=== PATIENT | female | born 1970 | race Caucasian/White ===

== ENCOUNTER 2023-10-06 11:14 | Outpatient (CLI) | payer OTHER, MEDICAID, SELFPAY ==
--- NOTE | 2023-10-06 11:20 | RAD_ITS ---
STUDY: X-RAY - RIGHT HAND REASON FOR EXAM: Female, 53 years old. Right hand nodule. TECHNIQUE: 3 views of the right hand. COMPARISON: None. FINDINGS: Normal radiocarpal articulation. Normal distal radioulnar joint. Normal visualized carpal bones. Normal carpal articulations Normal carpometacarpal articulation of the thumb. Normal second through fifth carpometacarpal joints. Normal metacarpi. Normal metacarpophalangeal joint of the thumb. Normal interphalangeal joint of the thumb. Normal proximal and distal phalanges of the thumb. Normal metacarpophalangeal joints of the second through fifth fingers. Normal proximal and distal interphalangeal joints of the second through fifth fingers. Normal phalanges of the second through fifth fingers. The soft tissue structures are unremarkable. There is no radiopaque mass or foreign body. RAD/Hand Min 3 Views IMPRESSION: No radiopaque mass or foreign body. MRI with skin marker localization could be performed for further evaluation. Electronically Signed: Zachary Del Rosario MD at 15:51 EDT ,
== END 2023-10-06 23:59 | disposition home or self-care (01) ==
LOC: RAD 11:16
PROVIDERS: PCP Nurse Practitioner Family; Referring Provider Surgery Plastic and Reconstructive Surgery; Visit Provider Surgery Plastic and Reconstructive Surgery
DX: M06.9 Rheumatoid arthritis, unspecified (principal)
CPT/HCPCS: 73130

== ENCOUNTER → 2023-11-08 | Outpatient (CLI) | payer MEDICAID, SELFPAY ==
--- NOTE | 2023-11-08 09:38 | US_ITS ---
INDICATION: rt wrist lump. Painful. EXAMINATION: Left upper extremity soft tissue ultrasound. Right upper extremity soft tissue ultrasound HISTORY: Nodules on the left elbow/forearm. Right wrist lump. COMPARISON: No relevant prior comparison study available TECHNIQUE: Routine and color duplex imaging performed at the left elbow/forearm as well as at the right wrist. FINDINGS: At the left elbow area of palpable abnormality there is a hypoechoic region measuring 1.7 x 0.8 x 0.7 cm. This is wider than tall, though the borders are somewhat ill-defined. No significant Doppler vascularity. This remains contained within the subcutaneous fat and does not extend into the musculature. The second area of palpable abnormality is also seen in the superficial tissues measuring 2.2 x 1.7 x 0.5 cm. This is also hypoechoic with irregular margins, appearing wider than tall. This also does not extend into the musculature and shows no Doppler vascularity. At the right wrist area of palpable abnormality there is a mixed echogenicity complex area measuring 2 cm, with hyperechoic and hypoechoic components, showing increased through transmission. No significant Doppler vascularity. US/Ext Non Vasc Limited/Soft Tiss IMPRESSION: Irregular regions in the areas of concern at the left elbow and right wrist, nonspecific in etiology. These are not fluid collections. These are also not vascular masses. No definite aggressive features, maintaining tissue planes. For definitive diagnosis, tissue sampling could be performed. MRI could also be performed to further evaluate. Electronically Signed: Kasi Arthur MD at 16:54 EDT ,
--- NOTE | 2023-11-08 09:38 | US_ITS ---
INDICATION: nodules on the left elbow/forearm. Right wrist lump. Painful. EXAMINATION: Left upper extremity soft tissue ultrasound. Right upper extremity soft tissue ultrasound HISTORY: Nodules on the left elbow/forearm. Right wrist lump. COMPARISON: No relevant prior comparison study available TECHNIQUE: Routine and color duplex imaging performed at the left elbow/forearm as well as at the right wrist. FINDINGS: At the left elbow area of palpable abnormality there is a hypoechoic region measuring 1.7 x 0.8 x 0.7 cm. This is wider than tall, though the borders are somewhat ill-defined. No significant Doppler vascularity. This remains contained within the subcutaneous fat and does not extend into the musculature. The second area of palpable abnormality is also seen in the superficial tissues measuring 2.2 x 1.7 x 0.5 cm. This is also hypoechoic with irregular margins, appearing wider than tall. This also does not extend into the musculature and shows no Doppler vascularity. At the right wrist area of palpable abnormality there is a mixed echogenicity complex area measuring 2 cm, with hyperechoic and hypoechoic components, showing increased through transmission. No significant Doppler vascularity. US/Ext Non Vasc Limited/Soft Tiss IMPRESSION: Irregular regions in the areas of concern at the left elbow and right wrist, nonspecific in etiology. These are not fluid collections. These are also not vascular masses. No definite aggressive features, maintaining tissue planes. For definitive diagnosis, tissue sampling could be performed. MRI could also be performed to further evaluate. Electronically Signed: Kasi Arthur MD at 16:54 EDT ,
== END | disposition home or self-care (01) ==
LOC: US 09:34
PROVIDERS: PCP Nurse Practitioner Family; Referring Provider Surgery Plastic and Reconstructive Surgery; Visit Provider Surgery Plastic and Reconstructive Surgery
DX: R22.33 Localized swelling, mass and lump, upper limb, bilateral (principal)
CPT/HCPCS: 76882

== ENCOUNTER → 2023-11-17 | Outpatient (CLI) | payer MEDICAID, SELFPAY ==
--- NOTE | 2023-11-17 | LES_PTH ---
PATIENT: TAD CHEW LOC: [facility] U#:[id number] AGE/SX: 53/F ROOM: RE11/17/[address]: JOMAR [place] : 1970 BED: DIS: 11/17/2023 SPEC #: [id number] RECD: 11/18/23 10:58 STATUS: TANIYA REBenja #: [id number] ELISA: 11/17/23 00:[address]: Lyla Kwok NP DEPT: SURGICAL PATHOLOGY RECD BY: Margarito Schumacher ENTERED: 11/18/23 10:59 SP TYPE: Lesion OTHR DR: JOMAR Darling Tissues: A - Skin of forearm, NOS B - Skin of forearm, NOS Procedures: Special Stain Group I Surgery Specimen Level IV AFB Stain (control) GMS Stain (control) HEADER OPERATION: Excision left forearm nodules PRE-OP DIAGNOSIS: Left forearm nodules TISSUE SUBMITTED: A- Posterior nodule- left forearm, B- Distal nodule- left forearm MICROSCOPIC DIAGNOSIS A. Left forearm, posterior nodule, excision: Palisaded necrotizing granulomas, consistent with rheumatoid nodules. See comment. B. Left forearm, distal nodule, excision: Palisaded necrotizing granulomas, consistent with rheumatoid nodules. See comment. 11/21/2023 COMMENT A & B. Special stains for acid fast bacilli and fungi are negative for organisms; matched controls are appropriate. Clinical correlation and appropriate follow up are necessary. Case has been reviewed in consultation with Dr. Mcdowell who concurs with the above diagnosis. IDC:AM MICROSCOPIC DESCRIPTION Slides are reviewed. GROSS DESCRIPTION A. Received in fixative is one container labeled with the patient's name and designated Posterior nodule left forearm. The specimen consists of a piece of estrada indurated tissue measuring 1.5 x 0.5 x 0.5cm. The specimen is bisected and submitted entirely in one cassette. B. Received in fixative is one container labeled with the patient's name and designated Distal nodule left forearm. The specimen consists of two pieces of estrada indurated tissue measuring in aggregate 1.5 x 0.5 x 0.5cm. The larger piece is bisected. The entire specimen is submitted in one cassette. SJAlphonso 11/18/2023 TC:5 CPT:[id number]
== END | disposition home or self-care (01) ==
PROVIDERS: PCP Nurse Practitioner Family; Referring Provider Nurse Practitioner Family; Visit Provider Nurse Practitioner Family
DX: M06.332 Rheumatoid nodule, left wrist (principal); M05.20 Rheumatoid vasculitis with rheumatoid arthritis of unspecified site; M67.40 Ganglion, unspecified site; R76.8 Other specified abnormal immunological findings in serum; F17.200 Nicotine dependence, unspecified, uncomplicated
CPT/HCPCS: 88305; 88312

== ENCOUNTER 2023-11-28 06:17 | Day surgery (SDC) | payer MEDICAID, SELFPAY ==
[2023-11-28] VITALS (7 sets, daily range): BP systolic 86–115; BP diastolic 62–83; PULSE 69–87; RESP 16; TEMP 36.6–36.7; O2SAT 96–100; BMI 29.4
[2023-11-28] MEDS: Lactated Ringers 1,000 ML 15 ML IV (06:34)
--- NOTE | 2023-11-28 06:39 | HP.PCM_ITS ---
History and Physical Date of Admission: 11/28/23 TAD CHEW, is a 53 F who presents to the office today for initial consult. *[facility] established 8.14.24 pt reports long hx of acid reflux and has a previous diagnosis of Mason's esophagus. Pt reports that about a year ago she began having difficulty eating due to recurrent thrush that leaves a bad taste in her mouth and when she does eat it upsets her stomach. Around the same time pt began having up to 6 bm per day; always diarrhea; denies blood in the stool. Pt reports constant lower abdominal pain; states that drinking white milk helps. Pt reports that she does not think pantoprazole has been effective and takes famotidine at night as needed and is unsure if it is helpful. Pt states her last EGD was in April or May of this year in [place]. ROS Const Constitutional: Positive for fatigue, headache(s) and weight change (weight loss and gain); No fever(s) ENT ENT: Positive for headache(s); No difficulty swallowing Gastro GI: Positive for abdominal pain, bloating, diarrhea, heartburn, excessive flatus and nausea/dyspepsia; No belching, change in bowel habits, change in stool character, coffee ground emesis, constipation, cramping, difficulty swallowing, feeling full early, incontinent of stools, Vomiting blood/hematemesis, Blood in stool, loose stools, Black,tarry stools, pain with swallowing, vomiting or other Musc Musculoskeletal: Positive for joint pain, back pain, joint swelling, muscle cramps, numbness, tingling, Arthritis, restless legs and leg pain at night Skin Skin: No yellowing of the eye or itchy eyes Neuro Neurology: Positive for headache(s), numbness, tingling and restless legs Psych Psychiatric: No anxiety and Positive for depression Endo Endocrine: Positive for fatigue and weight change (weight loss and gain) Aller/Imm Allergy/Immunologic: No itchy eyes Raymundo/Lymp Hematologic/Lymphatic: Positive for easy bleeding and easy bruising Exam Const General: cooperative and comfortable Nutritional Appearance: average body habitus and well nourished HENMT Head: normal to inspection Ears: hearing grossly normal bilaterally Nose: external nose normal Face and sinus: normal facial exam Mouth: oral mucosae normal Throat: posterior oropharynx normal Eyes General: appearance normal, both eyes and all related structures Neck Neck: normal visual inspection Chest Chest palpation & inspection: normal inspection of the chest and normal palpation of entire chest wall Resp Effort & Inspection: normal respiratory effort Auscultation: Bilateral: Clear to Auscultation Cardio Palpation: normal PMI Rate: regular rate Rhythm: regular rhythm GI Inspection: normal to inspection Auscultation: normal bowel sounds Percussion: normal to percussion Palpation: no hepatosplenomegaly Skin General: no rashes or lesions noted Neuro General: patient alert Extrem General: normal to inspection Psych Affect: normal affect Assessment and Plan Assessment and Plan (1) GERD (gastroesophageal reflux disease): Status: Acute Plan: Uncontrolled gastroesophageal reflux disease with Mason's esophagus and dysplasia. She says she has had 3 ablations. I need medical records to see if she has long segment or short segment Mason's esophagus. She said on her last upper endoscopy the Mason's esophagus was still there but I did not know if the dysplasia was still there. Continue PPI as previously ordered. (2) IBD (inflammatory bowel disease): Status: Acute Plan: She had a CT scan abdomen pelvis that showed inflammation in her bowels. I do not know if that is the small bowel or large bowel. As per the patient she has never been on any medicines for inflammatory bowel disease except for antibiotics. She does have diarrhea on a daily basis without food and she has nocturnal diarrhea. I am suspecting that is secretory diarrhea but infection needs to be ruled out along with fecal calprotectin, fecal elastase, fecal Stool culture and C. difficile. Once I have this information back then we will be able to give her better advice. She does take celecoxib for her rheumatoid arthritis. If she does have inflammatory bowel disease then she will have to change to a 9 NSAID medicine (3) Positive OBED (antinuclear antibody): Status: Acute Plan: As per the patient she also has positive OBED it is possibly secondary to inflammatory bowel disease versus her other inflammatory arthropathy secondary to rheumatoid arthritis. (4) Rheumatoid arthritis: Status: Acute Orders: Orders ANCA Today K52.9 - Noninfective gastroenteritis and colitis, unspecified, M06.9 - Rheumatoid arthritis, unspecified, R76.8 - Other specified abnormal immunolo gical findings in serum Celiac Disease Profile Today K52.9 - Noninfective gastroenteritis and colitis, unspecified, M06.9 - Rheumatoid arthritis, unspecified, R76.8 - Other specified abnormal immunological findings in serum CBC W/Diff, Automated Today K52.9 - Noninfective gastroenteritis and colitis, unspecified, M06.9 - Rheumatoid arthritis, unspecified, R76.8 - Other specified abnormal immunological findings in serum Comprehensive Metabolic Profil Today K52.9 - Noninfective gastroenteritis and colitis, unspecified, M06.9 - Rheumatoid arthritis, unspecified, R76.8 - Other specified abnormal immunological findings in serum CRP Today K52.9 - Noninfective gastroenteritis and colitis, unspecified, M06.9 - Rheumatoid arthritis, unspecified, R76.8 - Other specified abnormal immunological findings in serum Erythrocyte Sed Rate Today K52.9 - Noninfective gastroenteritis and colitis, unspecified, M06.9 - Rheumatoid arthritis, unspecified, R76.8 - Other specified abnormal immunological findings in serum LDH Today K52.9 - Noninfective gastroenteritis and colitis, unspecified, M06.9 - Rheumatoid arthritis, unspecified, R76.8 - Other specified abnormal immunological findings in serum Ferritin Today K52.9 - Noninfective gastroenteritis and colitis, unspecified, M06.9 - Rheumatoid arthritis, unspecified, R76.8 - Other specified abnormal immunological findings in serum Calprotectin, Stool Today K52.9 - Noninfective gastroenteritis and colitis, unspecified, M06.9 - Rheumatoid arthritis, unspecified, R76.8 - Other specified abnormal immunological findings in serum Uric Acid Today K52.9 - Noninfective gastroenteritis and colitis, unspecified, M06.9 - Rheumatoid arthritis, unspecified, R76.8 - Other specified abnormal immunological findings in serum Rheumatoid Factor Today K52.9 - Noninfective gastroenteritis and colitis, unspecified, M06.9 - Rheumatoid arthritis, unspecified, R76.8 - Other specified abnormal immunological findings in serum CCP IgG Antibodies Today K52.9 - Noninfective gastroenteritis and colitis, unspecified, M06.9 - Rheumatoid arthritis, unspecified, R76.8 - Other specified abnormal immunological findings in serum OBED Comprehensive Panel Today K52.9 - Noninfective gastroenteritis and colitis, unspecified, M06.9 - Rheumatoid arthritis, unspecified, R76.8 - Other specified abnormal immunological findings in serum Immunoglobulins G/A/M/E Today K52.9 - Noninfective gastroenteritis and colitis, unspecified, M06.9 - Rheumatoid arthritis, unspecified, R76.8 - Other specified abnormal immunological findings in serum RAMON + Protein Elect, Serum Today K52.9 - Noninfective gastroenteritis and colitis, unspecified, M06.9 - Rheumatoid arthritis, unspecified, R76.8 - Other specified abnormal immunological findings in serum Thyroid Stim Hormone (TSH) Today K52.9 - Noninfective gastroenteritis and colitis, unspecified, M06.9 - Rheumatoid arthritis, unspecified, R76.8 - Other specified abnormal immunological findings in serum Vitamin B12 Today K52.9 - Noninfective gastroenteritis and colitis, unspecified, M06.9 - Rheumatoid arthritis, unspecified, R76.8 - Other specified abnormal immunological findings in serum Vitamin D 1,25-Dihydroxy Today K52.9 - Noninfective gastroenteritis and colitis, unspecified, M06.9 - Rheumatoid arthritis, unspecified, R76.8 - Other specified abnormal immunological findings in serum Folates, (Folic Acid) Today K52.9 - Noninfective gastroenteritis and colitis, unspecified, M06.9 - Rheumatoid arthritis, unspecified, R76.8 - Other specified abnormal immunological findings in serum ENTERIC PATHOGEN PANEL STOOL Today K52.9 - Noninfective gastroenteritis and colitis, unspecified, K58.9 - Irritable bowel syndrome without diarrhea, M06.9 - Rheumatoid arthritis, unspecified, R76.8 - Other specified abnormal immunological findings in serum Stool Lactoferrin/WBC Today K52.9 - Noninfective gastroenteritis and colitis, unspecified, K58.9 - Irritable bowel syndrome without diarrhea, M06.9 - Rheumatoid arthritis, unspecified, R76.8 - Other specified abnormal immunological findings in serum CDIFF (PCR) Today K52.9 - Noninfective gastroenteritis and colitis, unspecified, M06.9 - Rheumatoid arthritis, unspecified, R76.8 - Other specified abnormal immunological findings in serum OVA+PARA w/Giardia EIA [id number] Today K52.9 - Noninfective gastroenteritis and colitis, unspecified, M06.9 - Rheumatoid arthritis, unspecified, R76.8 - Other specified abnormal immunological findings in serum Pancreatic Elastase, Fecal Today K52.9 - Noninfective gastroenteritis and colitis, unspecified, M06.9 - Rheumatoid arthritis, unspecified, R76.8 - Other specified abnormal immunological findings in serum Stool Occult Blood iFOB Today K52.9 - Noninfective gastroenteritis and colitis, unspecified, M06.9 - Rheumatoid arthritis, unspecified, R76.8 - Other specified abnormal immunological findings in serum Fecal Fat, Qualitative Today K52.9 - Noninfective gastroenteritis and colitis, unspecified, M06.9 - Rheumatoid arthritis, unspecified, R76.8 - Other specified abnormal immunological findings in serum Gastrin, Serum Today K52.9 - Noninfective gastroenteritis and colitis, unspecified, M06.9 - Rheumatoid arthritis, unspecified, R76.8 - Other specified abnormal immunological findings in serum Chromogranin A Today K52.9 - Noninfective gastroenteritis and colitis, unspecified, M06.9 - Rheumatoid arthritis, unspecified, R76.8 - Other specified abnormal immunological findings in serum IBD Expanded Profile Today K52.9 - Noninfective gastroenteritis and colitis, unspecified, M06.9 - Rheumatoid arthritis, unspecified, R76.8 - Other specified abnormal immunological findings in serum Gastric Emptying Study Today K52.9 - Noninfective gastroenteritis and colitis, unspecified, M06.9 - Rheumatoid arthritis, unspecified, R76.8 - Other specified abnormal immunological findings in serum HIV - [facility] Today K52.9 - Noninfective gastroenteritis and colitis, unspecified, M06.9 - Rheumatoid arthritis, unspecified, R76.8 - Other specified abnormal immunological findings in serum I have examined the patient and the H&P has been reviewed. There are no clinical changes since date of exam.
--- NOTE | 2023-11-28 06:44 | PCM.PRE.AN2 ---
ASA Classification* ASA Classification ASA Classification: 2 Assessment & Plan Anesthesia* Anesthesia Assessment Anesthesia Assessment: Discussed sedation and/or anesthesia options, risks, benefits, and alternatives with patient/parents/legal guardian/POA. Questions invited. The patient/parents/legal guardian/POA seems to understand and agrees to proceed with anesthesia plan. Reviewed the physical assessment, medical history, allergy history and patient home medications list prior to surgery/procedure/anesthetic and documented any changes. Performed airway and anesthesia risk assessments. Anesthesia Type Anesthesia Type: MAC Anesthesia Focused Assessment* Temperature: 97.8 F Pulse Rate: 87 Blood Pressure: 111/83 Respiratory Rate: 16 Pulse Ox: 100 Airway Assessment Mouth opens: >3 cm Mallampati Score: II Focused Labs Anesthesia Preop lab: CBC WBC 7.7 K/mm3 (4.4-11.0) 11/30/15 12:25 RBC 4.97 M/mm3 (4.2-5.4) 11/30/15 12:25 Hgb 14.8 g/dl (12.0-15.0) 11/30/15 12:25 Hct 42.5 % (37-47) 11/30/15 12:25 Plt Count 265 K/mm3 (150-450) 11/30/15 12:25 CHEMISTRY Potassium 3.8 mmol/L (3.5-5.1) 11/30/15 12:25 Sodium 138 mmol/L (136-145) 11/30/15 12:25 BUN 8 mg/dL (7-18) 11/30/15 12:25 Creatinine 0.84 mg/dL (0.55-1.20) 11/30/15 12:25 Glucose 106 mg/dL (70-110) 11/30/15 12:25 COAG Pre-Assessment Diagnosis/Proposed Procedure Planned Operative Procedure(s): CSCOPE Anesthesia History Anesthesia History - 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 When Was Last Pacemaker Check QUESTION #4 FULL TEXT: You/Your Family Experience fever (hyperthermia) with Anesthesia Last Oral Intake Last Oral intake: Last Oral Intake NPO since Meds taken in AM with sips of water? Meds patient instructed to take am of surgery PONV PONV - supervisor hand workers: PONV - supervisor hand workers Female Yes 11/24/23 09:39 HX of Motion Sickness Yes 11/24/23 09:39 HX of N/V After Surgery No 11/24/23 09:39 Non-Smoker No 11/24/23 09:39 Duration of Surgery greater No 11/24/23 09:39 than 60 minutes Number of Risk Factors 2 11/24/23 09:39 PONV Score Moderate Risk 11/24/23 09:39 Height & Weight Height & Weight: Anesthesia: Height & Weight Height 5 ft 6 in 11/28/23 06:31 Weight: 82.7 kg 11/28/23 06:31 Body Mass Index (BMI) 29.4 11/28/23 06:31 Respiratory Assessment Respiratory Assessment - supervisor hand workers: Respiratory Tract Infection Hx - supervisor hand workers Hx Respiratory Tract Infection No 11/24/23 09:39 STOP Sleep Apnea STOP Sleep Apnea - supervisor hand workers: STOP Sleep Apnea - supervisor hand workers Hx Hypertension No 11/24/23 09:39 Hx Sleep Apnea No 11/24/23 09:39 CPAP BIPAP Do you snore loudly (louder No 11/24/23 09:39 than talking or can be heard Do you often feel tired/ No 11/24/23 09:39 fatigued/ sleepy during daytime? Has anyone observed you stop No 11/24/23 09:39 breathing during sleep? STOP Results Negative 11/24/23 09:39 QUESTION #5 FULL TEXT : Do you snore loudly (louder than talking or can be heard through closed doors)? 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 Specify any problems Hx of Preganancy in last 3 N/A 11/24/23 09:39 Months Nurse Filling Out Transfusion NBUCHER 11/24/23 09:39 & Questions: Date: 11/24/23 11/24/23 09:39 Time: 09:41 11/24/23 09:39 Patient unable to answer at this time (ie. confused, unrespo /Reproduction History /Reproductive History - supervisor hand workers: /Reproductive Hx- supervisor hand workers Hx Now No 11/24/23 09:39 Gestational Age (in weeks): EDC: Hx Hx Para Hx Section SAB No 11/24/23 09:39 Active Medications Active Medications: Current Medications Generic Name Dose Route Start Last Admin Trade Name Freq PRN Reason Stop Dose Admin Lactated Ringer's 1,000 mls @ 15 mls/hr 11/28/23 06:30 11/28/23 06:34 IV 15 mls/hr .Q48H SHIRLENE Administration PFSH Medical History Post-menopausal No natural teeth Depression Easy bruising Migraine headache History of hiatal hernia History of Crohn's disease Leg cramps History of edema History of stress test History of cyst of breast History of rheumatoid arthritis History of irritable bowel syndrome Black tongue Barretts esophagus Tattoo granuloma Smoker Foreign body reaction to tattoo dyes GERD (gastroesophageal reflux disease) Benign breast cyst in female Back problem Arthritis Home Medications ?Medication ?Instructions ?Recorded ?Last Taken ?Type famotidine 20 mg tablet 20 mg PO BID 09/25/20 Unknown History pantoprazole 20 mg tablet,delayed 20 mg PO BID 09/25/20 Unknown History release albuterol sulfate 90 mcg/actuation 2 puff inhalation Q4-6H PRN 09/02/23 11/28/23 History aerosol inhaler shortness of breath or wheezing celecoxib 200 mg capsule 200 mg PO BID 09/02/23 Unknown History pramipexole 0.5 mg tablet 0.5 mg PO QHS 09/02/23 Unknown History trazodone 100 mg tablet 100 mg PO QHS PRN sleep 09/02/23 Unknown History hydroxychloroquine 400 mg tablet 400 mg PO BID 10/06/23 Unknown History Allergy/AdvReac Type Severity Reaction Status Date / Time Gadolinium-MRI Contrast Allergy Mild Rash Verified 11/24/23 10:45 Medium (contrast dye) Family History Sister Anxiety and depression Psychiatric care Suicide attempt Thyroid disorder Sister Anxiety and depression Brother Asthma Mother Anxiety and depression Diabetes Psychiatric care Suicide attempt Father Colon cancer Diabetes Hypertension Son defect Uncle History of blood transfusion Colon cancer Diabetes Aunt Diabetes Grandmother Diabetes Psychiatric care Grandmother Diabetes Surgical History History of elbow surgery History of esophagogastroduodenoscopy (EGD) History of colonoscopy History of appendectomy History of cholecystectomy Previous section Social History Smoking Status: Current every day smoker tobacco type: cigarettes Tobacco: How many years used: 40 alcohol intake: never substance use type: does not use caffeine: Yes Type: coffee Number of servings: 1 additional social history: Does Not Take Aspirin Does Not Take Ibuprofen denies vaping, denies marijuana use, denies edibles Review of Systems (Anesthesia) ROS Narrative System reviewed and no additional complaints, except as documented.
--- NOTE | 2023-11-28 07:00 | COLBX_PTH ---
PATIENT: TAD CHEW LOC: EN U#:[id number] AGE/SX: 53/F ROOM: RE11/28/[address]: Dr. Austin Nguyen DO : 1970 BED: DIS: 11/28/2023 SPEC #: [id number] RECD: 11/28/23 09:21 STATUS: TANIYA ANNIKA #: [id number] ELISA: 11/28/23 07:[address]: Austin Nguyen DEPT: SURGICAL PATHOLOGY RECD BY: Joycelyn Subramanian ENTERED: 11/28/23 11:01 SP TYPE: COLON BX OTHR DR: Karyn Deleon, DRILL RUNNER-C Tissues: Ileum, NOS Procedures: Surgery Specimen Level IV HEADER OPERATION: Colonoscopy with biopsy PRE-OP DIAGNOSIS: GERD, inflammatory bowel disease, positive OBED, rheumatoid arthritis TISSUE SUBMITTED: Terminal ileum biopsy MICROSCOPIC DIAGNOSIS Terminal ileum, biopsy: Fragments of small intestinal mucosa with extensive ulceration, acute and chronic inflammation and granulation tissue reaction. See comment. SJ.mr 11/29/2023 COMMENT Granulomas are not seen. Correlation with clinical, endoscopic findings and appropriate follow up are necessary. MICROSCOPIC DESCRIPTION Slides are reviewed. GROSS DESCRIPTION Received in fixative is one container labeled with the patient's name and designated Terminal ileum biopsy. The specimen consists of multiple irregular fragments of light estrada soft tissue that in aggregate measure 1.5 x 0.2 x 0.1 cm. The specimen is totally submitted in one cassette. 11/28/2023 TC:2 CPT:46825
--- NOTE | 2023-11-28 07:40 | PCM.POST.ANE ---
Anesthesia: Postop Eval I Current Vital Signs Temperature: 97.8 F Pulse Rate: 72 Blood Pressure: 115/62 Respiratory Rate: 16 Pulse Ox: 97 Oxygen Delivery Method: Room Air Assessment Airway patent: Yes Spontaneous unlabored respirations: Yes Mental status: Awake and Calm nausea: No Vomiting: No Anesthesia Complication: No Fluid Hydration Crystalloid volume administer (ml): 600 Total IV fluid infused: 600 Progress Note Anesthesia document: Postop Eval 1 completed: Yes
--- NOTE | 2023-11-28 07:45 | OP.COLON_ITS ---
Patient Name: Radha Grant Procedure Date: 11/28/2023 7:00 AM Date of : 1970 Age: 53 Procedure: Colonoscopy Indications: Generalized abdominal pain, Clinically significant diarrhea of unexplained origin Providers: Austin Nguyen DO Referring MD: Cailin Darling Medicines: Monitored Anesthesia Care Patient Profile: This is a 53 year old female. Refer to note in patient chart for documentation of history and physical. Last Colonoscopy: within the past 6 months. Complications: No immediate complications. Procedure: Pre-Anesthesia Assessment: - Prior to the procedure, a History and Physical was performed, and patient medications and allergies were reviewed. The patient is competent. The risks and benefits of the procedure and the sedation options and risks were discussed with the patient. All questions were answered and informed consent was obtained. Patient identification and proposed procedure were verified by the physician in the pre-procedure area. Mental Status Examination: alert and oriented. Airway Examination: normal oropharyngeal airway and neck mobility. Respiratory Examination: clear to auscultation. CV Examination: normal. Prophylactic Antibiotics: The patient does not require prophylactic antibiotics. Prior Anticoagulants: The patient has taken no anticoagulant or antiplatelet agents except for NSAID medication. ASA Grade Assessment: II - A patient with mild systemic disease. After reviewing the risks and benefits, the patient was deemed in satisfactory condition to undergo the procedure. The anesthesia plan was to use monitored anesthesia care (MAC). Immediately prior to administration of medications, the patient was re-assessed for adequacy to receive sedatives. The heart rate, respiratory rate, oxygen saturations, blood pressure, adequacy of pulmonary ventilation, and response to care were monitored throughout the procedure. The physical status of the patient was re-assessed after the procedure. After I obtained informed consent, the scope was passed under direct vision. Throughout the procedure, the patient's blood pressure, pulse, and oxygen saturations were monitored continuously. The colonoscope was introduced through the anus and advanced to the terminal ileum. The colonoscopy was performed without difficulty. The patient tolerated the procedure well. The quality of the bowel preparation was adequate. The terminal ileum, ileocecal valve, appendiceal orifice, and rectum were photographed. Scope In: 7:11:07 AM Scope Withdrawal Time 0 hours 11 minutes 48 seconds Scope Out: 7:30:38 AM Total Procedure Duration Time 0 hours 19 minutes 31 seconds Findings: The perianal and digital rectal examinations were normal. The colon (entire examined portion) appeared normal. Inflammation characterized by erosions, erythema and deep ulcerations was found in the terminal ileum. The inflammation was severe. Biopsies were taken with a cold forceps for histology. Verification of patient identification for the specimen was done. Estimated blood loss was minimal. The terminal ileum contained a benign-appearing, intrinsic severe stenosis measuring 5 cm (in length) x 3 mm (inner diameter) that was non-traversed. Impression: - The entire examined colon is normal. - Inflammatory bowel disease. Inflammation was found. This was severe. Biopsied. - Stricture in the terminal ileum. Recommendation: - Discharge patient to home. - Resume previous diet. - Continue present medications. - Await pathology results. - Repeat colonoscopy for surveillance based on pathology results. - MRI enterography - Prednisone 60mg per day - Check QuantiFERON gold and hepatitis profile in anticipation for Stelara therapy Procedure Code(s): --- Professional --- 09383, Colonoscopy, flexible; with biopsy, single or multiple CPT copyright 2021 [employer]. All rights reserved. The codes documented in this report are preliminary and upon civil engineering project manager review may be revised to meet current compliance requirements. Austin Nguyen DO 11/28/2023 7:44:51 AM This report has been signed electronically. Number of Addenda: 0 Note Initiated On: 11/28/2023 7:00 AM
--- NOTE | 2023-11-28 07:45 | OP.CCLET_ITS ---
11/28/2023 Cailin Darling Re : Colonoscopy procedure for Radha Deleon This procedure was performed on Tuesday, November 28, 2023. My impressions and recommendations are as follows: Impressions : - The entire examined colon is normal. - Inflammatory bowel disease. Inflammation was found. This was severe. Biopsied. - Stricture in the terminal ileum. Recommendations : - Discharge patient to home. - Resume previous diet. - Continue present medications. - Await pathology results. - Repeat colonoscopy for surveillance based on pathology results. - MRI enterography - Prednisone 60mg per day - Check QuantiFERON gold and hepatitis profile in anticipation for Stelara therapy My findings are described in the full procedure note, which is enclosed. If I can be of further assistance, please feel free to contact me at . Sincerely, Austin Nguyen, 11/28/2023 7:44:51 AM This report has been signed electronically.
--- NOTE | 2023-11-28 08:34 | PCM.POSTANE2 ---
Anesthesia Postop Eval I Sum Postop Eval Completion status Anesthesia document: Postop Eval 1 completed: Yes Anesthesia Postop Eval I Summary Anesthesia Postop Eval I Summary: Anesthesia Postop Eval I: Assessment Summary Airway patent Yes 11/28/23 07:40 [email or web address] Spontaneous unlabored Yes 11/28/23 07:40 [email or web address] respirations Mental status Awake,Calm 11/28/23 07:40 [email or web address] nausea No 11/28/23 07:40 [email or web address] Vomiting No 11/28/23 07:40 [email or web address] Anesthesia Postop Eval I: Fluid Summary Crystalloid volume administer 600 11/28/23 07:40 [email or web address] (ml) Colloids volume administered ( ml) Blood Product volume administered (ml) Total IV fluid infused 600 11/28/23 07:40 [email or web address] Anesthesia Postop Eval I: Summary Notes Anesthesia Complication No 11/28/23 07:40 [email or web address] Anesthesia Complication Comment: Post-operative progress note Anesthesia: Postop Eval II Evaluation Mental status: Awake Pain Level: 0 nausea: No Vomiting: No
== END 2023-11-28 08:09 | disposition home or self-care (01) ==
LOC: EN 06:19 → AC 06:19
PROVIDERS: PCP Nurse Practitioner Family; Referring Provider Nurse Practitioner Family; Visit Provider Internal Medicine Gastroenterology
PROC: 0DJD8ZZ Inspection of Lower Intestinal Tract, Via Natural or Artificial Opening Endoscopic (ICD-10-PCS; CPT 45378; principal; 2023-11-28 06:55)
DX: K63.3 Ulcer of intestine (principal); M06.9 Rheumatoid arthritis, unspecified; K56.699 Other intestinal obstruction unspecified as to partial versus complete obstruction; K21.9 Gastro-esophageal reflux disease without esophagitis; K22.719 Barrett's esophagus with dysplasia, unspecified; K52.9 Noninfective gastroenteritis and colitis, unspecified; R76.8 Other specified abnormal immunological findings in serum; Z79.899 Other long term (current) drug therapy; Z87.19 Personal history of other diseases of the digestive system; Z90.49 Acquired absence of other specified parts of digestive tract; F17.200 Nicotine dependence, unspecified, uncomplicated
CPT/HCPCS: 45380; 88305; J7120; J2405

== ENCOUNTER → 2024-03-19 | Outpatient (CLI) | payer MEDICAID, SELFPAY ==
--- NOTE | 2024-03-19 09:09 | MRI_ITS ---
EXAM: MR ABDOMEN AND PELVIS WITHOUT AND WITH INTRAVENOUS CONTRAST CLINICAL INDICATION: K52.9 - Noninfective gastroenteritis and colitis, unspecified TECHNIQUE: Multiplanar and multisequence MR images of the abdomen and pelvis without and with intravenous contrast. CONTRAST: 18 cc of Clariscan IV. Water was given as oral contrast. COMPARISON: CT scan of the abdomen and pelvis dated 09/17/2023 performed at [facility] in [place]. FINDINGS: LOWER THORAX: Unremarkable. No pleural effusion. ABDOMEN: LIVER: Unremarkable. Normal morphology. No focal mass. GALLBLADDER AND BILE DUCTS: Unremarkable. No gallstones. No gallbladder distention or wall edema. No intra- or extrahepatic biliary ductal dilation. PANCREAS: Unremarkable. No focal cystic or solid mass. SPLEEN: Unremarkable. Normal size without focal cystic or solid mass. ADRENALS: Unremarkable. No nodules. KIDNEYS AND URETERS: Unremarkable. Normal renal size and position. No hydronephrosis. STOMACH AND BOWEL: As was noted on the previous exam there are two separate areas of small bowel that demonstrate abnormal wall thickening. There is a very long segment of distal and terminal ileum measuring up to 30 cm in length and demonstrates wall thickening, narrowing of the lumen, hyperemia of the wall and mucosa postcontrast and adjacent mesenteric changes including engorgement of the vasa recta. There is a 2nd shorter segment measuring about 10 cm in length in small bowel more proximally seen anteriorly in the lower abdomen. PELVIS: APPENDIX: No evidence of acute appendicitis. BLADDER: Unremarkable. OVARIES: Unremarkable as visualized. No mass or complex cyst. UTERUS/CERVIX: Unremarkable. No mass. Endometrial stripe is normal in thickness and appearance. ABDOMEN and PELVIS: INTRAPERITONEAL SPACE: Unremarkable. No ascites or other fluid collection. VASCULATURE: Unremarkable. Abdominal aorta is non-dilated. LYMPH NODES: No enlarged lymph nodes. MRI/Enterography Abd/Pel IMPRESSION: Discontiguous segments of abnormal small bowel that demonstrate wall thickening, narrowing of the lumen, hyperemia of the mucosa and wall postcontrast and engorgement of the adjacent vasa recta. This includes a long segment of distal and terminal ileum measuring up to 30 cm and a shorter 10 cm segment of small bowel more proximally in the anterior abdomen. Findings are compatible with Crohn''s disease. No adjacent fluid collections. Electronically Signed: Jaziel Calderon MD at 22:42 EST ,
[2024-03-19 09:28] VITALS: BP 131/95; PULSE 118; RESP 18; O2SAT 198; BMI 31.9
[2024-03-19] MEDS: 0.9% Saline Lock 10 ML Syringe IV ×2 (09:40→11:15)
[2024-03-19] MEDS: Glucagon 1 MG/ML Syringe IV (11:01)
[2024-03-19 11:15] VITALS: BP 139/93; PULSE 110; RESP 18; O2SAT 96
== END | disposition home or self-care (01) ==
LOC: MRI 09:00
PROVIDERS: PCP Nurse Practitioner Family; Referring Provider Student in an Organized Health Care Education/Training Program; Visit Provider Student in an Organized Health Care Education/Training Program
DX: K52.9 Noninfective gastroenteritis and colitis, unspecified (principal)
CPT/HCPCS: 74183; 96374; A9575; A4216; J1610

== ENCOUNTER 2024-06-12 08:11 | Outpatient (CLI) | payer MEDICAID, SELFPAY ==
[2024-06-12 08:21] VITALS: BP 149/81; PULSE 103; RESP 16; TEMP 36.5; O2SAT 99; BMI 33.4
[2024-06-12] MEDS: 0.9% NaCl Peripheral Flush Adult IV (08:56)
[2024-06-12] MEDS: INFLIXIMAB DYYB IV (08:56)
[2024-06-12] MEDS: 0.9% NaCl IVPB Med Flush (100mL) 15 ML IV (08:56)
[2024-06-12] MEDS: NORMAL SALINE 0.9% IV (08:56)
== END 2024-06-12 23:59 | disposition home or self-care (01) ==
LOC: MEDOUTP 08:12
PROVIDERS: PCP Nurse Practitioner Family; Referring Provider Student in an Organized Health Care Education/Training Program; Visit Provider Student in an Organized Health Care Education/Training Program
DX: K50.90 Crohn's disease, unspecified, without complications (principal)
CPT/HCPCS: 96413; 96415; A4216; Q5103

== ENCOUNTER 2024-06-26 08:24 | Outpatient (CLI) | payer MEDICAID, SELFPAY ==
[2024-06-26 08:37] VITALS: BP 110/76; PULSE 94; RESP 16; TEMP 36.2; O2SAT 97; BMI 32.5
[2024-06-26] MEDS: 0.9% NaCl Peripheral Flush Adult IV (08:56)
[2024-06-26] MEDS: NORMAL SALINE 0.9% IV (09:31)
[2024-06-26] MEDS: INFLIXIMAB DYYB IV (09:31)
== END 2024-06-26 23:59 | disposition home or self-care (01) ==
LOC: MEDOUTP 08:25
PROVIDERS: PCP Nurse Practitioner Family; Referring Provider Student in an Organized Health Care Education/Training Program; Visit Provider Student in an Organized Health Care Education/Training Program
DX: K50.90 Crohn's disease, unspecified, without complications (principal)
CPT/HCPCS: 96413; 96415; A4216; Q5103

== ENCOUNTER 2024-07-27 08:51 | Outpatient (CLI) | payer MEDICAID, SELFPAY ==
[2024-07-27 09:14] VITALS: BP 110/74; PULSE 85; RESP 16; TEMP 36.4; O2SAT 98; BMI 32.3
[2024-07-27] MEDS: 0.9% NaCl Peripheral Flush Adult IV (09:49)
[2024-07-27] MEDS: NORMAL SALINE 0.9% IV (09:49)
[2024-07-27] MEDS: INFLIXIMAB DYYB IV (09:49)
[2024-07-27 13:28] VITALS: BP 120/71; PULSE 86; RESP 16; TEMP 36.3; O2SAT 96
== END 2024-07-27 23:59 | disposition home or self-care (01) ==
LOC: MEDOUTP 08:51
PROVIDERS: PCP Nurse Practitioner Family; Referring Provider Student in an Organized Health Care Education/Training Program; Visit Provider Student in an Organized Health Care Education/Training Program
DX: K50.90 Crohn's disease, unspecified, without complications (principal)
CPT/HCPCS: 96413; 96415; A4216; Q5103

== ENCOUNTER → 2024-08-24 | Outpatient (CLI) | payer MEDICAID, SELFPAY ==
[2024-08-24 10:48] LABS: Erythrocyte Sedimentation Rate 44 mm/hr (0-30)
[2024-08-24 10:53] LABS: Absolute Lymphocyte Count 2.38 X10^3/uL (0.83-4.51); Absolute Neutrophil Count 8.9 X10^3/uL (2.0-7.7); Basophil# 0.04 X10^3/uL; Basophil% 0.3 % (0-1); Eosinophil# 0.15 X10^3/uL; Eosinophils% 1.2 % (0-5); Hematocrit 44.1 % (37-47); Hemoglobin 14.7 g/dL (12.0-15.0); Lymphocyte # 2.38 X10^3/ul (0.83-4.51); Lymphocyte % 19.3 % (19-41); Mean Corp Hgb Conc 33.3 g/dL (32-36); Mean Corpuscular Hgb 26.2 pg (27.0-32.0); Mean Corpuscular Volume 78.6 fL (81-99); Mean Platelet Vol. 8.4 fl (6.2-12.0); Monocyte# 0.82 X10^3/uL; Monocyte% 6.6 % (0-10); NRBC Flagged by Analyzer 0 % (0-5); Neutrophil % 72.2 % (47-70); Platelet Count 411 K/mm3 (150-450); RBC Distribution Width CV 15.6 % (11.6-14.6); RBC Distribution Width SD 44.3 fl (35.1-43.9); Red Blood Count 5.61 M/mm3 (4.2-5.4); White Blood Count 12.3 K/mm3 (4.4-11.0)
[2024-08-24 11:24] LABS: ALB/GLOB Ratio 0.9 RATIO (0.9-2.4); AST(SGOT) 19 U/L (<=31); Alanine Aminotransfer ALT/SGPT 14 U/L (<=34); Albumin, Serum 3.8 g/dL (3.5-5.0); Alkaline Phosphatase 105 U/L (35-104); Anion Gap 12 (5-15); BUN 14 mg/dL (4-19); BUN/Creat Ratio 21.4 RATIO (10-20); Calcium,Total 9.4 mg/dL (7.6-11.0); Carbon Dioxide 20.4 mmol/L (21.0-32.0); Chloride 102 mmol/L (98-108); Creatinine, Serum 0.65 mg/dL (0.70-1.20); EST Glomerular Filtration Rate 103 (>60); Globulin 4.4 g/dL (2.2-4.2); Glucose 94 mg/dL (70-99); Potassium 4.4 mmol/L (3.3-5.1); Protein, Total 8.2 g/dL (5.9-8.4); Sodium Level 134 mmol/L (133-145); Total Bilirubin 0.24 mg/dL (0.00-1.30)
[2024-08-28 23:08] LABS: HEPATITIS B SURFACE AG Negative (Negative); Hep C Antibodies Non Reactive (Non Reactive); Hepatitis A IgM Antibody Negative (Negative); Hepatitis B Core AB IgM Negative (Negative)
== END | disposition home or self-care (01) ==
PROVIDERS: PCP Nurse Practitioner Family; Referring Provider Student in an Organized Health Care Education/Training Program; Visit Provider Student in an Organized Health Care Education/Training Program
DX: M06.9 Rheumatoid arthritis, unspecified (principal); K50.90 Crohn's disease, unspecified, without complications
CPT/HCPCS: 36415; 80053; 80074; 85025; 85652; 86140; 86480

== ENCOUNTER 2024-09-28 09:22 | Outpatient (CLI) | payer MEDICAID, SELFPAY ==
[2024-09-28 09:55] VITALS: BP 136/88; PULSE 100; RESP 16; TEMP 36.6; O2SAT 100; BMI 32.8
[2024-09-28] MEDS: 0.9% NaCl Peripheral Flush Adult IV (10:07)
[2024-09-28] MEDS: INFLIXIMAB DYYB IV (10:35)
[2024-09-28] MEDS: NORMAL SALINE 0.9% IV (10:35)
[2024-09-28] MEDS: 0.9% NaCl IVPB Med Flush (100mL) 15 ML IV (10:35)
--- OUTSIDE RECORDS SUMMARY | 2024-09-28 11:15 | XMS RPT_ITS | CCD ---
Author Organization [facility] Care Team Providers Care Night Custodian Name Role Phone RAMIRO GUPTA Unavailable Unavailable MYRANDA SORIANO Unavailable Unavailable Aron Soriano Primary Care Provider PAN DOYLE Referring Unavailable PAN DOYLE Primary Care Unavailable JAYANT EDWARDS Attending Unavail able JAYANT EDWARDS Attending Unavail able PAN DOYLE Primary Care Unavailable JAYANT EDWARDS Referring Unavail able REFERRING, CONNIE WO ID Attending Unavailable REFERRING, PHY WO ID Primary Care Unavailable ROSALES, MADISON T Primary Care Unavailable ROSALES MADISON T Attending Unavailable CONNIE, MADISON T Admitting Unavailable PAN DOYLE CNP Consulting Unavailable PROVIDER, UNKNOWN Consulting Unavailable PROVIDER, UNKNOWN Consulting Unavailable PAN DOYLE CNP Consulting Unavailable PAN DOYLE CNP Attending Unavailable PAN DOYLE CNP Primary Care Unavailable PAN DOYLE CNP Admitting Unavailable PROVIDER, UNKNOWN Consulting Unavailable PROVIDER, UNKNOWN Consulting Unavailable JYOTI MARTINEZ MD Attending Unavailable JYOTI MARTINEZ MD Admitting Unavailable PAN DOYLE CNP Consulting Unavailable JYOTI MARTINEZ MD Primary Care Unavailable PROVIDER, UNKNOWN Consulting Unavailable PROVIDER, UNKNOWN Consulting Unavailable PAN DOYLE CNP Consulting Unavailable PAN DOYLE CNP Attending Unavailable PAN DOYLE CNP Primary Care Unavailable PAN DOYLE CNP Admitting Unavailable PROVIDER, UNKNOWN Consulting Unavailable PROVIDER, UNKNOWN Consulting Unavailable PAN DOYLE CNP Consulting Unavailable PAN DOYLE CNP Attending Unavailable PAN DOYLE CNP Primary Care Unavailable PAN DOYLE CNP Admitting Unavailable PROVIDER, UNKNOWN Consulting Unavailable PROVIDER, UNKNOWN Consulting Unavailable PAN DOYLE CNP Consulting Unavailable VIVEK, PAN NOZZLE TENDER Attending Unavailable VIVEK, PAN NOZZLE TENDER Admitting Unavailable VIVEK, PAN NOZZLE TENDER Primary Care Unavailable PROVIDER, UNKNOWN Consulting Unavailable PROVIDER, UNKNOWN Consulting Unavailable VIVEK, PAN NOZZLE TENDER Consulting Unavailable VIVEK, PAN NOZZLE TENDER Attending Unavailable VIVEK, PAN NOZZLE TENDER Admitting Unavailable VIVEK, PAN NOZZLE TENDER Primary Care Unavailable PROVIDER, UNKNOWN Consulting Unavailable PROVIDER, UNKNOWN Consulting Unavailable VIVEK, PAN NOZZLE TENDER Consulting Unavailable VIVEK, PAN NOZZLE TENDER Attending Unavailable VIVEK, PAN NOZZLE TENDER Admitting Unavailable VIVEK, PAN NOZZLE TENDER Primary Care Unavailable PROVIDER, UNKNOWN Consulting Unavailable PROVIDER, UNKNOWN Consulting Unavailable FRIEND, SURJIT Attending Unavailable FRIEND, SURJIT Admitting Unavailable FRIEND, SURJIT Primary Care Unavailable VIVEK, PAN NOZZLE TENDER Consulting Unavailable PROVIDER, UNKNOWN Consulting Unavailable PROVIDER, UNKNOWN Consulting Unavailable FRIEND, SURJIT Attending Unavailable FRIEND, SURJIT Admitting Unavailable VIVEK, PAN NOZZLE TENDER Consulting Unavailable FRIEND, SURJIT Primary Care Unavailable PROVIDER, UNKNOWN Consulting Unavailable PROVIDER, UNKNOWN Consulting Unavailable NIRMALA JOHNSON Attending Unavailable NIRMALA JOHNSON Admitting Unavailable VIVEK PAN CADE Consulting Unavailable NIRMALA JOHNSON Primary Care Unavailable PROVIDER, UNKNOWN Consulting Unavailable PROVIDER, UNKNOWN Consulting Unavailable ROSALES, MADISON T Admitting Unavailable ROSALES, MADISON T Primary Care Unavailable VIVEKPAN BURCH NOZZLE TENDER Consulting Unavailable ROSALES, MADISON T Attending Unavailable PROVIDER, UNKNOWN Consulting Unavailable PROVIDER, UNKNOWN Consulting Unavailable ANASTACIA FIGUEROA MD Attending Unavailable ANASTACIA FIGUEROA MD Admitting Unavailable VIVEK PAN CADE Referring Unavailable VIVEK PAN CADE Consulting Unavailable ANASTACIA FIGUEROA MD Primary Care Unavailable PROVIDER, UNKNOWN Consulting Unavailable PROVIDER, UNKNOWN Consulting Unavailable Vivek CARIAS-CPan Primary Care Provider Nirmala Tejeda Attending Provider Nirmala Tejeda Referring Provider Pan Mann Referring Provider Pan Doyle CNP Primary Care Provider Vivek LUMBER ESTIMATOR-Pan [place] Primary Care Provider Nirmala Tejeda Attending Provider Nirmala Tejeda Referring Provider SCHOENBORN, SACHIN Referring Unavailable VIVEK, PAN D Primary Care Unavailable SCHOENBORN, SACHIN Attending Unavailable SCHOENBORN, SACHIN Referring Unavailable VIVEK, PAN D Primary Care Unavailable SCHOENBORN, SACHIN Attending Unavailable SCHOENBORN, SACHIN Attending Unavailable VIVEK, PAN D Primary Care Unavailable VIVEK, PAN D Primary Care Unavailable VIVEKPAN D Referring Unavailable MIKE GREY Attending Unavailable Friend DO, Dr. Avila Other Provider [phone] Vivek LUMBER ESTIMATOR, Pan Primary Care Unavailable Vivek LUMBER ESTIMATOR, Pan Referring Unavailable Siska, Jyoti Attending Unavailable Vivek LUMBER ESTIMATOR, Pan Primary Care Unavailable Vivek LUMBER ESTIMATOR, Pan Referring Unavailable Siska, Jyoti Attending Unavailable Vivek LUMBER ESTIMATOR, Pan Referring Unavailable Vivek LUMBER ESTIMATOR, Pan Primary Care Unavailable Atanasov, Nirmala Attending Unavailable Vivek LUMBER ESTIMATOR, Pan Primary Care Unavailable Vivek LUMBER ESTIMATOR, Pan Referring Unavailable Atanasov, Nirmala Attending Unavailable Vivek LUMBER ESTIMATOR, Pan Primary Care Unavailable Friend, Surjit Attending Unavailable Vivek LUMBER ESTIMATOR, Pan Primary Care Unavailable Friend, Surjit Referring Unavailable FriendSurjit Attending Unavailable Vivek LUMBER ESTIMATOR, Pan Primary Care Unavailable Atanasov, Nirmala Referring Unavailable Atanasov, Nirmala Attending Unavailable Vivek LUMBER ESTIMATOR, Pan Primary Care Unavailable Atanasov, Nirmala Referring Unavailable Atanasov, Nirmala Attending Unavailable Vivek LUMBER ESTIMATOR, Pan Primary Care Unavailable Atanasov, Nirmala Referring Unavailable Atanasov, Nirmala Attending Unavailable Vivek LUMBER ESTIMATOR, Pan Primary Care Unavailable Vivek LUMBER ESTIMATOR, Pan Referring Unavailable Siska, Jyoti Attending Unavailable Friend, Surjit Consulting Unavailable Vivek LUMBER ESTIMATOR, Pan Primary Care Unavailable Vivek LUMBER ESTIMATOR, Pan Referring Unavailable FriendSurjit Attending Unavailable Vivek LUMBER ESTIMATOR, Pan Primary Care Unavailable Vivek LUMBER ESTIMATOR, Pan Referring Unavailable Atanasov, Nirmala Attending Unavailable Vivek LUMBER ESTIMATOR, Pan Primary Care Unavailable Atanasov, Nirmala Attending Unavailable Vivek LUMBER ESTIMATOR, Pan Primary Care Unavailable Vivek LUMBER ESTIMATOR, Pan Referring Unavailable Siska, Jyoti Attending Unavailable Vivek LUMBER ESTIMATOR, Pan Primary Care Unavailable Vivek LUMBER ESTIMATOR, Pan Referring Unavailable Friend, Surjit Attending Unavailable Friend, Surjit Consulting Unavailable Vivek LUMBER ESTIMATOR, Pan Primary Care Unavailable Atanasov, Nirmala Referring Unavailable Atanasov, Nirmala Attending Unavailable Vivek LUMBER ESTIMATOR, Pan Primary Care Unavailable Nirmala Johnson Referring Unavailable Nirmala Johnson Attending Unavailable Vivek LUMBER ESTIMATOR, [facility] Primary Care Unavailable Jyoti Martinez Referring Unavailable Sispilar, Jyoti Attending Unavailable Siska, Jyoti Referring Unavailable Siska, Jyoti Attending Unavailable Vivek LUMBER ESTIMATOR, [facility] Primary Care Unavailable Rissa LUMBER ESTIMATOR, Lyla Mcpherson Referring Unavailabl e Vivek LUMBER ESTIMATOR, Pan Primary Care Unavailable Rissa LUMBER ESTIMATOR, Lyla Mcpherson Attending Unavailabl e Vivek LUMBER ESTIMATOR, Pan Referring Unavailable Vivek LUMBER ESTIMATOR, Pan Primary Care Unavailable Friend, Surjit Attending Unavailable Vivek LUMBER ESTIMATOR, Pan Referring Unavailable Vivek LUMBER ESTIMATOR, Pan Primary Care Unavailable Friend, Surjit Attending Unavailable Vivek LUMBER ESTIMATOR, [facility] Primary Care Unavailable Nirmala Johnson Referring Unavailable Nirmala Johnson Attending Unavailable Vivek LUMBER ESTIMATOR, [facility] Primary Care Unavailable Vivek LUMBER ESTIMATOR, Pan Referring Unavailable Nirmala Johnson Attending Unavailable Allergies Allergy Classification Reported Allergen(s) Allergy Type Date of Onset Reaction(s) Facility (3 sources) varenicline; Translations: [VARENICLINE] Drug Allergy 6 Other: See Comments, Other (See Comments) [facility] (1 source) CONTRAST MEDIA, IODINE RELATED Drug allergy (disorder) [facility] Repository (4 sources) Triiodobenzoic Acids Allergy to substance 5 [facility] (1 source) Iodinated Contrast Media Drug allergy (disorder) 5 [facility] Repository (1 source) Gadolinium-MRI Contrast Medium Drug allergy (disorder) 4 [facility] Repository Medications Current Medications Medication Drug Class(es) Dates Sig (Normalized) Sig (Original) [id number] 200 actuat albuterol 0.09 mg/actuat metered dose inhaler (4 sources) beta2-Adrenergic Agonist Start: 09-02-2023 Albuterol Sulfate 90 mcg/actuation HFA aerosol inhaler Active 2 NMA INHALATION EVERY 4-6 HOURS as needed for shortness of breath or wheezing September 02, 2023 12:00am amitriptyline hydrochloride 50 mg oral tablet (2 sources) Tricyclic Antidepressant Start: 08-24-2024 take 1 tablet by mouth at bedtime Amitriptyline 50 mg tablet Active 50 mg PO AT BEDTIME August 24, 2024 12:00am atenolol 50 mg oral tablet (1 source) beta-Adrenergic Cooper Start: 05-07-2015 take 1 tablet by mouth once daily atenolol (TENORMIN) 50 MG tablet Take 1 tablet by mouth daily. 30 tablet 5 05/07/2015 Active esomeprazole 40 mg delayed release oral capsule (1 source) Proton Pump Inhibitor Start: 05-07-2015 take 1 capsule by mouth twice daily before mealtime esomeprazole (NEXIUM) 40 MG capsule Take 1 capsule by mouth 2 times daily (before meals). 60 capsule 2 05/07/2015 Active famotidine 20 mg oral tablet (4 sources) Histamine-2 Receptor Antagonist Start: 09-25-2020 take 1 tablet by mouth twice daily Famotidine 20 mg tablet Active 20 mg PO TWICE A DAY September 25, 2020 12:00am ondansetron 4 mg disintegrating oral tablet (12 sources) Serotonin-3 Receptor Antagonist Start: 03-06-2024 take 1 tablet by mouth every eight hours Ondansetron 4 mg tablet,disintegrat ing Active 4 mg PO Q8H 20 May 04, 2024 1:00am Start: 09-02-2023 End: 11-24-2023 take 1 tablet by mouth every eight hours Ondansetron Hcl 8 mg tablet Discontinued 8 mg PO Q8H September 02, 2023 12:00am November 24, 2023 9:36am pantoprazole 40 mg delayed release oral tablet (7 sources) Proton Pump Inhibitor Start: 08-24-2024 take 1 tablet by mouth once daily Pantoprazole 40 mg tablet,delayed release (DR/EC) Active 40 mg PO daily 90 2 August 24, 2024 12:00am Start: 09-25-2020 take 1 tablet by arjun th twice daily Pantoprazole 20 mg tablet,delayed release (DR/EC) Active 20 mg PO TWICE A DAY September 25, 2020 12:00am Start: 02-11-2016 take 1 tablet by arjun th twice daily pantoprazole DR (PROTONIX) 40 mg tablet Take 1 tablet by mouth twice daily. 90 tablet 0 02/11/2016 Active Comment on above: Take 1 tablet by arjun th twice daily. pramipexole dihydrochloride 1 mg oral tablet (6 sources) Nonergot Dopamine Agonist Start: take 1 tablet by mouth once daily Pramipexole 1 mg tablet Active 1 mg PO daily August 24, 2024 12:00am Start: 09-02-2023 End: 08-24-2024 take 1 tablet by mouth at bedtime Pramipexole 0.5 mg tablet Discontinued 0.5 mg PO AT BEDTIME September 02, 2023 12:00am August 24, 2024 9:39am traZODone hydrochloride 100 mg oral tablet (8 sources) Serotonin Reuptake Inhibitor Start: 03-19-2024 take 1 tablet by mouth at bedtime Trazodone 100 mg tablet Active 100 mg PO AT BEDTIME March 19, 2024 1:00am Start: 09-02-2023 End: 12-15-2023 take 1 tablet by mouth at bedtime as needed for sleep Trazodone 100 mg tablet Discontinued 100 mg PO AT BEDTIME as needed for sleep September 02, 2023 12:00am December 15, 2023 11:19am Completed/Discontinued Medications Medication Drug Class(es) Dates Sig (Normalized) Sig (Original) 12 hr buPROPion hydrochloride 150 mg extended release oral tablet (5 sources) Aminoketone Start: 12-15-2023 End: 06-12-2024 take 1 tablet by mouth once daily Bupropion Hcl (Wellbutrin Sr) 150 mg tablet sustained-release 12 hr Discontinued 150 mg PO daily December 15, 2023 12:00am June 12, 2024 8:20am take 1 tablet by mouth once lance y buPROPion XL (WELLBUTRIN XL) 150 mg 24 hr tablet Take 150 mg by mouth once daily. 0 Active Comment on above: Take 150 mg by mouth once daily. celecoxib 200 mg oral capsule (4 sources) Nonsteroidal Anti-inflammatory Drug Start : 09-01 End: 12-14 take 1 capsule by mouth twice daily Celecoxib 200 mg capsule Discontinued 200 mg PO TWICE A DAY September 02, 2023 12:00am December 15, 2023 10:38am cephalexin 500 mg oral capsule (4 sources) Cephalosporin Antibacterial Start : 11-16 End: 11-23 take 1 capsule by mouth three times daily Cephalexin 500 mg capsule Discontinued 500 mg PO THREE TIMES A DAY 21 7 0 November 17, 2023 12:00am November 23, 2023 12:00am November 24, 2023 12:07am dicyclomine hydrochloride 20 mg oral tablet (8 sources) Anticholinergic Start : 11-27 End: 03-19 take 1 tablet by mouth three times daily as needed for pain Dicyclomine 20 mg tablet Discontinued 20 mg PO THREE TIMES A DAY as needed for abdominal pain 90 3 December 15, 2023 12:49pm March 19, 2024 10:24am hydroxychloroquine sulfate 400 mg oral tablet (4 sources) Antimalarial, Antirheumatic Agent Start : 10-05 End: 03-19 take 1 tablet by mouth twice daily Hydroxychloroquine 400 mg tablet Discontinued 400 mg PO TWICE A DAY October 06, 2023 12:00am March 19, 2024 10:27am hyoscyamine sulfate 0.125 mg oral tablet (8 sources) Start : 01-04 End: 03-19 Hyoscyamine Sulfate 0.125 mg tablet Discontinued 0.125 mg PO 2 to 4 times per day as needed for abdominal pain 30 February 27, 2024 1:54pm March 19, 2024 10:25am lidocaine hydrochloride 20 mg/ml mucous membrane topical solution (1 source) Antiarrhythmic, Amide Local Anesthetic Start : 05-31 take 5 mL by mouth every four hours as needed lidocaine viscous (XYLOCAINE) 2 % solution Take 5 mL by mouth every 4 hours as needed for Pain. Dilute 1 teaspoon of Lidocaine with 1 Tablespoon of water and swallow. 100 mL 2 05/31/2016 Active Comment on above: Take 5 mL by mouth e very 4 hours as needed for Pain. Dilute 1 teaspoon of Lidocaine with 1 Tablespoon of water and swallow. mesalamine 1200 mg delayed release oral tablet (8 sources) Aminosalicylate Start : 03-22 End: 04-21 take 2 tablets by mouth once daily Mesalamine 1.2 gram tablet,delayed release (DR/EC) Discontinued 2.4 g PO daily 60 30 0 March 22, 2024 1:00am April 20, 2024 1:00am April 21, 2024 1:21am Start: 01-17-2024 End: 03-13-2024 take 2 tablets by mouth once daily Mesalamine 1.2 gram tablet,delayed release (DR/EC) Discontinued 2.4 g PO daily 112 56 0 January 17, 2024 1:00am March 12, 2024 1:00am March 13, 2024 1:09am naproxen 500 mg oral tablet (4 sources) Nonsteroidal Anti-inflammatory Drug Start: 11-30-2015 End: 07-30-2020 take 1 tablet by mouth twice daily as needed Naproxen 500 MG tablet Discontinued 500 mg PO TWICE DAILY NEEDED November 30, 2015 12:00am July 30, 2020 1:13pm predniSONE 20 mg oral tablet (8 sources) Start: 12-15-2023 End: 03-19-2024 take 1 tablet by mouth once daily Prednisone 20 mg tablet Discontinued 20 mg PO daily December 15, 2023 12:00am March 19, 2024 10:26am Start: 11-28-2023 End: 03-19-2024 take 3 tablets by mouth once daily Prednisone 20 mg tablet Discontinued 60 mg PO daily 270 90 3 November 28, 2023 12:00am March 19, 2024 10:26am rifAXIMin 550 mg oral tablet (4 sources) Rifamycin Antibacterial Start: 09-02-2023 End: 11-24-2023 take 1 tablet by mouth three times daily Rifaximin (Xifaxan) 550 mg tablet Discontinued 550 mg PO THREE TIMES A DAY September 02, 2023 12:00am November 24, 2023 9:37am Salmeterol (4 sources) beta2-Adrenergic Agonist Start: 09-02-2023 End: 11-24-2023 take 50 ug by inhalation twice daily Salmeterol (Serevent Diskus) 50 mcg/dose blister with device Discontinued 1 NMA INHALATION TWICE A DAY September 02, 2023 12:00am November 24, 2023 9:37am sucralfate 1000 mg oral tablet (1 source) Aluminum Complex Start: 03-11-2016 sucralfate (CARAFATE) 1 gram tablet 1 tablet before meals and at bedtime. Place tablet in 4 oz. of water, drink the dissolved tablet. 56 tablet 1 03/11/2016 Active Comment on above: 1 tablet before meal s and at bedtime. Place tablet in 4 oz. of water, drink the dissolved tablet. tiZANidine 4 mg oral capsule (4 sources) Central alpha-2 Adrenergic Agonist Start: 05-04-2024 End: 06-12-2024 take 1 capsule by mouth at bedtime as needed Tizanidine 4 mg capsule Discontinued 4 mg PO AT BEDTIME as needed May 04, 2024 1:00am June 12, 2024 8:21am varenicline 1 mg oral tablet (4 sources) Partial Cholinergic Nicotinic Agonist Start: 07-30-2020 End: 11-24-2023 take 1 tablet by mouth twice daily Varenicline Tartrate (Chantix) 1 mg tablet Discontinued 1 mg PO TWICE A DAY July 30, 2020 12:00am November 24, 2023 9:37am Problems Active Problems Problem Classification Problem Date Documented Da te Episodic/Chronic Abdominal pain (4 sources) Abdominal pain; Translations: [Unspecified abdominal pain] 09-02-2023 Episodic Adjustment disorders (4 sources) Reactive depression (situational); Translations: [Adjustment disorder with depressed mood] 09-02-2023 Chronic Cardiac dysrhythmias (1 source) Cardiac arrhythmia, unspecified; Translations: [Cardiac arrhythmia, unspecified] Onset: 11-09-2023 Chronic Cardiac dysrhythmias (1 source) Palpitations; Translations: [Palpitations] Onset: 11-23-2023 Episodic Esophageal disorders (18 sources) Akers's esophagus without dysplasia; Translations: [Gastro-esophageal reflux disease without esophagitis] Onset: 09-08-2022 09-02-2023 Chronic Inflammation; infection of eye (except that caused by tuberculosis or sexually transmitteddisease) (4 sources) Blepharitis; Translations: [Unspecified blepharitis unspecified eye, unspecified eyelid] 09-02-2023 Episodic Malaise and fatigue (5 sources) Other fatigue; Translations: [Fatigue] Onset: 11-09-2023 09-02-2023 Episodic Mycoses (1 source) Tinea unguium; Translations: [Tinea unguium] Onset: 08-07-2024 Episodic Noninfectious gastroenteritis (9 sources) Noninfective gastroenteritis and colitis, unspecified; Translations: [Inflammatory bowel disease] Onset: 10-20-2023 Episodic Osteoarthritis (8 sources) Arthritis; Translations: [Unspecified osteoarthritis, unspecified site] 07-30-2020 Chronic Other connective tissue disease (4 sources) Ganglion cyst; Translations: [Ganglion, unspecified site] 09-02-2023 Episodic Other connective tissue disease (2 sources) Pain in left foot; Translations: [Pain in left foot] 07-03-2024 Episodic Other connective tissue disease (1 source) Calcaneal spur of left foot; Translations: [Calcaneal spur, left foot] 07-03-2024 Episodic Other connective tissue disease (1 source) Plantar fascial fibromatosis; Translations: [Plantar fascial fibromatosis] Onset: 08-07-2024 Episodic Other connective tissue disease (1 source) Pain in left foot; Translations: [Pain in left foot] Onset: 07-03-2024 Episodic Other connective tissue disease (1 source) Calcaneal spur, left foot; Translations: [Calcaneal spur, left foot] Onset: 07-03-2024 Episodic Other gastrointestinal disorders (4 sources) Diarrhea; Translations: [Diarrhea, unspecified] 09-02-2023 Episodic Other hereditary and degenerative nervous system conditions (4 sources) Restless legs; Translations: [Restless legs syndrome] 09-02-2023 Chronic Other lower respiratory disease (1 source) Other forms of dyspnea; Translations: [RG (dyspnea on exertion)] Onset: 09-08-2022 Episodic Other lower respiratory disease (1 source) Shortness of breath; Translations: [Shortness of breath] Onset: 11-09-2023 Episodic Other non-traumatic joint disorders (2 sources) Acute ankle pain; Translations: [Pain in left ankle and joints of left foot] 07-03-2024 Episodic Other non-traumatic joint disorders (1 source) Pain in left ankle and joints of left foot; Translations: [Pain in left ankle and joints of left foot] Onset: 07-03-2024 Episodic Other nutritional; endocrine; and metabolic disorders (1 source) Other obesity due to excess calories; Translations: [Class 2 obesity due to excess calories without serious comorbidity with body mass index (BMI) of 35.0 to 35.9 in adult] Onset: 08-23-2022 Chronic Other nutritional; endocrine; and metabolic disorders (1 source) Body mass index (BMI) 35.0-35.9, adult; Translations: [Class 2 obesity due to excess calories without serious comorbidity with body mass index (BMI) of 35.0 to 35.9 in adult] Onset: 08-23-2022 Chronic Other nutritional; endocrine; and metabolic disorders (1 source) Morbid (severe) obesity due to excess calories; Translations: [Morbid (severe) obesity due to excess calories] Onset: 11-23-2023 Chronic Other nutritional; endocrine; and metabolic disorders (4 sources) Morbid obesity; Translations: [Morbid (severe) obesity due to excess calories] 09-02-2023 Chronic Other screening for suspected conditions (not mental disorders or infectious disease) (8 sources) Encounter for screening for diseases of the blood and blood-forming organs and certain disorders involving the immune mechanism; Translations: [Encounter for screening for lipoid disorders] Onset: 10-20-2023 Episodic Other skin disorders (8 sources) Tattoo granuloma; Translations: [Foreign body granuloma of the skin and subcutaneous tissue] 09-27-2020 Episodic Comment on above: right lateral leg by ankle Other skin disorders (1 source) Localized swelling, mass and lump, upper limb, bilateral; Translations: [Localized swelling, mass and lump, upper limb, bilateral] Onset: 08-28-2024 Episodic Regional enteritis and ulcerative colitis (11 sources) Crohn's disease; Translations: [Crohn's disease, unspecified, without complications] Onset: 08-24-2024 04-17-2024 Chronic Residual codes; unclassified (1 source) Tobacco use; Translations: [Tobacco use] Onset: 08-23-2022 Episodic Residual codes; unclassified (1 source) Pallor; Translations: [Pallor] Onset: 11-09-2023 Episodic Residual codes; unclassified (4 sources) Insomnia; Translations: [Insomnia, unspecified] 09-02-2023 Episodic Rheumatoid arthritis and related disease (20 sources) Rheumatoid arthritis, unspecified; Translations: [Rheumatoid arthritis] Onset: 10-21-2023 10-06-2023 Chronic Spondylosis; intervertebral disc disorders; other back problems (1 source) Spondylosis without myelopathy or radiculopathy, cervical region; Translations: [SPONDYLOSIS W/O MYELOPATHY OR RADICULOPATHY, CERVICAL REGION] Onset: 03-21-2017 Chronic Spondylosis; intervertebral disc disorders; other back problems (4 sources) Back problem; Translations: [Dorsopathy, unspecified] 07-30-2020 Episodic Substance-related disorders (4 sources) Smoker; Translations: [Nicotine dependence, unspecified, uncomplicated] 09-27-2020 Chronic Past or Other Problems Problem Classification Problem Date Documented Date Episodic/Chronic Administrative/social admission (1 source) Encounter for other administrative examinations; Translations: [ENCOUNTER FOR OTHER ADMINISTRATIVE EXAMINATIONS] Onset: 03-21-2017 Episodic Immunizations and screening for infectious disease (6 sources) Other specified abnormal immunological findings in serum; Translations: [Anti-nuclear factor positive] Onset: 10-12-2023 09-02-2023 Episodic Results Test Name Value Interpretation Reference Range Facility Hepatitis Panel Acuteon 07-0 COMMENT Comment Normal . [facility] Comment on above: Result Comment: Not infected with HCV unless early or acute infection is suspected (which may be delayed in an immunocompromised individual), or other evidence exists to indicate HCV infection. Performed at: [facility] [id number] Echocardiograph Tech: Dionicio Buenrostro PhD, Phone: [phone] Performed By: #### L 100.0100, L101.9900, L501.6710, L3400.8000, L3000.0375, L500.4050 ####[facility] [id number] [place], [place], [id number] HEP B CORE,IgM Negative Normal Negative [facility] Comment on above: Performed By: #### L 100.0100, L101.9900, L501.6710, L3400.8000, L3000.0375, L500.4050 ####[facility] [address] [place], [place], [phone] HEP B SURF AG Negative Normal Negative [facility] Comment on above: Performed By: #### L 100.0100, L101.9900, L501.6710, L3400.8000, L3000.0375, L500.4050 ####[facility] [address] [place], [place], [phone] HEP C VIRUS AB Non-Reactive Normal Non Reactive [facility] Comment on above: Performed By: #### L 100.0100, L101.9900, L501.6710, L3400.8000, L3000.0375, L500.4050 ####[facility] [address] [place], [address] HEPATITIS A-IgM Negative Normal Negative [facility] Comment on above: Result Comment: A ne gative anti-HAV IgM result suggests no recent or current HAV infection. Performed By: #### L 100.0100, L101.9900, L501.6710, L3400.8000, L3000.0375, L500.4050 ####[facility] [address] [place], [address] Quantiferon TB-Gold+on 08-28 QFT MITOGEN SHANTEL TNP Normal . [facility] Comment on above: Result Comment: Test not performed Performed By: #### L 100.0100, L101.9900, L501.6710, L3400.8000, L3000.0375, L500.4050 ####[facility] [address] [place], [address] QFT NIL VALUE TNP Normal . [facility] Comment on above: Result Comment: Test not performed Performed By: #### L 100.0100, L101.9900, L501.6710, L3400.8000, L3000.0375, L500.4050 ####[facility] [address] [place], [address] QFT TB GOLD+ Comment Normal . [facility] Comment on above: Result Comment: Braulio tiFERON-TB Gold Plus is a qualitative indirect test for M tuberculosis infection (including disease) and is intended for use in conjunction with risk assessment, radiography, and other medical and diagnostic evaluations. The QuantiFERON-TB Gold Plus result is determined by subtracting the Nil value from either TB antigen (Ag) value. The Mitogen tube serves as a control for the test. Performed By: #### L 100.0100, L101.9900, L501.6710, L3400.8000, L3000.0375, L500.4050 ####[facility] [address] [place], [address] QFT TB POS CRIT TNP Normal . [facility] Comment on above: Result Comment: Test not performed. Insufficient specimen to perform or complete analysis. The specimen received for QuantiFERON testing was incubated by the ordering institution. Specific procedures outlined in our Directory of Services and in the package insert for the QuantiFERON Gold (In Tube) test must be followed to enable for proper stimulation of cells for the production of interferon gamma. Chemiluminescence immunoassay methodology Performed By: #### L 100.0100, L101.9900, L501.6710, L3400.8000, L3000.0375, L500.4050 ####[facility] [address] [place], [address] QFT TB1+ AG SHANTEL TNP Normal . [facility] Comment on above: Result Comment: Test not performed Performed By: #### L 100.0100, L101.9900, L501.6710, L3400.8000, L3000.0375, L500.4050 ####[facility] [address] [place], [address] QFT TB2+ AG SHANTEL TNP Normal . [facility] Comment on above: Result Comment: Test not performed Performed By: #### L 100.0100, L101.9900, L501.6710, L3400.8000, L3000.0375, L500.4050 ####[facility] [address] [place], [address] Absolute lymphocyte countOrd ered By: Nirmala Johnson on 08-24-2024 Lymphocytes Auto (Unsp spec) [#/Vol] 2.38 10*3/uL 0.83-4.51 [facility] Absolute neutrophil countOrd ered By: Nirmala Johnson on 08-24-2024 Neutrophils (Bld) [#/Vol] 8.9 10*3/uL High 2.0-7.7 [facility] Anion gap in Serum or Plasma Ordered By: Nirmala Johnson on 08-24-2024 Anion gap [Moles/Vol] 12 mmol/L 5-15 [facility] Automated lymphocyte count a s percentage of total leukocytesOrdered By: Nirmala Johnson on 08-24-2024 Lymphocytes/100 WBC Auto (Unsp spec) 19.3 % 19-41 [facility] BUN/creatinine ratioOrdered By: Nirmala Johnson on 08-24-2024 Urea nitrogen/Creatinine [Mass ratio] 21.4 mg/mg High 10-20 [facility] Basophil percentageOrdered B y: Nirmala Johnson on 08-24-2024 Basophils/100 WBC (Bld) 0.3 % 0-1 [facility] Bilirubin, totalOrdered By: Nirmala Johnson on 08-24-2024 Bilirubin [Mass/Vol] 0.24 mg/dL 0.00-1.30 [facility] CBC W/Diff, Automatedon 07-30 Absolute Lymph 2.38 X10 3/uL Normal 0.83-4.51 [facility] Comment on above: Performed By: #### L 100.0100, L101.9900, L501.6710, L3400.8000, L3000.0375, L500.4050 ####[facility] [address] [facility] [address] Absolute Neut 8.9 X10 3/uL High 2.0-7.7 [facility] Comment on above: Performed By: #### L 100.0100, L101.9900, L501.6710, L3400.8000, L3000.0375, L500.4050 ####[facility] [address] [facility] [address] Basophils/100 WBC (Bld) 0.3 % Normal 0-1 [facility] Comment on above: Performed By: #### L 100.0100, L101.9900, L501.6710, L3400.8000, L3000.0375, L500.4050 ####[facility] [address] [place], [address] Eosinophils/100 WBC (Bld) 1.2 % Normal 0-5 [facility] Comment on above: Performed By: #### L 100.0100, L101.9900, L501.6710, L3400.8000, L3000.0375, L500.4050 ####[facility] [address] [place], [address] Erythrocyte distribution width (RBC) [Ratio] 15.6 % High 11.6-14.6 [facility] Comment on above: Performed By: #### L 100.0100, L101.9900, L501.6710, L3400.8000, L3000.0375, L500.4050 ####[facility] [address] [place], [address] Hematocrit (Bld) [Volume fraction] 44.1 % Normal 37-47 [facility] Comment on above: Performed By: #### L 100.0100, L101.9900, L501.6710, L3400.8000, L3000.0375, L500.4050 ####[facility] [address] [place], [address] Hemoglobin (Bld) [Mass/Vol] 14.7 g/dL Normal 12.0-15.0 [facility] Comment on above: Performed By: #### L 100.0100, L101.9900, L501.6710, L3400.8000, L3000.0375, L500.4050 ####[facility] [address] [place], [address] IG% 0.400 Normal 0.0-0.9 [facility] Comment on above: Result Comment: IG% - Immature Granulocytes (promyelocytes, myelocytes and metamyelocytes) > 1% indicates that a LEFT SHIFT is Present. Performed By: #### L 100.0100, L101.9900, L501.6710, L3400.8000, L3000.0375, L500.4050 ####[facility] [address] [place], [address] Lymphocytes/100 WBC (Bld) 19.3 % Normal 19-41 [facility] Comment on above: Performed By: #### L 100.0100, L101.9900, L501.6710, L3400.8000, L3000.0375, L500.4050 ####[facility] [address] [place], [address] MCH (RBC) [Entitic mass] 26.2 pg Low 27.0-32.0 [facility] Comment on above: Performed By: #### L 100.0100, L101.9900, L501.6710, L3400.8000, L3000.0375, L500.4050 ####[facility] [address] [place], [address] MCHC (RBC) [Mass/Vol] 33.3 g/dL Normal 32-36 [facility] Comment on above: Performed By: #### L 100.0100, L101.9900, L501.6710, L3400.8000, L3000.0375, L500.4050 ####[facility] [address] [place], [address] MCV (RBC) [Entitic vol] 78.6 fL Low 81-99 [facility] Comment on above: Performed By: #### L 100.0100, L101.9900, L501.6710, L3400.8000, L3000.0375, L500.4050 ####[facility] [address] [place], [address] Monocytes/100 WBC (Bld) 6.6 % Normal 0-10 [facility] Comment on above: Performed By: #### L 100.0100, L101.9900, L501.6710, L3400.8000, L3000.0375, L500.4050 ####[facility] [address] [place], [address] Neutrophils/100 WBC (Bld) 72.2 % High 47-70 [facility] Comment on above: Performed By: #### L 100.0100, L101.9900, L501.6710, L3400.8000, L3000.0375, L500.4050 ####[facility] [address] [place], [address] Nucleated RBC (Bld) [#/Vol] 0 10*3/uL Normal 0-5 [facility] Comment on above: Performed By: #### L 100.0100, L101.9900, L501.6710, L3400.8000, L3000.0375, L500.4050 ####[facility] [address] [place], [address] Platelet mean volume (Bld) [Entitic vol] 8.4 fL Normal 6.2-12.0 [facility] Comment on above: Performed By: #### L 100.0100, L101.9900, L501.6710, L3400.8000, L3000.0375, L500.4050 ####[facility] [address] [place], [address] Platelets (Bld) [#/Vol] 411 10*3/uL Normal 150-450 [facility] Comment on above: Performed By: #### L 100.0100, L101.9900, L501.6710, L3400.8000, L3000.0375, L500.4050 ####[facility] [address] [place], [address] RBC (Bld) [#/Vol] 5.61 10*6/uL High 4.2-5.4 [facility] Comment on above: Performed By: #### L 100.0100, L101.9900, L501.6710, L3400.8000, L3000.0375, L500.4050 ####[facility] [address] [place], [address] RDW SD 44.3 fl High 35.1-43.9 [facility] Comment on above: Performed By: #### L 100.0100, L101.9900, L501.6710, L3400.8000, L3000.0375, L500.4050 ####[facility] [address] [place], [address] WBC (Bld) [#/Vol] 12.3 10*3/uL High 4.4-11.0 [facility] Comment on above: Performed By: #### L 100.0100, L101.9900, L501.6710, L3400.8000, L3000.0375, L500.4050 ####[facility] [address] [place], [address] CRPon 08-24-2024 C-REACTIVE PROT 11.20 mg/L High 0.0-3.0 [facility] Comment on above: Performed By: #### L 100.0100, L101.9900, L501.6710, L3400.8000, L3000.0375, L500.4050 ####[facility] [address] [place], [address] Carbon dioxide, total [Moles /volume] in Central venous bloodOrdered By: Nirmala Johnson on 08-24-2024 CO2 [Moles/Vol] 20.4 mmol/L Low 21.0-32.0 [facility] Chloride assayOrdered By: Debby Johnson on 08-24-2024 Chloride [Moles/Vol] 102 mmol/L 98-108 [facility] Comprehensive Metabolic Prof ilon 08-24-2024 Albumin [Mass/Vol] 3.8 g/dL Normal 3.5-5.0 [facility] Comment on above: Performed By: #### L 100.0100, L101.9900, L501.6710, L3400.8000, L3000.0375, L500.4050 ####[facility] [address] [place], [address] Albumin/Globulin [Mass ratio] 0.9 {ratio} Normal 0.9-2.4 [facility] Comment on above: Performed By: #### L 100.0100, L101.9900, L501.6710, L3400.8000, L3000.0375, L500.4050 ####[facility] [address] [place], [address] ALK PHOS 105 U/L High 35-104 [facility] Comment on above: Performed By: #### L 100.0100, L101.9900, L501.6710, L3400.8000, L3000.0375, L500.4050 ####[facility] [address] [place], [address] ALT [Catalytic activity/Vol] 14 U/L Normal <=34 [facility] Comment on above: Performed By: #### L 100.0100, L101.9900, L501.6710, L3400.8000, L3000.0375, L500.4050 ####[facility] [address] [place], [address] AST [Catalytic activity/Vol] 19 U/L Normal <=31 [facility] Comment on above: Performed By: #### L 100.0100, L101.9900, L501.6710, L3400.8000, L3000.0375, L500.4050 ####[facility] [address] [place], [address] Bilirubin [Mass/Vol] 0.24 mg/dL Normal 0.00-1.30 [facility] Comment on above: Performed By: #### L 100.0100, L101.9900, L501.6710, L3400.8000, L3000.0375, L500.4050 ####[facility] [address] [place], [address] BUN/CRE 21.4 RATIO High 10-20 [facility] Comment on above: Performed By: #### L 100.0100, L101.9900, L501.6710, L3400.8000, L3000.0375, L500.4050 ####[facility] [address] [place], [address] Calcium [Mass/Vol] 9.4 mg/dL Normal 7.6-11.0 [facility] Comment on above: Performed By: #### L 100.0100, L101.9900, L501.6710, L3400.8000, L3000.0375, L500.4050 ####[facility] [address] [place], [address] Chloride [Moles/Vol] 102 mmol/L Normal 98-108 [facility] Comment on above: Performed By: #### L 100.0100, L101.9900, L501.6710, L3400.8000, L3000.0375, L500.4050 ####[facility] [address] [place], [address] CO2 [Moles/Vol] 20.4 mmol/L Low 21.0-32.0 [facility] Comment on above: Performed By: #### L 100.0100, L101.9900, L501.6710, L3400.8000, L3000.0375, L500.4050 ####[facility] [address] [place], [address] Creatinine [Mass/Vol] 0.65 mg/dL Low 0.70-1.20 [facility] Comment on above: Performed By: #### L 100.0100, L101.9900, L501.6710, L3400.8000, L3000.0375, L500.4050 ####[facility] [address] [place], [address] GAP 12 Normal 5-15 [facility] Comment on above: Performed By: #### L 100.0100, L101.9900, L501.6710, L3400.8000, L3000.0375, L500.4050 ####[facility] [address] [place], [address] GFR/1.73 sq M.predicted among non-blacks MDRD (S/P/Bld) [Vol rate/Area] 103 mL/min/{1.73_m2} Normal >60 [facility] Comment on above: Result Comment: mL/m in/1.73m2 CKD-EPI Creatinine Equation (2020) Performed By: #### L 100.0100, L101.9900, L501.6710, L3400.8000, L3000.0375, L500.4050 ####[facility] [address] [place], [address] Globulin (S) [Mass/Vol] 4.4 g/dL High 2.2-4.2 [facility] Comment on above: Performed By: #### L 100.0100, L101.9900, L501.6710, L3400.8000, L3000.0375, L500.4050 ####[facility] [address] [place], [address] Glucose [Mass/Vol] 94 mg/dL Normal 70-99 [facility] Comment on above: Performed By: #### L 100.0100, L101.9900, L501.6710, L3400.8000, L3000.0375, L500.4050 ####[facility] [address] [place], [address] Potassium [Moles/Vol] 4.4 mmol/L Normal 3.3-5.1 [facility] Comment on above: Performed By: #### L 100.0100, L101.9900, L501.6710, L3400.8000, L3000.0375, L500.4050 ####[facility] [address] [place], [address] Sodium [Moles/Vol] 134 mmol/L Normal 133-145 [facility] Comment on above: Performed By: #### L 100.0100, L101.9900, L501.6710, L3400.8000, L3000.0375, L500.4050 ####[facility] [address] [place], [address] T PROT 8.2 g/dL Normal 5.9-8.4 [facility] Comment on above: Performed By: #### L 100.0100, L101.9900, L501.6710, L3400.8000, L3000.0375, L500.4050 ####[facility] [address] [place], [address] Urea nitrogen [Mass/Vol] 14 mg/dL Normal 4-19 [facility] Comment on above: Performed By: #### L 100.0100, L101.9900, L501.6710, L3400.8000, L3000.0375, L500.4050 ####[facility] [address] [place], [address] Eosinophil percentageOrdered By: Nirmala Johnson on 08-24-2024 Eosinophils/100 WBC (Bld) 1.2 % 0-5 [facility] Erythrocyte Sed Rateon 08-24 SED RATE 44 mm/hr High 0-30 [facility] Comment on above: Performed By: #### L 100.0100, L101.9900, L501.6710, L3400.8000, L3000.0375, L500.4050 ####[facility] [address] [place], [address] Erythrocyte distribution wid th ratioOrdered By: Nirmala Johnson on 08-24-2024 Erythrocyte distribution width (RBC) [Ratio] 15.6 % High 11.6-14.6 [facility] Erythrocyte distribution wid th standard deviationOrdered By: Nirmala Johnson on 08-24-2024 Erythrocyte distribution width (RBC) [Ratio] 44.3 fl High 35.1-43.9 [facility] Erythrocyte sedimentation ra teOrdered By: Nirmala Johnson on 08-24-2024 ESR (Bld) [Velocity] 44 mm/h High 0-30 [facility] Visit Repor ton 08-24-2024 Gastroenterology Visit Report [facility] [address] [place] [address] OFFICE VISIT Date of Service: 08/24/24 MR#: [id number] Acct: [id number] Name: TAD GRANT Rep #: [id number] : 1970 Provider: BEVERLEY Elena Age/Sex: 54/F Location: [facility] Status: Signed Intake Vital Signs 07/27/24 09:14 Height 5 ft 6 in Intake Visit Reasons: FU Chief Complaint: IBD Allergies Iodinated Contrast Media Allergy (Mild, Verified 06/26/24 08:42) Hives Medications ???Medication ???Instructions ???Recorded ???Confirmed ???Type famotidine 20 mg tablet 20 mg PO BID 09/25/20 06/26/24 His tory pantoprazole 20 mg tablet,delayed 20 mg PO BID 09/25/20 08/24/24 Hi story release albuterol sulfate 90 mcg/actuation 2 puff inhalation Q4-6H PRN 07/07/2106/26/24 History aerosol inhaler shortness of breath or wheezing ondansetron 4 mg disintegrating 4 mg PO Q8H #20 tabs 03/06/2405/30 Rx tablet trazodone 100 mg tablet 100 mg PO QHS 03/19/24 06/26/24 Hi story ondansetron 4 mg disintegrating 4 mg PO Q8H #20 tabs 05/04/2405/30 Rx tablet amitriptyline 50 mg tablet 50 mg PO QHS 08/24/24 08/24/24 His tory pantoprazole 40 mg tablet,delayed 40 mg PO QDAY #90 tabs 08/24/24 0 08/24/24 Rx release pramipexole 1 mg tablet 1 mg PO QDAY 08/24/24 08/24/24 His tory Nurse's Note: OV 08/24/24 Pt here for f/u and nausea, diarrhea, constipation, abdominal pain, gas, bloating, and difficulty swallowing. [facility] Medical History Post-menopausal No natural teeth Depression Easy bruising Migraine headache History of hiatal hernia History of Crohn's disease Leg cramps History of edema History of stress test History of cyst of breast History of rheumatoid arthritis History of irritable bowel syndrome Black tongue Barretts esophagus Tattoo granuloma Smoker Foreign body reaction to tattoo dyes GERD (gastroesophageal reflux disease) Benign breast cyst in female Back problem Arthritis Surgical History History of elbow surgery History of esophagogastroduodenoscopy (EGD) History of colonoscopy History of appendectomy History of cholecystectomy Previous section Family History Sister Anxiety and depression Psychiatric care Suicide attempt Thyroid disorder Sister Anxiety and depression Brother Asthma Mother Anxiety and depression Diabetes Psychiatric care Suicide attempt Father Colon cancer Diabetes Hypertension Son defect Uncle History of blood transfusion Colon cancer Diabetes Aunt Diabetes Grandmother Diabetes Psychiatric care Grandmother Diabetes Social History Smoking Status: Current every day smoker tobacco type: cigarettes Tobacco: How many years used: 40 alcohol intake: never substance use type: does not use caffeine: Yes Type: coffee Number of servings: 1 additional social history: Does Not Take Aspirin Does Not Take Ibuprofen denies vaping, denies marijuana use, denies edibles HPI HPI Chief Complaint: IBD Details: TAD GRANT, is a 54 F who presents to the office today for f/u. BGI established 10.12.23 with long hc of acid reflux and barretts esophagus. About 6 months ago pt started having recurrent thrush and bad taste in her mouth. At this time she also started having 6 loose bm per day. She underwent colonoscopy which revealed severe inflammation in the terminal ileum and benign-appearing, intrinsic severe stenosis. Colonoscopy 11.28.23; - The entire examined colon is normal. - Inflammatory bowel disease. Inflammation was found. This was severe. Biopsied. - Stricture in the terminal ileum. MRE ..25; Discontiguous segments of abnormal small bowel that demonstrate wall thickening, narrowing of the lumen, hyperemia of the mucosa and wall postcontrast and engorgement of the adjacent vasa recta. This includes a long segment of distal and terminal ileum measuring up to 30 cm and a shorter 10 cm segment of small bowel more proximally in the anterior abdomen. Findings are compatible with Crohn''s disease. No adjacent fluid collections. *Attempted to start pt on biologic therapy but insurance required failure of 5-ASA therapy first. Pt started on mesalamine. OV 3.7.25 Pt continues with diarrhea at least 4 times per day and some mild constipation on occasion. She continues to have joint pain relating to her uncontrolled RA. *Start Remicade OV 6.27.25 Pt has had 2 or 3 infusions of the inflectra so far. She has not noticed any difference in her symptoms. SHe has diarrhea a few times per week and will strain to go other times. (more content not included)... Normal [facility] Glomerular filtration rate ( GFR) estimation/1.73 sq m using serum, plasma, or whole bOrdered By: Nirmala Johnson on 08-24-2024 GFR/1.73 sq M.predicted among non-blacks MDRD (S/P/Bld) [Vol rate/Area] 103 mL/min/{1.73_m2} >60 [facility] Comment on above: mL/min/1.73m2 CKD-EP I Creatinine Equation (2020) Hematocrit Auto (Bld) [Volum e fraction]Ordered By: Nirmala Johnson on 08-24-2024 Hematocrit (Bld) [Volume fraction] 44.1 % 37-47 [facility] Hemoglobin measurementOrdere d By: Nirmala Johnson on 08-24-2024 Hemoglobin (Bld) [Mass/Vol] 14.7 g/dL 12.0-15.0 [facility] Immature granulocytes/100 WB C Auto (Bld)Ordered By: Nirmala Johnson on 08-24-2024 Immature granulocytes/100 WBC (Bld) 0.400 % 0.0-0.9 [facility] Comment on above: IG% - Immature Granu locytes (promyelocytes, myelocytes and metamyelocytes) > 1% indicates that a LEFT SHIFT is Present. Laboratory - Chemistry and C hemistry - challengeOrdered By: Nirmala Johnson on 08-24-2024 AST [Catalytic activity/Vol] 19 U/L <32 [facility] MCV (mean corpuscular volume ) determinationOrdered By: Nirmala Johnson on 08-24-2024 MCV (RBC) [Entitic vol] 78.6 fL Low 81-99 [facility] Mean corpuscular hemoglobin (MCH) determinationOrdered By: Nirmala Johnson on 08-24-2024 MCH (RBC) [Entitic mass] 26.2 pg Low 27.0-32.0 [facility] Mean corpuscular hemoglobin concentration (MCHC) determinationOrdered By: Nirmala Johnson on 08-24-2024 MCHC (RBC) [Mass/Vol] 33.3 g/dL 32-36 [facility] Mean platelet volume determi nationOrdered By: Nirmala Johnson on 08-24-2024 Platelet mean volume (Bld) [Entitic vol] 8.4 fL 6.2-12.0 [facility] Monocyte percentageOrdered B y: Nirmala Johnson on 08-24-2024 Monocytes/100 WBC (Bld) 6.6 % 0-10 [facility] Neutrophil percentageOrdered By: Nirmala Johnson on 08-24-2024 Neutrophils/100 WBC (Bld) 72.2 % High 47-70 [facility] No Panel InformationOrdered By: Nirmala Johnson on 08-24-2024 Hepatitis C Antibody Comment Comment . [facility] Comment on above: Not infected with HC V unless early or acute infection issuspected (which may be delayed in an immunocompromisedindividual), or other evidence exists to indicate HCVinfection.Performed at: [address] [id number] Director: Dionicio Buenrostro PhD, Phone: [phone] Nucleated red blood cell per centageOrdered By: Nirmala Johnson on 08-24-2024 Nucleated RBC/100 WBC (Bld) [Ratio] 0 % 0-5 [facility] Platelet countOrdered By: Debby Johnson on 08-24-2024 Platelets (Bld) [#/Vol] 411 10*3/uL 150-450 [facility] Potassium measurement (mass/ volume)Ordered By: Nirmala Johnson on 08-24-2024 Potassium (Unsp spec) [Mass/Vol] 4.4 mmol/L 3.3-5.1 [facility] Qualitative QuantiFERON-TB g old in tube testOrdered By: Nirmala Johnson on 08-24-2024 M. tuberculosis tuberculin stim IFN-g Ql (Bld) TNP [facility] Comment on above: Test not performedTe st not performed RBC Auto (Bld) [#/Vol]Ordere d By: Nirmala Johnson on 08-24-2024 RBC (Bld) [#/Vol] 5.61 10*6/uL High 4.2-5.4 [facility] Serum creatinine measurement (mass/volume)Ordered By: Nirmala Johnson on 08-24-2024 Creatinine [Mass/Vol] 0.65 mg/dL Low 0.70-1.20 [facility] Serum globulin measurementOr dered By: Nirmala Johnson on 08-24-2024 Globulin (S) [Mass/Vol] 4.4 g/dL High 2.2-4.2 [facility] Serum glucose measurement (m ass/volume)Ordered By: Nirmala Johnson on 08-24-2024 Glucose [Mass/Vol] 94 mg/dL 70-99 [facility] Serum or plasma C reactive p rotein measurement (mass/volume)Ordered By: Nirmala Johnson on 08-24-2024 CRP [Mass/Vol] 11.20 mg/L High 0.0-3.0 [facility] Serum or plasma alanine arnold otransferase (ALT) measurementOrdered By: Nirmala Johnson on 08-24-2024 ALT [Catalytic activity/Vol] 14 U/L <35 [facility] Serum or plasma albumin alexandria urement (mass/volume)Ordered By: Nirmala Johnson on 08-24-2024 Albumin [Mass/Vol] 3.8 g/dL 3.5-5.0 [facility] Serum or plasma albumin/glob ulin mass ratioOrdered By: Nirmala Johnson on 08-24-2024 Albumin/Globulin [Mass ratio] 0.9 {ratio} 0.9-2.4 [facility] Serum or plasma alkaline floridalma sphatase measurementOrdered By: Nirmala Johnson on 08-24-2024 ALP [Catalytic activity/Vol] 105 U/L High 35-104 [facility] Serum or plasma calcium alexandria urement (mass/volume)Ordered By: Nirmala Johnson on 08-24-2024 Calcium [Mass/Vol] 9.4 mg/dL 7.6-11.0 [facility] Serum or plasma hepatitis B virus surface antigen detection by immunoassayOrdered By: Nirmala Johnson on 08-24-2024 HBV surface Ag IA Ql Negative Negative [facility] Serum or plasma urea nitroge n measurement (mass/volume)Ordered By: Nirmala Johnson on 08-24-2024 Urea nitrogen [Mass/Vol] 14 mg/dL 4-19 [facility] Sodium levelOrdered By: Yenny Johnson on 08-24-2024 Sodium [Moles/Vol] 134 mmol/L 133-145 [facility] Total proteinOrdered By: Nessa Johnson on 08-24-2024 Protein [Mass/Vol] 8.2 g/dL 5.9-8.4 [facility] White blood cell (WBC) count Ordered By: Nirmala Johnson on 08-24-2024 WBC (Bld) [#/Vol] 12.3 10*3/uL High 4.4-11.0 [facility] No Panel Informationon 07-03 1. Diffuse soft tissue swelling which could be due to third spacing of fluid or cellulitis. 2. No acute osseous finding 3. Calcaneal spur formation ARIES EXAM: XR ANKLE LEFT 3 VIEW (ROUTINE), XR FOOT LEFT MIN 3 VIEW (ROUTINE) HISTORY: pain, swelling COMPARISON: None. TECHNIQUE: 3 views of the left ankle and 3 views of the left foot were obtained FINDINGS: There is normal osseous alignment, without a lytic bone lesion or acute fracture identified. There is a large plantar aponeurosis heel spur as well as enthesophyte formation at the Achilles insertion on the calcaneus. The ankle mortise has a normal appearance. Diffuse soft tissue swelling is noted. Mike Brewer MD - 07/03/2024 EXAM: XR ANKLE LEFT 3 VIEW (ROUTINE), XR FOOT LEFT MIN 3 VIEW (ROUTINE) HISTORY: pain, swelling COMPARISON: None. TECHNIQUE: 3 views of the left ankle and 3 views of the left foot were obtained FINDINGS: There is normal osseous alignment, without a lytic bone lesion or acute fracture identified. There is a large plantar aponeurosis heel spur as well as enthesophyte formation at the Achilles insertion on the calcaneus. The ankle mortise has a normal appearance. Diffuse soft tissue swelling is noted. IMPRESSION: 1. Diffuse soft tissue swelling which could be due to third spacing of fluid or cellulitis. 2. No acute osseous finding 3. Calcaneal spur formation [facility] No Panel InformationOrdered By: Mike Swan on 07-03-2024 [facility] Work Phone: XR ANKLE LEFT 3 VIEW (ROUTIN E)on 07-03-2024 XR ANKLE LEFT 3 VIEW (ROUTINE) EXAM: XR ANKLE LEFT 3 VIEW (ROUTINE), XR FOOT LEFT MIN 3 VIEW (ROUTINE) HISTORY: pain, swelling COMPARISON: None. TECHNIQUE: 3 views of the left ankle and 3 views of the left foot were obtained FINDINGS: There is normal osseous alignment, without a lytic bone lesion or acute fracture identified. There is a large plantar aponeurosis heel spur as well as enthesophyte formation at the Achilles insertion on the calcaneus. The ankle mortise has a normal appearance. Diffuse soft tissue swelling is noted. IMPRESSION: 1. Diffuse soft tissue swelling which could be due to third spacing of fluid or cellulitis. 2. No acute osseous finding 3. Calcaneal spur formation c/o left foot pain and swelling that started approx 2.5 weeks ago. no injury Normal [facility] XR Ankle - left 3 [facility] Study observation (narrative) [facility] [facility] XR FOOT LEFT MIN 3 VIEW (ROU KILLIAN)on 07-03-2024 XR FOOT LEFT MIN 3 VIEW (ROUTINE) EXAM: XR ANKLE LEFT 3 VIEW (ROUTINE), XR FOOT LEFT MIN 3 VIEW (ROUTINE) HISTORY: pain, swelling COMPARISON: None. TECHNIQUE: 3 views of the left ankle and 3 views of the left foot were obtained FINDINGS: There is normal osseous alignment, without a lytic bone lesion or acute fracture identified. There is a large plantar aponeurosis heel spur as well as enthesophyte formation at the Achilles insertion on the calcaneus. The ankle mortise has a normal appearance. Diffuse soft tissue swelling is noted. IMPRESSION: 1. Diffuse soft tissue swelling which could be due to third spacing of fluid or cellulitis. 2. No acute osseous finding 3. Calcaneal spur formation c/o left foot pain and swelling that started approx 2.5 weeks ago. no injury Normal [facility] XR Foot - left 3 [facility] Study observation (narrative) [facility] Gastroenterology Visit Repor ton 05-04-2024 Gastroenterology Visit Report [facility] Gastroenterology [address] [place] [address] OFFICE VISIT Date of Service: 05/04/24 MR#: [id number] Acct: [id number] Name: TAD GRANT Rep #: [id number] : 1970 Provider: BEVERLEY Elena Age/Sex: 54/F Location: [facility] Status: Signed Intake Vital Signs 03/19/24 09:28 Height 5 ft 6 in Intake Visit Reasons: Follow up Chief Complaint: IBD Is patient in pain?: Yes Allergies Iodinated Contrast Media Allergy (Mild, Verified 03/19/24 09:24) Hives Medications ???Medication ???Instructions ???Recorded ???Confirmed ???Type famotidine 20 mg tablet 20 mg PO BID 09/25/20 05/04/24 His tory pantoprazole 20 mg tablet,delayed 20 mg PO BID 09/25/20 05/04/24 Hi story release albuterol sulfate 90 mcg/actuation 2 puff inhalation Q4-6H PRN 07/2103/19/24 History aerosol inhaler shortness of breath or wheezing pramipexole 0.5 mg tablet 0.5 mg PO QHS 09/02/23 03/19/24 Hi story bupropion HCl 150 mg tablet,12 hr 150 mg PO QDAY 12/15/23 03/19/24 History sustained-release (Wellbutrin SR) ondansetron 4 mg disintegrating 4 mg PO Q8H #20 tabs 03/06/24 03/0 09/21 Rx tablet trazodone 100 mg tablet 100 mg PO QHS 03/19/24 03/19/24 Hi story ondansetron 4 mg disintegrating 4 mg PO Q8H #20 tabs 05/04/24/0 09/21 Rx tablet tizanidine 4 mg capsule 4 mg PO QHS PRN 05/04/24 05/04/24 History Have you fallen in the past year?: No Nurse's Note: OV 05.04.24 Pt here for f/u. Pt reports constipation, diarrhea, abdominal pain, difficultly swallowing, and nausea. Pt continues pantoprazole, ondansetron, and famotidine daily. PFSH Medical History Post-menopausal No natural teeth Depression Easy bruising Migraine headache History of hiatal hernia History of Crohn's disease Leg cramps History of edema History of stress test History of cyst of breast History of rheumatoid arthritis History of irritable bowel syndrome Black tongue Barretts esophagus Tattoo granuloma Smoker Foreign body reaction to tattoo dyes GERD (gastroesophageal reflux disease) Benign breast cyst in female Back problem Arthritis Surgical History History of elbow surgery History of esophagogastroduodenoscopy (EGD) History of colonoscopy History of appendectomy History of cholecystectomy Previous section Family History Sister Anxiety and depression Psychiatric care Suicide attempt Thyroid disorder Sister Anxiety and depression Brother Asthma Mother Anxiety and depression Diabetes Psychiatric care Suicide attempt Father Colon cancer Diabetes Hypertension Son defect Uncle History of blood transfusion Colon cancer Diabetes Aunt Diabetes Grandmother Diabetes Psychiatric care Grandmother Diabetes Social History Smoking Status: Current every day smoker tobacco type: cigarettes Tobacco: How many years used: 40 alcohol intake: never substance use type: does not use caffeine: Yes Type: coffee Number of servings: 1 additional social history: Does Not Take Aspirin Does Not Take Ibuprofen denies vaping, denies marijuana use, denies edibles HPI HPI Chief Complaint: IBD Details: CRYSTAL COOL, is a 54 F who presents to the office today for f/u. BGI established 8 with long hc of acid reflux and barretts esophagus. About 6 months ago pt started having recurrent thrush and bad taste in her mouth. At this time she also started having 6 loose bm per day. She underwent colonoscopy which revealed severe inflammation in the terminal ileum and benign-appearing, intrinsic severe stenosis. Colonoscopy 11.28.23; - The entire examined colon is normal. - Inflammatory bowel disease. Inflammation was found. This was severe. Biopsied. - Stricture in the terminal ileum. MRE 03.19.24; Discontiguous segments of abnormal small bowel that demonstrate wall thickening, narrowing of the lumen, hyperemia of the mucosa and wall postcontrast and engorgement of the adjacent vasa recta. This includes a long segment of distal and terminal ileum measuring up to 30 cm and a shorter 10 cm segment of small bowel more proximally in the anterior abdomen. Findings are compatible with Crohn''s disease. No adjacent fluid collections. *Attempted to start pt on biologic therapy but insurance required failure of 5-ASA therapy first. Pt started on mesalamine. OV 05.04.24 Pt continues with diarrhea at least 4 times per day and some mild constipation on occasion. She continues to have joint pain relating to her uncontrolled RA. Exam Const General: cooperative and comfortable (more content not included)... Normal [facility] Enterography Abd/Dinh 03-19 Enterography Abd/Pel [facility] [address] [place] [id number] Enterography Abd/Pel MR#: [id number] Acct: [id number] Name: TAD GRANT Rep #: [id number] : 1970 F 54 From: Jaziel Salamanca PCP: Pan Doyle, ARETHA-C Status: REG CLI Study: Enterography Abd/Pel Date of Exam: 03/19/24 Exam# [id number] Ordering Dr: Nirmala Johnson [id number] EXAM: MR ABDOMEN AND PELVIS WITHOUT AND WITH INTRAVENOUS CONTRAST CLINICAL INDICATION: K52.9 - Noninfective gastroenteritis and colitis, unspecified TECHNIQUE: Multiplanar and multisequence MR images of the abdomen and pelvis without and with intravenous contrast. CONTRAST: 18 cc of Clariscan IV. Water was given as oral contrast. COMPARISON: CT scan of the abdomen and pelvis dated 09/17/2023 performed at [facility] in [facility]. FINDINGS: LOWER THORAX: Unremarkable. No pleural effusion. ABDOMEN: LIVER: Unremarkable. Normal morphology. No focal mass. GALLBLADDER AND BILE DUCTS: Unremarkable. No gallstones. No gallbladder distention or wall edema. No intra- or extrahepatic biliary ductal dilation. PANCREAS: Unremarkable. No focal cystic or solid mass. SPLEEN: Unremarkable. Normal size without focal cystic or solid mass. ADRENALS: Unremarkable. No nodules. KIDNEYS AND URETERS: Unremarkable. Normal renal size and position. No hydronephrosis. STOMACH AND BOWEL: As was noted on the previous exam there are two separate areas of small bowel that demonstrate abnormal wall thickening. There is a very long segment of distal and terminal ileum measuring up to 30 cm in length and demonstrates wall thickening, narrowing of the lumen, hyperemia of the wall and mucosa postcontrast and adjacent mesenteric changes including engorgement of the vasa recta. There is a 2nd shorter segment measuring about 10 cm in length in small bowel more proximally seen anteriorly in the lower abdomen. PELVIS: APPENDIX: No evidence of acute appendicitis. BLADDER: Unremarkable. OVARIES: Unremarkable as visualized. No mass or complex cyst. UTERUS/CERVIX: Unremarkable. No mass. Endometrial stripe is normal in thickness and appearance. ABDOMEN and PELVIS: INTRAPERITONEAL SPACE: Unremarkable. No ascites or other fluid collection. VASCULATURE: Unremarkable. Abdominal aorta is non-dilated. LYMPH NODES: No enlarged lymph nodes. MRI/Enterography Abd/Pel IMPRESSION: Discontiguous segments of abnormal small bowel that demonstrate wall thickening, narrowing of the lumen, hyperemia of the mucosa and wall postcontrast and engorgement of the adjacent vasa recta. This includes a long segment of distal and terminal ileum measuring up to 30 cm and a shorter 10 cm segment of small bowel more proximally in the anterior abdomen. Findings are compatible with Crohn''s disease. No adjacent fluid collections. Electronically Signed: Jaziel Calderon MD at 22:42 EST , CC: JOMAR Doyle; BEVERLEY Elena Events Traffic Controller: Signed Normal [facility] QUANTIFERON TB INCUBATED [CC L]on 01-12-2024 Mitogen minus Nil >9.92 Normal >=0.50 [facility] Comment on above: Performed By: #### 2 [id number] #### [facility],[address] [place] [address] TB Gamma Interpretation Infection with M. tuberculosis complex is unlikely. If latent tuberculosis infec Normal [facility] Comment on above: Result Comment: [address] [place] [address] Chaz Ann III, M.D. [id number] Performed By: #### 2 [id number] #### [facility],[address] [place] [address] TB NIL 0.08 IU/mL Normal <=8.00 [facility] Comment on above: Performed By: #### 2 [id number] #### [facility],[address] [place] [address] TB Result Negative Normal [facility] Comment on above: Performed By: #### 2 [id number] #### [facility],[address] [place] [address] TB1 Ag minus Nil 0.05 IU/mL Normal <0.35 [facility] Comment on above: Performed By: #### 2 [id number] #### [facility],[address] [place] [address] TB2 Ag minus Nil 0.02 IU/mL Normal <0.35 [facility] Comment on above: Performed By: #### 2 [id number] #### [facility],[address] [place] [address] HEPATITIS ACUTE PANEL [CCL]o n 01-11-2024 RESULT CRITICAL? NO Normal [facility] Comment on above: Performed By: #### 2 [id number] #### [facility],[address] [place] [address] Hep B Core Ab, IgM Negative Normal Negative [facility] Comment on above: Result Comment: No e vidence of recent infection with Hepatitis B virus. Should recent infection be suspected, repeat testing may be considered 3-4 weeks after this draw. Performed By: #### 2 [id number] #### [facility],[address] [place] [address] Hepatitis A Ab IgM Negative Normal Negative [facility] Comment on above: Result Comment: No e vidence of recent infection with Hepatitis A virus. Performed By: #### 2 [id number] #### [facility],[address] [place] [address] Hepatitis B Surf. Ag Negative Normal Negative [facility] Comment on above: Result Comment: [facility] [address] [place] [address] Chaz Ann III, M.D. [id number] Performed By: #### 2 [id number] #### [facility],[address] [place] [address] Hepatitis C Ab IA Negative Normal Negative [facility] Comment on above: Result Comment: The result suggests no evidence of active infection with Hepatitis C virus. Should recent infection be suspected, repeat testing may be considered 4-6 weeks after this draw. Performed By: #### 2 [id number] #### [facility],[address] [place], [place] [id number] Gastroenterology Visit Repor ton 12-15-2023 Gastroenterology Visit Report [facility] Gastroenterology [address] [place] [address] OFFICE VISIT Date of Service: 12/15/23 MR#: [id number] Acct: [id number] Name: TAD GRANT Rep #: [id number] : 1970 Provider: BEVERLEY Elena Age/Sex: 53/F Location: [facility] Status: Signed Intake Vital Signs 11/28/23 06:31 12/15/23 10:36 Height 5 ft 6 in 5 ft 6 in Weight: 186 lb BMI 29.9 BP 144/86 H Blood Pressure Location Rt brachial Position Sitting Respiration 16 Pulse 116 H Temp 97.8 F Temp Source Oral Pulse Oximetry (%) 96 Oxygen Delivery Method room air Intake Visit Reasons: Follow up from colonoscopy Chief Complaint: IBD Allergies Gadolinium-MRI Contrast Medium (contrast dye) Allergy (Mild, Verified 12/15/23 10:37) Rash Medications ???Medication ???Instructions ???Recorded ???Confirmed ???Type famotidine 20 mg tablet 20 mg PO BID 09/25/20 12/15/23 History pantoprazole 20 mg tablet,delayed 20 mg PO BID 09/25/20 12/15/23 History release albuterol sulfate 90 mcg/actuation 2 puff inhalation Q4-6H PRN 09/02/23 12/15/23 History aerosol inhaler shortness of breath or wheezing pramipexole 0.5 mg tablet 0.5 mg PO QHS 09/02/23 12/15/23 History hydroxychloroquine 400 mg tablet 400 mg PO BID 10/06/23 12/15/23 History prednisone 20 mg tablet 60 mg (3 x 20 mg) PO QDAY 90 days 11/28/23 12/15/23 Rx #270 tabs bupropion HCl 150 mg tablet,12 hr 150 mg PO QDAY 12/15/23 12/15/23 History sustained-release (Wellbutrin SR) dicyclomine 20 mg tablet 20 mg PO TID PRN abdominal pain 12/15/23 12/15/23 Rx #90 tabs prednisone 20 mg tablet 20 mg PO QDAY 12/15/23 12/15/23 History PFSH Medical History Post-menopausal No natural teeth Depression Easy bruising Migraine headache History of hiatal hernia History of Crohn's disease Leg cramps History of edema History of stress test History of cyst of breast History of rheumatoid arthritis History of irritable bowel syndrome Black tongue Barretts esophagus Tattoo granuloma Smoker Foreign body reaction to tattoo dyes GERD (gastroesophageal reflux disease) Benign breast cyst in female Back problem Arthritis Surgical History History of elbow surgery History of esophagogastroduodenoscopy (EGD) History of colonoscopy History of appendectomy History of cholecystectomy Previous section Family History Sister Anxiety and depression Psychiatric care Suicide attempt Thyroid disorder Sister Anxiety and depression Brother Asthma Mother Anxiety and depression Diabetes Psychiatric care Suicide attempt Father Colon cancer Diabetes Hypertension Son defect Uncle History of blood transfusion Colon cancer Diabetes Aunt Diabetes Grandmother Diabetes Psychiatric care Grandmother Diabetes Social History Smoking Status: Current every day smoker tobacco type: cigarettes Tobacco: How many years used: 40 alcohol intake: never substance use type: does not use caffeine: Yes Type: coffee Number of servings: 1 additional social history: Does Not Take Aspirin Does Not Take Ibuprofen denies vaping, denies marijuana use, denies edibles HPI HPI Chief Complaint: IBD Details: TAD GRANT, is a 53 F who presents to the office today for f/u. *BGI established 10.12.23 pt reports long hx of acid reflux and has a previous diagnosis of Akers's esophagus. Pt reports that about a year ago she began having difficulty eating due to recurrent thrush that leaves a bad taste in her mouth and when she does eat it upsets her stomach. Around the same time pt began having up to 6 bm per day; always diarrhea; denies blood in the stool. Pt reports constant lower abdominal pain; states that drinking white milk helps. Pt reports that she does not think pantoprazole has been effective and takes famotidine at night as needed and is unsure if it is helpful. Pt states her last EGD was in April or May of this year in [place]. Colonoscopy 11.28.23; The entire examined colon is normal. - Inflammatory bowel disease. Inflammation was found. This was severe. Biopsied. - Stricture in the terminal ileum. Biochemical work up; p-ANCA positive, RF high, CRP wnl, ESR wnl, Anti-CCP high, S. Cerevisiae IgG high, Celiac wnl, IgA high, Stool; negative enteric pathogen, +lactoferrin, fecal wnl, elastase low, calprotectin not drawn OV 12.15.23 Pt continues with similar symptoms to prior. She is here to review her results. She has been on prednisione for about 1 month now and has questions about stopping it. ROS Const Constitutional (more content not included)... Normal [facility] Plastic Surgery Visit Report on 12-15-2023 Plastic Surgery Visit Report [facility] Plastic Reconstructive Surgery [address], [address] [place] [address] OFFICE VISIT Date of Service: 12/15/23 MR#: [id number] Acct: [id number] Name: TAD GRANT Rep #: [id number] : 1970 Provider: Dr. Jyoti Martinez MD Age/Sex: 53/F Location: [facility] Status: Signed Intake Vital Signs 3 11/24/23 10:46 11/28/23 06:31 12/15/23 10:36 Height 5 ft 6 in 5 ft 6 in 5 ft 6 in Weight: 186 lb BMI 29.9 BP 144/86 H Blood Pressure Location Rt brachial Position Sitting Respiration 16 Pulse 116 H Temp 97.8 F Temp Source Oral Pulse Oximetry (%) 96 Oxygen Delivery Method room air Intake Visit Reasons: 3 WEEK FU Chief Complaint: follow up left forearm nodule Is patient in pain?: Yes (07/07) Allergies Gadolinium-MRI Contrast Medium (contrast dye) Allergy (Mild, Verified 12/15/23 10:37) Rash Medications 3 ???Medication ???Instructions ???Recorded ???Confirmed ???Type famotidine 20 mg tablet 20 mg PO BID 09/25/20 12/15/23 History pantoprazole 20 mg tablet,delayed 20 mg PO BID 09/25/20 12/15/23 History release albuterol sulfate 90 mcg/actuation 2 puff inhalation Q4-6H PRN 09/02/23 12/15/23 History aerosol inhaler shortness of breath or wheezing pramipexole 0.5 mg tablet 0.5 mg PO QHS 09/02/23 12/15/23 History trazodone 100 mg tablet 100 mg PO QHS PRN sleep 09/02/23 12/15/23 History hydroxychloroquine 400 mg tablet 400 mg PO BID 10/06/23 12/15/23 History dicyclomine 20 mg tablet 20 mg PO TID PRN abdominal pain 11/28/23 12/15/23 Rx #90 tabs prednisone 20 mg tablet 60 mg (3 x 20 mg) PO QDAY 90 days 11/28/23 12/15/23 Rx #270 tabs prednisone 20 mg tablet 20 mg PO QDAY 12/15/23 12/15/23 History Nurse's Note: pt here for follow up, c/o having some pain at incision cite-describes as a knot/wire poking her. Subjective Details: Doing well 4 weeks postop. No fevers or chills or any drainage. Reports that she was placed on prednisone and hydroxychloroquine by her other doctors and the other rheumatoid nodules have improved. 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 Objective Details: Left proximal forearm incisions clean dry and intact. Small amount of Monocryl suture removed today in clinic. Coding Level of Care Code Off vis,est,level 2 Diagnoses Rheumatoid nodules M06.30 [facility] Medical History Post-menopausal No natural teeth Depression Easy bruising Migraine headache History of hiatal hernia History of Crohn's disease Leg cramps History of edema History of stress test History of cyst of breast History of rheumatoid arthritis History of irritable bowel syndrome Black tongue Barretts esophagus Tattoo granuloma Smoker Foreign body reaction to tattoo dyes GERD (gastroesophageal reflux disease) Benign breast cyst in female Back problem Arthritis Surgical History History of elbow surgery History of esophagogastroduodenoscopy (EGD) History of colonoscopy History of appendectomy History of cholecystectomy Previous section Family History Sister Anxiety and depression Psychiatric care Suicide attempt Thyroid disorder Sister Anxiety and depression Brother Asthma Mother Anxiety and depression Diabetes Psychiatric care Suicide attempt Father Colon cancer Diabetes Hypertension Son defect Uncle History of blood transfusion Colon cancer Diabetes Aunt Diabetes Grandmother Diabetes Psychiatric care Grandmother Diabetes Social History Smoking Status: Current every day smoker tobacco type: cigarettes Tobacco: How many years used: 40 alcohol intake: never substance use type: does not use caffeine: Yes Type: coffee Number of servings: 1 additional social history: Does Not Take Aspirin Does Not Take Ibuprofen denies vaping, denies marijuana use, denies edibles Assessment and Plan (No Qualifiers) Assessment and Plan (1) Rheumatoid nodules: Status: Acute Plan: Healed well Expected course Discussed skin care and sunscreen Continue to follow-up with rheumatology. Medical management of the rheumatoid nodule seems to be her best bet as they have severely decreased/shrunk. Follow-up as needed 12/15/23 1103 Date [facility] Signature: Date (if applicable) CC: Normal [facility] Colonoscopy Reporton 024 Colonoscopy Report [facility] Medical Records Department [address] [place] [address] Colonoscopy Report MR#: [id number] Acct: [id number] Name: TAD GRANT Rep #: [id number] : 1970 53 From: Surjit Nguyen DO PCP: JOMAR Darling Status:REG [facility] Patient Name: Tad Grant Procedure Date: 11/28/2023 7:00 AM Date of : 1970 Age: 53 Procedure: Colonoscopy Indications: Generalized abdominal pain, Clinically significant diarrhea of unexplained origin Providers: Surjit Nguyen DO Referring MD: Jomar Darling Medicines: Monitored Anesthesia Care Patient Profile: This is a 53 year old female. Refer to note in patient chart for documentation of history and physical. Last Colonoscopy: within the past 6 months. Complications: No immediate complications. Procedure: Pre-Anesthesia Assessment: - Prior to the procedure, a History and Physical was performed, and patient medications and allergies were reviewed. The patient is competent. The risks and benefits of the procedure and the sedation options and risks were discussed with the patient. All questions were answered and informed consent was obtained. Patient identification and proposed procedure were verified by the physician in the pre-procedure area. Mental Status Examination: alert and oriented. Airway Examination: normal oropharyngeal airway and neck mobility. Respiratory Examination: clear to auscultation. CV Examination: normal. Prophylactic Antibiotics: The patient does not require prophylactic antibiotics. Prior Anticoagulants: The patient has taken no anticoagulant or antiplatelet agents except for NSAID medication. ASA Grade Assessment: II - A patient with mild systemic disease. After reviewing the risks and benefits, the patient was deemed in satisfactory condition to undergo the procedure. The anesthesia plan was to use monitored anesthesia care (MAC). Immediately prior to administration of medications, the patient was re-assessed for adequacy to receive sedatives. The heart rate, respiratory rate, oxygen saturations, blood pressure, adequacy of pulmonary ventilation, and response to care were monitored throughout the procedure. The physical status of the patient was re-assessed after the procedure. After I obtained informed consent, the scope was passed under direct vision. Throughout the procedure, the patient's blood pressure, pulse, and oxygen saturations were monitored continuously. The colonoscope was introduced through the anus and advanced to the terminal ileum. The colonoscopy was performed without difficulty. The patient tolerated the procedure well. The quality of the bowel preparation was adequate. The terminal ileum, ileocecal valve, appendiceal orifice, and rectum were photographed. Scope In: 7:11:07 AM Scope Withdrawal Time 0 hours 11 minutes 48 seconds Scope Out: 7:30:38 AM Total Procedure Duration Time 0 hours 19 minutes 31 seconds Findings: The perianal and digital rectal examinations were normal. The colon (entire examined portion) appeared normal. Inflammation characterized by erosions, erythema and deep ulcerations was found in the terminal ileum. The inflammation was severe. Biopsies were taken with a cold forceps for histology. Verification of patient identification for the specimen was done. Estimated blood loss was minimal. The terminal ileum contained a benign-appearing, intrinsic severe stenosis measuring 5 cm (in length) x 3 mm (inner diameter) that was non-traversed. Impression: - The entire examined colon is normal. - Inflammatory bowel disease. Inflammation was found. This was severe. Biopsied. - Stricture in the terminal ileum. Recommendation: - Discharge patient to home. - Resume previous diet. - Continue present medications. - Await pathology results. - Repeat colonoscopy for surveillance based on pathology results. - MRI enterography - Prednisone 60mg per day - Check QuantiFERON gold and hepatitis profile in anticipation for Stelara therapy Procedure Code(s): --- Professional --- 06025, Colonoscopy, flexible; with biopsy, single or multiple CPT copyright 2021 [employer]. All rights reserved. The codes documented in this report are preliminary and upon er medical technician review may be revised to meet current compliance requirements. Surjit Nguyen DO 11/28/2023 7:44:51 AM This report has been signed electronically. Number of Addenda: 0 Note Initiated On: 11/28/2023 7:00 AM 11/28/23 07 Date Surjit Nguyen DO Cosigner Signature: Date (if indicated) CC: LUMBER ESTIMATOR-C Pan Doyle; Surjit Nguyen DO Date Dictated: 11/28/23 0700 Date Transcribed: Events Traffic Controller: BROOKE Signed [facility] MR/POSTOP.[facility] 11-28-2023 MR/POSTOP.[facility] Medical Records Department [address] [place] [address] Anesthesia Postop Eval I 11/28/23739 MR#: [id number] Acct: [id number] Name: TAD GRANT Rep #: [id number] : 1970 53 From: De Banuelos PCP: JOMAR Darling Status:REG SDC Y Race: C Location: [place] [address] Anesthesia: Postop Eval I Current Vital Signs Temperature: 97.8 F Pulse Rate: 72 Blood Pressure: 115/62 Respiratory Rate: 16 Pulse Ox: 97 Oxygen Delivery Method: Room Air Assessment Airway patent: Yes Spontaneous unlabored respirations: Yes Mental status: Awake and Calm nausea: No Vomiting: No Anesthesia Complication: No Fluid Hydration Crystalloid volume administer (ml): 600 Total IV fluid infused: 600 Progress Note Anesthesia document: Postop Eval 1 completed: Yes 11/28/23739 Date De Caal Signature: Date CC: Signed Normal [facility] MR/[id number] 11-28-2023 MR/POSTOPAN2 [facility] Medical Records Department [address] [place] [address] Anesthesia Postop Eval II 11/28/23833 MR#: [id number] Acct: [id number] Name: TAD GRANT Rep #: [id number] : 1970 53 From: Andrea Alamo MD PCP: JANEE DarlingC Status:[facility] Y Race: C Location: EN Anesthesia Postop Eval I Sum Postop Eval Completion status Anesthesia document: Postop Eval 1 completed: Yes Anesthesia Postop Eval I Summary Anesthesia Postop Eval I Summary: Anesthesia Postop Eval I: Assessment Summary Airway patent Yes 11/28/23 07:40 [email or web address] Spontaneous unlabored Yes 11/28/23 07:40 [email or web address] respirations Mental status Awake,Calm 11/28/23 07:40 [email or web address] nausea No 11/28/23 07:40 [email or web address] Vomiting No 11/28/23 07:40 [email or web address] Anesthesia Postop Eval I: Fluid Summary Crystalloid volume administer 600 11/28/23 07:40 [email or web address] (ml) Colloids volume administered ( ml) Blood Product volume administered (ml) Total IV fluid infused 600 11/28/23 07:40 [email or web address] Anesthesia Postop Eval I: Summary Notes Anesthesia Complication No 11/28/23 07:40 [email or web address] Anesthesia Complication Comment: Post-operative progress note Anesthesia: Postop Eval II Evaluation Mental status: Awake Pain Level: 0 nausea: No Vomiting: No 11/28/23833 Andrea Caal Signature: Date CC: Signed Normal [facility] Surgery Specimen Level Wan 11-28-2023 Surgery Specimen Level IV Patient Age/Sex Location Account Attending Physician JEEVANCRYSTAL A 53/F EN [id number] Surjit Nguyen DO Specimen: [id number] Received: 11/28/23 Status: TANIYA Kerr Num: [id number] Spec Type: COLON BX Subm Dr: Surjit Nguyen, DO HEADER OPERATION: Colonoscopy with biopsy PRE-OP DIAGNOSIS: GERD, inflammatory bowel disease, positive OBED, rheumatoid arthritis TISSUE SUBMITTED: Terminal ileum biopsy MICROSCOPIC DIAGNOSIS Terminal ileum, biopsy: Fragments of small intestinal mucosa with extensive ulceration, acute and chronic inflammation and granulation tissue reaction. See comment. 11/29/2023 COMMENT Granulomas are not seen. Correlation with clinical, endoscopic findings and appropriate follow up are necessary. MICROSCOPIC DESCRIPTION Slides are reviewed. GROSS DESCRIPTION Received in fixative is one container labeled with the patient's name and designated Terminal ileum biopsy. The specimen consists of multiple irregular fragments of light estrada soft tissue that in aggregate measure 1.5 x 0.2 x 0.1 cm. The specimen is totally submitted in one cassette. 11/28/2023 TC:2 CPT:29394 Patient Age/Sex Location Account Attending Physician TAD GRANT/F JENA [id number] Surjit Nguyen DO Signed (signature on file) Dr. Sher Abrams MD 11/29/23 1228 Normal [facility] Comment on above: Performed By: #### P SUIV ####[facility] [id number] [place], [place], [address] Plastic Surgery Visit Report on 11-24-2023 Plastic Surgery Visit Report [facility] Plastic Reconstructive Surgery [address], [address] [place] [address] OFFICE VISIT Date of Service: 11/24/23 MR#: [id number] Acct: [id number] Name: TAD GRANT Rep #: [id number] : 1970 Provider: Dr. Jyoti Martinez MD Age/Sex: 53/F Location: [facility] Status: Signed Intake Vital Signs 3 11/17/23 10:28 11/24/23 10:46 Height 5 ft 6 in 5 ft 6 in Weight: 186 lb BMI 29.9 BP 125/82 H 100/76 Blood Pressure Location Rt brachial Rt brachial Position Sitting Sitting Respiration 16 18 Pulse 88 70 Pulse Source Monitor Temp 97.6 F L 97.8 F Temp Source Oral Pulse Oximetry (%) 99 98 Oxygen Delivery Method room air room air Intake Visit Reasons: 1 W FU Chief Complaint: follow up left forearm nodule Is patient in pain?: No Allergies Gadolinium-MRI Contrast Medium (contrast dye) Allergy (Mild, Verified 11/24/23 10:45) Rash Medications 3 ???Medication ???Instructions ???Recorded ???Confirmed ???Type famotidine 20 mg tablet 20 mg PO BID 09/25/20 11/24/23 History pantoprazole 20 mg tablet,delayed 20 mg PO BID 09/25/20 11/24/23 History release albuterol sulfate 90 mcg/actuation 2 puff inhalation Q4-6H PRN 09/02/23 11/24/23 History aerosol inhaler shortness of breath or wheezing celecoxib 200 mg capsule 200 mg PO BID 09/02/23 11/24/23 History pramipexole 0.5 mg tablet 0.5 mg PO QHS 09/02/23 11/24/23 History trazodone 100 mg tablet 100 mg PO QHS PRN sleep 09/02/23 11/24/23 History hydroxychloroquine 400 mg tablet 400 mg PO BID 10/06/23 11/24/23 History Have you fallen in the past year?: Yes (no injury only once) Nurse's Note: post op left forearm Subjective Details: Doing well 1 week after excision of forearm nodules. No issues today . Objective Details: Left upper extremity examined. No signs of infection. Incisions c/d/i. No numbness/tingling on her forearms. PATHOLOGY [facility] DEPARTMENT OF LABORATORY SURGICAL PATHOLOGY REPORT [address] [facility] [address], [place], [place] [address] Page 1 of 2 The contents of this transmission are privileged, confidential and exempt from disclosure under applicable law. If you have received this information in error, call . TAD GRANT MR# [id number] Patient: TAD GRANT Age/Sex: 53/F Attend Dr: Unit #: [id number] Loc: LABSPEC : 1970 Status: REG CLI Facility: [facility] ___ Spec# :[id number] Spec Date: 11/17/[address]: Lyla Kwok, LUMBER ESTIMATOR-C Spec Type: LES OPERATION: Excision left forearm nodules PRE-OP DIAGNOSIS: Left forearm nodules TISSUE SUBMITTED: A- Posterior nodule- left forearm, B- Distal nodule- left forearm MICROSCOPIC DIAGNOSIS A. Left forearm, posterior nodule, excision: Palisaded necrotizing granulomas, consistent with rheumatoid nodules. See comment. B. Left forearm, distal nodule, excision: Palisaded necrotizing granulomas, consistent with rheumatoid nodules. See comment. SJ.mr 11/21/2023 COMMENT A B. Special stains for acid fast bacilli and fungi are negative for organisms; matched controls are appropriate. Clinical correlation and appropriate follow up are necessary. Case has been reviewed in consultation with Dr. Mcdowell who concurs with the above diagnosis. IDC:AM MICROSCOPIC DESCRIPTION Slides are reviewed. GROSS DESCRIPTION A. Received in fixative is one container labeled with the patient's name and designated Posterior nodule left forearm. The specimen consists of a piece of estrada indurated tissue measuring 1.5 x 0.5 x 0.5cm. The specimen is bisected and submitted entirely in one cassette. B. Received in fixative is one container labeled with the patient's name and designated Distal nodule left forearm. The specimen consists of two pieces of estrada indurated tissue measuring in aggregate 1.5 x 0.5 x 0.5cm. The larger piece is bisected. The entire specimen is submitted in one cassette. 11/18/2023 TC:5 CPT:29648u1,32244k7 Coding Level of Care Code Global Post Op Diagnoses Rheumatoid nodules M06.30 [facility] Medical History (Updated 11/24/23 @ 09:46 by Ambrocio Reed) Post-menopausal No natural teeth Depression Easy bruising Migraine headache History of hiatal hernia History of Crohn's disease Leg cramps History of edema History of stress test History of cyst of breast History of rheumatoid arthritis History of irritable bowel syndrome Black tongue Barretts esophagus Tattoo granuloma Smoker Foreign body reaction to (more content not included)... Normal [facility] CERVICAL SP COMPLETE, 4 OR 5 VIEWSon 11-17-2023 CERVICAL SP COMPLETE, 4 OR [address] [address] Patient: TAD GRANT Phone#: : 1970 Age: 53 Gender: F Pt. Type: Out Account: [id number] Location: [facility] Ordering: PAN DOYLE Exam Date: 11/17/2023/8:35 Family Phys: Charge Code: 672143 Physician: [place] Order #: [id number] Dose#: PROCEDURE: X-RAY CERVICAL SPINE W/ AP, LATERAL, ODONTOID, AND OLBIQUES VIEWS COMPARISON: [facility], XR, CERVICAL SPINE COMPLETE, 07/29/2016, 10:10. INDICATIONS: Chronic neck pain. FINDINGS: BONES: There is straightening of the normal cervical lordosis. Moderately severe degenerative changes are present and most marked at the C6-7 level and similar to prior exam. There is foraminal impingement bilaterally at C3-4 and C4-5. DISC SPACES: Disc space narrowing is present most marked at the C5-6 level. PARASPINOUS: Negative. No paraspinous abnormality is seen. OTHER: Negative. CONCLUSION: 1. Degenerative changes of the spine are present most marked at C5-6. Dictated by: Monika Piper MD on 11/17/2023 at 11:05 Approved by: Monika Piper MD on 11/17/2023 at 11:13 Normal [facility] Plastic Surgery Visit Report on 11-17-2023 Plastic Surgery Visit Report [facility] Plastic Reconstructive Surgery [address], [address] [place], [place] [address] OFFICE VISIT Date of Service: 11/17/23 MR#: [id number] Acct: [id number] Name: TAD GRANT Rep #: [id number] : 1970 Provider: Dr. Jyoti Martinez MD Age/Sex: 53/F Location: [facility] Status: Signed Intake Vital Signs 3 10/06/23 10:03 11/17/23 10:28 Height 5 ft 6 in 5 ft 6 in BP 125/82 H Blood Pressure Location Rt brachial Position Sitting Respiration 16 Pulse 88 Temp 97.6 F L Pulse Oximetry (%) 99 Oxygen Delivery Method room air Intake Visit Reasons: 6 WK FU-PROCEDURE Chief Complaint: 6 weeks follow up-possible procedure Accompanied by: Sister Is patient in pain?: Yes (08/07) Allergies Gadolinium-MRI Contrast Medium (contrast dye) Allergy (Mild, Verified 11/17/23 10:29) Rash Medications 3 ???Medication ???Instructions ???Recorded ???Confirmed ???Type varenicline 1 mg tablet (Chantix) 1 mg PO BID 07/30/20 11/17/23 History famotidine 20 mg tablet 20 mg PO BID 09/25/20 11/17/23 History pantoprazole 20 mg tablet,delayed 20 mg PO BID 09/25/20 11/17/23 History release albuterol sulfate 90 mcg/actuation 2 puff inhalation Q4-6H PRN 09/02/23 11/17/23 History aerosol inhaler celecoxib 200 mg capsule 200 mg PO BID 09/02/23 11/17/23 History ondansetron HCl 8 mg tablet 8 mg PO Q8H 09/02/23 11/17/23 History pramipexole 0.5 mg tablet 0.5 mg PO QHS 09/02/23 11/17/23 History rifaximin 550 mg tablet (Xifaxan) 550 mg PO TID 09/02/23 11/17/23 History salmeterol 50 mcg/dose blister 1 inh inhalation BID 09/02/23 11/17/23 History powder for inhalation (Serevent Diskus) trazodone 100 mg tablet 100 mg PO QHS PRN 09/02/23 11/17/23 History hydroxychloroquine 400 mg tablet mg PO 10/06/23 11/17/23 History cephalexin 500 mg capsule 500 mg PO TID 7 days #21 caps 11/17/23 11/17/23 Rx Have you fallen in the past year?: Yes (fell no injuries) Nurse's Note: pt here for 6 weeks follow up [facility] Medical History (Updated 10/06/23 @ 11:[address] 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 dyes GERD (gastroesophageal reflux disease) Benign breast cyst in female Back problem Arthritis Surgical History (Updated 10/06/23 @ 10:12 by Elin Colorado) History of appendectomy History of cholecystectomy Previous section Family History Sister Anxiety and depression Psychiatric care Suicide attempt Thyroid disorder Sister Anxiety and depression Brother Asthma Mother Anxiety and depression Diabetes Psychiatric care Suicide attempt Father Colon cancer Diabetes Hypertension Son defect Uncle History of blood transfusion Colon cancer Diabetes Aunt Diabetes Grandmother Diabetes Psychiatric care Grandmother Diabetes Social History (Updated 10/06/23 @ 10:13 by Elin Colorado) Smoking Status: Current every day smoker Tobacco: How many years used: 40 alcohol intake: never substance use type: does not use caffeine: Yes Type: coffee Number of servings: 1 additional social history: Does Not Take Aspirin Does Not Take Ibuprofen denies vaping, denies marijuana use, denies edibles HPI 6 WK FU-PROCEDURE Details: Tad Grant is a 53-year-old female with a complicated past medical history including rheumatoid arthritis for which she is currently not receiving any medical treatment who presents today for nodules on her left extensor/elbow region on the proximal forearm, as well as a nodule on her right wrist/hand extensor surface. She has been seeing her primary care doctor for her seropositive (OBED and RF positivity) rheumatoid arthritis. She was prescribed hydroxychloroquine, however she has not been taking this medicine and takes Celebrex intermittently for her pain. She is complaining of the arthritis pain today in clinic. She recently had her insurance changed and she can now see specialist care, which is why she is in our clinic today. I therefore referred her to a contractor broomcorn threshing today. She also has a history of Akers's esophagus and abdominal pain. She is currently smoking 1/2 pack of cigarettes per day, and is cut down from 2 packs/day. She is going to try to quit smoking on the next 2 weeks and is on track to do so. I talked to her extensively about smoking and wound healing and she agreed to continue to try to quit. She has not had a recent mammogram, and has had some weight loss (not sure how much, but reports it has been significant over over the last year or so). I ordered her mammogram today and counseled her about importance of mammo (more content not included)... Normal [facility] Special Stain Group Ion 10-29 Special Stain Group I --------- Patient Age/Sex Location Account Attending Physician COOL,TAD Trejo 53/F [facility] [id number] JOMAR Carolina Specimen: [id number] Received: 11/18/23 Status: TANIYA Kerr Num: [id number] Spec Type: Lesion Subm Dr: JOMAR Carolina HEADER OPERATION: Excision left forearm nodules PRE-OP DIAGNOSIS: Left forearm nodules TISSUE SUBMITTED: A- Posterior nodule- left forearm, B- Distal nodule- left forearm MICROSCOPIC DIAGNOSIS A. Left forearm, posterior nodule, excision: Palisaded necrotizing granulomas, consistent with rheumatoid nodules. See comment. B. Left forearm, distal nodule, excision: Palisaded necrotizing granulomas, consistent with rheumatoid nodules. See comment. . 11/21/2023 COMMENT A B. Special stains for acid fast bacilli and fungi are negative for organisms; matched controls are appropriate. Clinical correlation and appropriate follow up are necessary. Case has been reviewed in consultation with Dr. Mcdowell who concurs with the above diagnosis. IDC:AM MICROSCOPIC DESCRIPTION Slides are reviewed. GROSS DESCRIPTION A. Received in fixative is one container labeled with the patient's name and designated Posterior nodule left forearm. The specimen consists of a piece of estrada indurated tissue measuring 1.5 x 0.5 x 0.5cm. The specimen is bisected and submitted entirely in one cassette. B. Received in fixative is one container labeled with the patient's name and designated Distal nodule left forearm. The specimen consists of two pieces of estrada indurated tissue measuring in aggregate 1.5 x 0.5 x 0.5cm. The larger piece is bisected. The entire specimen is submitted in one cassette. . 11/18/2023 TC:5 [facility]:[id number] Patient Age/Sex Location Account Attending Physician COOL,CRYSTAL A 53/F [facility] [id number] Lyla Kwok NP-Cookie Signed (signature on file) Dr. Sher Abrams MD 11/21/23 1219 Normal [facility] Comment on above: Performed By: #### P SSI #### [facility] [address] [facility] [place], [address] CCP AB, IgG AND IgA [CCL]on 11-14-2023 CCP AB, IgG AND IgA [CCL] Normal [facility] Comment on above: Result Comment: _CCP AB, IgG AND IgA [CCL]_ SEE SEPARATE REPORT Performed By: #### 2 [id number] #### [facility],[address] [place] [address] Ext Non Vasc Limited/Soft Ti sson 11-08-2023 Ext Non Vasc Limited/Soft Tiss [facility] Imaging Services [address] [place] [address] Ext Non Vasc Limited/Soft Tiss MR#: [id number] Acct: [id number] Name: ATD GRANT Rep #: [id number] : 1970 F 53 From: Kasi taylor MD PCP: Pan Doyle, ARETHA-C Status: REG CLI Study: Ext Non Vasc Limited/Soft Tiss Date of Exam: 0 11/08/23 Exam# [id number] Ordering Dr: Jyoti Martinez MD [id number] INDICATION: rt wrist lump. Painful. EXAMINATION: Left upper extremity soft tissue ultrasound. Right upper extremity soft tissue ultrasound HISTORY: Nodules on the left elbow/forearm. Right wrist lump. COMPARISON: No relevant prior comparison study available TECHNIQUE: Routine and color duplex imaging performed at the left elbow/forearm as well as at the right wrist. FINDINGS: At the left elbow area of palpable abnormality there is a hypoechoic region measuring 1.7 x 0.8 x 0.7 cm. This is wider than tall, though the borders are somewhat ill-defined. No significant Doppler vascularity. This remains contained within the subcutaneous fat and does not extend into the musculature. The second area of palpable abnormality is also seen in the superficial tissues measuring 2.2 x 1.7 x 0.5 cm. This is also hypoechoic with irregular margins, appearing wider than tall. This also does not extend into the musculature and shows no Doppler vascularity. At the right wrist area of palpable abnormality there is a mixed echogenicity complex area measuring 2 cm, with hyperechoic and hypoechoic components, showing increased through transmission. No significant Doppler vascularity. US/Ext Non Vasc Limited/Soft Tiss IMPRESSION: Irregular regions in the areas of concern at the left elbow and right wrist, nonspecific in etiology. These are not fluid collections. These are also not vascular masses. No definite aggressive features, maintaining tissue planes. For definitive diagnosis, tissue sampling could be performed. MRI could also be performed to further evaluate. Electronically Signed: Kasi Arthur MD at 16:54 EDT , CC: JOMAR Doyle; Dr. Jyoti Martinez MD Events Traffic Controller: Signed Normal [facility] Ext Non Vasc Limited/Soft Tiss [facility] Imaging Services [address] [place], [place] [id number] Ext Non Vasc Limited/Soft Tiss MR#: [id number] Acct: [id number] Name: TAD GRANT Rep #: [id number] : 1970 F 53 From: Kasi taylor MD PCP: JOMAR Darling Status: REG CLI Study: Ext Non Vasc Limited/Soft Tiss Date of Exam: 0 11/08/23 Exam# [id number] Ordering Dr: Jyoti Martinez MD [id number] INDICATION: nodules on the left elbow/forearm. Right wrist lump. Painful. EXAMINATION: Left upper extremity soft tissue ultrasound. Right upper extremity soft tissue ultrasound HISTORY: Nodules on the left elbow/forearm. Right wrist lump. COMPARISON: No relevant prior comparison study available TECHNIQUE: Routine and color duplex imaging performed at the left elbow/forearm as well as at the right wrist. FINDINGS: At the left elbow area of palpable abnormality there is a hypoechoic region measuring 1.7 x 0.8 x 0.7 cm. This is wider than tall, though the borders are somewhat ill-defined. No significant Doppler vascularity. This remains contained within the subcutaneous fat and does not extend into the musculature. The second area of palpable abnormality is also seen in the superficial tissues measuring 2.2 x 1.7 x 0.5 cm. This is also hypoechoic with irregular margins, appearing wider than tall. This also does not extend into the musculature and shows no Doppler vascularity. At the right wrist area of palpable abnormality there is a mixed echogenicity complex area measuring 2 cm, with hyperechoic and hypoechoic components, showing increased through transmission. No significant Doppler vascularity. US/Ext Non Vasc Limited/Soft Tiss IMPRESSION: Irregular regions in the areas of concern at the left elbow and right wrist, nonspecific in etiology. These are not fluid collections. These are also not vascular masses. No definite aggressive features, maintaining tissue planes. For definitive diagnosis, tissue sampling could be performed. MRI could also be performed to further evaluate. Electronically Signed: Kasi Arthur MD at 16:54 EDT Reading Location ID and State: [facility] / [place] Tel , Service support , CC: JOMAR Doyle; Dr. Jyoti Martinez MD Events Traffic Controller: Signed Normal [facility] 3D MAMM UNILAT RT DIAGNOSTIC on 10-28-2023 3D MAMM UNILAT RT DIAGNOSTIC [place] [address] Patient: TAD GRANT Phone#: : 1970 Age: 53 Gender: F Pt. Type: Out Account: [id number] Location: [facility] Ordering: PAN DOYLE Exam Date: 10/28/2023/9:56 Family Phys: Charge Code: [id number] Physician: [place] Order #: [id number] Dose#: PROCEDURE: RIGHT DIAGNOSTIC BREAST TOMOSYNTHESIS MAMMOGRAM WITH CAD COMPARISON: [facility], BILAT SCREENING, 08/24/2013, 11:04. [facility], 3D BILAT SCREEN, 10/20/2023, 10:28. INDICATIONS: Abnormal mammogram. BREAST COMPOSITION: Scattered areas fibroglandular density. FINDINGS: DIAGNOSTIC CATEGORY 1--NEGATIVE: RIGHT BREAST: No significant suspicious finding. RECOMMENDATIONS: ROUTINE MAMMOGRAM AND CLINICAL EVALUATION IN 12 MONTHS. PLEASE NOTE: A NORMAL MAMMOGRAM DOES NOT EXCLUDE THE POSSIBILITY OF BREAST CANCER. A CLINICALLY SUSPICIOUS PALPABLE LUMP SHOULD BE BIOPSIED. THIS FACILITY UTILIZES A REMINDER SYSTEM TO ENSURE THAT ALL PATIENTS RECEIVE REMINDER LETTERS FOR APPOINTMENTS. THIS INCLUDES REMINDERS FOR ROUTINE MAMMOGRAMS, DIAGNOSITC MAMMOGRAMS, OR OTHER BREAST IMAGING INTERVENTIONS WHEN APPROPRIATE. THIS PATIENT WILL BE PLACED IN THE APPROPRIATE REMINDER SYSTEM. Dictated by: Monika Piper MD on 10/28/2023 at 14:14 Approved by: Monika Piper MD on 10/28/2023 at 14:17 Normal [facility] CALPROTECTIN, FECAL [CCL]on 10-28-2023 CALPROTECTIN, FECAL [CCL] Normal [facility] Comment on above: Result Comment: _CAL PROTECTIN, FECAL [CCL]_ SEE SEPERATE REPORT Performed By: #### 2 82552 #### [facility],[address] [place], [place] [id number] CELIAC COMPREHENSIVE PANEL [ CCL]on 10-28-2023 CELIAC COMPREHENSIVE PANEL [CCL] Normal [facility] Comment on above: Result Comment: _CEL IAC COMP PANEL [CCL]_ SEE SEPERATE REPORT Performed By: #### 2 98440 #### [facility],[address] [place] [address] PANCREATIC ELASTASE, FECAL [ CCL]on 10-28-2023 PANCREATIC ELASTASE, FECAL [CCL] Normal [facility] Comment on above: Result Comment: _PAN CREATIC ELASTASE, FECAL [CCL]_ SEE SEPERATE REPORT Performed By: #### 2 77483 #### [facility],[address] [place] [address] PROTEIN ELECTRO WITH RAMON [CC L]on 10-28-2023 PROTEIN ELECTRO WITH RAMON [CCL] Normal [facility] Comment on above: Result Comment: _PRO TEIN ELECTROPHORESIS, SERUM [CCL]_ SEE SEPERATE REPORT Performed By: #### 2 55831 #### [facility],[address] [place] [address] OBED PANEL 1 [CCL]on 10-25-19 24 OBED Scr Qual. Negative Normal Negative [facility] Comment on above: Result Comment: The qualitative antinuclear antibody screen test performed using the following antigens: dsDNA, Chromatin, Ribosomal P, SS-A 60, SS-A 52, SS-B, Sm, SmRNP, APARTMENT MAINTENANCE TECHNICIAN A, APARTMENT MAINTENANCE TECHNICIAN 68, Scl-70, Cherelle-1, and Centromere B. Methodology: Multiplex flow immunoassay. Performed By: #### 2 02585 #### [place] [address] CHROMOGRANIN A [CCL]on 10-24 Chromogranin A 176.2 ng/mL Normal <187.0 [facility] Comment on above: Result Comment: The Chromogranin A test was performed using the TranSwitch CgA II KRYPTOR method. Results obtained with different assay methods or kits cannot be used interchangeably. Performed By: #### 2 02389 #### [place] [address] IBD SEROLOGY DISEASE PANEL [ CCL]on 10-25-2023 ANCA IFA Pattern Not detected Normal None Detected [facility] Comment on above: Result Comment: INTE RPRETIVE INFORMATION: ANCA IFA Pattern Neutrophil Cytoplasmic Antibodies (C-ANCA = granular cytoplasmic staining, P-ANCA = perinuclear staining) are found in the serum of over 90 percent of patients with certain necrotizing systemic vasculitides, and usually in less than 5 percent of patients with collagen vascular disease or arthritis. Performed By: #### 2 82464 #### [place] [address] ANCA IFA Titer <1:20 Normal <1:20 [facility] Comment on above: Performed By: #### 2 69613 #### [place] [address] EER Inf Bowel DiseasePanel See Note Normal [facility] Comment on above: Result Comment: Auth orized individuals can access the [employer] Enhanced Report using the following link: [email or web address] Performed By: [facility] [address] [place] [address] Wireless Sales Associate: Carter Busch MD, PhD CLIA Number: [id number] Performed By: #### 2 35335 #### [facility],[address] [place] [id number] Inflammatory BowelDisease Interp See Note Normal [facility] Comment on above: Result Comment: INTE RPRETIVE INFORMATION: Inflammatory Bowel Disease Interpretation ASCA Atypical P-ANCA* Ab Profile IgG and/or IgA >24.9.........ND.............Suggests CD IgG and IgA <20.1............Obs............Suggests UC IgG and/or IgA >20.0.........Obs......Equivocal for IBD IgG and/or IgA 20.1-24.9.....ND.......Equivocal for IBD IgG and IgA <20.1............ND.....IBD not suggested *The atypical pattern is either observed (Obs) or not detected (ND). ANCA patterns other than atypical p-ANCA are not associated with IBD. Atypical p-ANCA antibodies are found in 50-70 percent of patients with ulcerative colitis (UC) and in about 20 percent of individuals with Crohn disease (CD). A negative result does not rule out IBD. References: Twin GE, Rosie VA, Liliana C, Stella AW, Sia TR, Saadia VW, Darinel PP. Diagnostic precision of anti-Saccharomyces cerevisiae antibodies and perinuclear antineutrophil cytoplasmic antibodies in inflammatory bowel disease. Am J Gastroenterol. 2006;101(10):2410-22. Performed By: #### 2 82553 #### [facility],[address] [place] [address] S. Cerevisiae IgA 8.3 Units Normal 0.0-24.9 [facility] Comment on above: Result Comment: INTE RPRETIVE INFORMATION: S. cerevisiae Antibody, IgA and IgG 20.0 Units or less ........ Negative 20.1 to 24.9 Units ......... Equivocal 25.0 Units or greater ...... Positive Saccharomyces cerevisiae IgG antibodies are found in 60-70 percent of Crohn disease (CD) patients and 10-15 percent of ulcerative colitis (UC) patients. Saccharomyces cerevisiae IgA antibodies are found in about 35 percent of CD patients but less than 1 percent in UC patients. Detection of both Saccharomyces IgG and IgA antibodies in the same serum specimen is highly specific for CD. Performed By: #### 2 35074 #### [place] [id number] S. Cerevisiae IgG 33.8 Units High 0.0-24.9 [facility] Comment on above: Performed By: #### 2 24422 #### [place] [address] RAMON SCREEN, SERUM [CCL]on MPA Result No M protein is identified. Normal No M protein is identifie [facility] Comment on above: Performed By: #### 2 18459 #### [place] [address] Staff Review Reviewed by Justyna Ramon MD Normal [facility] Comment on above: Performed By: #### 2 25749 #### [place] [id number] IMMUNOGLOBULINS [CCL]on 09-29 IgA [Mass/Vol] 404 mg/dL High 70-400 [facility] Comment on above: Performed By: #### 2 38244 #### [facility],[address] [place] [address]1552 IgG [Mass/Vol] 1598 mg/dL Normal 700-1600 [facility] Comment on above: Performed By: #### 2 58106 #### [address] [address] IgM [Mass/Vol] 71 mg/dL Normal 40-230 [facility] Comment on above: Performed By: #### 2 02102 #### [place] [id number] NEUTROPHIL CYTOPLASMIC ANTIB AMBROSIO [CCL]on 10-25-2023 C-ANCA byImmunofluorescence Negative Normal Negative [facility] Comment on above: Performed By: #### 2 10625 #### [facility],[address] [place] [address] INTERPRETATION (ANCA) Negative anti-Myeloperoxidase multiplex flow immunoassay results but P-ANCA kamron Normal [facility] Comment on above: Performed By: #### 2 22890 #### [facility],[address] [place] [address] Myeloperoxidase Ab <0.2 Normal <1.0 [facility] Comment on above: Performed By: #### 2 92942 #### [facility],[address] [place] [address] P-ANCA byImmunofluorescence Positive Abnormal Negative [facility] Comment on above: Performed By: #### 2 71023 #### [facility],[address] [place] [address] Proteinase-3 Ab <0.2 Normal <1.0 [facility] Comment on above: Performed By: #### 2 90353 #### [facility],[address] [place] [address] STAFF REVIEW (ANCA) Reviewed by Fab Rivera, Ph.D D([facility]) [facility] [place] Comment on above: Result Comment: This test is used as an aid in diagnosis of patients with autoimmune vasculitides. The final interpretation should be done in conjunction with ANCA test results and clinical correlation. Performed By: #### 2 38830 #### [facility],[address] [place], [place] [address] OVA & PARASITE EXAM [CCL]on 10-25-2023 OVA AND PARASITE EXAM See Below Normal [facility] Comment on above: Result Comment: OVA AND PARASITE EXAM No Parasites Seen This test can not identify the presence of Cryptosporidium, Cyclospora or Cystoisospora (order CRYSPO); Microsporidia (order MICSPO) or consider ordering STGIPI (molecular test to detect common infectious causes of diarrhea). A single negative test result does not rule out a parasitic infection. Due to intermittent shedding of parasites, it is recommended that three specimens collected over a 7 day period are submitted to improve detection sensitivity. SOURCE: Stool [facility] [address] [place] [id number] Chaz Ann III, M.D. [id number] Performed By: #### 2 78746 #### [address] [address] RHEUMATOID FACTOR [CCL]on Rheumatoid Factor 107 IU/mL High <16 [facility] Comment on above: Performed By: #### 2 71673 #### [address] [address] VITAMIN D, 1,25 - DIHYDROXY [CCL]on 10-25-2023 Vit D,1,25 Dihydroxy 34.7 pg/mL Normal 19.9-79.3 [facility] Comment on above: Performed By: #### 2 86984 #### [address] [address] ENTERIC BACTERIAL PANEL BY P CR [CCL]on 10-24-2023 Campylobacterjejuni/co li DNA Not detected Normal Not Detected [facility] Comment on above: Performed By: #### 2 85333 #### [address] [address] Salmonella spp. DNA Not detected Normal Not Detected [facility] Comment on above: Performed By: #### 2 55462 #### [address] [address] Shiga toxin producinggene(s) Not detected Normal Not Detected [facility] Comment on above: Performed By: #### 2 87591 #### [address] [address] Shigella/Enteroinvasiv eE.coli DNA Not detected Normal Not Detected [facility] Comment on above: Result Comment: [facility] [address] [place] [address] Chaz Ann III, M.D. [id number] Performed By: #### 2 84073 #### [facility],[address] [place] [address] FECAL FAT, QUALITATIVE [CCL] on 10-24-2023 FAT, FECAL NEUTRAL Normal Normal Normal [facility] Comment on above: Performed By: #### 2 37969 #### [address] [address] FAT, FECAL SPLIT Normal Normal Normal [facility] Comment on above: Result Comment: INTE RPRETIVE INFORMATION: Fecal Fat Qualitative Neutral fats include the monoglycerides, diglycerides, and triglycerides while split fats are the free fatty acids that are liberated from them. Impaired synthesis or secretion of pancreatic enzymes or bile may cause an increase in neutral fats while an increase in split fats suggests impaired absorption of nutrients. Performed By: [facility] [address] [place] [address] Wireless Sales Associate: Carter Busch MD, PhD CLIA Number: [id number] [facility] [address] [place] [address] Chaz Ann III, M.D. [id number] Performed By: #### 2 25668 #### [address] [address] IGE [CCL]on 10-23-2023 IgE 33.0 kU/l Normal <114.0 [facility] Comment on above: Result Comment: [facility] [address] [place] [address] Chaz Ann III, M.D. [id number] Performed By: #### 2 04358 #### [address] [address] C DIFF COMPLETEon 08-23-2024 C DIFF COMPLETE C DIFF COMPLETE 0{ C-DIFF TOXIN _NEGATIVE__ (NRL: NEGATIVE ) 10/21/23.1626.CWB. C-DIFF AG NEGATIVE INTERNAL NEG QC PASS INTERNAL POS QC PASS EXTERNAL QC DONE? YES INTERPRETATION: POSITIVE Ag,POSITIVE Tox = C. Diff is present & producing toxins POSITIVE Ag,NEGATIVE Tox = C. Diff is present NEGATICE Ag,NEGATICE Tox = C. Diff is not present A low percentage of specimens may test negative for antigen but positive for toxin. A fresh specimen should be resumbitted for retesting. Normal [facility] Comment on above: Performed By: #### 2 30292 #### [place] [id number] GASTRIN [CCL]on 10-21-2023 Gastrin 58.0 pg/mL Normal <115.0 [facility] Comment on above: Result Comment: The Gastrin test was performed using the Siemens Immulite chemiluminescent immunometric method. Results obtained with different assay methods or kits cannot be used interchangeably. [facility] [address] [place] [address] Chaz Ann III, M.D. [id number] Performed By: #### 2 82980 #### [place] [id number] LACTOFERRIN, QUALITATIVE, ST OOLon 10-21-2023 LACTOFERRIN, QUALITATIVE, STOOL LACTOFERRIN, QUALITATIVE, STOOL { LEUKO EZ TITI POSITIVE [NEGATIVE INTERNAL CONTROL PASS External Ctrl done? YES A negative or normal test result is consistent with a noninflammatory disease such as IBS. A positive or elevated result indicates the presence of intestinal inflammation; such inflammation is consistent with IBD. Normal [facility] Comment on above: Performed By: #### 2 53924 #### [address] [address] OCCULT BLOOD STOOL(NON-CANCE R SCREENING)on 10-21-2023 OCCULT BLOOD STOOL Negative Normal [facility] Comment on above: Performed By: #### 2 08894 #### [address],[place] [address] 3D MAMM BILAT SCREENon 10-19 3D MAMM BILAT SCREEN [address] [address] Patient: TAD GRANT Phone#: : 1970 Age: 53 Gender: F Pt. Type: Out Account: [id number] Location: [facility] Ordering: JYOTI MARTINEZ Exam Date: 10/20/2023/10:28 Family Phys: PAN DOYLE Charge Code: [id number] Physician: [place] Order #: [id number] Dose#: PROCEDURE: BILATERAL SCREENING BREAST TOMOSYNTHESIS MAMMOGRAM WITH CAD COMPARISON: [facility], BILAT SCREENING, 08/24/2013, 11:04. INDICATIONS: Screening. BREAST COMPOSITION: Scattered areas fibroglandular density. FINDINGS: DIAGNOSTIC CATEGORY 0--INCOMPLETE: NEED ADDITIONAL IMAGING EVALUATION. RIGHT BREAST: ASYMMETRY visible on only the cc view, located in the lateral breast, at the anterior depth, with size of approximately 10x9 mm. LEFT BREAST: No significant suspicious finding. No significant change has occurred. RECOMMENDATIONS: ADDITIONAL MAMMOGRAPHIC VIEWS REQUIRED: RIGHT BREAST --We will call the patient back for additional views and issue an addendum report. PLEASE NOTE: A NORMAL MAMMOGRAM DOES NOT EXCLUDE THE POSSIBILITY OF BREAST CANCER. A CLINICALLY SUSPICIOUS PALPABLE LUMP SHOULD BE BIOPSIED. THIS FACILITY UTILIZES A REMINDER SYSTEM TO ENSURE THAT ALL PATIENTS RECEIVE REMINDER LETTERS FOR APPOINTMENTS. THIS INCLUDES REMINDERS FOR ROUTINE MAMMOGRAMS, DIAGNOSITC MAMMOGRAMS, OR OTHER BREAST IMAGING INTERVENTIONS WHEN APPROPRIATE. THIS PATIENT WILL BE PLACED IN THE APPROPRIATE REMINDER SYSTEM. Dictated by: Lisbeth Connolly MD on 10/23/2023 at 21:15 Approved by: Lisbeth Connolly MD on 10/23/2023 at 21:28 Normal [facility] C-REACTIVE PROTEINon 024 CRP 0.46 mg/dl Normal 0.00 - 0.90 [facility] Comment on above: Performed By: #### 2 43045 #### [facility],[address] [place] [address] CBC + DIFFon 10-20-2023 Baso # 0.03 x10EE3/UL Normal 0.00 - 0.10 [facility] Comment on above: Performed By: #### 2 01239 #### [facility],[address] [place], [place] [id number] Basophils/100 WBC (Bld) 0.3 % Normal 0.0 - 2.0 [facility] Comment on above: Performed By: #### 2 25220 #### [facility],[address] [place] [address] CBC + DIFF Normal [facility] Comment on above: Result Comment: CBC- COMPLETE BLOOD COUNT Performed By: #### 2 09795 #### [facility],[address] [place] [address] EO # 0.09 x10EE3/UL Normal 0.00 - 0.50 [facility] Comment on above: Performed By: #### 2 39541 #### [facility],[address] [place], [place] [address] Eosinophils/100 WBC (Bld) 0.8 % Normal 0.0 - 7.0 [facility] Comment on above: Performed By: #### 2 44083 #### [facility],[address] [place] [address] Erythrocyte distribution width (RBC) [Ratio] 14.3 % Normal 12.0 - 15.6 [facility] Comment on above: Performed By: #### 2 63018 #### [facility],[address] [place] [address] Hematocrit (Bld) [Volume fraction] 41.5 % Normal 34.0 - 46.0 [facility] Comment on above: Performed By: #### 2 76976 #### [facility],[address] [place], [place] [id number] Hemoglobin (Bld) [Mass/Vol] 14.6 g/dL Normal 12.0 - 16.0 [facility] Comment on above: Performed By: #### 2 78519 #### [facility],[address] [place] [address] Lymph # 1.83 x10EE3/UL Normal 0.80 - 2.80 [facility] Comment on above: Performed By: #### 2 40960 #### [facility],[address] [place] [address] Lymphocytes/100 WBC (Bld) 18.1 % Low 20.0 - 45.0 [facility] Comment on above: Performed By: #### 2 67988 #### [facility],[address] [place], [place] [id number] MANUAL DIFF N/A Normal [facility] Comment on above: Performed By: #### 2 27044 #### [facility],[address] [place] [address] MCH (RBC) [Entitic mass] 29 pg Normal 27 - 33 [facility] Comment on above: Performed By: #### 2 77381 #### [facility],[address] [place] [address] MCHC 35 X10 3 Normal 32 - 36 [facility] Comment on above: Performed By: #### 2 50373 #### [facility],[address] [place], [place] [id number] MCV (RBC) [Entitic vol] 83 fL Normal 80 - 99 [facility] Comment on above: Performed By: #### 2 66084 #### [facility],[address] [place] [address] Gibson # 0.53 x10EE3/UL Normal 0.20 - 1.00 [facility] Comment on above: Performed By: #### 2 81712 #### [facility],[address] [place] [address] MONOS % 5.2 % Normal 0.0 - 10.0 [facility] Comment on above: Performed By: #### 2 36265 #### [facility],[address] [place] [address] Morphology Justice (Bld) [Interp] N/A Normal [facility] Comment on above: Performed By: #### 2 89012 #### [facility],[address] [place] [address] Neut # 7.67 x10EE3/UL High 1.50 - 7.10 [facility] Comment on above: Performed By: #### 2 55101 #### [facility],[address] [place] [address] Neutrophils/100 WBC (Bld) 75.6 % Normal 46.0 - 76.0 [facility] Comment on above: Performed By: #### 2 65211 #### [facility],[address] [place], [place] [id number] PLATELET 350 x10EE3/UL Normal 150 - 450 [facility] Comment on above: Performed By: #### 2 14912 #### [facility],[address] [place], [place] [phone] Platelet mean volume (Bld) [Entitic vol] 7.0 fL Normal 6.6 - 10.5 [facility] Comment on above: Result Comment: AUTO MATED DIFFERENTIAL Performed By: #### 2 47852 #### [facility],[address] [place] [address] 23577 RBC 5.00 x 10EE6/UL Normal 4.10 - 5.30 [facility] Comment on above: Performed By: #### 2 95016 #### [facility],[address] [place] [address] WBC 10.2 x 10EE3/UL Normal 4.5 - 10.8 [facility] Comment on above: Performed By: #### 2 10829 #### [facility],[address] [place] [address]99[address] CMP with eGFRon 10-20-2023 AGE 53 years Normal [facility] Comment on above: Performed By: #### 2 36832 #### [facility],[address] [place] [address]8065 Albumin [Mass/Vol] 3.0 g/dL Low 3.4 - 5.0 [facility] Comment on above: Performed By: #### 2 26176 #### [facility],[address] [place] [address] Albumin/Globulin [Mass ratio] 0.7 {ratio} Low 0.9 - 1.6 [facility] Center Comment on above: Performed By: #### 2 [id number] #### [facility],[address] [place] [address] 16388 ALK PHOS 111 U/L Normal 46 - 116 [facility] Comment on above: Performed By: #### 2 12937 #### [facility],[address] [place] [address] 55323 ALT [Catalytic activity/Vol] 17 U/L Normal 16 - 63 [facility] Comment on above: Performed By: #### 2 58416 #### [facility],[address] [place] [address] 01023 Anion gap [Moles/Vol] 13 mmol/L Normal 10 - 20 [facility] Comment on above: Performed By: #### 2 26153 #### [facility],[address] [place] [address] 95413 AST [Catalytic activity/Vol] 18 U/L Normal 13 - 39 [facility] Comment on above: Performed By: #### 2 26026 #### [facility],[address] [place] [address] 41992 B/C RATIO 11 ratio Normal 0 - 30 [facility] Comment on above: Performed By: #### 2 36975 #### [facility],[address] [place] [address] 58206 Bilirubin [Mass/Vol] 0.2 mg/dL Normal 0.2 - 1.0 [facility] Comment on above: Performed By: #### 2 14877 #### [facility],[address] [place] [address] 24333 Calcium [Mass/Vol] 8.9 mg/dL Normal 8.5 - 10.1 [facility] Comment on above: Performed By: #### 2 44808 #### [facility],[address] [place] [address] 65989 Chloride [Moles/Vol] 101 mmol/L Normal 98 - 107 [facility] Comment on above: Performed By: #### 2 86645 #### [facility],[address] [place] [address] 57670 CMP with eGFR Normal [facility] Comment on above: Result Comment: COMP REHENSIVE METABOLIC PANEL Performed By: #### 2 14479 #### [facility],[address] [place] [address] 80614 CO2 [Moles/Vol] 28.2 mmol/L Normal 21.0 - 32.0 [facility] Comment on above: Performed By: #### 2 35616 #### [facility],[address] [place] [address] 65808 Creatinine [Mass/Vol] 0.71 mg/dL Normal 0.55 - 1.02 [facility] Comment on above: Performed By: #### 2 01983 #### [facility],[address] [place] [address] 19112 GFR/1.73 sq M.predicted among non-blacks MDRD (S/P/Bld) [Vol rate/Area] mL/min/{1.73_m2} Normal 60 - 999 [facility] Comment on above: Performed By: #### 2 22168 #### [facility],[address] [place] [address] 26266 Result Comment: ACCO RDING TO THE NATIONAL KIDNEY DISEASE EDUCATION PROGRAM(NKDE), A NORMAL eGFR IS A VALUE GREATER THAN OR EQUAL TO 60 ML/MIN/1.73 SQ METERS. CHRONIC KIDNEY DISEASE: <60mL/MIN/1.73 SQ METERS KIDNEY FAILURE: <15mL/MIN/1.73 SQ METERS THIS TEST SHOULD ONLY BE USED FOR PATIENTS 18 YEARS OF AGE AND OLDER. Globulin (S) [Mass/Vol] 4.2 g/dL High 1.5 - 3.8 [facility] Comment on above: Performed By: #### 2 12685 #### [facility],[address] [place] [address] 11745 Glucose [Mass/Vol] 66 mg/dL Low 74 - 106 [facility] Comment on above: Performed By: #### 2 84400 #### [facility],[address] [place] [address] 14426 Potassium [Moles/Vol] 4.4 mmol/L Normal 3.5 - 5.1 [facility] Comment on above: Performed By: #### 2 01460 #### [facility],[address] [place] [address] 93604 Protein [Mass/Vol] 7.2 g/dL Normal 6.4 - 8.2 [facility] Comment on above: Performed By: #### 2 26892 #### [facility],[address] [place] [address] 84648 Sodium [Moles/Vol] 138 mmol/L Normal 136 - 145 [facility] Comment on above: Performed By: #### 2 51796 #### [facility],[address] [place] [address] 03598 Urea nitrogen [Mass/Vol] 8 mg/dL Normal 7 - 18 [facility] Comment on above: Performed By: #### 2 00932 #### [facility],[address] [place] [address] 73356 FERRITINon 10-20-2023 Ferritin [Mass/Vol] 33 ng/mL Normal 8 - 388 [facility] Comment on above: Performed By: #### 2 68721 #### [facility],[address] [place] [address] 90079 FOLATESon 10-20-2023 FOLATES 34.5 ng/ml Normal 8.6 - 58.9 [facility] Comment on above: Result Comment: ANNE KAUFMAN DILUTED Performed By: #### 2 18141 #### [facility],[address] [place] [address] 96891 SEDRATEon 10-20-2023 SEDRATE 19 mm/hr Normal 0 - 30 [facility] Comment on above: Performed By: #### 2 49706 #### [facility],[address] [place] [address] 31075 TSHon 10-20-2023 TSH Qn 0.88 m[IU]/L Normal 0.35 - 3.74 [facility] Comment on above: Performed By: #### 2 31239 #### [facility],[address] [place] [address] 45567 URIC ACIDon 10-20-2023 Urate [Mass/Vol] 3.1 mg/dL Normal 2.6 - 6.0 [facility] Comment on above: Performed By: #### 2 79223 #### [facility],[address] [place] [address] 30090 VITAMIN B-12on 10-20-2023 Cobalamin (Vitamin B12) [Mass/Vol] 406 pg/mL Normal 193 - 986 [facility] Comment on above: Performed By: #### 2 76975 #### [facility],[address] [place] [address] 37921 Gastroenterology Visit Repor ton 10-12-2023 Gastroenterology Visit Report [facility] Gastroenterology [address] [place] [address] OFFICE VISIT Date of Service: 10/12/23 MR#: [id number] Acct: [id number] Name: TAD GRANT Rep #: [id number] : 1970 Provider: Surjit Nguyen DO Age/Sex: 53/F Location: [facility] Status: Signed Intake Vital Signs 07/13/23 14:51 10/06/23 10:03 Height 5 ft 7 in 5 ft 6 in Weight: 186 lb 6 oz BMI 30.0 BP 132/78 H Blood Pressure Location Rt brachial Position Sitting Respiration 16 Pulse 59 L Temp 97.4 F L Temp Source Oral Pulse Oximetry (%) 98 Oxygen Delivery Method room air Intake Visit Reasons: Acid reflux Allergies Gadolinium-MRI Contrast Medium (contrast dye) Allergy (Mild, Verified 10/06/23 10:08) Rash Medications ???Medication ???Instructions ???Recorded ???Confirmed ???Type varenicline 1 mg tablet (Chantix) 1 mg PO BID 07/30/20 10/12/23 History famotidine 20 mg tablet 20 mg PO BID 09/25/20 10/06/23 History pantoprazole 20 mg tablet,delayed 20 mg PO BID 09/25/20 09/02/23 History release albuterol sulfate 90 mcg/actuation 2 puff inhalation Q4-6H PRN 09/02/23 09/02/23 History aerosol inhaler celecoxib 200 mg capsule 200 mg PO BID 09/02/23 10/06/23 History ondansetron HCl 8 mg tablet 8 mg PO Q8H 09/02/23 09/02/23 History pramipexole 0.5 mg tablet 0.5 mg PO QHS 09/02/23 10/06/23 History rifaximin 550 mg tablet (Xifaxan) 550 mg PO TID 09/02/23 09/02/23 History salmeterol 50 mcg/dose blister 1 inh inhalation BID 09/02/23 09/02/23 History powder for inhalation (Serevent Diskus) trazodone 100 mg tablet 100 mg PO QHS PRN 09/02/23 10/06/23 History hydroxychloroquine 400 mg tablet mg PO 10/06/23 10/12/23 History PFSH Medical History (Updated 10/06/23 @ 11:[address] 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 dyes GERD (gastroesophageal reflux disease) Benign breast cyst in female Back problem Arthritis Surgical History (Updated 10/06/23 @ 10:12 by Elin Colorado) History of appendectomy History of cholecystectomy Previous section Family History Sister Anxiety and depression Psychiatric care Suicide attempt Thyroid disorder Sister Anxiety and depression Brother Asthma Mother Anxiety and depression Diabetes Psychiatric care Suicide attempt Father Colon cancer Diabetes Hypertension Son defect Uncle History of blood transfusion Colon cancer Diabetes Aunt Diabetes Grandmother Diabetes Psychiatric care Grandmother Diabetes Social History (Updated 10/06/23 @ 10:13 by Elin Colorado) Smoking Status: Current every day smoker Tobacco: How many years used: 40 alcohol intake: never substance use type: does not use caffeine: Yes Type: coffee Number of servings: 1 additional social history: Does Not Take Aspirin Does Not Take Ibuprofen denies vaping, denies marijuana use, denies edibles HPI HPI Details: TAD GRANT, is a 53 F who presents to the office today for initial consult. *[facility] established 824 pt reports long hx of acid reflux and has a previous diagnosis of Akers's esophagus. Pt reports that about a year ago she began having difficulty eating due to recurrent thrush that leaves a bad taste in her mouth and when she does eat it upsets her stomach. Around the same time pt began having up to 6 bm per day; always diarrhea; denies blood in the stool. Pt reports constant lower abdominal pain; states that drinking white milk helps. Pt reports that she does not think pantoprazole has been effective and takes famotidine at night as needed and is unsure if it is helpful. Pt states her last EGD was in April or May of this year in [place]. ROS Const Constitutional: Positive for fatigue, headache(s) and weight change (weight loss and gain); No fever(s) ENT ENT: Positive for headache(s); No difficulty swallowing Gastro GI: Positive for abdominal pain, bloating, diarrhea, heartburn, excessive flatus and nausea/dyspepsia; No belching, change in bowel habits, change in stool character, coffee ground emesis, constipation, cramping, difficulty swallowing, feeling full early, incontinent of stools, Vomiting blood/hematemesis, Blood in stool, loose stools, Black,tarry stools, pain with swallowing, vomiting or other Musc Musculoskeletal: Positive for joint pain, back pain, joint swelling, muscle cramps, numbness, tingling, Arthritis, restless legs and leg pain at night Skin Skin: No yellowing of the eye or itchy eyes Neuro Neurology: Positive for headache(s), numbness, tingling and restless legs Psych Psychiatri (more content not included)... Normal [facility] Hand Min 3 Viewson 4 Hand Min 3 Views [facility] Imaging Services [address] [place] [address] Hand Min 3 Views MR#: [id number] Acct: [id number] Name: TAD GRANT Rep #: [id number] : 1970 F 53 From: Zachary Del Rosario MD PCP: Pan Doyle NP-C Status: REG CLI Study: Hand Min 3 Views Date of Exam: 10/06/23 Exam# [id number] Ordering Dr: Jyoti Martinez MD [id number] STUDY: X-RAY - RIGHT HAND REASON FOR EXAM: Female, 53 years old. Right hand nodule. TECHNIQUE: 3 views of the right hand. COMPARISON: None. FINDINGS: Normal radiocarpal articulation. Normal distal radioulnar joint. Normal visualized carpal bones. Normal carpal articulations Normal carpometacarpal articulation of the thumb. Normal second through fifth carpometacarpal joints. Normal metacarpi. Normal metacarpophalangeal joint of the thumb. Normal interphalangeal joint of the thumb. Normal proximal and distal phalanges of the thumb. Normal metacarpophalangeal joints of the second through fifth fingers. Normal proximal and distal interphalangeal joints of the second through fifth fingers. Normal phalanges of the second through fifth fingers. The soft tissue structures are unremarkable. There is no radiopaque mass or foreign body. RAD/Hand Min 3 Views IMPRESSION: No radiopaque mass or foreign body. MRI with skin marker localization could be performed for further evaluation. Electronically Signed: Zachary Del Rosario MD at 15:51 EDT , CC: JOMAR Doyle; Dr. Jyoti Martinez MD Events Traffic Controller: Signed Normal [facility] Plastic Surgery Visit Report on 10-06-2023 Plastic Surgery Visit Report [facility] Plastic Reconstructive Surgery [address], [address] [place] [address] OFFICE VISIT Date of Service: 10/06/23 MR#: [id number] Acct: [id number] Name: TAD GRANT Rep #: [id number] : 1970 Provider: Dr. Jyoti Martinez MD Age/Sex: 53/F Location: [facility] Status: Signed Intake Vital Signs 3 07/13/23 14:51 10/06/23 10:03 Height 5 ft 7 in 5 ft 6 in Weight: 186 lb 6 oz BMI 30.0 BP 132/78 H Blood Pressure Location Rt brachial Position Sitting Respiration 16 Pulse 59 L Temp 97.4 F L Temp Source Oral Pulse Oximetry (%) 98 Oxygen Delivery Method room air Intake Visit Reasons: right hand knots/left elbow Chief Complaint: right wrist nodules and left elbows nodules Is patient in pain?: Yes (2/10 hurts to touch) Allergies Gadolinium-MRI Contrast Medium (contrast dye) Allergy (Mild, Verified 10/06/23 10:08) Rash Medications 3 ???Medication ???Instructions ???Recorded ???Confirmed ???Type varenicline 1 mg tablet (Chantix) 1 mg PO BID 07/30/20 09/25/20 History famotidine 20 mg tablet 20 mg PO BID 09/25/20 10/06/23 History pantoprazole 20 mg tablet,delayed 20 mg PO BID 09/25/20 09/02/23 History release albuterol sulfate 90 mcg/actuation 2 puff inhalation Q4-6H PRN 09/02/23 09/02/23 History aerosol inhaler celecoxib 200 mg capsule 200 mg PO BID 09/02/23 10/06/23 History ondansetron HCl 8 mg tablet 8 mg PO Q8H 09/02/23 09/02/23 History pramipexole 0.5 mg tablet 0.5 mg PO QHS 09/02/23 10/06/23 History rifaximin 550 mg tablet (Xifaxan) 550 mg PO TID 09/02/23 09/02/23 History salmeterol 50 mcg/dose blister 1 inh inhalation BID 09/02/23 09/02/23 History powder for inhalation (Serevent Diskus) trazodone 100 mg tablet 100 mg PO QHS PRN 09/02/23 10/06/23 History hydroxychloroquine 400 mg tablet mg PO 10/06/23 10/06/23 History Have you fallen in the past year?: Yes (no injuries) Nurse's Note: pt here for evaluation of nodules on right wrist/hand and left elbow area [facility] Medical History (Updated 10/06/23 @ 11:[address] 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 dyes GERD (gastroesophageal reflux disease) Benign breast cyst in female Back problem Arthritis Surgical History (Updated 10/06/23 @ 10:12 by Elin Colorado) History of appendectomy History of cholecystectomy Previous section Family History Sister Anxiety and depression Psychiatric care Suicide attempt Thyroid disorder Sister Anxiety and depression Brother Asthma Mother Anxiety and depression Diabetes Psychiatric care Suicide attempt Father Colon cancer Diabetes Hypertension Son defect Uncle History of blood transfusion Colon cancer Diabetes Aunt Diabetes Grandmother Diabetes Psychiatric care Grandmother Diabetes Social History (Updated 10/06/23 @ 10:13 by Elin Colorado) Smoking Status: Current every day smoker Tobacco: How many years used: 40 alcohol intake: never substance use type: does not use caffeine: Yes Type: coffee Number of servings: 1 additional social history: Does Not Take Aspirin Does Not Take Ibuprofen denies vaping, denies marijuana use, denies edibles HPI right hand knots/left elbow Details: Tad Grant is a 53-year-old female with a complicated past medical history including rheumatoid arthritis for which she is currently not receiving any medical treatment who presents today for nodules on her left extensor/elbow region on the proximal forearm, as well as a nodule on her right wrist/hand extensor surface. She has been seeing her primary care doctor for her seropositive (OBED and RF positivity) rheumatoid arthritis. She was prescribed hydroxychloroquine, however she has not been taking this medicine and takes Celebrex intermittently for her pain. She is complaining of the arthritis pain today in clinic. She recently had her insurance changed and she can now see specialist care, which is why she is in our clinic today. I therefore referred her to a contractor broomcorn threshing today. She also has a history of Akers's esophagus and abdominal pain. She is currently smoking 1/2 pack of cigarettes per day, and is cut down from 2 packs/day. She is going to try to quit smoking on the next 2 weeks and is on track to do so. I talked to her extensively about smoking and wound healing and she agreed to continue to try to quit. She has not had a recent mammogram, and has had some weight loss (not sure how much, but reports it has been significant over over the last year or so). I ordered her mammogram today and counse (more content not included)... Normal [facility] XR SPINE LUMBOSACRAL 2 OR 3 VIEWSon 09-30-2023 XR SPINE LUMBOSACRAL 2 OR 3 VIEWS ORIGINAL EXAMINATION: 3 XRAY VIEWS OF THE LUMBAR SPINE 09/29/2023 11:52 am COMPARISON: None. HISTORY: ORDERING SYSTEM PROVIDED HISTORY: Reason for Exam: Low back pain FINDINGS: There are 5 lumbar vertebrae. There is minimal levoconvex curvature in the lumbar spine. No subluxation is present. Vertebral bodies are normal in height with no sign of fracture. There is moderate degenerative disc disease narrowing the L4-L5 and L5-S1 disc spaces with mild endplate degenerative spur formation. There is also mild narrowing of facet joints in the lower lumbar spine. There is no evidence of spondylolysis. Sacroiliac joints are normal. IMPRESSION: 1. Moderate lumbar spondylosis. 2. No fracture or subluxation. Interpreted by: Peng العراقي MD Preliminary Report By: Peng العراقي MD Electronically signed By Peng العراقي MD Dictated Date: 09/30/2023 1:59:14 AM Prelim Date: 09/30/2023 2:00:51 AM Sign Date: 09/30/2023 2:00:51 AM Ordering Provider: CONNIE REFERRING Normal [facility] ([place]) EMERGENCY REPORTon 4 EMERGENCY REPORT [facility] EMERGENCY ROOM REPORT NAME ACCOUNT SEX AGE ADMIT DISCHARGE PT MED. RECORD# NUMBER DATE DATE TYPE TAD GRANT [id number] F 53 09/17/23 2 A [id number] ROOM: 303MO DATE OF : 1970 DICTATING PHYSICIAN: Hamilton Garza CHIEF COMPLAINT: Abdominal pain. HISTORY OF PRESENT ILLNESS: The patient states that she has had abdominal pain over the last 3 days that is constant. It seems to be getting gradually worse. She has been able to eat or drink very little because of the pain. When she does, she just gets nauseated and has some vomiting. She has not had a fever or chills. She has loose stools though no blood or mucus that she has noticed. She always has loose stools but states that this seems to be a little worse. The abdominal pain seems to be pretty diffuse to the abdomen. She has some chronic back pain but has not noticed any change of the pain in her back. No other complaints. PAST MEDICAL HISTORY: Significant for reflux and restless legs syndrome. PAST SURGICAL HISTORY: She has had previous surgeries as noted on the surgery list. SOCIAL HISTORY: She lives at home. She does smoke about a pack a day. She does not drink alcohol or use other drugs. REVIEW OF SYSTEMS: As mentioned above. No chest pain. No cough, congestion, or shortness of breath. No headache or dizziness. PHYSICAL EXAMINATION: GENERAL: This is a 53-year-old, pleasant female who is alert and appropriate. She does not appear toxic. She seems mildly uncomfortable but not in any marked distress. SKIN: Her skin is pink, warm and dry. HEENT: Head and scalp are normal. HEENT examination is all within normal limits. Minimally dry mucosa. NECK: Her neck is supple without adenopathy. LUNGS: Lungs are clear. No crackles, wheezes or tachypnea. No respiratory distress. CARDIAC: Cardiac examination is a regular rate without murmurs or rubs. ABDOMEN: Abdomen is soft, though she does have moderate to significant diffuse tenderness to almost all areas. Bowel sounds are diminished. She does not seem to have any guarding or rebound, and no masses are noted. No back or flank tenderness. EXTREMITIES: Good peripheral pulses and good capillary refill. VITAL SIGNS: Temperature is 99, pulse 93, respirations 18, blood pressure 150/127, and oxygen saturation 98%. DIAGNOSTIC DATA: Laboratory studies and an abdominal CT were obtained. CBC Page 1 of 2 TAD GRANT Emergency Room Report TAD GRANT : 1970 with a normal white count, differential, and normal hemoglobin and hematocrit. CMP with normal electrolytes and normal BUN and creatinine. CRP was normal. Urinalysis was normal. The abdomen/pelvis CT, however, did show findings consistent with diffuse enteritis. EMERGENCY DEPARTMENT COURSE AND TREATMENT: An IV was placed. I did give her some Dilaudid and Zofran IV. She has improved pain relief with the above treatment but still has moderate tenderness with even just light palpation. I feel with the amount of pain she has that admission would be warranted. I discussed management with her. I talked to Dr. Figueroa, who will admit for further management. DIAGNOSIS: Abdominal pain with enteritis. Dictated By: Hamilton Garza MD 09/17/23 19:29 JOB #: [id number] Transcribed By: jadyn 09/18/23 11:56 Electronically signed by: DIANDRA Garza M.D. 09/27/23 07:19 Page 2 of 2 TAD GRANT Emergency Room Report Normal [facility] BMP with eGFRon 09-18-2023 AGE 53 years Normal [facility] Comment on above: Performed By: #### 2 51137 #### [place] [address] Anion gap [Moles/Vol] 13 mmol/L Normal 10 - 20 [facility] Comment on above: Performed By: #### 2 39530 #### [facility],[address] [place], [place] [id number] BMP with eGFR Normal [facility] Comment on above: Result Comment: BASI C METABOLIC PANEL Performed By: #### 2 30756 #### [address] [address] Calcium [Mass/Vol] 8.7 mg/dL Normal 8.5 - 10.1 [facility] Comment on above: Performed By: #### 2 90902 #### [facility],[address] [place] [address] Chloride [Moles/Vol] 105 mmol/L Normal 98 - 107 [facility] Comment on above: Performed By: #### 2 11346 #### [facility],[address] [place] [address] CO2 [Moles/Vol] 23.8 mmol/L Normal 21.0 - 32.0 [facility] Comment on above: Performed By: #### 2 40697 #### [facility],[address] [place] [address] Creatinine [Mass/Vol] 0.76 mg/dL Normal 0.55 - 1.02 [facility] Comment on above: Performed By: #### 2 93484 #### [place] [address] GFR/1.73 sq M.predicted among non-blacks MDRD (S/P/Bld) [Vol rate/Area] mL/min/{1.73_m2} Normal 60 - 999 [facility] Comment on above: Performed By: #### 2 71595 #### [facility],[address] [place] [address] Result Comment: ACCO RDING TO THE NATIONAL KIDNEY DISEASE EDUCATION PROGRAM(NKDE), A NORMAL eGFR IS A VALUE GREATER THAN OR EQUAL TO 60 ML/MIN/1.73 SQ METERS. CHRONIC KIDNEY DISEASE: <60mL/MIN/1.73 SQ METERS KIDNEY FAILURE: <15mL/MIN/1.73 SQ METERS THIS TEST SHOULD ONLY BE USED FOR PATIENTS 18 YEARS OF AGE AND OLDER. Glucose [Mass/Vol] 114 mg/dL High 74 - 106 [facility] Comment on above: Performed By: #### 2 99651 #### [facility],[address] [place], [place] [id number] Potassium [Moles/Vol] 4.4 mmol/L Normal 3.5 - 5.1 [facility] Comment on above: Performed By: #### 2 95731 #### [facility],[address] [place], [place] [id number] Sodium [Moles/Vol] 137 mmol/L Normal 136 - 145 [facility] Comment on above: Performed By: #### 2 78572 #### [facility],[address] [place] [address] Urea nitrogen [Mass/Vol] 8 mg/dL Normal 7 - 18 [facility] Comment on above: Performed By: #### 2 69931 #### [facility],[address] [place] [address] CBC + DIFFon 09-18-2023 Baso # 0.01 [id number]/UL Normal 0.00 - 0.10 [facility] Comment on above: Performed By: #### 2 24527 #### [facility],[address] [place] [address] Basophils/100 WBC (Bld) 0.1 % Normal 0.0 - 2.0 [facility] Comment on above: Performed By: #### 2 72398 #### [facility],[address] [place] [address] CBC + DIFF Normal [facility] Comment on above: Result Comment: CBC- COMPLETE BLOOD COUNT Performed By: #### 2 65657 #### [facility],[address] [place] [address] 22562 CELL COUNT 100 Normal [facility] Comment on above: Performed By: #### 2 33083 #### [facility],[address] [place] [address] 01420 EO # 0.01 x10EE3/UL Normal 0.00 - 0.50 [facility] Comment on above: Performed By: #### 2 95806 #### [facility],[address] [place] [address] 68545 Eosinophils/100 WBC (Bld) 0.1 % Normal 0.0 - 7.0 [facility] Comment on above: Performed By: #### 2 24740 #### [facility],[address] [place], [place] [id number] Erythrocyte distribution width (RBC) [Ratio] 14.7 % Normal 12.0 - 15.6 [facility] Comment on above: Performed By: #### 2 12695 #### [facility],[address] [place] [address] Hematocrit (Bld) [Volume fraction] 38.5 % Normal 34.0 - 46.0 [facility] Comment on above: Performed By: #### 2 19601 #### [facility],[address] [place] [address] Hemoglobin (Bld) [Mass/Vol] 13.0 g/dL Normal 12.0 - 16.0 [facility] Comment on above: Performed By: #### 2 15850 #### [facility],[address] [place] [address] Lymph # 0.99 x10EE3/UL Normal 0.80 - 2.80 [facility] Comment on above: Performed By: #### 2 08311 #### [facility],[address] [place] [address] 51886 Lymphocytes/100 WBC (Bld) 15.6 % Low 20.0 - 45.0 [facility] Comment on above: Performed By: #### 2 63257 #### [facility],[address] [place], [place] [id number] Lymphocytes/100 WBC (Bld) 19 % Low 20 - 45 [facility] Comment on above: Performed By: #### 2 77900 #### [facility],[address] [place], [place] [id number] MANUAL DIFF SEE BELOW Normal [facility] Comment on above: Performed By: #### 2 04237 #### [facility],[address] [place] [address] 94537 MCH (RBC) [Entitic mass] 28 pg Normal 27 - 33 [facility] Comment on above: Performed By: #### 2 76673 #### [facility],[address] [place] [address] MCHC 34 X10 3 Normal 32 - 36 [facility] Comment on above: Performed By: #### 2 08606 #### [facility],[address] [place] [address] MCV (RBC) [Entitic vol] 82 fL Normal 80 - 99 [facility] Comment on above: Performed By: #### 2 51404 #### [facility],[address] [place] [address] Gibson # 0.29 x10EE3/UL Normal 0.20 - 1.00 [facility] Comment on above: Performed By: #### 2 61695 #### [facility],[address] [place] [address] MONOS 4 % Normal 0 - 10 [facility] Comment on above: Performed By: #### 2 41562 #### [facility],[address] [place] [address] MONOS % 4.5 % Normal 0.0 - 10.0 [facility] Comment on above: Performed By: #### 2 85219 #### [facility],[address] [place] [address] Morphology Justice (Bld) [Interp] SEE BELOW Normal [facility] Comment on above: Performed By: #### 2 43472 #### [facility],[address] [place] [address] Neut # 5.04 x10EE3/UL Normal 1.50 - 7.10 [facility] Comment on above: Performed By: #### 2 99191 #### [facility],[address] [place] [address] Neutrophils/100 WBC (Bld) 79.6 % High 46.0 - 76.0 [facility] Comment on above: Performed By: #### 2 96193 #### [facility],[address] [place] [address] PLATELET 273 x10EE3/UL Normal 150 - 450 [facility] Comment on above: Performed By: #### 2 70726 #### [facility],[address] [place] [address] Platelet mean volume (Bld) [Entitic vol] 6.3 fL Low 6.6 - 10.5 [facility] Comment on above: Result Comment: AUTO MATED DIFFERENTIAL Performed By: #### 2 15655 #### [facility],[address] [place] [address] PLT EST NORMAL Normal [facility] Comment on above: Performed By: #### 2 97975 #### [facility],[address] [place] [address] RBC 4.71 x 10EE6/UL Normal 4.10 - 5.30 [facility] Comment on above: Performed By: #### 2 66811 #### [facility],[address] [place] [address] SEGS 77 % High 46 - 76 [facility] Comment on above: Performed By: #### 2 83924 #### [facility],[address] [place], [place] [phone] WBC 6.3 x 10EE3/UL Normal 4.5 - 10.8 [facility] Comment on above: Performed By: #### 2 00312 #### [facility],[address] [place], [place] [phone] C-REACTIVE PROTEINon 024 CRP 0.43 mg/dl Normal 0.00 - 0.90 [facility] Comment on above: Performed By: #### 2 10989 #### [facility],[address] [place] [address] CBC + DIFFon 09-17-2023 Baso # 0.02 x10EE3/UL Normal 0.00 - 0.10 [facility] Comment on above: Performed By: #### 2 81433 #### [facility],[address] [place] [address] 52937 Basophils/100 WBC (Bld) 0.2 % Normal 0.0 - 2.0 [facility] Comment on above: Performed By: #### 2 21680 #### [facility],[address] [place], [place] [id number] CBC + DIFF Normal [facility] Comment on above: Result Comment: CBC- COMPLETE BLOOD COUNT Performed By: #### 2 20839 #### [facility],[address] [place] [address] EO # 0.15 x10EE3/UL Normal 0.00 - 0.50 [facility] Comment on above: Performed By: #### 2 67321 #### [facility],[address] [place] [address] 93984 Eosinophils/100 WBC (Bld) 1.6 % Normal 0.0 - 7.0 [facility] Comment on above: Performed By: #### 2 28590 #### [facility],[address] [place], [place] [id number] Erythrocyte distribution width (RBC) [Ratio] 15.2 % Normal 12.0 - 15.6 [facility] Comment on above: Performed By: #### 2 74981 #### [facility],[address] [place] [address] Hematocrit (Bld) [Volume fraction] 43.4 % Normal 34.0 - 46.0 [facility] Comment on above: Performed By: #### 2 27712 #### [facility],[address] [place] [address] 22254 Hemoglobin (Bld) [Mass/Vol] 14.5 g/dL Normal 12.0 - 16.0 [facility] Comment on above: Performed By: #### 2 36413 #### [facility],[address] [place], [place] [id number] Lymph # 2.16 x10EE3/UL Normal 0.80 - 2.80 [facility] Comment on above: Performed By: #### 2 04058 #### [facility],[address] [place] [address] Lymphocytes/100 WBC (Bld) 22.1 % Normal 20.0 - 45.0 [facility] Comment on above: Performed By: #### 2 98035 #### [facility],[address] [place] [address] MANUAL DIFF N/A Normal [facility] Comment on above: Performed By: #### 2 42674 #### [facility],[address] [place] [address] MCH (RBC) [Entitic mass] 27 pg Normal 27 - 33 [facility] Comment on above: Performed By: #### 2 92584 #### [place] [address] MCHC 33 X10 3 Normal 32 - 36 [facility] Comment on above: Performed By: #### 2 40652 #### [place] [id number] MCV (RBC) [Entitic vol] 82 fL Normal 80 - 99 [facility] Comment on above: Performed By: #### 2 50162 #### [facility],[address] [place], [place] [id number] Gibson # 0.56 x10EE3/UL Normal 0.20 - 1.00 [facility] Comment on above: Performed By: #### 2 66967 #### [place] [address] MONOS % 5.7 % Normal 0.0 - 10.0 [facility] Comment on above: Performed By: #### 2 84858 #### [facility],[address] [place], [place] [phone] Morphology Justice (Bld) [Interp] SEE BELOW Normal [facility] Comment on above: Performed By: #### 2 96954 #### [facility],[address] [place] [address] 18789 Neut # 6.90 x10EE3/UL Normal 1.50 - 7.10 [facility] Comment on above: Performed By: #### 2 30738 #### [facility],[address] [place] [address] 02765 Neutrophils/100 WBC (Bld) 70.4 % Normal 46.0 - 76.0 [facility] Comment on above: Performed By: #### 2 11174 #### [facility],[address] [place] [address] 55526 PLATELET 329 x10EE3/UL Normal 150 - 450 [facility] Comment on above: Performed By: #### 2 88564 #### [facility],[address] [place], [place] [id number] Platelet mean volume (Bld) [Entitic vol] 6.2 fL Low 6.6 - 10.5 [facility] Comment on above: Result Comment: AUTO MATED DIFFERENTIAL Performed By: #### 2 03094 #### [facility],[address] [place] [address] 02435 PLT EST NORMAL Normal [facility] Comment on above: Performed By: #### 2 73614 #### [facility],[address] [place] [address] 47819 RBC 5.33 x 10EE6/UL High 4.10 - 5.30 [facility] Comment on above: Performed By: #### 2 43435 #### [facility],[address] [place] [address] 80921 WBC 9.8 x 10EE3/UL Normal 4.5 - 10.8 [facility] Comment on above: Performed By: #### 2 63797 #### [facility],[address] [place] [address] CMP with eGFRon 09-17-2023 AGE 53 years Normal [facility] Comment on above: Performed By: #### 2 67141 #### [facility],[address] [place] [address] 90151 Albumin [Mass/Vol] 2.7 g/dL Low 3.4 - 5.0 [facility] Comment on above: Performed By: #### 2 55602 #### [facility],[address] [place] [address] Albumin/Globulin [Mass ratio] 0.6 {ratio} Low 0.9 - 1.6 [facility] Comment on above: Performed By: #### 2 25444 #### [facility],[address] [place], [place] [id number] ALK PHOS 103 U/L Normal 46 - 116 [facility] Comment on above: Performed By: #### 2 23989 #### [facility],[address] [place] [address] 10228 ALT [Catalytic activity/Vol] 11 U/L Low 16 - 63 [facility] Comment on above: Performed By: #### 2 34613 #### [facility],[address] [place] [address] 79481 Anion gap [Moles/Vol] 12 mmol/L Normal 10 - 20 [facility] Comment on above: Performed By: #### 2 26070 #### [facility],[address] [place] [address] 36406 AST [Catalytic activity/Vol] 11 U/L Low 13 - 39 [facility] Comment on above: Performed By: #### 2 01179 #### [facility],[address] [place] [address] 63374 B/C RATIO 14 ratio Normal 0 - 30 [facility] Comment on above: Performed By: #### 2 47212 #### [facility],[address] [place] [address] 74001 Bilirubin [Mass/Vol] 0.2 mg/dL Normal 0.2 - 1.0 [facility] Comment on above: Performed By: #### 2 95515 #### [facility],[address] [place] [address] Calcium [Mass/Vol] 8.7 mg/dL Normal 8.5 - 10.1 [facility] Comment on above: Performed By: #### 2 91932 #### [facility],[address] [place] [address] Chloride [Moles/Vol] 102 mmol/L Normal 98 - 107 [facility] Comment on above: Performed By: #### 2 65949 #### [facility],[address] [place] [address] CMP with eGFR Normal [facility] Comment on above: Result Comment: COMP REHENSIVE METABOLIC PANEL Performed By: #### 2 92842 #### [facility],[address] [place] [address] CO2 [Moles/Vol] 27.0 mmol/L Normal 21.0 - 32.0 [facility] Comment on above: Performed By: #### 2 23784 #### [facility],[address] [place] [address] Creatinine [Mass/Vol] 0.76 mg/dL Normal 0.55 - 1.02 [facility] Comment on above: Performed By: #### 2 40701 #### [facility],[address] [place], [place] [address] GFR/1.73 sq M.predicted among non-blacks MDRD (S/P/Bld) [Vol rate/Area] mL/min/{1.73_m2} Normal 60 - 999 [facility] Comment on above: Performed By: #### 2 15982 #### [facility],[address] [place] [address] Result Comment: ACCO RDING TO THE NATIONAL KIDNEY DISEASE EDUCATION PROGRAM(NKDE), A NORMAL eGFR IS A VALUE GREATER THAN OR EQUAL TO 60 ML/MIN/1.73 SQ METERS. CHRONIC KIDNEY DISEASE: <60mL/MIN/1.73 SQ METERS KIDNEY FAILURE: <15mL/MIN/1.73 SQ METERS THIS TEST SHOULD ONLY BE USED FOR PATIENTS 18 YEARS OF AGE AND OLDER. Globulin (S) [Mass/Vol] 4.7 g/dL High 1.5 - 3.8 [facility] Comment on above: Performed By: #### 2 31563 #### [address] [address] Glucose [Mass/Vol] 101 mg/dL Normal 74 - 106 [facility] Comment on above: Performed By: #### 2 58325 #### [address] [address] Potassium [Moles/Vol] 3.7 mmol/L Normal 3.5 - 5.1 [facility] Comment on above: Performed By: #### 2 96033 #### [address] [address] Protein [Mass/Vol] 7.4 g/dL Normal 6.4 - 8.2 [facility] Comment on above: Performed By: #### 2 22022 #### [address] [address] Sodium [Moles/Vol] 137 mmol/L Normal 136 - 145 [facility] Comment on above: Performed By: #### 2 51058 #### [address] [address] Urea nitrogen [Mass/Vol] 11 mg/dL Normal 7 - 18 [facility] Comment on above: Performed By: #### 2 55990 #### [address] [address] [address] ABDOMEN/PELVIS [facility] 2023 CT ABDOMEN/PELVIS [place] [address] Patient: TAD GRANT Phone#: : 1970 Age: 53 Gender: F Pt. Type: ER Account: [id number] Location: 052 Ordering: HAMILTON GARZA Exam Date: 09/17/2023/16:21 Family Phys: PAN DOYLE Charge Code: [id number] Physician: [place] Order #: [id number] Dose#: 18.2 mGy PROCEDURE: CT ABDOMEN/PELVIS WITH CONTRAST COMPARISON: [facility], CT, ABDOMEN/PELVIS W CON, 12/14/2019, 11:12. INDICATIONS: Abdominal pain. TECHNIQUE: After obtaining the patient's consent, CT images were created with non-ionic intravenous contrast material. All CT scans at this facility use dose modulation, iterative reconstruction, and/or weight based dosing when appropriate to reduce radiation dose to as low as reasonably achievable. IV CONTRAST: Omnipaque 350,80ml TOTAL DOSE: 18.2 CTDIvol(mGy) FINDINGS: LIVER: Normal. No enlargement, atrophy, abnormal density, or significant focal lesion. BILIARY: Gallbladder is absent, surgical clips are in the gallbladder fossa PANCREAS: Normal. No lesion, fluid collection, ductal dilatation, or atrophy. SPLEEN: Normal. No enlargement or focal lesion. KIDNEYS: Kidneys enhance and excrete contrast symmetrically. There is a calcification in the right kidney measuring 0.3 cm. No hydronephrosis. ADRENALS: Normal. No mass or enlargement. AORTA/VASCULAR: No aortic aneurysm. There are atherosclerotic calcifications of the aorta and branch vessels. RETROPERITONEUM: Normal. No mass or adenopathy. BOWEL/MESENTERY: The distal and terminal ileum demonstrates wall thickening and surrounding inflammatory stranding. No bowel obstruction or dilatation. No significant stool burden. ABDOMINAL WALL: Fat containing umbilical hernia URINARY BLADDER: Normal. No visible focal wall thickening, lesion, or calculus. PELVIC NODES: Normal. No adenopathy. PELVIC ORGANS: Uterus is present. No adnexal mass. Continued Report - Page 2 of 2 Patient: TAD GRANT. Phone#: : 1970 Age: 53 Gender: F Pt. Type: ER Account: [id number] Location: 052 Ordering: HAMILTON GARZA Exam Date: 09/17/2023/16:21 Family Phys: PAN DOYLE Charge Code: [id number] Physician: [place] Order #: [id number] Dose#: 18.2 mGy BONES: Disc height loss at L3-4, L4-5. Mild leftward curvature of the lumbar spine. LUNG BASES: There are chronic changes in the lung bases. Bilateral diffuse lung base ground-glass opacities. OTHER: Negative. CONCLUSION: 1. Long segment of inflamed distal and terminal ileum. The differential is inflammatory bowel disease versus acute infectious enteritis. 2. Ground-glass opacities in the lung bases, correlate for chronic or acute pneumonitis. Dictated by: Lisbeth Connolly MD on 09/17/2023 at 20:13 Approved by: Lisbeth Connolly MD on 09/17/2023 at 20:34 Normal [facility] LIPASEon 09-17-2023 Lipase [Catalytic activity/Vol] 33.0 U/L Normal 15.0 - 78.0 [facility] Comment on above: Result Comment: *PLE ASE NOTE THAT RANGES FOR LIPASE HAVE CHANGED OF 02/25/23 DUE TO AN ASSAY UPDATE BY THE PARK GUIDE.THE NEW ASSAY RANGE IS 6-250 U/L, WITH A REFERENCE RANGE OF 16-77 U/L. Performed By: #### 2 61344 #### [place] [address] URINALYSISon 09-17-2023 Bilirubin Ql (U) Negative Normal NORMAL: NEGATIVE [facility] Comment on above: Performed By: #### 2 49221 #### [place] [address] Clarity (U) clear Normal NORMAL: CLEAR [facility] Comment on above: Performed By: #### 2 18848 #### [place] [address] Color (U) p.yel Normal NORMAL: YELLOW [facility] Comment on above: Performed By: #### 2 96838 #### [place] [address] Glucose Ql (U) NORM Normal NORMAL: NORMAL [facility] Comment on above: Performed By: #### 2 84099 #### [facility],[address] [place], [place] [id number] Hemoglobin Ql (U) Negative Normal NORMAL: NEGATIVE [facility] Comment on above: Performed By: #### 2 43257 #### [facility],[address] [place], [place] [address] Ketone Negative Normal NORMAL: NEGATIVE [facility] Comment on above: Performed By: #### 2 93563 #### [facility],[address] [place], [place] [phone] Leukocytes Negative Normal NORMAL: NEGATIVE [facility] Comment on above: Performed By: #### 2 15998 #### [facility],[address] [place], [place] [address] Nitrite Ql (U) Negative Normal NORMAL: NEGATIVE [facility] Comment on above: Performed By: #### 2 22367 #### [facility],[address] [place] [address] pH (U) 7 [pH] Normal NORMAL: 5.0-8.0 [facility] Comment on above: Performed By: #### 2 34311 #### [facility],[address] [place], [place] [id number] Protein Ql (U) Negative Normal NORMAL: NEGATIVE [facility] Comment on above: Performed By: #### 2 49667 #### [facility],[address] [place] [address] Sp [place] 1.005 Low NORMAL: 1.010-1.03 0 [facility] Comment on above: Performed By: #### 2 36799 #### [facility],[address] [place] [address] Specimen Type Clean catch Normal [facility] Comment on above: Performed By: #### 2 36780 #### [facility],[address] [place] [address] Urinalysis dipstick W Reflex Microscopic panel (U) NOT INDICATED Normal [facility] Comment on above: Performed By: #### 2 69799 #### [facility],[address] [place] [address] Urobilinog NORM Normal NORMAL: NORMAL [facility] Comment on above: Performed By: #### 2 86343 #### [facility],[address] [place] [address] Final Surgical Pathology Rep teo 05-06-2023 Final Surgical Pathology Report . Pathology Reports Accession: Collected Date/Time: Received Date/Time: Pathologist: [id number] 05/03/2023 11:20 EST 05/05/2023 08:07 MEGAN BRITTON MD Final Surgical Pathology Report DIAGNOSIS: A. ESOPHAGUS, 36 CM, BIOPSY: - SQUAMOUS AND GLANDULAR MUCOSA WITH INTESTINAL METAPLASIA, CONSISTENT WITH AKERS'S ESOPHAGUS - NEGATIVE FOR DYSPLASIA Comment: Additional levels examined. B. ESOPHAGUS, 30 CM, BIOPSY: - SQUAMOUS MUCOSA WITH FEATURES OF REFLUX - NO SIGNIFICANT EOSINOPHILIC INFILTRATE IDENTIFIED C. RANDOM COLON BIOPSY: - FRAGMENTS OF COLON MUCOSA WITH MILD NONSPECIFIC REGENERATIVE CHANGES CLINICAL INFORMATION: DYSPHAGIA PROCEDURE: BIOPSY AKERS'S / ESOPHAGEAL/ RANDOM COLON BIOPSY SPECIMEN: A ESOPHAGUS, BIOPSY 36 CM/ R/O AKERS'S B ESOPHAGUS BIOPSY 30 CM EOE C RANDOM COLON, BIOPSY R/O COLITIS GROSS DESCRIPTION: All parts labelled with patient name and [id number] A. Received in formalin labeled 36 cm biopsy are multiple wispy white tissue fragments aggregating 0.7 x 0.4 x 0.2 cm. The smallest fragments may not survive processing. TS-1 B. Received in formalin labeled esophageal biopsy at 30 cm are 3 wispy white tissue fragments measuring 0.1 to 0.4 x 0.1 cm. TS-1 C. Received in formalin labeled random colon biopsy are 6 estrada tissue fragments measuring 0.1 to 0.2 cm. TS-1 Elly Schumacher, Grossing Printing Press Operator/ Dr. Walter Stover, Pathologist Dictated by Elly Schumacher MICROSCOPIC DESCRIPTION: The microscopic examination is performed, except in the case of Gross Only. Electronically Signed by Pathology Report verified by [facility] MEGAN FORTE Sign out Date: 05/06/2023 13:07 Performing Lab: [facility], [facility] [address] [place] [address] States Pathology Dept Disclaimer If ancillary studies were utilized, the following Laboratory Developed Test (LDT) disclaimer will apply: Pathology Reports Accession: Collected Date/Time: Received Date/Time: Pathologist: [id number] 05/03/2023 11:20 EST 05/05/2023 08:07 MEGAN BRITTON MD Disclaimer Under CLIA requirements, [facility] is qualified to perform high complexity testing. For all ancillary stains, positive and negative controls stain appropriately. Performance characteristics of immunohistochemical and chromogenic in-situ hybridization tests have been determined by [facility]. These tests are used for clinical purposes, They should not be regarded as investigational or for research. Normal [facility] 11-16-2022 [facility] Telephone ([facility]) TAD GRANT ([id number]) 1970 F Date Time Provider Department 11/16/22 JAYANT EDWARDS [facility] During your visit today, we recorded the following information about you: Ambrocio Mckinnon 11/16/2022 10:36 AM Signed I JUST HAPPENED TO NOTICE THAT TAD GRANT CANCELED HER EGD PROCEDURE FOR TOMORROW VIA THE TEXT OPTION. FYI Allergies As of Date: 11/16/2022 (No Known Allergies) Date Reviewed: 09/08/2022 Reviewed by: Rosi Escobedo RN - Fully Assessed Reason for Visit: Surgery Cancelled [5703] Cmt: PT CANCEL EGD TOMORROW Prescriptions as of 11/16/2022 - traZODone (DESYREL) 50 mg tablet Take 50 mg by mouth daily at bedtime. - carbidopa-levodopa (SINEMET 25-100) 25-100 mg per tablet - albuterol HFA (PROVENTIL HFA, VENTOLIN HFA) 90 mcg/actuation inhaler INHALE 2 PUFFS BY MOUTH EVERY 4 HOURS NEEDED FOR SHORTNESS OF BREATH, WHEEZING, PERSISTENT COUGH - ibuprofen (ADVIL) 200 mg tablet Take 200 mg by mouth every 6 hours as needed. - lidocaine viscous (XYLOCAINE) 2 % solution Take 5 mL by mouth every 4 hours as needed for Pain. Dilute 1 teaspoon of Lidocaine with 1 Tablespoon of water and swallow. - sucralfate (CARAFATE) 1 gram tablet 1 tablet before meals and at bedtime. Place tablet in 4 oz. of water, drink the dissolved tablet. - pantoprazole DR (PROTONIX) 40 mg tablet Take 1 tablet by mouth twice daily. - buPROPion XL (WELLBUTRIN XL) 150 mg 24 hr tablet Take 150 mg by mouth once daily. Problem List As Of Date 11/16/2022 Noted Resolved Pre-op examination [Z01.818] 09/08/2022 RG (dyspnea on exertion) [R06.09] 09/08/2022 Akers's esophagus without dysplasia [K22.70] 09/08/2022 Gastroesophageal reflux disease without esophag*09/08/2022 Encounter Status:Closed by AMBROCIO MCKINNON on 11/16/22 [facility] 10-07-2022 ALEXANDRA Telephone (AGGENS3) TAD GRANT ([id number]) 1970 F Date Time Provider Department 10/07/22 JAYANT EDWARDS During your visit today, we recorded the following information about you: Hermila Krause RN 10/07/2022 12:28 PM Signed Patient called to cancel her appointment on 10/11/22--her mother is gravely ill. I told her to call us when she is ready to come back and told her to take care. Hermila Krause RN Allergies As of Date: 10/07/2022 (No Known Allergies) Date Reviewed: 09/08/2022 Reviewed by: Rosi Escobedo RN - Fully Assessed Reason for Visit: Future Appointment [256] Cmt: Canceling appointment 10/11/22 Prescriptions as of 10/07/2022 - traZODone (DESYREL) 50 mg tablet Take 50 mg by mouth daily at bedtime. - carbidopa-levodopa (SINEMET 25-100) 25-100 mg per tablet - albuterol HFA (PROVENTIL HFA, VENTOLIN HFA) 90 mcg/actuation inhaler INHALE 2 PUFFS BY MOUTH EVERY 4 HOURS NEEDED FOR SHORTNESS OF BREATH, WHEEZING, PERSISTENT COUGH - ibuprofen (ADVIL) 200 mg tablet Take 200 mg by mouth every 6 hours as needed. - lidocaine viscous (XYLOCAINE) 2 % solution Take 5 mL by mouth every 4 hours as needed for Pain. Dilute 1 teaspoon of Lidocaine with 1 Tablespoon of water and swallow. - sucralfate (CARAFATE) 1 gram tablet 1 tablet before meals and at bedtime. Place tablet in 4 oz. of water, drink the dissolved tablet. - pantoprazole DR (PROTONIX) 40 mg tablet Take 1 tablet by mouth twice daily. - buPROPion XL (WELLBUTRIN XL) 150 mg 24 hr tablet Take 150 mg by mouth once daily. Problem List As Of Date 10/07/2022 Noted Resolved Pre-op examination [Z01.818] 09/08/2022 RG (dyspnea on exertion) [R06.09] 09/08/2022 Akers's esophagus without dysplasia [K22.70] 09/08/2022 Gastroesophageal reflux disease without esophag*09/08/2022 Encounter Status:Closed by HERMILA KRAUSE on 10/07/22 [facility] 09-28-2022 RAYON Telephone (AGGENS3) TAD GRANT ([id number]) 1970 F Date Time Provider Department 09/28/22 JAYANT EDWARDS3 During your visit today, we recorded the following information about you: Hermila Krause RN 09/28/2022 11:42 AM Signed Patient called questioning why her PCP only ordered Omprazole twice a day for 14 days. I need a lot more pills than that. I checked patient's medications and noted that she was on omeprazole 20 mg twice a day and it was increased to 40 mg twice a day for 14 days. I recommended that Crystal call her PCP back and ask what dosage does she want Crystal to be on after the 14 days. Patient said she did not realize the dose was increased and will call her PCP. Hermila Krause RN Allergies As of Date: 09/28/2022 (No Known Allergies) Date Reviewed: 09/08/2022 Reviewed by: Rosi Escobedo RN - Fully Assessed Reason for Visit: Patient Question [1200] Prescriptions as of 09/28/2022 - traZODone (DESYREL) 50 mg tablet Take 50 mg by mouth daily at bedtime. - carbidopa-levodopa (SINEMET 25-100) 25-100 mg per tablet - albuterol HFA (PROVENTIL HFA, VENTOLIN HFA) 90 mcg/actuation inhaler INHALE 2 PUFFS BY MOUTH EVERY 4 HOURS NEEDED FOR SHORTNESS OF BREATH, WHEEZING, PERSISTENT COUGH - ibuprofen (ADVIL) 200 mg tablet Take 200 mg by mouth every 6 hours as needed. - lidocaine viscous (XYLOCAINE) 2 % solution Take 5 mL by mouth every 4 hours as needed for Pain. Dilute 1 teaspoon of Lidocaine with 1 Tablespoon of water and swallow. - sucralfate (CARAFATE) 1 gram tablet 1 tablet before meals and at bedtime. Place tablet in 4 oz. of water, drink the dissolved tablet. - pantoprazole DR (PROTONIX) 40 mg tablet Take 1 tablet by mouth twice daily. - buPROPion XL (WELLBUTRIN XL) 150 mg 24 hr tablet Take 150 mg by mouth once daily. Problem List As Of Date 09/28/2022 Noted Resolved Pre-op examination [Z01.818] 09/08/2022 RG (dyspnea on exertion) [R06.09] 09/08/2022 Akers's esophagus without dysplasia [K22.70] 09/08/2022 Gastroesophageal reflux disease without esophag*09/08/2022 Encounter Status:Closed by HERMILA KRAUSE on 09/28/22 [facility] 09-16-2022 CNPN Telephone (AGGENS3) JEEVANTAD Trejo ([id number]) 1970 F Date Time Provider Department 09/16/22 JAYANT EDWARDS3 During your visit today, we recorded the following information about you: Hermila Krause RN 09/16/2022 9:47 AM Addendum ----- Message from Jayant Edwards MD sent at 09/13/2022 5:08 PM EDT ----- Please call and tell her pathology shows akers's esophagus She needs a follow up appointment Patient returned my call from yesterday. We reviewed her results and the patient was relieved to know it did not show cancer. I confirmed patient's follow up appointment on 10/11/[address] Edwards will talk to patient about next steps. Hermila Krause RN Allergies As of Date: 09/16/2022 (No Known Allergies) Date Reviewed: 09/08/2022 Reviewed by: Rosi Escobedo RN - Fully Assessed Reason for Visit: Results [95] Prescriptions as of 09/16/2022 - traZODone (DESYREL) 50 mg tablet Take 50 mg by mouth daily at bedtime. - carbidopa-levodopa (SINEMET 25-100) 25-100 mg per tablet - albuterol HFA (PROVENTIL HFA, VENTOLIN HFA) 90 mcg/actuation inhaler INHALE 2 PUFFS BY MOUTH EVERY 4 HOURS NEEDED FOR SHORTNESS OF BREATH, WHEEZING, PERSISTENT COUGH - ibuprofen (ADVIL) 200 mg tablet Take 200 mg by mouth every 6 hours as needed. - lidocaine viscous (XYLOCAINE) 2 % solution Take 5 mL by mouth every 4 hours as needed for Pain. Dilute 1 teaspoon of Lidocaine with 1 Tablespoon of water and swallow. - sucralfate (CARAFATE) 1 gram tablet 1 tablet before meals and at bedtime. Place tablet in 4 oz. of water, drink the dissolved tablet. - pantoprazole DR (PROTONIX) 40 mg tablet Take 1 tablet by mouth twice daily. - buPROPion XL (WELLBUTRIN XL) 150 mg 24 hr tablet Take 150 mg by mouth once daily. Problem List As Of Date 09/16/2022 Noted Resolved Pre-op examination [Z01.818] 09/08/2022 RG (dyspnea on exertion) [R06.09] 09/08/2022 Akers's esophagus without dysplasia [K22.70] 09/08/2022 Gastroesophageal reflux disease without esophag*09/08/2022 Encounter Status:Closed by HERMILA KRAUSE on 09/16/22 [facility] ANES POSTPROC EVALon 023 ANES POSTPROC EVAL HNO ID: [id number] Author: Nick Velez MD Service: Anesthesiology Author Type: Physician Type: Anesthesia Postprocedure Evaluation Filed: 09/09/2022 12:05 PM Note Text: POST ANESTHESIA EVALUATION NOTE : 1970 Procedure Summary Date: 09/08/22 Room / Location: [facility] Anesthesia Start: 1540 Anesthesia Stop: 1605 Procedure: EGD DIAGNOSTIC Diagnosis: Akers's esophagus without dysplasia Gastroesophageal reflux disease without esophagitis Scheduled Providers: Jayant Edwards MD Responsible Provider: Nick Velez MD Anesthesia Type: MAC ASA Status: 2 Anesthesia Type: MAC Last Vitals Vitals Value Taken Time BP 127/88 09/08/22 1625 Temp 36.4 ?C (97.5 ?F) 09/08/22 1613 Pulse 79 09/08/22 1625 Resp 29 09/08/22 1625 SpO2 97 % 09/08/22 1625 Post Anesthesia Patient Status Patient Evaluation: bedside. Pulmonary Status: breathing comfortably on supplemental oxygen Cardiovascular Status: stable. Intraoperative Events: no significant anesthesia events Recommendation: continue current plan of care. Anesthesia Observations No Documentation SIGNATURE: Nick Velez MD PATIENT NAME: Tad Grant DATE: September 09, 2022 TIME: 12:05 PM CSN: [id number] [facility] ANES PRE-OPon 09-08-2022 ANES PRE-OP HNO ID: [id number] Author: Nick Velez MD Service: Anesthesiology Author Type: Physician Type: Anesthesia Preprocedure Evaluation Filed: 09/08/2022 2:05 PM Note Text: ANESTHESIOLOGY DAY OF SURGERY NOTE : 1970 Procedure Information Date/Time: 09/08/22 1500 Scheduled providers: Jayant Edwards MD Procedure: EGD DIAGNOSTIC Location: [facility] Estimated body mass index is 35.02 kg/m? as calculated from the following: Height as of 08/23/22: 167.6 cm (5' 6). Weight as of 08/23/22: 98.4 kg (217 lb). Most recent hematocrit and potassium results: No results found for this basename: HCT,HEMATOCRIT,K,POTASSIUM Relevant Problems No relevant active problems I - PHYSICAL EVALUATION AIRWAY Patient intubated: No. Tracheostomy tube not present Mallampati: III. TM distance: >3 FB. Neck ROM: full ROM without neurological symptoms. Mouth opening: adequate. Short neck: no. Thick neck: no DENTAL Dental findings: edentulous. II - ANESTHESIA PLAN ASA Score: 2 Anesthetic Plan: MAC NPO Status: adequate Beta Cooper Administration of chronic beta cooper medication not planned. Reasons for not administering beta cooper perioperatively: other Monitoring Plan Monitoring plan: standard ASA. Post Procedure Analgesic Plan Postoperative analgesic plan: parenteral or oral opioids and per surgical service. Informed Consent Anesthetic risks, benefits, alternatives, personnel and consent discussed: yes. Patient / Responsible Alliance Party agrees to proceed: yes Patient / Surrogate agrees to blood products: blood products not planned No vitals data found for the desired time range. Outpatient Medications as of 09/08/2022 Medication Sig - ibuprofen (ADVIL) 200 mg tablet Take 200 mg by mouth every 6 hours as needed. - lidocaine viscous (XYLOCAINE) 2 % solution Take 5 mL by mouth every 4 hours as needed for Pain. Dilute 1 teaspoon of Lidocaine with 1 Tablespoon of water and swallow. - sucralfate (CARAFATE) 1 gram tablet 1 tablet before meals and at bedtime. Place tablet in 4 oz. of water, drink the dissolved tablet. - pantoprazole DR (PROTONIX) 40 mg tablet Take 1 tablet by mouth twice daily. - buPROPion XL (WELLBUTRIN XL) 150 mg 24 hr tablet Take 150 mg by mouth once daily. No current facility-administered medications on file as of 09/08/2022. I have interviewed and examined the patient. I have reviewed the medical record and/or the pre-anesthesia evaluation, pertinent labs, and test results. This contains updated information obtained within 48 hours of Surgery/Procedure. SIGNATURE: Nick Velez MD PATIENT NAME: Tad Grant DATE: September 08, 2022 TIME: 2:01 PM CSN: [id number] [facility] HISTORY PHYSICALon HISTORY PHYSICAL HNO ID: [id number] Author: BEVERLEY Ramirez Service: ? Author Type: Physician Agriculture Science Teacher Type: HANDP Filed: 09/08/2022 2:46 PM Note Text: Summary: History and Physical HISTORY AND PHYSICAL EXAMINATION SERVICE DATE: 09/08/2022 SERVICE TIME: 2:00 PM Diagnosis: Akers's esophagus without dysplasia [K22.70] Gastroesophageal reflux disease without esophagitis [K21.9] Planned Procedure: EGD Planned Anesthetic: MAC PRIMARY CARE PHYSICIAN: Pan Doyle, STEWART.NOZZLE TENDER REASON FOR VISIT: The reason for this visit is to perform a comprehensive review of the patients past medical history, assess their current health status and obtain any additional testing required based on anesthesia guidelines. To assess and identify potential anesthesia problems, particularly those that may suggest potential complications or contraindications to the planned procedure. The patient has the following: ACTIVE PROBLEM LIST Pre-Op Examination Subjective CHIEF COMPLAINT: Preoperative Examination HPI: Patient present to [facility] for the above procedure. Patient here for Upper GI Endoscopy to assess akers's esophagus. Asserts diarrhea and nausea. Asserts acid reflux and constant cough.Patient denies any emesis or constipation. Denies any abdominal pain but notes some slight cramping earlier in the day. Denies any melena, hematochezia, or hematemesis. Patient denies any other problems at this time. Asserts father has h/o colon cancer. Denies gastric ca hx. Patient agreed to planned procedure. METS: Walk a block or two on level ground (2.75 METs) Patient denies any CP/SOB with above activity. PAST MEDICAL HISTORY Diagnosis Date Arthritis Akers's esophagus without dysplasia 12/06/2013 long segment GERD (gastroesophageal reflux disease) Hiatal hernia PAST SURGICAL HISTORY Procedure Laterality Date SECTION HX x3 CHOLECYSTECTOMY EGD TRANSORAL BIOPSY SINGLE/MULTIPLE 08/04/2016 EGD TRANSORAL BIOPSY SINGLE/MULTIPLE 12/06/2013 ESOPHAGOSCOPY FLEX TRANSORAL LESION ABLATION 03/06/2014 RFA #1 ESOPHAGOSCOPY FLEX TRANSORAL LESION ABLATION 05/03/2014 RFA #2; Dr. Euceda ESOPHAGOSCOPY FLEX TRANSORAL LESION ABLATION 01/30/2016 RFA #3; Dr. Euceda ESOPHAGOSCOPY FLEX TRANSORAL LESION ABLATION 04/16/2016 RFA #4; Dr. Euceda ESOPHAGOSCOPY FLEX TRANSORAL LESION ABLATION 06/02/2016 RFA #5; Dr. Euceda FAMILY HISTORY Problem Relation Age of Onset Colon Cancer Father Hypertension Other Heart Failure Other Asthma Other other (sleep apnea [Other]) Other Arthritis Other other (muscle weakness [Other]) Other Thyroid Other Diabetes Other Cancer Other colon SOCIAL HISTORY: Social History Tobacco Use Smoking status: Every Day Packs/day: 0.50 Years: 32.00 Total pack years: 16.00 Types: Cigarettes Smokeless tobacco: Never Vaping Use Vaping Use: Never used Substance Use Topics Drug use: Never Prior to Admission medications as of 09/08/22 1432 Medication Sig Last Dose Taking traZODone (DESYREL) 50 mg tablet Take 50 mg by mouth daily at bedtime. 09/07/2022 Yes carbidopa-levodopa (SINEMET 25-100) 25-100 mg per tablet Past Week Yes albuterol HFA (PROVENTIL HFA, VENTOLIN HFA) 90 mcg/actuation inhaler INHALE 2 PUFFS BY MOUTH EVERY 4 HOURS NEEDED FOR SHORTNESS OF BREATH, WHEEZING, PERSISTENT COUGH Past Week Yes pantoprazole DR (PROTONIX) 40 mg tablet Take 1 tablet by mouth twice daily. Past Week Yes ibuprofen (ADVIL) 200 mg tablet Take 200 mg by mouth every 6 hours as needed. lidocaine viscous (XYLOCAINE) 2 % solution Take 5 mL by mouth every 4 hours as needed for Pain. Dilute 1 teaspoon of Lidocaine with 1 Tablespoon of water and swallow. sucralfate (CARAFATE) 1 gram tablet 1 tablet before meals and at bedtime. Place tablet in 4 oz. of water, drink the dissolved tablet. buPROPion XL (WELLBUTRIN XL) 150 mg 24 hr tablet Take 150 mg by mouth once daily. No medication comments found. ALLERGIES No Active Allergies REVIEW OF SYSTEMS: PAIN ASSESSMENT: Pain Pain Level: 0 Pain Assessment: Assessment Intervention/Comfort measure: Emotional Support/Reassurance Tool: Verbal (Numeric Rating or Visual Analog Scale) General: Denies fever, chills, and unexpected weight change. +nausea Neuro: CEDEÑO Denies dizziness and h/o CVA. Respiratory: Denies SOB. Cardiovascular: Denies CP and palpitations. GI: See HPI. : Denies dysuria increased frequency and hematuria. Endocrine: No history of diabetes or thyroid conditions. Hematology: Denies history of bleeding or clotting disorder. No known autoimmune disorders. Psych: +anxiety and depression. Musculoskeletal: Denies joint pain and swelling. Skin: Denies open sores and rashes. Objective PHYSICAL EXAM: VITALS: BP 14 (more content not included)... [facility] OPERATIVE NOon 09-08-2022 OPERATIVE NO HNO ID: [id number] Author: Jayant Edwards MD Service: General Surgery Author Type: Physician Type: Operative Report Filed: 09/08/2022 4:11 PM Note Text: OPERATIVE/PROCEDURE REPORT LOG ID: [id number] SURGERY/PROCEDURE DATE: 09/08/2022 INCISION/PROCEDURE START TIME: 3:52 PM INCISION CLOSE/PROCEDURE END TIME: 4:03 PM SURGEON(S)/PROCEDURALIST(S) AND CREDIT OR LOANS OFFICER(S): Jayant Edwards MD - Proceduralist No Additional Staff SURGERY/PROCEDURE(S): EGD with biopsy ANESTHESIA: Monitored Anesthesia Care SURGERY/PROCEDURE DETAILS: Patient is a 52-year-old female with history of Akers's esophagus. She had prior ablations. Her last EGD was in 2017. We recommended proceeding with an EGD for surveillance. The risks, benefits and complications were reviewed including but not limited to bleeding, infection, missing a lesion, effects of anesthesia and perforation possibly requiring an emergency surgery. She understood and was agreeable to proceed. Patient brought to the endoscopy suite and routine monitoring was performed. She was placed in left lateral position. After adequate MAC anesthesia was obtained the scope was inserted and passed on the esophagus. Z-line noted at approximately 36 to 37 cm. There appeared to be a long segment of Akers's esophagus from 30 to 36 cm. Scope was inserted retroflexed view showed a Hill grade 2. Remainder the stomach and up to the second portion of duodenum were normal. The scope was then withdrawn and multiple biopsies were obtained of the esophagus starting distally moving proximally. He was done in all 4 quadrants moving proximally from 2 cm to normal esophagus. Air was then aspirated the stomach and the scope was withdrawn. She tolerated procedure well. PRE-OP/PRE-PROCEDURE DIAGNOSIS: Akers's esophagus POST-OP/POST-PROCEDURE DIAGNOSIS: Same as Preop ESTIMATED BLOOD LOSS: 0 ml SPECIMENS: Esophageal biopsies. Antral biopsy IMPLANTABLE DEVICES: NONE DRAINS: None COMPLICATIONS: None PARTICIPATION IN SURGERY/PROCEDURE: I/primary surgeon/proceduralist performed the entire procedure. SIGNATURE: Jayant Edwards MD PATIENT NAME: Tad Grant DATE: September 08, 2022 TIME: 4:08 PM [facility] SURGICAL PATHOLOGYon 023 CASE REPORT [facility] Comment on above: Order Comment: Speci men Type: TISSUE SPECIMENOrdering Facility: [facility] Address: [address] [place] [id number] Result Comment: Surg [facility] Pathology Report Case: [id number] Authorizing Provider: Jayant Edwards, Collected: 09/08/2022 03:57 PM Ordering Location: [facility] Received: 09/09/2022 10:08 AM Pathologist: Stacie Garcia MD Specimens: A) - ANTRUM (STOMACH) BIOPSY B) - ESOPHAGUS BIOPSY Performed By: #### S ####[facility] LABORATORYCLIA [id number] [address] FINAL DIAGNOSIS [facility] Comment on above: Order Comment: Speci men Type: TISSUE SPECIMENOrdering Facility: [facility] Address: [address] [place] [address] Result Comment: A. G astric antrum, biopsies: - Mild chronic gastritis. B. Esophagus, biopsies: - Intestinal metaplasia, negative for dysplasia. Performed By: #### S ####[facility] LABORATORYCLIA [id number] [address] FINAL PERFORMING LAB [facility] Comment on above: Order Comment: Speci men Type: TISSUE SPECIMENOrdering Facility: [facility] Address: [address] [place] [address] Result Comment: Diag nostic interpretation performed at [facility], [address] [place] [address] CLIA# [id number] Wireless Sales Associate: Isiah Almendarez M.D. Performed By: #### S ####[facility] LABORATORYCLIA [id number] [address] GROSS DESCRIPTION [facility] Comment on above: Order Comment: Speci men Type: TISSUE SPECIMENOrdering Facility: [facility] Address: [address] [place] [address] Result Comment: A. A NTRUM (STOMACH) BIOPSY Received in formalin labeled antrum stomach biopsy are 2 pieces of estrada, soft tissue aggregating to 0.7 x 0.2 x 0.2 cm. Totally submitted in one cassette. B. ESOPHAGUS BIOPSY Received in formalin labeled esophagus biopsy are multiple pieces of estrada, soft tissue aggregating to 1.0 x 0. 6 x 0.2 cm. Totally submitted in one cassette. KM September 09, 2022 2:10 PM Gross examination performed at [facility], [address] [place] [address] CLIA# [id number] Performed By: #### S ####[facility] LABORATORYIA [id number] [address] OF [facility] CNOVon 08-23-2022 CNOV Office Visit (CHANCE 3) TAD GRANT ([id number]) 1970 F Date Time Provider Department 08/23/22 2:30 PM JAYANT EDWARDS3 During your visit today, we recorded the following information about you: Pulse Respiration Blood pressure Weight 86/minute 22/minute 130/76 98.4 kg Height 1.676 m Jayant Edwards MD 08/24/2022 4:22 PM Signed Tad Grant is a 52 year old White female who presents with complaints of Akers's esophagus. She has had 3 ablations and her last EGD was in 2017. She has taken 40 mg of pantoprazole which she states does not really help her whole lot. She reports some burning and cough half a cup of coffee in the morning. She drinks an occasional can of pop. Denies any alcohol or tobacco use. She does smoke 1/2 pack of cigarettes per day. PAST MEDICAL HISTORY Diagnosis Date Arthritis Akers's esophagus without dysplasia 12/06/2013 long segment GERD (gastroesophageal reflux disease) Hiatal hernia PAST SURGICAL HISTORY Procedure Laterality Date SECTION HX x3 CHOLECYSTECTOMY EGD TRANSORAL BIOPSY SINGLE/MULTIPLE 08/04/2016 EGD TRANSORAL BIOPSY SINGLE/MULTIPLE 12/06/2013 ESOPHAGOSCOPY FLEX TRANSORAL LESION ABLATION 03/06/2014 RFA #1 ESOPHAGOSCOPY FLEX TRANSORAL LESION ABLATION 05/03/2014 RFA #2; Dr. Euceda ESOPHAGOSCOPY FLEX TRANSORAL LESION ABLATION 01/30/2016 RFA #3; Dr. Euceda ESOPHAGOSCOPY FLEX TRANSORAL LESION ABLATION 04/16/2016 RFA #4; Dr. Euceda ESOPHAGOSCOPY FLEX TRANSORAL LESION ABLATION 06/02/2016 RFA #5; Dr. Euceda Social History Tobacco Use Smoking status: Every Day Packs/day: 1.00 Years: 32.00 Pack years: 32.00 Types: Cigarettes Smokeless tobacco: Never FAMILY HISTORY Problem Relation Age of Onset Hypertension Unknown Heart Failure Unknown Asthma Unknown other (sleep apnea [Other]) Unknown Arthritis Unknown other (muscle weakness [Other]) Unknown Thyroid Unknown Diabetes Unknown Cancer Unknown colon ALLERGIES Allergen Reactions Chantix [Vareniclin* Other: See Comments Blurred vision Current Outpatient Medications Medication Sig ibuprofen (ADVIL) 200 mg tablet Take 200 mg by mouth every 6 hours as needed. lidocaine viscous (XYLOCAINE) 2 % solution Take 5 mL by mouth every 4 hours as needed for Pain. Dilute 1 teaspoon of Lidocaine with 1 Tablespoon of water and swallow. sucralfate (CARAFATE) 1 gram tablet 1 tablet before meals and at bedtime. Place tablet in 4 oz. of water, drink the dissolved tablet. pantoprazole DR (PROTONIX) 40 mg tablet Take 1 tablet by mouth twice daily. buPROPion XL (WELLBUTRIN XL) 150 mg 24 hr tablet Take 150 mg by mouth once daily. No current facility-administered medications for this visit. REVIEW OF SYSTEMS PAIN ASSESSMENT: Negative for pain, history of chronic pain, or current treatment for a chronic pain condition. GENERAL: No weight loss, malaise or fevers NECK: Negative for lumps, goiter, pain and significant neck swelling RESPIRATORY: Negative for cough, hemoptysis, wheezing, COPD, dyspnea or shortness of breath CARDIOVASCULAR: Negative for chest pain, leg swelling, hypertension, CHF or palpitations GI: See HPI : No history of dysuria, frequency or incontinence MUSCULOSKELETAL: Negative for joint pain or swelling, back pain or muscle pain HEMATOLOGY/LYMPHOLOGY: Negative for prolonged bleeding, bruising easily or swollen nodes ENDOCRINE: Negative for cold or heat intolerance, polyuria, polydipsia and goiter PHYSICAL EXAM: BP 130/76 Pulse 86 Resp 22 Ht 5' 6 (1.68m) Wt 217 lb (98.4kg) BMI 35.04 kg/(m2). General Appearance: Well appearing, alert, in no acute distress, well-hydrated, well nourished. and Obese. Abdomen: Normal abdominal exam, Abdomen soft, non-tender. Bowel sounds normal. No masses, organomegaly, Positive findings: obese. Assessment: Akers's esophagus without dysplasia (primary encounter diagnosis) Gastroesophageal reflux disease without esophagitis Class 2 obesity due to excess calories without serious comorbidity with body mass index (bmi) of 35.0 to 35.9 in adult Tobacco use Plan: ASSESSMENT/PLAN: 1. Akers's esophagus without dysplasia - ICD9: 530.85, ICD10: K22.70 (primary diagnosis) Continue PPI. Recommend proceeding with an EGD. The risks, benefits and complications were reviewed including but not limited to bleeding, infection, missing a lesion, effects of anesthesia and perforation possibly requiring an emergency surgery. She understood and was agreeable to proceed. 2. Gastroesophageal reflux disease without esophagitis - ICD9: 530.81, ICD10: K21.9 - Discussed lifestyle modifications including losing weight, limiting caffeine, no meals three hours before sleep, and head of bed elevation - XR UPPER GI ROUTINE DOUBLE CONTRAST/AIR 3. Class 2 obesity due to exce (more content not included)... [facility] CNPNon 07-29-2022 CNPN Telephone (AGGENS3) TAD GRANT ([id number]) 1970 F Date Time Provider Department 07/29/22 JAYANT EDWARDS3 During your visit today, we recorded the following information about you: Hermila Krause RN 07/29/2022 10:18 AM Signed Patient called and stated she can't eat. I keep smelling something bad, I eat one mouthful and it tastes terrible and then I can't eat. I'm nauseated too. I asked patient to go to the mirror and stick her tongue out and describe what she sees. Patient replied, you know how babies get thrush and their tongue is all white? That's what mine looks like. I recommended that patient contact her PCP for a diagnosis AND treatment to see if that helps her symptoms. Patient agreed with the plan. Hermila Krause RN Allergies As of Date: 07/29/2022 Noted Allergy Reaction CHANTIX (VARENICLINE) 03/19/2015 14 - Other: See Comments Comments: Blurred vision Date Reviewed: 08/26/2016 Reviewed by: Fei Euceda MD - Fully Assessed Reason for Visit: Patient Question [1477] Prescriptions as of 07/29/2022 - ibuprofen (ADVIL) 200 mg tablet Take 200 mg by mouth every 6 hours as needed. - lidocaine viscous (XYLOCAINE) 2 % solution Take 5 mL by mouth every 4 hours as needed for Pain. Dilute 1 teaspoon of Lidocaine with 1 Tablespoon of water and swallow. - sucralfate (CARAFATE) 1 gram tablet 1 tablet before meals and at bedtime. Place tablet in 4 oz. of water, drink the dissolved tablet. - pantoprazole DR (PROTONIX) 40 mg tablet Take 1 tablet by mouth twice daily. - buPROPion XL (WELLBUTRIN XL) 150 mg 24 hr tablet Take 150 mg by mouth once daily. Problem List As Of Date: 07/29/2022 (None) Encounter Status:Closed by HERMILA KRAUSE on 07/29/22 [facility] Coronavirus 2019on 1 COVID 19 Result LUMBER ESTIMATOR Normal Negative for COVID19 (SARS CoV2) by PCR. [facility] Comment on above: Result Comment: Nega tive for This test was developed and its performance characteristics determined by [facility] [place]. This test has been authorized by FDA under an Emergency Use Authorization (EUA). This test has been validated in accordance with the FDA's Guidance Document Policy for Diagnostics Testing in Laboratories Certified to Perform High Complexity Testing under CLIA prior to Emergency use Authorization for Coronavirus Disease 2019 during the Public Health Emergency issued on April 28, 2019. COVID19 (SARS This test was developed and its performance characteristics determined by [facility] [place]. This test has been authorized by FDA under an Emergency Use Authorization (EUA). This test has been validated in accordance with the FDA's Guidance Document Policy for Diagnostics Testing in Laboratories Certified to Perform High Complexity Testing under CLIA prior to Emergency use Authorization for Coronavirus Disease 2019 during the Public Health Emergency issued on April 28, 2019. CoV2) by PCR. This test was developed and its performance characteristics determined by [facility] [place]. This test has been authorized by FDA under an Emergency Use Authorization (EUA). This test has been validated in accordance with the FDA's Guidance Document Policy for Diagnostics Testing in Laboratories Certified to Perform High Complexity Testing under CLIA prior to Emergency use Authorization for Coronavirus Disease 2019 during the Public Health Emergency issued on April 28, 2019. COVID 19 Source [address] Normal [facility] Comment on above: Result Comment: Naso pharyngeal Corrected on 03/11 AT 2347: Previously reported as NASOPHARYNGEAL Swab Corrected on 03/11 AT 2347: Previously reported as NASOPHARYNGEAL Otheron 08-11-2016 CONVERTED CLINICAL HISTORY OPERATIVE PROCEDURE: EGD/RFA CLINICAL INFORMATION: Not given [facility] CONVERTED ELECTRONIC SIGNATURE STACIE GARCIA M.D., PATHOLOGIST (Electronic signature on file) Final Signed Out: 08/11/2016 17:09 [facility] CONVERTED FINAL DIAGNOSIS FINAL DIAGNOSIS: A) ESOPHAGUS AT 35 CM, BIOPSIES - SPECIALIZED INTESTINAL METAPLASIA WITH GOBLET CELLS COMPATIBLE WITH AKERS ESOPHAGUS. NEGATIVE FOR DYSPLASIA. SQUAMOUS OVERGROWTH. AB/PAS STAIN. B) ESOPHAGUS AT 37 CM, BIOPSIES - EPITHELIAL ATYPIA ASSOCIATED WITH AKERS'S TYPE GLANDULAR MUCOSA, INDEFINITE FOR DYSPLASIA. SEE COMMENT. AB/PAS STAIN. COMMENT: The focal area of atypia and crowding within the part B, 37 cm esophageal biopsies is suggestive but not entirely conclusive for dysplasia. This focus is classified as indefinite for dysplasia and continued follow-up is suggested. This case has been evaluated at the [facility] and a separate concurring report is available. C) ESOPHAGUS AT 38 CM, EXCISION - SPECIALIZED INTESTINAL METAPLASIA WITH GOBLET CELLS AND ACID MUCIN PRODUCTION COMPATIBLE WITH AKERS'S ESOPHAGUS. NEGATIVE FOR DYSPLASIA. AB/PAS STAIN. [facility] CONVERTED GROSS DESCRIPTION GROSS DESCRIPTION: A) Esophagus @ 35 cm The specimen is labeled and designated Cool, Crystal, esophagus @35 cm. Received is a single 0.5 cm fragment submitted in A, levels x 3. AB/PAS. B) Esophagus @ 37 cm The specimen is labeled and designated Cool, Crystal, esophagus @37 cm. Received is a single 0.4 cm fragment submitted in B, levels x 3. AB/PAS. C) Esophagus @ 38 cm The specimen is labeled and designated Cool, Crystal, esophagus @38 cm. Received in formalin, a single 0.5 cm fragment submitted in C, levels x 3. AB/PAS. [facility] CONVERTED ORDERING PROVIDER Ordering Provider: FEI EUCEDA [facility] Vital Signs Date Time Vital Sign Value Performing Clinician Facility 07-27-2024 13:28-0400 Body temperature 97.4 [degF] Pan Doyle LUMBER ESTIMATOR-C Work Phone: [facility] 07-27-2024 13:28-0400 Diastolic blood pressure 71 mm[Hg] Pan Doyle LUMBER ESTIMATOR-C Work Phone: [facility] 07-27-2024 13:28-0400 Heart rate 86 /min Pan Doyle LUMBER ESTIMATOR-C Work Phone: [facility] 07-27-2024 13:28-0400 Respiratory rate 16 /min Pan Doyle LUMBER ESTIMATOR-C Work Phone: [facility] 07-27-2024 13:28-0400 SaO2% (BldA) [Mass fraction] 96 % Pan Doyle LUMBER ESTIMATOR-C Work Phone: [facility] 07-27-2024 13:28-0400 Systolic blood pressure 120 mm[Hg] Pan Doyle LUMBER ESTIMATOR-C Work Phone: [facility] 07-27-2024 09:14-0400 Body height 167.64 cm Pan Doyle LUMBER ESTIMATOR-C Work Phone: [facility] 07-27-2024 09:14-0400 Body mass index (BMI) [Ratio] 32.3 kg/m2 Pan Doyle LUMBER ESTIMATOR-C Work Phone: [facility] 07-27-2024 09:14-0400 Body weight 90.71 kg Pan Doyle LUMBER ESTIMATOR-C Work Phone: [facility] 07-03-2024 15:32-0400 Body height 167.6 cm Sachin Rodríguez MD Work Phone: [facility] 07-03-2024 15:32-0400 Body mass index (BMI) [Ratio] 32.6 kg/m2 Sachin Rodríguez MD Work Phone: [facility] 07-03-2024 15:32-0400 Body temperature 98.01 [degF] Sachin Rodríguez MD Work Phone: [facility] 07-03-2024 15:32-0400 Body weight 91.63 kg Sachin Rodríguez MD Work Phone: [facility] 07-03-2024 15:32-0400 Diastolic blood pressure 81 mm[Hg] Sachin Rodríguez MD Work Phone: [facility] 07-03-2024 15:32-0400 Heart rate 116 /min Sachin Rodríguez MD Work Phone: [facility] 07-03-2024 15:32-0400 Respiratory rate 18 /min Sachin Rodríguez MD Work Phone: [facility] 07-03-2024 15:32-0400 SaO2% (BldA) [Mass fraction] 99 % Sachin Rodríguez MD Work Phone: [facility] 07-03-2024 15:32-0400 Systolic blood pressure 143 mm[Hg] Sachin Rodríguez MD Work Phone: [facility] 06-26-2024 08:37-0400 Body mass index (BMI) [Ratio] 32.5 kg/m2 Pan HADLEY Work Phone: [facility] 06-26-2024 08:37-0400 Body temperature 97.2 [degF] Pan Doyle NP-C Work Phone: [facility] 06-26-2024 08:37-0400 Body weight 91.62 kg Pan WELLERC Work Phone: [facility] 06-26-2024 08:37-0400 Diastolic blood pressure 76 mm[Hg] Pan Doyle NP-C Work Phone: [facility] 06-26-2024 08:37-0400 Heart rate 94 /min Pan Vivek LUMBER ESTIMATOR-C Work Phone: [facility] 06-26-2024 08:37-0400 Respiratory rate 16 /min Pan Doyle LUMBER ESTIMATOR-C Work Phone: [facility] 06-26-2024 08:37-0400 SaO2% (BldA) [Mass fraction] 97 % Pan Doyle LUMBER ESTIMATOR-C Work Phone: [facility] 06-26-2024 08:37-0400 Systolic blood pressure 110 mm[Hg] Pan Doyle LUMBER ESTIMATOR-C Work Phone: [facility] 06-12-2024 08:21-0400 Body height 167.64 cm Pan Doyle LUMBER ESTIMATOR-C Work Phone: [facility] 06-12-2024 08:21-0400 Body mass index (BMI) [Ratio] 33.4 kg/m2 Pan Doyle LUMBER ESTIMATOR-C Work Phone: [facility] 06-12-2024 08:21-0400 Body temperature 97.7 [degF] Pan Doyle LUMBER ESTIMATOR-C Work Phone: [facility] 06-12-2024 08:21-0400 Body weight 93.89 kg Pan Doyle LUMBER ESTIMATOR-C Work Phone: [facility] 06-12-2024 08:21-0400 Diastolic blood pressure 81 mm[Hg] Pan Doyle LUMBER ESTIMATOR-C Work Phone: [facility] 06-12-2024 08:21-0400 Heart rate 103 /min Pan Doyle LUMBER ESTIMATOR-C Work Phone: [facility] 06-12-2024 08:21-0400 Respiratory rate 16 /min Pan Doyle LUMBER ESTIMATOR-C Work Phone: [facility] 06-12-2024 08:21-0400 SaO2% (BldA) [Mass fraction] 99 % Pna Doyle LUMBER ESTIMATOR-C Work Phone: [facility] 06-12-2024 08:21-0400 Systolic blood pressure 149 mm[Hg] Pan Doyle LUMBER ESTIMATOR-C Work Phone: [facility] 03-19-2024 11:15-0500 Diastolic blood pressure 93 mm[Hg] Pan Doyle LUMBER ESTIMATOR-C Work Phone: [facility] 03-19-2024 11:15-0500 Heart rate 110 /min Pan Doyle LUMBER ESTIMATOR-C Work Phone: [facility] 03-19-2024 11:15-0500 Respiratory rate 18 /min Pan Doyle LUMBER ESTIMATOR-C Work Phone: [facility] 03-19-2024 11:15-0500 SaO2% (BldA) [Mass fraction] 96 % Pan Doyle LUMBER ESTIMATOR-C Work Phone: [facility] 03-19-2024 11:15-0500 Systolic blood pressure 139 mm[Hg] Pan Doyle LUMBER ESTIMATOR-C Work Phone: [facility] 03-19-2024 09:28-0500 Body mass index (BMI) [Ratio] 31.9 kg/m2 Pan Doyle LUMBER ESTIMATOR-C Work Phone: [facility] 03-19-2024 09:28-0500 Body weight 89.81 kg Pan Doyle LUMBER ESTIMATOR-C Work Phone: [facility] Encounters Encounter Date Encounter Type Care Provider Facility Start: 10-17-2024 ambulatory Pan Doyle NP Facil ity:[facility] Start: 09-28-2024 ambulatory Pan Doyle NP Facil ity:[facility] Start: 08-24-2024 End: 08-24-2024 Patient encounter procedure Nirmala LOWERY -[facility] Work Phone: Start: 08-24-2024 End: 08-24-2024 ambulatory Pan Doyle NP-C Work Phone: -Laboratory Start: 08-24-2024 End: 08-24-2024 ambulatory Surjit Friend Facility:[facility] Start: 08-16-2024 ambulatory Pan Doyle NP Facil ity:[facility] Start: 08-07-2024 End: 08-07-2024 ambulatory PAN DOYLE [facility] Start: 07-27-2024 End: 07-27-2024 Patient encounter procedure Nirmala LOWERY -[facility] Work Phone: Start: 07-27-2024 End: 07-27-2024 ambulatory Pan Doyle LUMBER ESTIMATOR-C Work Phone: [facility] Work Phone: Start: 07-03-2024 End: 07-03-2024 Emergency department patient visit Sachin Rodríguez MD Work Phone: [facility] Comment on above: Left foot pain (Prim trina Dx); Acute left ankle pain; Calcaneal spur of left foot Start: 06-26-2024 End: 06-26-2024 Patient encounter procedure Nirmala LOWERY -[facility] Work Phone: Start: 06-26-2024 End: 06-26-2024 ambulatory Pan Doyle NP Facility:[facility] Start: 06-12-2024 End: 06-12-2024 Patient encounter procedure Nirmala LOWERY -[facility] Work Phone: Start: 06-12-2024 End: 06-12-2024 ambulatory Pan Doyle LUMBER ESTIMATOR-C Work Phone: [facility] Work Phone: Start: 05-04-2024 End: 05-04-2024 Patient encounter procedure Nirmala LOWERY -[facility] Work Phone: Start: 05-04-2024 End: 05-04-2024 ambulatory Pan Doyle NP Facility:[facility] Start: 03-19-2024 End: 03-19-2024 Patient encounter procedure Nirmala LOWERY -[facility] Work Phone: Start: 03-19-2024 End: 03-19-2024 ambulatory Pan Doyle NP Facility:[facility] Start: 01-10-2024 End: 01-10-2024 ambulatory NIRMALA JOHNSON [facility] Start: 01-06-2024 ambulatory Pan Doyle NP Facil ity:[facility] Start: 12-15-2023 End: 12-15-2023 ambulatory Pan Doyle LUMBER ESTIMATOR Facility:[facility] Start: 11-28-2023 End: 11-28-2023 ambulatory Pan Doyle NP Facility:[facility] Start: 11-24-2023 End: 11-24-2023 ambulatory Pan Doyle LUMBER ESTIMATOR Facility:[facility] Start: 11-23-2023 ambulatory PAN CADE [facility] Start: 11-17-2023 End: 11-17-2023 ambulatory Pan Doyle LUMBER ESTIMATOR Facility:[facility] Start: 11-17-2023 End: 11-17-2023 ambulatory PAN CADE [facility] Start: 11-17-2023 End: 11-17-2023 ambulatory Lyla Kwok LUMBER ESTIMATOR Facility:[facility] Start: 11-09-2023 Encounter for genera l adult medical examination with abnormal findings PAN CADE [facility] Start: 11-09-2023 ambulatory PAN CADE [facility] Start: 11-07-2023 End: 11-08-2023 ambulatory Jyoti Martinez Facility:[facility] Start: 10-28-2023 End: 10-28-2023 ambulatory PAN CADE [facility] Start: 10-21-2023 End: 10-21-2023 ambulatory [facility] Start: 10-20-2023 End: 10-20-2023 ambulatory [facility] Start: 10-12-2023 End: 10-12-2023 ambulatory Pan Doyle LUMBER ESTIMATOR Facility:[facility] Start: 10-06-2023 End: 10-06-2023 ambulatory Pan Doyle LUMBER ESTIMATOR Facility:[facility] Start: 10-06-2023 End: 10-06-2023 ambulatory Pan Doyle NP Facility:[facility] Start: 09-29-2023 End: 09-29-2023 ambulatory CONNIE ESPINOZA Facility:A Start: 09-17-2023 End: 09-18-2023 ambulatory ANASTACIA FIGUEROA [facility] Start: 06-14-2023 End: 06-14-2023 ambulatory MADISON Hahn [facility] Start: 05-03-2023 End: 05-03-2023 ambulatory MADISON Hahn [facility] Start: 09-08-2022 Encounter for other preprocedural examination JAYANT [facility] Start: 09-08-2022 ambulatory [facility] Facility[facility] Start: 08-23-2022 End: 08-23-2022 ambulatory PAN DOYLE Facility:[facility] Start: 12-07-2016 End: 12-07-2016 Ambulatory RAMIRO GUPTA Facility: Start: 08-04-2016 End: 08-04-2016 Patient encounter procedure Fei Conklin (Hist) [place] Work Phone: [facility] Start: 08-04-2016 Results Only Fei esquivel (Hist) [place] Work Phone: [facility] Procedures Date Procedure Procedure Detail Performing Clinician Start: 08-24-2024 Hepatitis A virus an tibody, IgM type Pan Doyle LUMBER ESTIMATOR-C Work Phone: Comment on above: A negative anti-HAV IgM result suggests no recent orcurrent HAV infection. Start: 08-24-2024 Hepatitis B core ant ibody measurement, IgM type Pan Doyle LUMBER ESTIMATOR-C Work Phone: Start: 08-24-2024 Hepatitis C antibody measurement Pan Doyle LUMBER ESTIMATOR-C Work Phone: Start: 08-24-2024 In-vitro immunologic test Pan Doyle LUMBER ESTIMATOR-C Work Phone: Comment on above: QuantiFERON-TB Gold Plus is a qualitative indirect test forM tuberculosis infection (including disease) and isintended for use in conjunction with risk assessment,radiography, and other medical and diagnostic evaluations.The QuantiFERON-TB Gold Plus result is determined bysubtracting the Nil value from either TB antigen (Ag)value. The Mitogen tube serves as a control for the test. Test not performedTe st not performed Test not performedTe st not performed. Insufficient specimen to perform orcomplete analysis.The specimen received for QuantiFERON testing was incubatedby the ordering institution. Specific procedures outlinedin our Directory of Services and in the package insert forthe QuantiFERON Gold (In Tube) test must be followed toenable for proper stimulation of cells for the productionof interferon gamma. Chemiluminescence immunoassaymethodology Start: 07-03-2024 End: 07-03-2024 Radex ankle complete minimum 3 views Sachin Rodríguez MD Work Phone: Start: 03-19-2024 MRI of small intestine Pan HADLEY Work Phone: Start: 09-17-2023 Urinalysis [facility] Comment on above: Result Comment: URIN ALYSIS Performed By: #### [id number] #### [facility],[address] [place] [address] Start: 08-04-2016 CONVERTED SURGICAL PATHOLOGY Fei Conklin (Hist) Claire Work Phone: Plan of Treatment Date Care Activity Detail Author Start: 10-29-2024 Influenza vaccination given INFLUENZA VACCINE (Season Ended) [facility] Start: 08-24-2024 C reactive protein [Mass/volume] in Serum or Plasma [facility] Start: 08-24-2024 Comprehensive metabolic 2000 panel - Serum or Plasma [facility] Start: 06-26-2024 Chemotherapy admn iv infusion tq ea hr CHEMO IV INFUSION ADDL HR [facility] Start: 06-26-2024 Chemotx admn iv nfs tq up 1 hr 02/28 sbst/drug CHEMO IV INFUSION 1 HR [facility] Start: 03-19-2024 Following clinical pathway protocol [facility] Start: 10-30-2023 COVID-19 VACCINE ( season) COVID-19 VACCINE ( season) [facility] Start: 10-30-2019 Influenza vaccination INFLUENZA (#1) [facility] Start: 02-15-2018 SHINGRIX VACCINE (1 of 2) SHINGRIX VACCINE (1 of 2) [facility] Start: 02-15-2018 Tuberculosis screening COLORECTAL CANCER SCREENING,SEE MODIFIER [facility] Start: 02-15-2018 Zoster vaccine hzv live for subcutaneous use ZOSTER (SHINGLES) VACCINE (1 of 2) [facility] Start: 02-15-2013 DIABETES SCREEN DIABETES SCREEN [facility] Start: 02-15-2013 LIPID SCREEN LIPID SCREEN [facility] Start: 02-15-2013 Screening for malignant neoplasm of colon [facility] Start: 2008 Mammography MAMMOGRAM [facility] Start: 2008 Screening for malignant neoplasm of breast MAMMOGRAM [facility] Start: 02-15-1998 HPV TESTING HPV TESTING [facility] Start: 02-15-1989 PAP TESTING PAP TESTING [facility] Start: 02-15-1987 Pneumococcal 23-valent polysaccharide vaccination given (situation) PNEUMOCOCCAL VACCINE: 50+ YEARS (1 of 2 - PCV) [facility] Start: 02-15-1987 Urine microalbumin profile DTAP,TDAP,TD (1 - Tdap) [facility] Start: 02-15-1986 ANNUAL WELLNESS VISIT ANNUAL WELLNESS VISIT [facility] Start: 02-15-1986 HEPATITIS C SCREENING HEPATITIS C SCREENING [facility] Start: 02-15-1986 HIV SCREENING HIV SCREENING [facility] Start: 1980 Depression screening using PHQ-9 (Patient Health Questionnaire 9) score DEPRESSION SCREENING [facility] Start: 02-15-1979 Administration of diphtheria + tetanus + acellular pertussis vaccine DTAP/TDAP/TD VACCINE (1 - Tdap) [facility] Start: 1968 HPV/COTEST HPV/COTEST [facility] Start: 1968 Screening for malignant neoplasm of cervix [facility] Alanine aminotransfe rase [Enzymatic activity/volume] in Serum or Plasma [facility] Albumin [Mass/volume ] in Serum or Plasma [facility] Alkaline phosphatase [Enzymatic activity/volume] in Serum or Plasma [facility] Anion gap in Serum o r Plasma [facility] Bilirubin, total measurement [facility] BUN/Creatinine ratio [facility] C reactive protein [Mass/volume] in Serum or Plasma [facility] Calcium [Mass/volume ] in Serum or Plasma [facility] Carbon dioxide, tota l [Moles/volume] in Central venous blood [facility] Creatinine [Mass/vol ume] in Serum or Plasma [facility] Erythrocyte sediment ation rate [facility] Glucose [Mass/volume ] in Serum or Plasma [facility] Hepatitis A virus Ig M Ab [Presence] in Serum [facility] Hepatitis B core ant ibody measurement, IgM type [facility] Hepatitis B surface antigen measurement [facility] Hepatitis C antibody measurement [facility] In-vitro immunologic test [facility] Measurement of renal function [facility] Mycobacterium tuberc ulosis tuberculin stimulated gamma interferon [Presence] in Blood [facility] Potassium measurement [facility] Protein measurement [facility] Serum chloride measurement [facility] Sodium measurement [facility] Total protein measurement [facility] Urea nitrogen [Mass/ volume] in Serum or Plasma [facility] Payers Date Payer Category Payer Medicaid (Managed Care) [facility] [id number] 2023 Self-pay 2023 Unknown [id number] 2023 Unknown [id number] 2022 Unknown [id number] 2016 Unknown [id number] 1968 Unknown [id number] 2.16.840.1.914275.3.579.2. 627 1968 Unknown [id number] 2.16.840.1.661419.3.579.2. 651 1968 Unknown [id number] 2.16.840.1.300024.3.579.2. 651 1968 Unknown [id number] 2.16.840.1.178003.3.579.2. 651 1968 Unknown [id number] 2.16.840.1.757339.3.579.2. 651 1968 Unknown [id number] 2.16.840.1.813577.3.579.2. 651 1968 Unknown [id number] 2.16.840.1.476362.3.579.2. 651 1968 Unknown [id number] 2.16.840.1.349810.3.579.2. 651 1968 Unknown [id number] 2.16.840.1.182446.3.579.2. 651 1968 Unknown [id number] 2.16.840.1.715749.3.579.2. 651 1968 Unknown [id number] 2.16.840.1.576862.3.579.2. 297 1968 Unknown [id number] 2.16.840.1.611389.3.579.2. 297 1968 Unknown [id number] 2.16.840.1.462141.3.579.2. 297 1968 Unknown [id number] 2.16.840.1.645665.3.579.2. 297 Unknown [id number] Unknown [id number] 2.16.840.1.747859.3.579.2. 462 Unknown [id number] 2.16.840.1.067654.3.579.2. 462 Unknown [id number] 2.16.840.1.114802.3.579.2. 462 Unknown [id number] 2.16.840.1.227015.3.579.2. 462 Unknown [id number] 2.16.840.1.137359.3.579.2. 462 Unknown [id number] 2.16.840.1.331838.3.579.2. 462 Unknown [id number] 2.16840.1.594068.3.579.2. 462 Unknown [id number] 2.16840.1.708054.3.579.2. 462 Unknown [id number] 2.16840.1.498835.3.579.2. 462 Unknown [id number] 2.840.1.237422.3.579.2. 462 Unknown [id number] 2.840.1.557838.3.579.2. 462 Unknown [id number] 2.840.1.975959.3.579.2. 462 Unknown [id number] 2.840.1.660680.3.579.2. 462 Unknown [id number] 2.840.1.236043.3.579.2. 462 Unknown [id number] 2.840.1.306503.3.579.2. 462 Unknown [id number] .0.1.884774.3.579.2. 462 Unknown [id number] 2.840.1.623595.3.579.2. 462 Unknown [id number] 2.840.1.469696.3.579.2. 462 Unknown [id number] .840.1.060380.3.579.2. 462 Unknown [id number] .840.1.844463.3.579.2. 462 Unknown [id number] .840.1.928445.3.579.2. 462 Unknown [id number] 2.840.1.947301.3.579.2. 462 Unknown [id number] 2.840.1.793562.3.579.2. 462 Unknown [id number] 2.840.1.070789.3.579.2. 462 Social History Date Type Detail Facility Start: 06-21-2016 End: 11-24-2023 Tobacco smoking status NHIS Current every day smoker [facility] History of tobacco use Cigarette Smoker [facility] Start: 06-21-2016 End: 07-03-2024 Cigarettes smoked current (pack per day) - Reported [facility] Start: 06-21-2016 End: 07-03-2024 Tobacco use and exposure Never used [facility] Start: 06-21-2016 Alcohol intake Not Asked [facility] Start: 06-21-2016 Alcohol Comment stopped in 1997 [facility] Start: 1970 Sex Assigned At Not on file [facility] Start: 06-13-2024 Sex Female (finding) [facility] Start: 1970 Sex Assigned At Female [facility] History of tobacco use Electroni c cigarette user (finding) [facility] Start: 07-03-2024 Alcoholic beverage intake Current non-drinker of alcohol (finding) [facility] Start: 07-03-2024 Tobacco use panel [facility] Mental Status Date Assessment Result Facility 07-27-2024 Cognitive function Voice/Name [facility] Work Phone: 06-26-2024 Cognitive function Voice/Name [facility] Work Phone: 06-12-2024 Cognitive function Voice/Name [facility] Work Phone: 03-19-2024 Cognitive function Voice/Name [facility] Work Phone: Clinical Notes 08-23-2022 to 08-24-2024 Discharge InstructionsSachin Rodríguez MD - 07/03/2024 3:29 PM Sachin Morales MD - 07/03/2024 3:29 PM Kamilla Scott RN - 07/03/2024 3:27 PM EDT Note Date & Type Note Facility 08-24-2024 Progress note [facility] 07-03-2024 Hospital Discharge instructions Sachin Rodríguez MD - 07/03/2024 4:39 PM EDT Follow up with your primary care doctor. Please return to the Emergency Department for any new or worsening symptoms. documented in this encounter [facility] 07-03-2024 Physician Emergency department Note Images from the original note were not included. [facility] Emergency Department - [place] ED Course/Medical Decision Making: Tad Grant, date of 1970, is a 54 y.o. female with no pertinent past medical history who presents to the Emergency Department with/for left foot pain x 2.5 weeks Upon arrival patient in no acute distress breathing easily on room air ED Course as of 07/03/24 1638 e July 03, 2024 1550 On arrival patient is alert and orient x 3 answering questions appropriate moving all EXTR spontaneously. Afebrile. Patient presents with left foot and ankle pain. Has been going on for about 2-1/2 weeks. Denies any particular fall or injury. States she is a history of arthritis. States the swelling has gone down somewhat but the pain continues. On exam, patient does have a mildly swollen left foot. There are some tenderness to the foot and to the ankle as well. Distal pulse and sensation are intact. No overlying skin changes. Patient denies any systemic symptoms including fevers, chills, nausea or vomiting. Plan for x-rays and reassessment. 1631 XR Ankle Left 3 View (Routine) 1. Diffuse soft tissue swelling which could be due to third spacing of fluid or cellulitis. 2. No acute osseous finding 3. Calcaneal spur formation 1631 Unlikley cellulitis given chronicity of symptoms as well as no overlying skin changes 1632 On reassessment patient continues to do well. Given pain with bending of her foot, patient given hard sole shoe and referral to podiatry. Given close return precautions. Encouraged to follow up with their PCP. Discharged with instructions to return to the ED with any new or worsening symptoms. Patient amenable to plan Differential diagnosis (including but not limited to): Fracture, contusion, sprain, strain, dislocation, septic joint, compartment syndrome, neurovascular injury IV antibiotics considered but deemed not necessary at this time Medications Given: Medications - No data to display Upon re-examination, the patient looked well and denied any new or worsening symptoms. Patient remained stable throughout the visit. Results were discussed with the patient and family . Patient and family given the opportunity to ask questions. Patient discharged with instructions to return to the emergency department with any new worsening symptoms Patient amenable to plan Admitted to [facility] (order placed in [facility]): Yes Disposition: DC Chief Complaint: Patient presents with Chief Complaint Patient presents with Foot Pain Left HPI Tad Grant, date of 1970, is a 54 y.o. female with no pertinent past medical history who presents to the Emergency Department with/for left foot pain x 2.5 weeks. Denies any Pichler fall or injury. States there was some swelling but that it has improved somewhat. Denies any systemic symptoms including fevers, chills, nausea or vomiting. Review of Systems Constitutional: Negative for fever. Respiratory: Negative for shortness of breath. Cardiovascular: Negative for chest pain. Gastrointestinal: Negative for abdominal pain. Genitourinary: Negative for dysuria. Musculoskeletal: Left foot/ankle pain All other systems reviewed and are negative. Physical Exam Vitals and nursing note reviewed. Constitutional: General: She is not in acute distress. HENT: Head: Atraumatic. Eyes: Extraocular Movements: Extraocular movements intact. Pupils: Pupils are equal, round, and reactive to light. Cardiovascular: Rate and Rhythm: Regular rhythm. Pulmonary: Effort: Pulmonary effort is normal. No respiratory distress. Abdominal: General: There is no distension. Palpations: Abdomen is soft. Tenderness: There is no abdominal tenderness. Musculoskeletal: General: Swelling and tenderness (Left foot/ankle) present. Neurological: General: No focal deficit present. Mental Status: She is alert and oriented to person, place, and time. Mental status is at baseline. Psychiatric: Mood and Affect: Mood normal. Vitals: Vitals: 07/03/24 1532 BP: 143/81 Pulse: 116 Resp: 18 Temp: 98 F (36.7 C) SpO2: 99% Past Medical History: History reviewed. No pertinent past medical history. Past Surgical History: Past Surgical History: Procedure Laterality Date SECTION x 3 CHOLECYSTECTOMY CYST REMOVAL x4 Lt wrist, Bilateral Breast, Lt axillary MOUTH SURGERY complete removal for dentures Family History: Family History Problem Relation Age of Onset Diabetes Mother High blood pressure Mother Heart disease Mother Diabetes Father High blood pressure Father Cancer Father colon CA Asthma Brother Social History: Social History Socioeconomic History Marital status: Single Spouse name: None Number of children: None Years of education: None Highest education level: None Occupational History None Tobacco Use Smoking status: Every Day Current packs/day: 1.00 Average packs/day: 1 pack/day for 30.0 years (30.0 ttl pk-yrs) Types: Cigarettes, E-Cig/Vaping Smokeless tobacco: Never Vaping Use Vaping status: Some Days Substance and Sexual Activity Alcohol use: No Drug use: No Sexual activity: None Other Topics Concern None Social History Narrative None Social Drivers of Health Financial Resource Strain: Not on file Food Insecurity: Not on file Transportation Needs: Not on file Physical Activity: Not on file Stress: Not on file Social Connections: Not on file Intimate Partner Violence: Not on file Housing Stability: Not on file Allergies: Allergies Allergen Reactions Chantix [Varenicline] Other (See Comments) Blurred vision Review of patient's records reviewed by me during this visit Diagnostics: Labs: Labs Reviewed - No data to display Labs reviewed and interpreted by me. Radiology: Personal review of imaging conducted and agree with radiology's findings XR Foot Left Min 3 View (Routine) Final Result 1. Diffuse soft tissue swelling which could be due to third spacing of fluid or cellulitis. 2. No acute osseous finding 3. Calcaneal spur formation XR Ankle Left 3 View (Routine) Final Result 1. Diffuse soft tissue swelling which could be due to third spacing of fluid or cellulitis. 2. No acute osseous finding 3. Calcaneal spur formation Sachin Rodríguez MD 07/03/24, 4:38 PM [facility] Emergency Physicians This note was partially generated using [employer] Nood[employer] system, and there may be some incorrect words, spellings, and punctuation that were not noted in checking the note before saving. Sachin Rodríguez MD 07/03/24 [id number] [facility] 07-03-2024 Emergency department Note Images from the original note were not included. [facility] Emergency Department - [place] ED Course/Medical Decision Making: Tad Grant, date of 1970, is a 54 y.o. female with no pertinent past medical history who presents to the Emergency Department with/for left foot pain x 2.5 weeks Upon arrival patient in no acute distress breathing easily on room air ED Course as of 07/03/24 1638 Tue July 03, 2024 1550 On arrival patient is alert and orient x 3 answering questions appropriate moving all EXTR spontaneously. Afebrile. Patient presents with left foot and ankle pain. Has been going on for about 2-1/2 weeks. Denies any particular fall or injury. States she is a history of arthritis. States the swelling has gone down somewhat but the pain continues. On exam, patient does have a mildly swollen left foot. There are some tenderness to the foot and to the ankle as well. Distal pulse and sensation are intact. No overlying skin changes. Patient denies any systemic symptoms including fevers, chills, nausea or vomiting. Plan for x-rays and reassessment. 1631 XR Ankle Left 3 View (Routine) 1. Diffuse soft tissue swelling which could be due to third spacing of fluid or cellulitis. 2. No acute osseous finding 3. Calcaneal spur formation 1631 Unlikley cellulitis given chronicity of symptoms as well as no overlying skin changes 1632 On reassessment patient continues to do well. Given pain with bending of her foot, patient given hard sole shoe and referral to podiatry. Given close return precautions. Encouraged to follow up with their PCP. Discharged with instructions to return to the ED with any new or worsening symptoms. Patient amenable to plan Differential diagnosis (including but not limited to): Fracture, contusion, sprain, strain, dislocation, septic joint, compartment syndrome, neurovascular injury IV antibiotics considered but deemed not necessary at this time Medications Given: Medications - No data to display Upon re-examination, the patient looked well and denied any new or worsening symptoms. Patient remained stable throughout the visit. Results were discussed with the patient and family . Patient and family given the opportunity to ask questions. Patient discharged with instructions to return to the emergency department with any new worsening symptoms Patient amenable to plan Admitted to [facility] (order placed in [facility]): Yes Disposition: DC Chief Complaint: Patient presents with Chief Complaint Patient presents with Foot Pain Left HPI Tad Grant, date of 1970, is a 54 y.o. female with no pertinent past medical history who presents to the Emergency Department with/for left foot pain x 2.5 weeks. Denies any Pichler fall or injury. States there was some swelling but that it has improved somewhat. Denies any systemic symptoms including fevers, chills, nausea or vomiting. Review of Systems Constitutional: Negative for fever. Respiratory: Negative for shortness of breath. Cardiovascular: Negative for chest pain. Gastrointestinal: Negative for abdominal pain. Genitourinary: Negative for dysuria. Musculoskeletal: Left foot/ankle pain All other systems reviewed and are negative. Physical Exam Vitals and nursing note reviewed. Constitutional: General: She is not in acute distress. HENT: Head: Atraumatic. Eyes: Extraocular Movements: Extraocular movements intact. Pupils: Pupils are equal, round, and reactive to light. Cardiovascular: Rate and Rhythm: Regular rhythm. Pulmonary: Effort: Pulmonary effort is normal. No respiratory distress. Abdominal: General: There is no distension. Palpations: Abdomen is soft. Tenderness: There is no abdominal tenderness. Musculoskeletal: General: Swelling and tenderness (Left foot/ankle) present. Neurological: General: No focal deficit present. Mental Status: She is alert and oriented to person, place, and time. Mental status is at baseline. Psychiatric: Mood and Affect: Mood normal. Vitals: Vitals: 07/03/24 1532 BP: 143/81 Pulse: 116 Resp: 18 Temp: 98 F (36.7 C) SpO2: 99% Past Medical History: History reviewed. No pertinent past medical history. Past Surgical History: Past Surgical History: Procedure Laterality Date SECTION x 3 CHOLECYSTECTOMY CYST REMOVAL x4 Lt wrist, Bilateral Breast, Lt axillary MOUTH SURGERY complete removal for dentures Family History: Family History Problem Relation Age of Onset Diabetes Mother High blood pressure Mother Heart disease Mother Diabetes Father High blood pressure Father Cancer Father colon CA Asthma Brother Social History: Social History Socioeconomic History Marital status: Single Spouse name: None Number of children: None Years of education: None Highest education level: None Occupational History None Tobacco Use Smoking status: Every Day Current packs/day: 1.00 Average packs/day: 1 pack/day for 30.0 years (30.0 ttl pk-yrs) Types: Cigarettes, E-Cig/Vaping Smokeless tobacco: Never Vaping Use Vaping status: Some Days Substance and Sexual Activity Alcohol use: No Drug use: No Sexual activity: None Other Topics Concern None Social History Narrative None Social Drivers of Health Financial Resource Strain: Not on file Food Insecurity: Not on file Transportation Needs: Not on file Physical Activity: Not on file Stress: Not on file Social Connections: Not on file Intimate Partner Violence: Not on file Housing Stability: Not on file Allergies: Allergies Allergen Reactions Chantix [Varenicline] Other (See Comments) Blurred vision Review of patient's records reviewed by me during this visit Diagnostics: Labs: Labs Reviewed - No data to display Labs reviewed and interpreted by me. Radiology: Personal review of imaging conducted and agree with radiology's findings XR Foot Left Min 3 View (Routine) Final Result 1. Diffuse soft tissue swelling which could be due to third spacing of fluid or cellulitis. 2. No acute osseous finding 3. Calcaneal spur formation XR Ankle Left 3 View (Routine) Final Result 1. Diffuse soft tissue swelling which could be due to third spacing of fluid or cellulitis. 2. No acute osseous finding 3. Calcaneal spur formation Sachin Rodríguez MD 07/03/24, 4:38 PM [facility] Emergency Physicians This note was partially generated using [employer] system, and there may be some incorrect words, spellings, and punctuation that were not noted in checking the note before saving. Sachin Rodríguez MD 07/03/24 1638 Pt arrives to ED via private vehicle with c/o left foot pain and swelling that started approx 2.5 weeks ago. Pt denies any known injury or falls. Pt states her foot feels tingly at times and that the sensation feels diminished compared to her right foot. Pt states it is painful to move her toes. Pt has a positive left pedal pulse to palpation. Skin is warm to the touch. Pt A/Ox3 with PWD skin. Respirs easy, unlabored, in NAD. documented in this encounter [facility] 07-03-2024 Emergency department Triage note Pt arrives to ED via private vehicle with c/o left foot pain and swelling that started approx 2.5 weeks ago. Pt denies any known injury or falls. Pt states her foot feels tingly at times and that the sensation feels diminished compared to her right foot. Pt states it is painful to move her toes. Pt has a positive left pedal pulse to palpation. Skin is warm to the touch. Pt A/Ox3 with PWD skin. Respirs easy, unlabored, in NAD. [facility] 05-04-2024 Evaluation note Diagnosis Onset Date Resolution Crohn disease acute May 04, 2024 10:51am Rheumatoid arthritis acute Shaq h 2024 10:51am [facility] Work Phone: 1(475) 690-321403-07-2025 Evaluation note* Diagnosis Onset Date Resolution Status Admit Date Crohn disease acute May 04, 2024 10:51am Rheumatoid arthritis acute Shaq h 2024 10:51am Akers's esophagus with dysplasia acute August 24, 2024 9:30am Crohn disease acute August 24, 2024 9:30am [facility] Work Phone: 1(370) 997-564309-30-2024 [facility] Medical Records Department [address] [place] [address] History Physical Exam 11/28/23 0639 MR#: [id number] Acct: [id number] Name: TAD GRANT Rep #: [id number] : 1970 53 From: Surjit Friend PCP: JOMAR Darling Status:[facility] Location: [place] [address] History and Physical Date of Admission: 11/28/23 TAD GRANT is a 53 F who presents to the office today for initial consult. *BGI established 8.14.24 pt reports long hx of acid reflux and has a previous diagnosis of Akers's esophagus. Pt reports that about a year ago she began having difficulty eating due to recurrent thrush that leaves a bad taste in her mouth and when she does eat it upsets her stomach. Around the same time pt began having up to 6 bm per day; always diarrhea; denies blood in the stool. Pt reports constant lower abdominal pain; states that drinking white milk helps. Pt reports that she does not think pantoprazole has been effective and takes famotidine at night as needed and is unsure if it is helpful. Pt states her last EGD was in April or May of this year in [place]. ROS Const Constitutional: Positive for fatigue, headache(s) and weight change (weight loss and gain); No fever(s) ENT ENT: Positive for headache(s); No difficulty swallowing Gastro GI: Positive for abdominal pain, bloating, diarrhea, heartburn, excessive flatus and nausea/dyspepsia; No belching, change in bowel habits, change in stool character, coffee ground emesis, constipation, cramping, difficulty swallowing, feeling full early, incontinent of stools, Vomiting blood/hematemesis, Blood in stool, loose stools, Black,tarry stools, pain with swallowing, vomiting or other Musc Musculoskeletal: Positive for joint pain, back pain, joint swelling, muscle cramps, numbness, tingling, Arthritis, restless legs and leg pain at night Skin Skin: No yellowing of the eye or itchy eyes Neuro Neurology: Positive for headache(s), numbness, tingling and restless legs Psych Psychiatric: No anxiety and Positive for depression Endo Endocrine: Positive for fatigue and weight change (weight loss and gain) Aller/Imm Allergy/Immunologic: No itchy eyes Raymundo/Lymp Hematologic/Lymphatic: Positive for easy bleeding and easy bruising Exam Const General: cooperative and comfortable Nutritional Appearance: average body habitus and well nourished [facility] Head: normal to inspection Ears: hearing grossly normal bilaterally Nose: external nose normal Face and sinus: normal facial exam Mouth: oral mucosae normal Throat: posterior oropharynx normal Eyes General: appearance normal, both eyes and all related structures Neck Neck: normal visual inspection Chest Chest palpation inspection: normal inspection of the chest and normal palpation of entire chest wall Resp Effort Inspection: normal respiratory effort Auscultation: Bilateral: Clear to Auscultation Cardio Palpation: normal PMI Rate: regular rate Rhythm: regular rhythm GI Inspection: normal to inspection Auscultation: normal bowel sounds Percussion: normal to percussion Palpation: no hepatosplenomegaly Skin General: no rashes or lesions noted Neuro General: patient alert Extrem General: normal to inspection Psych Affect: normal affect Assessment and Plan Assessment and Plan (1) GERD (gastroesophageal reflux disease): Status: Acute Plan: Uncontrolled gastroesophageal reflux disease with Akers's esophagus and dysplasia. She says she has had 3 ablations. I need medical records to see if she has long segment or short segment Akers's esophagus. She said on her last upper endoscopy the Akers's esophagus was still there but I did not know if the dysplasia was still there. Continue PPI as previously ordered. (2) IBD (inflammatory bowel disease): Status: Acute Plan: She had a CT scan abdomen pelvis that showed inflammation in her bowels. I do not know if that is the small bowel or large bowel. As per the patient she has never been on any medicines for inflammatory bowel disease except for antibiotics. She does have diarrhea on a daily basis without food and she has nocturnal diarrhea. I am suspecting that is secretory diarrhea but infection needs to be ruled out along with fecal calprotectin, fecal elastase, fecal Stool culture and C. difficile. Once I have this information back then we will be able to give her better advice. She does take celecoxib for her rheumatoid arthritis. If she does have inflammatory bowel disease then she will have to change to a 9 NSAID medicine (3) Positive OBED (antinuclear antibody): Status: Acute Plan: As per the patient she also has positive OBED it is possibly secondary to inflammatory bowel disease versus her other inflammatory arthropathy secondary to rheumatoid arthritis. (4) Rheumatoid arthritis: Status: Acute Order (more content not included)...[facility]08-20-2024 Note [facility] HISTORY & PHYSICAL NAME ACCOUNT SEX AGE ADMIT DISCHARGE PT MED. RECORD# NUMBER DATE DATE TYPE TAD GRANT [id number] F 53 09/17/23 09/18/23 2 A [id number] ROOM: 303MO DATE OF : [birth year] DICTATING PHYSICIAN: Anastacia Figueroa HISTORY & PHYSICAL/DISCHARGE SUMMARY CHIEF COMPLAINT ON ADMISSION: Abdominal pain and diarrhea. HISTORY OF PRESENT ILLNESS: This is a 53-year-old female. She states she has had GI problems with diarrhea and some dysphagia. She has been seen by Gastroenterology. Endoscopy was completed. When the abdominal pain and diarrhea worsened, she came to the Emergency Room. In the Emergency Room, CT of the abdomen/pelvis was completed, showing inflammatory changes. She was admitted with acute colitis. This morning, she has not had any loose stools, nausea or vomiting. She is feeling better. She did eat out at [facility] and [employer]. Otherwise, no other recent medication changes. No fever or chills and no recent travel. PAST MEDICAL HISTORY: (1) Dysphagia with EGD completed with GERD and possible Akers's esophagus and upper esophageal sphincter stricture. She has follow-up with Gastroenterology. (2) Microscopic colitis seen on colonoscopy. She was recommended on a high-fiber diet. (3) Chronic tobacco use. (4) Chest pain in the past with negative work-up. PAST SURGICAL HISTORY: Endoscopy as above. MEDICATIONS: They have not been verified; see medication reconciliation. ALLERGIES: Iodine contrast dye. FAMILY HISTORY: Both parents had a history of hypertension. Mother had a myocardial infarction. She also has a family history of diabetes. SOCIAL HISTORY: She is a long-term smoker. No alcohol use. She lives at home. REVIEW OF SYSTEMS: At home, she had some nausea and abdominal pain which worsened and worsening loose stools. The rest of review of systems were discussed and were negative. PHYSICAL EXAMINATION Page 1 of 3 JEEVAN TAD Maya History & Physical TAD GRANT :1970 GENERAL APPEARANCE: The patient was lying in bed in no acute distress. She is alert and cooperative. VITAL SIGNS: Blood pressure is 110/66, heart rate 65, respirations 18, temperature 98.3, and oxygen saturation 99% on room air. Weight is 179 pounds with a BMI of 29.70. HEENT: Unremarkable. NECK: Supple. No JVD. LUNGS: Normal respiratory effort, equal lung expansion, and clear to auscultation bilaterally. HEART: Regular rate and rhythm. ABDOMEN: Positive bowel sounds, soft and nontender. EXTREMITIES: Free of pitting edema. NEUROLOGIC: She is alert and oriented. Mood, affect and memory are within normal limits. DIAGNOSTIC DATA: White count is 6.3, hemoglobin 13, and hematocrit 38.5 with a slight left shift. BUN and creatinine are within normal limits as well as all electrolytes. Albumin is 2.7. Urinalysis with negative nitrites and negative leukocytes. IMPRESSION: Acute colitis/enterocolitis, likely secondary to food. She did eat out at fast food just 2 nights ago. PLAN: She was admitted overnight with IV fluids, empiric IV antibiotics and antiemetics, and she is improved. This morning, she is requesting to go home. She has not had any loose stools today, and the abdominal pain has improved. I will discharge her home. I instructed her to use Pepto-Bismol 3 times daily for the next 3 days and then as needed and Gatorade after loose stools. Advance her diet as tolerated. Her home medication has not been verified, but if she does take NSAIDs on a daily basis as is listed on there, I have asked her not to take those for the next 5 days, as it could cause abdominal pain and instructed her to use Tylenol as directed. CONDITION ON DISCHARGE: Improved. Dictated by cony Henao for Dr. Figueroa. I evaluated the patient myself the above accurate E&M is done by me Tulio Figueroa MD Dictated By: Anastacia Figueroa MD 09/18/23 11:25 Page 2 of 3 TAD GRANT History & Physical TAD GRANT :1970 JOB #: [id number] Transcribed By: jadyn 09/18/23 11:37 Electronically signed by: E-Sign: ANASTACIA FIGUEROA MD 10/18/23 11:41 Update to H&P: [ ] No changes: I have examined the patient and reviewed the H&P and there are no changes. [ ] As previously dictated with the following changes: ____ ____ ____ PHYSICIAN SIGNATURE: TIME: DATE: Page 3 of 3 [facility] NoteHNO ID: [id number] Author: Ambrocio Mckinnon Service: ? Author Type: ? Type: Progress Notes Filed: 10/14/2022 4:31 PM Note Text: [address]06-26-2023 NoteHNO ID: [id number] Author: Jayant Edwards MD Service: ? Author Type: Physician Type: Progress Notes Filed: 08/24/2022 4:22 PM Note Text: Tad Grant is a 52 year old White female who presents with complaints of Akers's esophagus. She has had 3 ablations and her last EGD was in 2016. She has taken 40 mg of pantoprazole which she states does not really help her whole lot. She reports some burning and cough half a cup of coffee in the morning. She drinks an occasional can of pop. Denies any alcohol or tobacco use. She does smoke 1/2 pack of cigarettes per day. PAST MEDICAL HISTORY Diagnosis Date Arthritis Akers's esophagus without dysplasia 12/06/2013 long segment GERD (gastroesophageal reflux disease) Hiatal hernia PAST SURGICAL HISTORY Procedure Laterality Date SECTION HX x3 CHOLECYSTECTOMY EGD TRANSORAL BIOPSY SINGLE/MULTIPLE 08/04/2016 EGD TRANSORAL BIOPSY SINGLE/MULTIPLE 12/06/2013 ESOPHAGOSCOPY FLEX TRANSORAL LESION ABLATION 03/06/2014 RFA #1 ESOPHAGOSCOPY FLEX TRANSORAL LESION ABLATION 05/03/2014 RFA #2; Dr. Euceda ESOPHAGOSCOPY FLEX TRANSORAL LESION ABLATION 01/30/2016 RFA #3; Dr. Euceda ESOPHAGOSCOPY FLEX TRANSORAL LESION ABLATION 04/16/2016 RFA #4; Dr. Euceda ESOPHAGOSCOPY FLEX TRANSORAL LESION ABLATION 06/02/2016 RFA #5; Dr. Euceda Social History Tobacco Use Smoking status: Every Day Packs/day: 1.00 Years: 32.00 Pack years: 32.00 Types: Cigarettes Smokeless tobacco: Never FAMILY HISTORY Problem Relation Age of Onset Hypertension Unknown Heart Failure Unknown Asthma Unknown other (sleep apnea [Other]) Unknown Arthritis Unknown other (muscle weakness [Other]) Unknown Thyroid Unknown Diabetes Unknown Cancer Unknown colon ALLERGIES Allergen Reactions Chantix [Vareniclin* Other: See Comments Blurred vision Current Outpatient Medications Medication Sig ibuprofen (ADVIL) 200 mg tablet Take 200 mg by mouth every 6 hours as needed. lidocaine viscous (XYLOCAINE) 2 % solution Take 5 mL by mouth every 4 hours as needed for Pain. Dilute 1 teaspoon of Lidocaine with 1 Tablespoon of water and swallow. sucralfate (CARAFATE) 1 gram tablet 1 tablet before meals and at bedtime. Place tablet in 4 oz. of water, drink the dissolved tablet. pantoprazole DR (PROTONIX) 40 mg tablet Take 1 tablet by mouth twice daily. buPROPion XL (WELLBUTRIN XL) 150 mg 24 hr tablet Take 150 mg by mouth once daily. No current facility-administered medications for this visit. REVIEW OF SYSTEMS PAIN ASSESSMENT: Negative for pain, history of chronic pain, or current treatment for a chronic pain condition. GENERAL: No weight loss, malaise or fevers NECK: Negative for lumps, goiter, pain and significant neck swelling RESPIRATORY: Negative for cough, hemoptysis, wheezing, COPD, dyspnea or shortness of breath CARDIOVASCULAR: Negative for chest pain, leg swelling, hypertension, CHF or palpitations GI: See HPI : No history of dysuria, frequency or incontinence MUSCULOSKELETAL: Negative for joint pain or swelling, back pain or muscle pain HEMATOLOGY/LYMPHOLOGY: Negative for prolonged bleeding, bruising easily or swollen nodes ENDOCRINE: Negative for cold or heat intolerance, polyuria, polydipsia and goiter PHYSICAL EXAM: BP 130/76 Pulse 86 Resp 22 Ht 5' 6 (1.68m) Wt 217 lb (98.4kg) BMI 35.04 kg/(m2). General Appearance: Well appearing, alert, in no acute distress, well-hydrated, well nourished. and Obese. Abdomen: Normal abdominal exam, Abdomen soft, non-tender. Bowel sounds normal. No masses, organomegaly, Positive findings: obese. Assessment: Akers's esophagus without dysplasia (primary encounter diagnosis) Gastroesophageal reflux disease without esophagitis Class 2 obesity due to excess calories without serious comorbidity with body mass index (bmi) of 35.0 to 35.9 in adult Tobacco use Plan: ASSESSMENT/PLAN: 1. Akers's esophagus without dysplasia - ICD9: 530.85, ICD10: K22.70 (primary diagnosis) Continue PPI. Recommend proceeding with an EGD. The risks, benefits and complications were reviewed including but not limited to bleeding, infection, missing a lesion, effects of anesthesia and perforation possibly requiring an emergency surgery. She understood and was agreeable to proceed. 2. Gastroesophageal reflux disease without esophagitis - ICD9: 530.81, ICD10: K21.9 - Discussed lifestyle modifications including losing weight, limiting caffeine, no meals three hours before sleep, and head of bed elevation - XR UPPER GI ROUTINE DOUBLE CONTRAST/AIR 3. Class 2 obesity due to excess calories without serious comorbidity with body mass index (BMI) of 35.0 to 35.9 in adult - ICD9: 278.00, V85.35, ICD10: E66.09, Z68.35 Stable 4. Tobacco use - ICD9: 305.1, ICD10: Z72.0 - Cessation encouraged. - Physiologic and physical aspects of tobacco addiction as well as (more content not included)...[facility] Left foot pain- Primary Pain in limb Acute left ankle pain Calcaneal spur of left foot Calcaneal spur [facility] Nirmala Johnson [facility] Note Date/Time August 24, 2024 10:1 3am [facility] [address] [place] [address] OFFICE VISIT Date of Service: 08/24/24 MR#: [id number] Acct: [id number] Name: TAD GRANT Rep #: [id number] : 1970 Provider: BEVERLEY Elena Age/Sex: 54/F Location: [facility] Status: Signed Intake Vital Signs 07/27/24 09:14 Height 5 ft 6 in Intake Visit Reasons: FU Chief Complaint: IBD Allergies Iodinated Contrast Media Allergy (Mild, Verified 06/26/24 08:42) Hives Medications ?Medication ?Instructions ?Recorded ?Confirmed ?Type famotidine 20 mg tablet 20 mg PO BID 09/25/20 History pantoprazole 20 mg tablet,delayed 20 mg PO BID 1 08/24/24 History release albuterol sulfate 90 mcg/actuation 2 puff inhalation Q 4-6H PRN 09/02/23 06/26/24 History aerosol inhaler shortness of breath or wheez ing ondansetron 4 mg disintegrating 4 mg PO Q8H #20 tabs 0 03/06/24 06/26/24 Rx tablet trazodone 100 mg tablet 100 mg PO QHS 03/19/2406/26 History ondansetron 4 mg disintegrating 4 mg PO Q8H #20 tabs 0 05/04/24 06/26/24 Rx tablet amitriptyline 50 mg tablet 50 mg PO QHS 08/24/2408/24 History pantoprazole 40 mg tablet,delayed 40 mg PO QDAY #90 ta bs 08/24/24 08/24/24 Rx release pramipexole 1 mg tablet 1 mg PO QDAY 08/24/24 History Nurse's Note: OV 08/24/24 Pt here for f/u and nausea, diarrhea, constipation, abdominal pain, gas, bloating, and difficulty swallowing. [facility] Medical History Post-menopausal No natural teeth Depression Easy bruising Migraine headache History of hiatal hernia History of Crohn's disease Leg cramps History of edema History of stress test History of cyst of breast History of rheumatoid arthritis History of irritable bowel syndrome Black tongue Barretts esophagus Tattoo granuloma Smoker Foreign body reaction to tattoo dyes GERD (gastroesophageal reflux disease) Benign breast cyst in female Back problem Arthritis Surgical History History of elbow surgery History of esophagogastroduodenoscopy (EGD) History of colonoscopy History of appendectomy History of cholecystectomy Previous section Family History Sister Anxiety and depression Psychiatric care Suicide attempt Thyroid disorder Sister Anxiety and depression Brother Asthma Mother Anxiety and depression Diabetes Psychiatric care Suicide attempt Father Colon cancer Diabetes Hypertension Son defect Uncle History of blood transfusion Colon cancer Diabetes Aunt Diabetes Grandmother Diabetes Psychiatric care Grandmother Diabetes Social History Smoking Status: Current every day smoker tobacco type: cigarettes Tobacco: How many years used: 40 alcohol intake: never substance use type: does not use caffeine: Yes Type: coffee Number of servings: 1 additional social history: Does Not Take Aspirin Does Not Take Ibuprofen denies vaping, denies marijuana use, denies edibles HPI HPI Chief Complaint: IBD Details: TAD GRANT, is a 54 F who presents to the office today for f/u. BGI established 10.12.23 with long hc of acid reflux and barretts esophagus. About 6 months ago pt started having recurrent thrush and bad taste in her mouth. At this time she also started having 6 loose bm per day. She underwent colonoscopy which revealed severe inflammation in the terminal ileum and benign-appearing, intrinsic severe stenosis. Colonoscopy 11.28.23; - The entire examined colon is normal. - Inflammatory bowel disease. Inflammation was found. This was severe. Biopsied. - Stricture in the terminal ileum. MRE 03.19.24; Discontiguous segments of abnormal small bowel that demonstrate wall thickening, narrowing of the lumen, hyperemia of the mucosa and wall postcontrast and engorgement of the adjacent vasa recta. This includes a long segment of distal and terminal ileum measuring up to 30 cm and a shorter 10 cm segment of small bowel more proximally in the anterior abdomen. Findings are compatible with Crohn''s disease. No adjacent fluid collections. *Attempted to start pt on biologic therapy but insurance required failure of 5- ASA therapy first. Pt started on mesalamine. OV 3.7.25 Pt continues with diarrhea at least 4 times per day and some mild constipation on occasion. She continues to have joint pain relating to her uncontrolled RA. *Start Remicade OV 6.27.25 Pt has had 2 or 3 infusions of the inflectra so far. She has not noticed any difference in her symptoms. SHe has diarrhea a few times per week and will strain to go other times. She has reflux symptoms especially during thenight. She will wake up to vomiting. She has not been eating much but is not losing weight. She continues with PPI and famotidine. She had to cancel her EGD but would like to reschedule. ROS Const Constitutional: Positive for headache(s); No fatigue, fever(s) or weight change ENT ENT: Positive for headache(s) and difficulty swallowing Cardio Cardiology: Positive for leg pain with exertion Gastro GI: Positive for abdominal pain, bloating, constipation, cramping, diarrhea, heartburn, difficulty swallowing, excessive flatus and nausea/dyspepsia; No belching, change in bowel habits, change in stool character, coffee ground emesis, feeling full early, incontinent of stools, Vomiting blood/hematemesis, Blood in stool, loose stools, Black,tarry stools, pain with swallowing, vomitingor other Musc Musculoskeletal: Positive for abnormal gait, joint pain, back pain, joint swelling, muscle cramps, numbness, tingling, Arthritis, restless legs, leg pain at night and leg pain with exertion Skin Skin: No yellowing of the eye or itchy eyes Neuro Neurology: Positive for abnormal gait, headache(s), numbness, tingling and restless legs Psych Psychiatric: No anxiety and Positive for depression Endo Endocrine: No fatigue or weight change Aller/Imm Allergy/Immunologic: No itchy eyes Raymundo/Lymp Hematologic/Lymphatic: Positive for easy bruising; No easy bleeding Exam Const General: cooperative, healthy appearing and comfortable Orientation: alert HENMT Head: normal to inspection Eyes General: appearance normal, both eyes and all related structures Neck Neck: normal visual inspection Chest Chest palpation & inspection: normal inspection of the chest Resp Effort & Inspection: normal respiratory effort Cardio Rate: regular rate Rhythm: regular rhythm GI Inspection: normal to inspection Auscultation: normal bowel sounds Palpation: soft and nontender Assessment and Plan Assessment and Plan (1) Crohn disease: Status: Acute Plan: Tad is a 54 yo female pt here [facility] for f/u regarding her Barretts esophagusand Crohns disease. Pt diagnosed with Crohns in 2023 after colonoscopy and MRE showing severe Crohns disease. Pt was started on Mesalamine therapy due to INS not approving biologic therapy. She was treated with this for 6 months and then started on Inflectra infusions a few months back. She has had about 2-3 infusions so far with no relief in her symptoms. She will continue infusion as she may need a to have a few more before her blood level is therapeutic. I will order CBC, CMP, ESR and CRP to monitor her inflammation. She has a lot of upper GI symptoms at this time with nocturnal reflux, nausea and early satiety. SHe has been scheduled for EGD but has had to cancel. She will be rescheduled today.SHe has a hx of Akers esophagus. I have increased her PPI to 40 mg BID and shewill continue famotiidne as needed. -Continue Inflectra -CBC, CMP, ESR and CRP -EGD -Increase pantoprazole to 40 mg BID -Continue famotidine PRN -EGD -f/u in 3 months (2) Akers's esophagus with dysplasia: Status: Acute Orders: Orders CBC W/Diff, Automated Today K50.90 - Crohn's disease, unspecified, without complications Comprehensive Metabolic Profil Today K50.90 - Crohn's disease, unspecified, without complications Erythrocyte Sed Rate Today K50.90 - Crohn's disease, unspecified, without complications CRP Today K50.90 - Crohn's disease, unspecified, without complications Medications: New pantoprazole 40 mg PO QDAY 90 tabs 2RF Coding Level of Care Code Off vis,est,level 4 Diagnoses Crohn disease K50.90 Akers's esophagus with dysplasia K22.719 08/24/24 1013 <Electronically signed by Nirmala LOWERY> Date _ Nirmala LOWERY Cosigner Signature: Date (if applicable) CC: ~ [facility] Work Phone: Reason for referral (narrative)No reason for referral information availableWBluffton Hospital Work Phone: Summary Purpose Family History No Family History Records Found Relationship Condition Age at Onset Recorded Date/T hannah sister Anxiety and depression Unknown Psychiatric care Unknown Attempted suicide Unknown Disorder of thyroid Unknown brother Asthma Unknown mother Anxiety and depression Unknown Diabetes mellitus Unknown father Malignant neoplasm of colon Unknown Hypertension Unknown son Dysmorphism Unknown uncle History of blood transfusion Unknown Malignant neoplasm of colon Unknown aunt Diabetes mellitus Unknown grandmother Diabetes mellitus Unknown Advance Directives No Advanced Directives Records Found Advance Directive Response Recorded Date/ Time Living Will No November 24, 2023 9:39am Do you have a Healthcare Power of Air Quality Chemist? No November 24, 2023 9:39am Chief Complaint and Reason for Visit Chief Complaint Admit Date GASTROENTERITIS, COLITIS, IBD March 192024 8:59am Follow up May 04, 2024 10:5 1am INFLECTRA June 12, 2024 8:1 1am Reason for Visit Admit Date Crohn disease May 04, 2024 10:5 1am Rheumatoid arthritis May 04, 2024 10: 51am Chief Complaint Admit Date Follow up May 04, 2024 10:5 1am INFLECTRA June 12, 2024 8:1 1am INFLECTRA June 26, 2024 8:2 4am INFLECTRA July 27, 2024 8:51a m Chief Complaint Admit Date Follow up May 04, 2024 10:5 1am INFLECTRA June 12, 2024 8:1 1am INFLECTRA June 26, 2024 8:2 4am INFLECTRA July 27, 2024 8:51a m FU August 24, 2024 9:30 am INT LABS August 24, 2024 10:1 1am Reason for Visit Admit Date Crohn disease May 04, 2024 10:5 1am Rheumatoid arthritis May 04, 2024 10: 51am Akers's esophagus with dysplasia August 24, 2024 9:30am Crohn disease August 24, 2024 9:30 am Additional Source Comments INFORMATION SOURCE (unrecogn ized section and content) DATE CREATED AUTHOR 08/22/2017 [facility] DATE CREATED AUTHOR AUTHOR'S ORGANIZ ATION 03/22/2020 [facility] DATE CREATED AUTHOR AUTHOR'S ORGANIZ ATION 11/17/2022 [facility] DATE CREATED AUTHOR AUTHOR'S ORGANIZ ATION 10/01/2023 [facility] ([place]) DATE CREATED AUTHOR AUTHOR'S ORGANIZ ATION 01/14/2024 [facility] DATE CREATED AUTHOR AUTHOR'S ORGANIZ ATION 08/08/2024 [facility] DATE CREATED AUTHOR AUTHOR'S ORGANIZ ATION [facility] Source Comments (unrecognize d section and content) In the event this informatio n is protected by the Federal Confidentiality of Alcohol and Drug Abuse Patient Records regulations: The Federal rules restrict any use of the information to criminally investigate or prosecute any alcohol or drug abuse patient.[facility] Teams (unrecognized sec tion and content) Team Status: Active Member Role Status Dates Pan Doyle NP LUMBER ESTIMATOR-C Primary Care Provider Active Team Status: Inactive Member Role Status Dates Pan Doyle NP, NP-Cookie Primary Care Provider Active Start: March 19, 2024 End: March 19, 2024 BEVERLEY Elena Attending Provider Active Start: March 19, 2024 End: March 19, 2024 BEVERLEY Elena Referring Provider Active Start: March 19, 2024 End: March 19, 2024 Team Status: Inactive Member Role Status Dates Pan Doyle NP, NP-C Primary Care Provider Active Start: May 04, 2024 End: May 04, 2024 Pan Doyle NP, NP-C Referring Provider Active Start: May 04, 2024 End: May 04, 2024 BEVERLEY Elena Attending Provider Active Start: May 04, 2024 End: May 04, 2024 Team Status: Inactive Member Role Status Dates Pan Doyle NP, NP-C Primary Care Provider Active Start: June 12, 2024 End: June 12, 2024 BEVERLEY Elena Attending Provider Active Start: June 12, 2024 End: June 12, 2024 BEVERLEY Elena Referring Provider Active Start: June 12, 2024 End: June 12, 2024 Night Custodian Relationship Specialty Start Date End Date Pan Doyle, NOZZLE TENDER [address] [facility] [address] [place] [address] PCP - General Nurse Practitioner-Family 07/03/24 Team Status: Inactive Member Role Status Dates Pan Doyle NP, LUMBER ESTIMATOR-C Primary Care Provider Active Start: June 26, 2024 End: June 26, 2024 BEVERLEY Elena Attending Provider Active Start: June 26, 2024 End: June 26, 2024 BEVERLEY Elena Referring Provider Active Start: June 26, 2024 End: June 26, 2024 Team Status: Inactive Member Role Status Dates Pan Doyle LUMBER ESTIMATOR, LUMBER ESTIMATOR-C Primary Care Provider Active Start: July 27, 2024 End: July 27, 2024 BEVERLEY Elena Attending Provider Active Start: July 27, 2024 End: July 27, 2024 BEVERLEY Elena Referring Provider Active Start: July 27, 2024 End: July 27, 2024 Team Status: Active Member Role/Relationship Status Dates Pan Doyle LUMBER ESTIMATOR, LUMBER ESTIMATOR-C Primary Care Provider Active Team Status: Inactive Member Role/Relationship Status Dates Pan Doyle LUMBER ESTIMATOR, LUMBER ESTIMATOR-C Primary Care Provider Active Start: May 04, 2024 End: May 04, 2024 Pan Doyle LUMBER ESTIMATOR, LUMBER ESTIMATOR-C Referring Provider Active Start: May 04, 2024 End: May 04, 2024 BEVERLEY Elena Attending Provider Active Start: May 04, 2024 End: May 04, 2024 Team Status: Inactive Member Role/Relationship Status Dates Pan Doyle LUMBER ESTIMATOR, LUMBER ESTIMATOR-C Primary Care Provider Active Start: June 12, 2024 End: June 12, 2024 BEVERLEY Elena Attending Provider Active Start: June 12, 2024 End: June 12, 2024 BEVERLEY Elena Referring Provider Active Start: June 12, 2024 End: June 12, 2024 Team Status: Inactive Member Role/Relationship Status Dates Pan Doyle LUMBER ESTIMATOR, LUMBER ESTIMATOR-C Primary Care Provider Active Start: June 26, 2024 End: June 26, 2024 BEVERLEY Elena Attending Provider Active Start: June 26, 2024 End: June 26, 2024 BEVERLEY Elena Referring Provider Active Start: June 26, 2024 End: June 26, 2024 Team Status: Inactive Member Role/Relationship Status Dates Pan Doyle LUMBER ESTIMATOR, LUMBER ESTIMATOR-C Primary Care Provider Active Start: July 27, 2024 End: July 27, 2024 BEVERLEY Elena Attending Provider Active Start: July 27, 2024 End: July 27, 2024 BEVERLEY Elena Referring Provider Active Start: July 27, 2024 End: July 27, 2024 Team Status: Inactive Member Role/Relationship Status Dates Pan Doyle NP, LUMBER ESTIMATOR-C Primary Care Provider Active Start: August 24, 2024 End: August 24, 2024 Pan Doyle NP, LUMBER ESTIMATOR-C Referring Provider Active Start: August 24, 2024 End: August 24, 2024 BEVERLEY Elena Attending Provider Active Start: August 24, 2024 End: August 24, 2024 Team Status: Inactive Member Role/Relationship Status Dates Pan Doyle NP, LUMBER ESTIMATOR-C Primary Care Provider Active Start: August 24, 2024 End: August 24, 2024 BEVERLEY Elena Attending Provider Active Start: August 24, 2024 End: August 24, 2024 BEVERLEY Elena Referring Provider Active Start: August 24, 2024 End: August 24, 2024 Dr. Surjit Nguyen , Other Provider Active St art: August 24, 2024 End: August 24, 2024 Team Status: Active Member Role/Relationship Status Dates Pan Doyle NP, LUMBER ESTIMATOR-C Primary Care Provider Active Start: August 24, 2024 BEVERLEY Elena Attending Provider Active Start: August 24, 2024 BEVERLEY Elena Referring Provider Active Start: August 24, 2024 Dr. Surjit Nguyen , Other Provider Active St art: August 24, 2024 Goals (unrecognized section and content) Goals may be documented in a n alternate sectionGoals may be documented in an alternate sectionGoals may be documented in an alternate sectionGoals may be documented in an alternate section Reason for Visit (unrecogniz ed section and content) Reason Comments Foot Pain Left FOR RECORDS PERTAINING TO PATIENTS WHO ARE OR HAVE BEEN ENROLLED IN A CHEMICAL DEPENDENCY/SUBSTANCEABUSE PROGRAM, SOME INFORMATION MAY BE OMITTED. This clinical summary was aggregated from multiple sources. Caution should be exercised in using it in the provision of clinical care. This summary normalizes information from multiple sources, and as a consequence, information in this document may materially change the coding, format and clinical context of patient data. In addition, data may be omitted in some cases. CLINICAL DECISIONS SHOULD BE BASED ON THE PRIMARY CLINICAL RECORDS. [facility]. provides no warranty or guarantee of the accuracy or completeness of information [id number]
--- OUTSIDE RECORDS SUMMARY | 2024-09-28 11:15 | XMS RPT_ITS | CCD ---
Author Organization [facility] Care Team Providers Care Land Survey Technician Name Role Phone RAMIRO GUPTA Unavailable Unavailable [...] PAN DOYLE CNP Consulting Unavailable VIVEK, PAN BOX REPAIRER Attending Unavailable VIVEK, PAN BOX REPAIRER Admitting Unavailable VIVEK, PAN BOX REPAIRER Primary Care Unavailable PROVIDER, UNKNOWN Consulting Unavailable PROVIDER, UNKNOWN Consulting Unavailable VIVEK, PAN BOX REPAIRER Consulting Unavailable VIVEK, PAN BOX REPAIRER Attending Unavailable VIVEK, PAN BOX REPAIRER Admitting Unavailable VIVEK, PAN BOX REPAIRER Primary Care Unavailable PROVIDER, UNKNOWN Consulting Unavailable PROVIDER, UNKNOWN Consulting Unavailable VIVEK, PAN BOX REPAIRER Consulting Unavailable VIVEK, PAN BOX REPAIRER Attending Unavailable VIVEK, PAN BOX REPAIRER Admitting Unavailable VIVEK, PAN BOX REPAIRER Primary Care Unavailable PROVIDER, UNKNOWN Consulting Unavailable PROVIDER, UNKNOWN Consulting Unavailable FRIEND, SURJIT Attending Unavailable FRIEND, SURJIT Admitting Unavailable FRIEND, SURJIT Primary Care Unavailable VIVEK, PAN BOX REPAIRER Consulting Unavailable PROVIDER, UNKNOWN Consulting Unavailable PROVIDER, UNKNOWN Consulting Unavailable FRIEND, SURJIT Attending Unavailable FRIEND, SURJIT Admitting Unavailable VIVEK, PAN BOX REPAIRER Consulting Unavailable FRIEND, SURJIT Primary Care Unavailable PROVIDER, UNKNOWN Consulting Unavailable PROVIDER, UNKNOWN Consulting Unavailable NIRMALA JOHNSON Attending Unavailable NIRMALA JOHNSON Admitting Unavailable VIVEK PAN CADE Consulting Unavailable NIRMALA JOHNSON Primary Care Unavailable PROVIDER, UNKNOWN Consulting Unavailable PROVIDER, UNKNOWN Consulting Unavailable ROSALES, MADISON T Admitting Unavailable ROSALES, MADISON T Primary Care Unavailable VIVEKPAN BURCH BOX REPAIRER Consulting Unavailable ROSALES, MADISON T Attending Unavailable [...] Pan Doyle CNP Primary Care Provider Vivek PST SPECIALIST-Pan [place] Primary Care Provider Nirmala Tejeda Attending [...] Unavailable Friend DO, Dr. Avila Other Provider [phone] Vivek PST SPECIALIST, Pan Primary Care Unavailable Vivek PST SPECIALIST, Pan Referring Unavailable Siska, Jyoti Attending Unavailable Vivek PST SPECIALIST, Pan Primary Care Unavailable Vivek PST SPECIALIST, Pan Referring Unavailable Siska, Jyoti Attending Unavailable Vivek PST SPECIALIST, Pan Referring Unavailable Vivek PST SPECIALIST, Pan Primary Care Unavailable Atanasov, Nirmala Attending Unavailable Vivek PST SPECIALIST, Pan Primary Care Unavailable Vivek PST SPECIALIST, Pan Referring Unavailable Atanasov, Nirmala Attending Unavailable Vivek PST SPECIALIST, Pan Primary Care Unavailable Friend, Surjit Attending Unavailable Vivek PST SPECIALIST, Pan Primary Care Unavailable Friend, Surjit Referring Unavailable FriendSurjit Attending Unavailable Vivek PST SPECIALIST, Pan Primary Care Unavailable Atanasov, Nirmala Referring Unavailable Atanasov, Nirmala Attending Unavailable Vivek PST SPECIALIST, Pan Primary Care Unavailable Atanasov, Nirmala Referring Unavailable Atanasov, Nimrala Attending Unavailable Vivek PST SPECIALIST, Pan Primary Care Unavailable Atanasov, Nirmala Referring Unavailable Atanasov, Nirmala Attending Unavailable Vivek PST SPECIALIST, Pan Primary Care Unavailable Vivek PST SPECIALIST, Pan Referring Unavailable Siska, Jyoti Attending Unavailable Friend, Surjit Consulting Unavailable Vivek PST SPECIALIST, Pan Primary Care Unavailable Vivek PST SPECIALIST, Pan Referring Unavailable FriendSurjit Attending Unavailable Vivek PST SPECIALIST, Pan Primary Care Unavailable Vivek PST SPECIALIST, Pan Referring Unavailable Atanasov, Nirmala Attending Unavailable Vivek PST SPECIALIST, Pan Primary Care Unavailable Atanasov, Nirmala Attending Unavailable Vivek PST SPECIALIST, Pan Primary Care Unavailable Vivek PST SPECIALIST, Pan Referring Unavailable Siska, Jyoti Attending Unavailable Vivek PST SPECIALIST, Pan Primary Care Unavailable Vivek PST SPECIALIST, Pan Referring Unavailable Friend, Surjit Attending Unavailable Friend, Surjit Consulting Unavailable Vivek PST SPECIALIST, Pan Primary Care Unavailable Atanasov, Nirmala Referring Unavailable Atanasov, Nirmala Attending Unavailable Vivek PST SPECIALIST, Pan Primary Care Unavailable Nirmala Johnson Referring Unavailable Nirmala Johnson Attending Unavailable Vivek PST SPECIALIST, [facility] Primary Care Unavailable Jyoti Martinez Referring Unavailable Sispilar, Jyoti Attending Unavailable Siska, Jyoti Referring Unavailable Siska, Jyoti Attending Unavailable Vivek PST SPECIALIST, [facility] Primary Care Unavailable Rissa PST SPECIALIST, Lyla Mcpherson Referring Unavailabl e Vivek PST SPECIALIST, Pan Primary Care Unavailable Rissa PST SPECIALIST, Lyla Mcpherson Attending Unavailabl e Vivek PST SPECIALIST, Pan Referring Unavailable Vivek PST SPECIALIST, Pan Primary Care Unavailable Friend, Surjit Attending Unavailable Vivek PST SPECIALIST, Pan Referring Unavailable Vivek PST SPECIALIST, Pan Primary Care Unavailable Friend, Surjit Attending Unavailable Vivek PST SPECIALIST, [facility] Primary Care Unavailable Nirmala Johnson Referring Unavailable Nirmala Johnson Attending Unavailable Vivek PST SPECIALIST, [facility] Primary Care Unavailable Vivek PST SPECIALIST, Pan Referring Unavailable Nirmala Johnson Attending Unavailable Allergies Allergy Classification Reported Allergen(s) Allergy Type Date of Onset Reaction(s) Facility (3 sources) varenicline; Translations: [VARENICLINE] Drug Allergy 6 Other: See Comments, Other (See Comments) [facility] (1 source) CONTRAST MEDIA, IODINE RELATED Drug allergy (disorder) [facility] (4 sources) Triiodobenzoic Acids Allergy to substance 5 [facility] (1 source) Iodinated Contrast Media Drug allergy (disorder) 5 [facility] Repository (1 source) Gadolinium-MRI Contrast Medium Drug allergy (disorder) 4 [facility] Repository Medications Current Medications Medication Drug Class(es) Dates Sig (Normalized) Sig (Original) [id number] 200 actuat albuterol 0.09 mg/actuat metered dose [...] 12:00am Start: 09-25-2020 take 1 tablet by arjnu th twice daily Pantoprazole 20 mg tablet,delayed [...] Panel Acuteon 07-0 COMMENT Comment Normal . [facility] Comment on above: Result Comment: Not infected with HCV unless early or acute infection is suspected (which may be delayed in an immunocompromised individual), or other evidence exists to indicate HCV infection. Performed at: [facility] [address] [id number] Client Support Professional: Dionicio Buenrostro PhD, Phone: [phone] Performed By: #### L 100.0100, L101.9900, L501.6710, L3400.8000, L3000.0375, L500.4050 ####[facility] [address] [place], [place], [phone] HEP B CORE,IgM Negative Normal Negative [facility] Comment on above: Performed By: #### L 100.0100, L101.9900, L501.6710, L3400.8000, L3000.0375, L500.4050 ####[facility] [address] [place], [place], [phone] HEP B SURF AG Negative Normal Negative [facility] Comment on above: Performed By: #### L 100.0100, L101.9900, L501.6710, L3400.8000, L3000.0375, L500.4050 ####[facility] [address] [place], [place], [phone] HEP C VIRUS AB Non-Reactive Normal Non Reactive [facility] Comment on above: Performed By: #### L 100.0100, L101.9900, L501.6710, L3400.8000, L3000.0375, L500.4050 ####[facility] [address] [place], [address] HEPATITIS A-IgM Negative Normal Negative [facility] Comment on above: Result Comment: A ne gative anti-HAV IgM result suggests no recent or current HAV infection. Performed By: #### L 100.0100, L101.9900, L501.6710, L3400.8000, L3000.0375, L500.4050 ####[facility] [address] [place], [address] Quantiferon TB-Gold+on 08-28 QFT MITOGEN SHANTEL TNP Normal . [facility] Comment on above: Result Comment: Test not performed Performed By: #### L 100.0100, L101.9900, L501.6710, L3400.8000, L3000.0375, L500.4050 ####[facility] [address] [place], [address] QFT NIL VALUE TNP Normal . [facility] Comment on above: Result Comment: Test not performed Performed By: #### L 100.0100, L101.9900, L501.6710, L3400.8000, L3000.0375, L500.4050 ####[facility] [address] [place], [address] QFT TB GOLD+ Comment Normal . [facility] Comment on above: Result Comment: Braulio tiFERON-TB [...] L 100.0100, L101.9900, L501.6710, L3400.8000, L3000.0375, L500.4050 ####[facility] [address] [place], [address] QFT TB POS CRIT TNP Normal . [facility] Comment on above: Result Comment: Test not [...] L 100.0100, L101.9900, L501.6710, L3400.8000, L3000.0375, L500.4050 ####[facility] [address] [place], [address] QFT TB1+ AG SHANTEL TNP Normal . [facility] Comment on above: Result Comment: Test not performed Performed By: #### L 100.0100, L101.9900, L501.6710, L3400.8000, L3000.0375, L500.4050 ####[facility] [address] [place], [address] QFT TB2+ AG SHANTEL TNP Normal . [facility] Comment on above: Result Comment: Test not performed Performed By: #### L 100.0100, L101.9900, L501.6710, L3400.8000, L3000.0375, L500.4050 ####[facility] [address] [place], [address] Absolute lymphocyte countOrd ered By: Nirmala Johnson on 08-24-2024 Lymphocytes Auto (Unsp spec) [#/Vol] 2.38 10*3/uL 0.83-4.51 [facility] Absolute neutrophil countOrd ered By: Nirmala Johnson on 08-24-2024 Neutrophils (Bld) [#/Vol] 8.9 10*3/uL High 2.0-7.7 [facility] Anion gap in Serum or Plasma Ordered By: Nirmala Johnson on 08-24-2024 Anion gap [Moles/Vol] 12 mmol/L 5-15 [facility] Automated lymphocyte count a s percentage of total leukocytesOrdered By: Nirmala Johnson on 08-24-2024 Lymphocytes/100 WBC Auto (Unsp spec) 19.3 % 19-41 [facility] BUN/creatinine ratioOrdered By: Nirmala Johnson on 08-24-2024 Urea nitrogen/Creatinine [Mass ratio] 21.4 mg/mg High 10-20 [facility] Basophil percentageOrdered B y: Nirmala Johnson on 08-24-2024 Basophils/100 WBC (Bld) 0.3 % 0-1 [facility] Bilirubin, totalOrdered By: Nirmala Johnson on 08-24-2024 Bilirubin [Mass/Vol] 0.24 mg/dL 0.00-1.30 [facility] CBC W/Diff, Automatedon 07-30 Absolute Lymph 2.38 X10 3/uL Normal 0.83-4.51 [facility] Comment on above: Performed By: #### L 100.0100, L101.9900, L501.6710, L3400.8000, L3000.0375, L500.4050 ####[facility] [address] [facility] [address] Absolute Neut 8.9 X10 3/uL High 2.0-7.7 [facility] Comment on above: Performed By: #### L 100.0100, L101.9900, L501.6710, L3400.8000, L3000.0375, L500.4050 ####[facility] [address] [facility] [address] Basophils/100 WBC (Bld) 0.3 % Normal 0-1 [facility] Comment on above: Performed By: #### L 100.0100, L101.9900, L501.6710, L3400.8000, L3000.0375, L500.4050 ####[facility] [address] [place], [address] Eosinophils/100 WBC (Bld) 1.2 % Normal 0-5 [facility] Comment on above: Performed By: #### L 100.0100, L101.9900, L501.6710, L3400.8000, L3000.0375, L500.4050 ####[facility] [address] [place], [address] Erythrocyte distribution width (RBC) [Ratio] 15.6 % High 11.6-14.6 [facility] Comment on above: Performed By: #### L 100.0100, L101.9900, L501.6710, L3400.8000, L3000.0375, L500.4050 ####[facility] [address] [place], [address] Hematocrit (Bld) [Volume fraction] 44.1 % Normal 37-47 [facility] Comment on above: Performed By: #### L 100.0100, L101.9900, L501.6710, L3400.8000, L3000.0375, L500.4050 ####[facility] [address] [place], [address] Hemoglobin (Bld) [Mass/Vol] 14.7 g/dL Normal 12.0-15.0 [facility] Comment on above: Performed By: #### L 100.0100, L101.9900, L501.6710, L3400.8000, L3000.0375, L500.4050 ####[facility] [address] [place], [address] IG% 0.400 Normal 0.0-0.9 [facility] Comment on above: Result Comment: IG% - Immature Granulocytes (promyelocytes, myelocytes and metamyelocytes) > 1% indicates that a LEFT SHIFT is Present. Performed By: #### L 100.0100, L101.9900, L501.6710, L3400.8000, L3000.0375, L500.4050 ####[facility] [address] [place], [address] Lymphocytes/100 WBC (Bld) 19.3 % Normal 19-41 [facility] Comment on above: Performed By: #### L 100.0100, L101.9900, L501.6710, L3400.8000, L3000.0375, L500.4050 ####[facility] [address] [place], [address] MCH (RBC) [Entitic mass] 26.2 pg Low 27.0-32.0 [facility] Comment on above: Performed By: #### L 100.0100, L101.9900, L501.6710, L3400.8000, L3000.0375, L500.4050 ####[facility] [address] [place], [address] MCHC (RBC) [Mass/Vol] 33.3 g/dL Normal 32-36 [facility] Comment on above: Performed By: #### L 100.0100, L101.9900, L501.6710, L3400.8000, L3000.0375, L500.4050 ####[facility] [address] [place], [address] MCV (RBC) [Entitic vol] 78.6 fL Low 81-99 [facility] Comment on above: Performed By: #### L 100.0100, L101.9900, L501.6710, L3400.8000, L3000.0375, L500.4050 ####[facility] [address] [place], [address] Monocytes/100 WBC (Bld) 6.6 % Normal 0-10 [facility] Comment on above: Performed By: #### L 100.0100, L101.9900, L501.6710, L3400.8000, L3000.0375, L500.4050 ####[facility] [address] [place], [address] Neutrophils/100 WBC (Bld) 72.2 % High 47-70 [facility] Comment on above: Performed By: #### L 100.0100, L101.9900, L501.6710, L3400.8000, L3000.0375, L500.4050 ####[facility] [address] [place], [address] Nucleated RBC (Bld) [#/Vol] 0 10*3/uL Normal 0-5 [facility] Comment on above: Performed By: #### L 100.0100, L101.9900, L501.6710, L3400.8000, L3000.0375, L500.4050 ####[facility] [address] [place], [address] Platelet mean volume (Bld) [Entitic vol] 8.4 fL Normal 6.2-12.0 [facility] Comment on above: Performed By: #### L 100.0100, L101.9900, L501.6710, L3400.8000, L3000.0375, L500.4050 ####[facility] [address] [place], [address] Platelets (Bld) [#/Vol] 411 10*3/uL Normal 150-450 [facility] Comment on above: Performed By: #### L 100.0100, L101.9900, L501.6710, L3400.8000, L3000.0375, L500.4050 ####[facility] [address] [place], [address] RBC (Bld) [#/Vol] 5.61 10*6/uL High 4.2-5.4 [facility] Comment on above: Performed By: #### L 100.0100, L101.9900, L501.6710, L3400.8000, L3000.0375, L500.4050 ####[facility] [address] [place], [address] RDW SD 44.3 fl High 35.1-43.9 [facility] Comment on above: Performed By: #### L 100.0100, L101.9900, L501.6710, L3400.8000, L3000.0375, L500.4050 ####[facility] [address] [place], [address] WBC (Bld) [#/Vol] 12.3 10*3/uL High 4.4-11.0 [facility] Comment on above: Performed By: #### L 100.0100, L101.9900, L501.6710, L3400.8000, L3000.0375, L500.4050 ####[facility] [address] [place], [address] CRPon 08-24-2024 C-REACTIVE PROT 11.20 mg/L High 0.0-3.0 [facility] Comment on above: Performed By: #### L 100.0100, L101.9900, L501.6710, L3400.8000, L3000.0375, L500.4050 ####[facility] [address] [place], [address] Carbon dioxide, total [Moles /volume] in Central venous bloodOrdered By: Nirmala Johnson on 08-24-2024 CO2 [Moles/Vol] 20.4 mmol/L Low 21.0-32.0 [facility] Chloride assayOrdered By: Debby Johnson on 08-24-2024 Chloride [Moles/Vol] 102 mmol/L 98-108 [facility] Comprehensive Metabolic Prof ilon 08-24-2024 Albumin [Mass/Vol] 3.8 g/dL Normal 3.5-5.0 [facility] Comment on above: Performed By: #### L 100.0100, L101.9900, L501.6710, L3400.8000, L3000.0375, L500.4050 ####[facility] [address] [place], [address] Albumin/Globulin [Mass ratio] 0.9 {ratio} Normal 0.9-2.4 [facility] Comment on above: Performed By: #### L 100.0100, L101.9900, L501.6710, L3400.8000, L3000.0375, L500.4050 ####[facility] [address] [place], [address] ALK PHOS 105 U/L High 35-104 [facility] Comment on above: Performed By: #### L 100.0100, L101.9900, L501.6710, L3400.8000, L3000.0375, L500.4050 ####[facility] [address] [place], [address] ALT [Catalytic activity/Vol] 14 U/L Normal <=34 [facility] Comment on above: Performed By: #### L 100.0100, L101.9900, L501.6710, L3400.8000, L3000.0375, L500.4050 ####[facility] [address] [place], [address] AST [Catalytic activity/Vol] 19 U/L Normal <=31 [facility] Comment on above: Performed By: #### L 100.0100, L101.9900, L501.6710, L3400.8000, L3000.0375, L500.4050 ####[facility] [address] [place], [address] Bilirubin [Mass/Vol] 0.24 mg/dL Normal 0.00-1.30 [facility] Comment on above: Performed By: #### L 100.0100, L101.9900, L501.6710, L3400.8000, L3000.0375, L500.4050 ####[facility] [address] [place], [address] BUN/CRE 21.4 RATIO High 10-20 [facility] Comment on above: Performed By: #### L 100.0100, L101.9900, L501.6710, L3400.8000, L3000.0375, L500.4050 ####[facility] [address] [place], [address] Calcium [Mass/Vol] 9.4 mg/dL Normal 7.6-11.0 [facility] Comment on above: Performed By: #### L 100.0100, L101.9900, L501.6710, L3400.8000, L3000.0375, L500.4050 ####[facility] [address] [place], [address] Chloride [Moles/Vol] 102 mmol/L Normal 98-108 [facility] Comment on above: Performed By: #### L 100.0100, L101.9900, L501.6710, L3400.8000, L3000.0375, L500.4050 ####[facility] [address] [place], [address] CO2 [Moles/Vol] 20.4 mmol/L Low 21.0-32.0 [facility] Comment on above: Performed By: #### L 100.0100, L101.9900, L501.6710, L3400.8000, L3000.0375, L500.4050 ####[facility] [address] [place], [address] Creatinine [Mass/Vol] 0.65 mg/dL Low 0.70-1.20 [facility] Comment on above: Performed By: #### L 100.0100, L101.9900, L501.6710, L3400.8000, L3000.0375, L500.4050 ####[facility] [address] [place], [address] GAP 12 Normal 5-15 [facility] Comment on above: Performed By: #### L 100.0100, L101.9900, L501.6710, L3400.8000, L3000.0375, L500.4050 ####[facility] [address] [place], [address] GFR/1.73 sq M.predicted among non-blacks MDRD (S/P/Bld) [Vol rate/Area] 103 mL/min/{1.73_m2} Normal >60 [facility] Comment on above: Result Comment: mL/m in/1.73m2 CKD-EPI Creatinine Equation (2020) Performed By: #### L 100.0100, L101.9900, L501.6710, L3400.8000, L3000.0375, L500.4050 ####[facility] [address] [place], [address] Globulin (S) [Mass/Vol] 4.4 g/dL High 2.2-4.2 [facility] Comment on above: Performed By: #### L 100.0100, L101.9900, L501.6710, L3400.8000, L3000.0375, L500.4050 ####[facility] [address] [place], [address] Glucose [Mass/Vol] 94 mg/dL Normal 70-99 [facility] Comment on above: Performed By: #### L 100.0100, L101.9900, L501.6710, L3400.8000, L3000.0375, L500.4050 ####[facility] [address] [place], [address] Potassium [Moles/Vol] 4.4 mmol/L Normal 3.3-5.1 [facility] Comment on above: Performed By: #### L 100.0100, L101.9900, L501.6710, L3400.8000, L3000.0375, L500.4050 ####[facility] [address] [place], [address] Sodium [Moles/Vol] 134 mmol/L Normal 133-145 [facility] Comment on above: Performed By: #### L 100.0100, L101.9900, L501.6710, L3400.8000, L3000.0375, L500.4050 ####[facility] [address] [place], [address] T PROT 8.2 g/dL Normal 5.9-8.4 [facility] Comment on above: Performed By: #### L 100.0100, L101.9900, L501.6710, L3400.8000, L3000.0375, L500.4050 ####[facility] [address] [place], [address] Urea nitrogen [Mass/Vol] 14 mg/dL Normal 4-19 [facility] Comment on above: Performed By: #### L 100.0100, L101.9900, L501.6710, L3400.8000, L3000.0375, L500.4050 ####[facility] [address] [place], [address] Eosinophil percentageOrdered By: Nirmala Johnson on 08-24-2024 Eosinophils/100 WBC (Bld) 1.2 % 0-5 [facility] Erythrocyte Sed Rateon 08-24 SED RATE 44 mm/hr High 0-30 [facility] Comment on above: Performed By: #### L 100.0100, L101.9900, L501.6710, L3400.8000, L3000.0375, L500.4050 ####[facility] [address] [place], [address] Erythrocyte distribution wid th ratioOrdered By: Nirmala Johnson on 08-24-2024 Erythrocyte distribution width (RBC) [Ratio] 15.6 % High 11.6-14.6 [facility] Erythrocyte distribution wid th standard deviationOrdered By: Nirmala Johnson on 08-24-2024 Erythrocyte distribution width (RBC) [Ratio] 44.3 fl High 35.1-43.9 [facility] Erythrocyte sedimentation ra teOrdered By: Nirmala Johnson on 08-24-2024 ESR (Bld) [Velocity] 44 mm/h High 0-30 [facility] Gastroenterology Visit Repor ton 08-24-2024 Gastroenterology Visit Report [facility] [address] [place] [address] OFFICE VISIT Date of Service: 08/24/24 MR#: [id number] Acct: [id number] Name: TAD GRANT Rep #: [id number] : 1970 Provider: BEVERLEY Elena Age/Sex: 54/F [place] [facility] Status: Signed Intake Vital Signs 07/27/24 09:14 [...] abdominal pain, gas, bloating, and difficulty swallowing. [facility] Medical History Post-menopausal No natural teeth Depression [...] other times. (more content not included)... Normal [facility] Glomerular filtration rate ( GFR) estimation/1.73 sq m using serum, plasma, or whole bOrdered By: Nirmala Johnson on 08-24-2024 GFR/1.73 sq M.predicted among non-blacks MDRD (S/P/Bld) [Vol rate/Area] 103 mL/min/{1.73_m2} >60 [facility] Comment on above: mL/min/1.73m2 CKD-EP I Creatinine Equation (2020) Hematocrit Auto (Bld) [Volum e fraction]Ordered By: Nirmala Johnson on 08-24-2024 Hematocrit (Bld) [Volume fraction] 44.1 % 37-47 [facility] Hemoglobin measurementOrdere d By: Nirmala Johnson on 08-24-2024 Hemoglobin (Bld) [Mass/Vol] 14.7 g/dL 12.0-15.0 [facility] Immature granulocytes/100 WB C Auto (Bld)Ordered By: Nirmala Johnson on 08-24-2024 Immature granulocytes/100 WBC (Bld) 0.400 % 0.0-0.9 [facility] Comment on above: IG% - Immature Granu locytes (promyelocytes, myelocytes and metamyelocytes) > 1% indicates that a LEFT SHIFT is Present. Laboratory - Chemistry and C hemistry - challengeOrdered By: Nirmala Johnson on 08-24-2024 AST [Catalytic activity/Vol] 19 U/L <32 [facility] MCV (mean corpuscular volume ) determinationOrdered By: Nirmala Johnson on 08-24-2024 MCV (RBC) [Entitic vol] 78.6 fL Low 81-99 [facility] Mean corpuscular hemoglobin (MCH) determinationOrdered By: Nirmala Johnson on 08-24-2024 MCH (RBC) [Entitic mass] 26.2 pg Low 27.0-32.0 [facility] Mean corpuscular hemoglobin concentration (MCHC) determinationOrdered By: Nirmala Johnson on 08-24-2024 MCHC (RBC) [Mass/Vol] 33.3 g/dL 32-36 [facility] Mean platelet volume determi nationOrdered By: Nirmala Johnson on 08-24-2024 Platelet mean volume (Bld) [Entitic vol] 8.4 fL 6.2-12.0 [facility] Monocyte percentageOrdered B y: Nirmala Johnson on 08-24-2024 Monocytes/100 WBC (Bld) 6.6 % 0-10 [facility] Neutrophil percentageOrdered By: Nirmala Johnson on 08-24-2024 Neutrophils/100 WBC (Bld) 72.2 % High 47-70 [facility] No Panel InformationOrdered By: Nirmala Johnson on 08-24-2024 Hepatitis C Antibody Comment Comment . [facility] Comment on above: Not infected with HC V unless early or acute infection issuspected (which may be delayed in an immunocompromisedindividual), or other evidence exists to indicate HCVinfection.Performed at: [address] [id number] Director: Dionicio Buenrostro PhD, Phone: [phone] Nucleated red blood cell per centageOrdered By: Nirmala Johnson on 08-24-2024 Nucleated RBC/100 WBC (Bld) [Ratio] 0 % 0-5 [facility] Platelet countOrdered By: Debby Johnson on 08-24-2024 Platelets (Bld) [#/Vol] 411 10*3/uL 150-450 [facility] Potassium measurement (mass/ volume)Ordered By: Nirmala Johnson on 08-24-2024 Potassium (Unsp spec) [Mass/Vol] 4.4 mmol/L 3.3-5.1 [facility] Qualitative QuantiFERON-TB g old in tube testOrdered By: Nirmala Johnson on 08-24-2024 M. tuberculosis tuberculin stim IFN-g Ql (Bld) TNP [facility] Comment on above: Test not performedTe st not performed RBC Auto (Bld) [#/Vol]Ordere d By: Nirmala Johnson on 08-24-2024 RBC (Bld) [#/Vol] 5.61 10*6/uL High 4.2-5.4 [facility] Serum creatinine measurement (mass/volume)Ordered By: Nirmala Johnson on 08-24-2024 Creatinine [Mass/Vol] 0.65 mg/dL Low 0.70-1.20 [facility] Serum globulin measurementOr dered By: Nirmala Johnson on 08-24-2024 Globulin (S) [Mass/Vol] 4.4 g/dL High 2.2-4.2 [facility] Serum glucose measurement (m ass/volume)Ordered By: Nirmala Johnson on 08-24-2024 Glucose [Mass/Vol] 94 mg/dL 70-99 [facility] Serum or plasma C reactive p rotein measurement (mass/volume)Ordered By: Nirmala Johnson on 08-24-2024 CRP [Mass/Vol] 11.20 mg/L High 0.0-3.0 [facility] Serum or plasma alanine arnold otransferase (ALT) measurementOrdered By: Nirmala Johnson on 08-24-2024 ALT [Catalytic activity/Vol] 14 U/L <35 [facility] Serum or plasma albumin alexandria urement (mass/volume)Ordered By: Nirmala Johnson on 08-24-2024 Albumin [Mass/Vol] 3.8 g/dL 3.5-5.0 [facility] Serum or plasma albumin/glob ulin mass ratioOrdered By: Nirmala Johnson on 08-24-2024 Albumin/Globulin [Mass ratio] 0.9 {ratio} 0.9-2.4 [facility] Serum or plasma alkaline floridalma sphatase measurementOrdered By: Nirmala Johnson on 08-24-2024 ALP [Catalytic activity/Vol] 105 U/L High 35-104 [facility] Serum or plasma calcium alexandria urement (mass/volume)Ordered By: Nirmala Johnson on 08-24-2024 Calcium [Mass/Vol] 9.4 mg/dL 7.6-11.0 [facility] Serum or plasma hepatitis B virus surface antigen detection by immunoassayOrdered By: Nirmala Johnson on 08-24-2024 HBV surface Ag IA Ql Negative Negative [facility] Serum or plasma urea nitroge n measurement (mass/volume)Ordered By: Nirmala Johnson on 08-24-2024 Urea nitrogen [Mass/Vol] 14 mg/dL 4-19 [facility] Sodium levelOrdered By: Yenny Johnson on 08-24-2024 Sodium [Moles/Vol] 134 mmol/L 133-145 [facility] Total proteinOrdered By: Nessa Johnson on 08-24-2024 Protein [Mass/Vol] 8.2 g/dL 5.9-8.4 [facility] White blood cell (WBC) count Ordered By: Nirmala Johnson on 08-24-2024 WBC (Bld) [#/Vol] 12.3 10*3/uL High 4.4-11.0 [facility] No Panel Informationon 07-03 1. Diffuse soft [...] acute osseous finding 3. Calcaneal spur formation [facility] No Panel InformationOrdered By: Mike Swan on 07-03-2024 [facility] Work Phone: XR ANKLE LEFT 3 VIEW [...] approx 2.5 weeks ago. no injury Normal [facility] XR Ankle - left 3 [facility] Study observation (narrative) [employer] [facility] XR FOOT LEFT MIN 3 VIEW [...] approx 2.5 weeks ago. no injury Normal [facility] XR Foot - left 3 [facility] Radiology Study observation (narrative) [facility] Gastroenterology Visit Repor ton 05-04-2024 Gastroenterology Visit Report [facility] Gastroenterology [address] [place] [address] OFFICE VISIT Date of Service: 05/04/24 MR#: [id number] Acct: [id number] Name: TAD RGANT Rep #: [id number] : 1970 Provider: BEVERLEY Elena Age/Sex: 54/F [place] [facility] Status: Signed Intake Vital Signs 03/19/24 09:28 [...] and comfortable (more content not included)... Normal [facility] Enterography Abd/Dinh 03-19 Enterography Abd/Pel [facility] Imaging Services [address] [place] [id number] Enterography Abd/Pel MR#: [id number] Acct: [id number] Name: TAD GRANT Rep #: [id number] : 1970 F 54 From: Jaziel Salamanca PCP: Pan Doyle, ARETHA-C Status: REG CLI Study: Enterography Abd/Pel Date of Exam: 03/19/24 Exam# [id number] Ordering Dr: Nirmala Johnson [id number] EXAM: MR ABDOMEN AND PELVIS WITHOUT AND WITH INTRAVENOUS CONTRAST CLINICAL INDICATION: K52.9 - Noninfective gastroenteritis and colitis, unspecified TECHNIQUE: Multiplanar and multisequence MR images of the abdomen and pelvis without and with intravenous contrast. CONTRAST: 18 cc of Clariscan IV. Water was given as oral contrast. COMPARISON: CT scan of the abdomen and pelvis dated 09/17/2023 performed at [facility] in [facility]. FINDINGS: LOWER THORAX: Unremarkable. No pleural [...] EST , CC: JOMAR Doyle; BEVERLEY Elena Field Health Officer: Signed Normal [facility] QUANTIFERON TB INCUBATED [CC L]on 01-12-2024 Mitogen minus Nil >9.92 Normal >=0.50 [facility] Comment on above: Performed By: #### 2 55117 #### [facility],[address] [place] [address] TB Gamma Interpretation Infection with M. tuberculosis complex is unlikely. If latent tuberculosis infec Normal [facility] Comment on above: Result Comment: [place] [address] [place] [address] Chaz Ann III, M.D. [id number] Performed By: #### 2 06446 #### [facility],[address] [place] [address] TB NIL 0.08 IU/mL Normal <=8.00 [facility] Comment on above: Performed By: #### 2 46689 #### [facility],[address] [place] [address] TB Result Negative Normal [facility] Comment on above: Performed By: #### 2 90015 #### [facility],[address] [place] [address] TB1 Ag minus Nil 0.05 IU/mL Normal <0.35 [facility] Comment on above: Performed By: #### 2 02330 #### [facility],[address] [place] [address] TB2 Ag minus Nil 0.02 IU/mL Normal <0.35 [facility] Comment on above: Performed By: #### 2 37260 #### [facility],[address] [place] [address] HEPATITIS ACUTE PANEL [CCL]o n 01-11-2024 RESULT CRITICAL? NO Normal [facility] Comment on above: Performed By: #### 2 99909 #### [facility],[address] [place] [address] Hep B Core Ab, IgM Negative Normal Negative [facility] Comment on above: Result Comment: No e vidence of recent infection with Hepatitis B virus. Should recent infection be suspected, repeat testing may be considered 3-4 weeks after this draw. Performed By: #### 2 11774 #### [facility],[address] [place] [address] Hepatitis A Ab IgM Negative Normal Negative [facility] Comment on above: Result Comment: No e vidence of recent infection with Hepatitis A virus. Performed By: #### 2 45597 #### [facility],[address] [place] [address] Hepatitis B Surf. Ag Negative Normal Negative [facility] Comment on above: Result Comment: [facility] [address] [place] [address] Chaz Ann III, M.D. [id number] Performed By: #### 2 93877 #### [facility],[address] [place] [address] Hepatitis C Ab IA Negative Normal Negative [facility] Comment on above: Result Comment: The result suggests no evidence of active infection with Hepatitis C virus. Should recent infection be suspected, repeat testing may be considered 4-6 weeks after this draw. Performed By: #### 2 56381 #### [facility],[address] [place], [place] [id number] Gastroenterology Visit Repor ton 12-15-2023 Gastroenterology Visit Report [facility] Gastroenterology [address] [place] [address] OFFICE VISIT Date of Service: 12/15/23 MR#: [id number] Acct: [id number] Name: TAD GRANT Rep #: [id number] : 1970 Provider: BEVERLEY Elena Age/Sex: 53/F [place] [facility] Status: Signed Intake Vital Signs 11/28/23 06:31 [...] April or May of this year in [place]. Colonoscopy 11.28.23; The entire examined colon is [...] Const Constitutional (more content not included)... Normal [facility] Plastic Surgery Visit Report on 12-15-2023 Plastic Surgery Visit Report [facility] Plastic Reconstructive Surgery [address], [address] [place] [address] OFFICE VISIT Date of Service: 12/15/23 MR#: [id number] Acct: [id number] Name: TAD GRANT Rep #: [id number] : 1970 Provider: Dr. Jyoti Martinez MD Age/Sex: 53/F [place] [facility] Status: Signed Intake Vital Signs 3 11/24/23 [...] She is still waiting to see a resident medical officer but has the blood work scheduled in anticipation of a future appointment. Objective Details: Left proximal forearm incisions clean dry and intact. Small amount of Monocryl suture removed today in clinic. Coding Level of Care Code Off vis,est,level 2 Diagnoses Rheumatoid nodules M06.30 [facility] Medical History Post-menopausal No natural teeth Depression [...] needed 12/15/23 1103 Date [facility] Signature: Date (if applicable) CC: Normal [facility] Colonoscopy Reporton 024 Colonoscopy Report [facility] Medical Records Department [address] [place] [address] Colonoscopy Report MR#: [id number] Acct: [id number] Name: TAD GRANT Rep #: [id number] : 1970 53 From: Surjit Nguyen DO PCP: JOMAR Darling Status:[place] [facility] Patient Name: Tad Grant Procedure Date: 11/28/2023 [...] Stelara therapy Procedure Code(s): --- Professional --- 74233, Colonoscopy, flexible; with biopsy, single or multiple CPT copyright 2021 [employer]. All rights reserved. The codes documented in this report are preliminary and upon beauty operator review may be revised to meet current compliance requirements. Surjit Nguyen DO 11/28/2023 7:44:51 AM This report has been signed electronically. Number of Addenda: 0 Note Initiated On: 11/28/2023 7:00 AM 11/28/23 07 Date Surjit Nguyen DO Cosigner Signature: Date (if indicated) CC: PST SPECIALIST-C Pan Doyle; Surjit Nguyen DO Date Dictated: 11/28/23 0700 Date Transcribed: Field Health Officer: BROOKE Signed [facility] MR/POSTOP.[facility] 11-28-2023 MR/POSTOP.[facility] Medical Records Department [address] [place] [address] Anesthesia Postop Eval I 11/28/23739 MR#: [id number] Acct: [id number] Name: TAD GRANT Rep #: [id number] : 1970 53 From: De Banuelos PCP: JOMAR Darling Status:REG SDC Y Race: C Location: [place] [address] Anesthesia: Postop Eval I Current Vital Signs [...] De Caal Signature: Date CC: Signed Normal [facility] MR/[id number] 11-28-2023 MR/POSTOPAN2 [facility] Medical Records Department [address] [place] [address] Anesthesia Postop Eval II 11/28/23833 MR#: [id number] Acct: [id number] Name: TAD GRANT Rep #: [id number] : 1970 53 From: Andrea Alamo MD PCP: JANEE DarlingC Status:[facility] Y Race: C Location: EN Anesthesia Postop [...] Andrea Caal Signature: Date CC: Signed Normal [facility] Surgery Specimen Level Wan 11-28-2023 Surgery Specimen Level IV Patient Age/Sex Location Account Attending Physician JEEVANCRYSTAL A 53/F EN [id number] Surjit Nguyen DO Specimen: [id number] Received: 11/28/23 Status: TANIYA Kerr Num: [id number] Spec Type: COLON BX Subm Dr: Surjit [...] totally submitted in one cassette. 11/28/2023 TC:2 CPT:06029 Patient Age/Sex Location Account Attending Physician TAD GRANT/F JENA [id number] Surjit Nguyen DO Signed (signature on file) Dr. Sher Abrams MD 11/29/23 1228 Normal [facility] Comment on above: Performed By: #### P SUIV ####[facility] [id number] [place], [place], [address] Plastic Surgery Visit Report on 11-24-2023 Plastic Surgery Visit Report [facility] Plastic Reconstructive Surgery [address], [address] [place] [address] OFFICE VISIT Date of Service: 11/24/23 MR#: [id number] Acct: [id number] Name: TAD GRANT Rep #: [id number] : 1970 Provider: Dr. Jyoti Martinez MD Age/Sex: 53/F [place] [facility] Status: Signed Intake Vital Signs 3 11/17/23 [...] c/d/i. No numbness/tingling on her forearms. PATHOLOGY [facility] DEPARTMENT OF LABORATORY SURGICAL PATHOLOGY REPORT [address] [facility], [place], [place] [address] Page 1 of 2 The contents of this transmission are privileged, confidential and exempt from disclosure under applicable law. If you have received this information in error, call . TAD GRANT MR# [id number] Patient: TAD GRANT Age/Sex: 53/F Attend Dr: Unit #: [id number] Loc: LABSPEC : 1970 Status: REG CLI Facility: [facility] ___ Spec# :[id number] Spec Date: 11/17/[address]: Lyla Kwok, PST SPECIALIST-C Spec Type: LES OPERATION: Excision left forearm [...] is submitted in one cassette. 11/18/2023 TC:5 CPT:33772f0,50955w9 Coding Level of Care Code Global Post Op Diagnoses Rheumatoid nodules M06.30 [facility] Medical History (Updated 11/24/23 @ 09:46 by [...] reaction to (more content not included)... Normal [facility] CERVICAL SP COMPLETE, 4 OR 5 VIEWSon 11-17-2023 CERVICAL SP COMPLETE, 4 OR [address] [address] Patient: TAD GRANT Phone#: : 1970 Age: 53 Gender: F Pt. Type: Out Account: [id number] Location: [facility] Ordering: PAN DOYLE Exam Date: 11/17/2023/8:35 Family Phys: Charge Code: 164671 Physician: [place] Order #: [id number] Dose#: PROCEDURE: X-RAY CERVICAL SPINE W/ AP, LATERAL, ODONTOID, AND OLBIQUES VIEWS COMPARISON: [facility], XR, CERVICAL SPINE COMPLETE, 07/29/2016, [...] Piper MD on 11/17/2023 at 11:13 Normal [facility] Plastic Surgery Visit Report on 11-17-2023 Plastic Surgery Visit Report [facility] Plastic Reconstructive Surgery [address], [address] [place], [place] [address] OFFICE VISIT Date of Service: 11/17/23 MR#: [id number] Acct: [id number] Name: TAD GRANT Rep #: [id number] : 1970 Provider: Dr. Jyoti Martinez MD Age/Sex: 53/F [place] [facility] Status: Signed Intake Vital Signs 3 10/06/23 [...] pt here for 6 weeks follow up [facility] Medical History (Updated 10/06/23 @ 11:28 by [...] today. I therefore referred her to a resident medical officer today. She also has a history of [...] of mammo (more content not included)... Normal [facility] Special Stain Group Ion 10-29 Special Stain Group I --------- Patient Age/Sex Location Account Attending Physician COOL,TAD Trejo 53/F [facility] [id number] JOMAR [place] Specimen: [id number] Received: 11/18/23 Status: TANIYA Kerr Num: [id number] Spec Type: Lesion Subm Dr: JOMAR [place] [...] submitted in one cassette. . 11/18/2023 TC:5 [facility]:[id number] Patient Age/Sex Location Account Attending Physician COOL,CRYSTAL A 53/F [facility] [id number] Lyla Kwok NP-Cookie Signed (signature on file) Dr. Sher Abrams MD 11/21/23 1219 Normal [facility] Comment on above: Performed By: #### P SSI #### [facility] Laboratory [address] [facility] [place], [address] CCP AB, IgG AND IgA [CCL]on 11-14-2023 CCP AB, IgG AND IgA [CCL] Normal [facility] Comment on above: Result Comment: _CCP AB, IgG AND IgA [CCL]_ SEE SEPARATE REPORT Performed By: #### 2 15546 #### [facility],[address] [place] [address] Ext Non Vasc Limited/Soft Ti sson 11-08-2023 Ext Non Vasc Limited/Soft Tiss [facility] Imaging Services [address] [place] [address] Ext Non Vasc Limited/Soft Tiss MR#: [id number] Acct: [id number] Name: TAD GRANT Rep #: [id number] : 1970 F 53 From: Kasi taylor MD PCP: Pan Doyle, ARETHA-C Status: REG CLI Study: Ext Non Vasc Limited/Soft Tiss Date of Exam: 0 11/08/23 Exam# [id number] Ordering Dr: Jyoti Martinez MD [id number] INDICATION: rt wrist lump. Painful. EXAMINATION: Left [...] CC: JOMAR Doyle; Dr. Jyoti Martinez MD Field Health Officer: Signed Normal [facility] Ext Non Vasc Limited/Soft Tiss [facility] Imaging Services [address] [place], [place] [address] Ext Non Vasc Limited/Soft Tiss MR#: [id number] Acct: [id number] Name: TAD GRANT Rep #: [id number] : 1970 F 53 From: Kasi taylor MD PCP: JOMAR Darling Status: REG CLI Study: Ext Non Vasc Limited/Soft Tiss Date of Exam: 0 11/08/23 Exam# [id number] Ordering Dr: Jyoti Martinez MD [id number] INDICATION: nodules on the left elbow/forearm. Right [...] 16:54 EDT Reading Location ID and State: [facility] / [place] Tel , Service support , CC: JOMAR Doyle; Dr. Jyoti Martinez MD Field Health Officer: Signed Normal [facility] 3D MAMM UNILAT RT DIAGNOSTIC on 10-28-2023 3D MAMM UNILAT RT DIAGNOSTIC [place] [address] Patient: TAD GRANT Phone#: : 1970 Age: 53 Gender: F Pt. Type: Out Account: [id number] Location: [facility] Ordering: PAN DOYLE Exam Date: 10/28/2023/9:56 Family Phys: Charge Code: [id number] Physician: [place] Order #: [id number] Dose#: PROCEDURE: RIGHT DIAGNOSTIC BREAST TOMOSYNTHESIS MAMMOGRAM WITH CAD COMPARISON: [facility], BILAT SCREENING, 08/24/2013, 11:04. [facility], 3D BILAT SCREEN, 10/20/2023, 10:28. INDICATIONS: Abnormal [...] Piper MD on 10/28/2023 at 14:17 Normal [facility] CALPROTECTIN, FECAL [CCL]on 10-28-2023 CALPROTECTIN, FECAL [CCL] Normal [facility] Comment on above: Result Comment: _CAL PROTECTIN, FECAL [CCL]_ SEE SEPERATE REPORT Performed By: #### 2 56900 #### [facility],[address] [place], [place] [address] CELIAC COMPREHENSIVE PANEL [ CCL]on 10-28-2023 CELIAC COMPREHENSIVE PANEL [CCL] Normal [facility] Comment on above: Result Comment: _CEL IAC COMP PANEL [CCL]_ SEE SEPERATE REPORT Performed By: #### 2 83336 #### [facility],[address] [place] [address] PANCREATIC ELASTASE, FECAL [ CCL]on 10-28-2023 PANCREATIC ELASTASE, FECAL [CCL] Normal [facility] Comment on above: Result Comment: _PAN CREATIC ELASTASE, FECAL [CCL]_ SEE SEPERATE REPORT Performed By: #### 2 27701 #### [facility],[address] [place] [address] PROTEIN ELECTRO WITH RAMON [CC L]on 10-28-2023 PROTEIN ELECTRO WITH RAMON [CCL] Normal [facility] Comment on above: Result Comment: _PRO TEIN ELECTROPHORESIS, SERUM [CCL]_ SEE SEPERATE REPORT Performed By: #### 2 38593 #### [facility],[address] [place] [address] OBED PANEL 1 [CCL]on 10-25-19 24 OBED Scr Qual. Negative Normal Negative [facility] Comment on above: Result Comment: The qualitative antinuclear antibody screen test performed using the following antigens: dsDNA, Chromatin, Ribosomal P, SS-A 60, SS-A 52, SS-B, Sm, SmRNP, GOVERNMENT AFFAIRS DIRECTOR A, GOVERNMENT AFFAIRS DIRECTOR 68, Scl-70, Cherelle-1, and Centromere B. Methodology: Multiplex flow immunoassay. Performed By: #### 2 33467 #### [place] [address] CHROMOGRANIN A [CCL]on 10-24 Chromogranin A 176.2 ng/mL Normal <187.0 [facility] Comment on above: Result Comment: The Chromogranin A test was performed using the Tinychat CgA II KRYPTOR method. Results obtained with different assay methods or kits cannot be used interchangeably. Performed By: #### 2 46087 #### [place] [address] IBD SEROLOGY DISEASE PANEL [ CCL]on 10-25-2023 ANCA IFA Pattern Not detected Normal None Detected [facility] Comment on above: Result Comment: INTE RPRETIVE INFORMATION: ANCA IFA Pattern Neutrophil Cytoplasmic Antibodies (C-ANCA = granular cytoplasmic staining, P-ANCA = perinuclear staining) are found in the serum of over 90 percent of patients with certain necrotizing systemic vasculitides, and usually in less than 5 percent of patients with collagen vascular disease or arthritis. Performed By: #### 2 99042 #### [place] [address] ANCA IFA Titer <1:20 Normal <1:20 [facility] Comment on above: Performed By: #### 2 47974 #### [place] [address] EER Inf Bowel DiseasePanel See Note Normal [facility] Comment on above: Result Comment: Auth orized individuals can access the [employer] Enhanced Report using the following link: [email or web address] Performed By: [facility] [address] [place] [address] Welt Sole Layer: Carter Busch MD, PhD CLIA Number: [id number] Performed By: #### 2 97368 #### [facility],[address] [place] [id number] Inflammatory BowelDisease Interp See Note Normal [facility] Comment on above: Result Comment: INTE RPRETIVE [...] J Gastroenterol. 2006;101(10):2410-22. Performed By: #### 2 88639 #### [facility],[address] [place] [address] S. Cerevisiae IgA 8.3 Units Normal 0.0-24.9 [facility] Comment on above: Result Comment: INTE RPRETIVE [...] specific for CD. Performed By: #### 2 65838 #### [place] [id number] S. Cerevisiae IgG 33.8 Units High 0.0-24.9 [facility] Comment on above: Performed By: #### 2 76153 #### [place] [address] RAMON SCREEN, SERUM [CCL]on MPA Result No M protein is identified. Normal No M protein is identifie [facility] Comment on above: Performed By: #### 2 16790 #### [place] [address] Staff Review Reviewed by Justyna Ramon MD Normal [facility] Comment on above: Performed By: #### 2 68571 #### [place] [id number] IMMUNOGLOBULINS [CCL]on 09-29 IgA [Mass/Vol] 404 mg/dL High 70-400 [facility] Comment on above: Performed By: #### 2 58587 #### [facility],[address] [place] [address] IgG [Mass/Vol] 1598 mg/dL Normal 700-1600 [facility] Comment on above: Performed By: #### 2 47999 #### [address] [address] IgM [Mass/Vol] 71 mg/dL Normal 40-230 [facility] Comment on above: Performed By: #### 2 76188 #### [place] [id number] NEUTROPHIL CYTOPLASMIC ANTIB AMBROSIO [CCL]on 10-25-2023 C-ANCA byImmunofluorescence Negative Normal Negative [facility] Comment on above: Performed By: #### 2 30497 #### [facility],[address] [place] [address] INTERPRETATION (ANCA) Negative anti-Myeloperoxidase multiplex flow immunoassay results but P-ANCA kamron Normal [facility] Comment on above: Performed By: #### 2 83798 #### [facility],[address] [place] [address] Myeloperoxidase Ab <0.2 Normal <1.0 [facility] Comment on above: Performed By: #### 2 46449 #### [facility],[address] [place] [address] P-ANCA byImmunofluorescence Positive Abnormal Negative [facility] Comment on above: Performed By: #### 2 25782 #### [facility],[address] [place] [address] Proteinase-3 Ab <0.2 Normal <1.0 [facility] Comment on above: Performed By: #### 2 86573 #### [facility],[address] [place] [address] STAFF REVIEW (ANCA) Reviewed by Fab Rivera, Ph.D D([facility]) [facility] Comment on above: Result Comment: This test is used as an aid in diagnosis of patients with autoimmune vasculitides. The final interpretation should be done in conjunction with ANCA test results and clinical correlation. Performed By: #### 2 59507 #### [facility],[address] [place], [place] [address] OVA & PARASITE EXAM [CCL]on 10-25-2023 OVA AND PARASITE EXAM See Below Normal [facility] Comment on above: Result Comment: OVA AND [...] submitted to improve detection sensitivity. SOURCE: Stool [facility] [address] [place] [id number] Chaz Ann III, M.D. [id number] Performed By: #### 2 83671 #### [address] [address] RHEUMATOID FACTOR [CCL]on Rheumatoid Factor 107 IU/mL High <16 [facility] Comment on above: Performed By: #### 2 72792 #### [address] [address] VITAMIN D, 1,25 - DIHYDROXY [CCL]on 10-25-2023 Vit D,1,25 Dihydroxy 34.7 pg/mL Normal 19.9-79.3 [facility] Comment on above: Performed By: #### 2 08920 #### [address] [address] ENTERIC BACTERIAL PANEL BY P CR [CCL]on 10-24-2023 Campylobacterjejuni/co li DNA Not detected Normal Not Detected [facility] Comment on above: Performed By: #### 2 58649 #### [address] [address] Salmonella spp. DNA Not detected Normal Not Detected [facility] Comment on above: Performed By: #### 2 92045 #### [address] [address] Shiga toxin producinggene(s) Not detected Normal Not Detected [facility] Comment on above: Performed By: #### 2 33303 #### [address] [address] Shigella/Enteroinvasiv eE.coli DNA Not detected Normal Not Detected [facility] Comment on above: Result Comment: [facility] [address] [place] [address] Chaz Ann III, M.D. [id number] Performed By: #### 2 98263 #### [facility],[address] [place] [address] FECAL FAT, QUALITATIVE [CCL] on 10-24-2023 FAT, FECAL NEUTRAL Normal Normal Normal [facility] Comment on above: Performed By: #### 2 28916 #### [address] [address] FAT, FECAL SPLIT Normal Normal Normal [facility] Comment on above: Result Comment: INTE RPRETIVE INFORMATION: Fecal Fat Qualitative Neutral fats include the monoglycerides, diglycerides, and triglycerides while split fats are the free fatty acids that are liberated from them. Impaired synthesis or secretion of pancreatic enzymes or bile may cause an increase in neutral fats while an increase in split fats suggests impaired absorption of nutrients. Performed By: [facility] [address] [place] [address] [place] Sole Layer: Carter Busch MD, PhD CLIA Number: [id number] [facility] [address] [place] [address] Chaz Ann III, M.D. [id number] Performed By: #### 2 69107 #### [address] [address] IGE [CCL]on 10-23-2023 IgE 33.0 kU/l Normal <114.0 [facility] Comment on above: Result Comment: [facility] [address] [place] [address] Chaz Ann III, M.D. [id number] Performed By: #### 2 71846 #### [address] [address] C DIFF COMPLETEon 08-23-2024 C DIFF COMPLETE [...] specimen should be resumbitted for retesting. Normal [facility] Comment on above: Performed By: #### 2 92266 #### [place] [id number] GASTRIN [CCL]on 10-21-2023 Gastrin 58.0 pg/mL Normal <115.0 [facility] Comment on above: Result Comment: The Gastrin test was performed using the Siemens Immulite chemiluminescent immunometric method. Results obtained with different assay methods or kits cannot be used interchangeably. [facility] [address] [place] [address] Chaz Ann III, M.D. [id number] Performed By: #### 2 47456 #### [place] [id number] LACTOFERRIN, QUALITATIVE, ST OOLon 10-21-2023 LACTOFERRIN, QUALITATIVE, STOOL LACTOFERRIN, QUALITATIVE, STOOL { LEUKO EZ TITI POSITIVE [NEGATIVE INTERNAL CONTROL PASS External Ctrl done? YES A negative or normal test result is consistent with a noninflammatory disease such as IBS. A positive or elevated result indicates the presence of intestinal inflammation; such inflammation is consistent with IBD. Normal [facility] Comment on above: Performed By: #### 2 81006 #### [address] [address] OCCULT BLOOD STOOL(NON-CANCE R SCREENING)on 10-21-2023 OCCULT BLOOD STOOL Negative Normal [facility] Comment on above: Performed By: #### 2 41594 #### [address],[place] [address] 3D MAMM BILAT SCREENon 10-19 3D MAMM BILAT SCREEN [address] [address] Patient: TAD GRANT Phone#: : 1970 Age: 53 Gender: F Pt. Type: Out Account: [id number] Location: [facility] Ordering: JYOTI MARTINEZ Exam Date: 10/20/2023/10:28 Family Phys: PAN DOYLE Charge Code: 896564 Physician: [place] Order #: [id number] Dose#: PROCEDURE: BILATERAL SCREENING BREAST TOMOSYNTHESIS MAMMOGRAM WITH CAD COMPARISON: [facility], BILAT SCREENING, 08/24/2013, 11:04. INDICATIONS: Screening. BREAST [...] Connolly MD on 10/23/2023 at 21:28 Normal [facility] C-REACTIVE PROTEINon 024 CRP 0.46 mg/dl Normal 0.00 - 0.90 [facility] Comment on above: Performed By: #### 2 87477 #### [facility],[address] [place] [address] CBC + DIFFon 10-20-2023 Baso # 0.03 x10EE3/UL Normal 0.00 - 0.10 [facility] Comment on above: Performed By: #### 2 20786 #### [facility],[address] [place], [place] [address] Basophils/100 WBC (Bld) 0.3 % Normal 0.0 - 2.0 [facility] Comment on above: Performed By: #### 2 80061 #### [facility],[address] [place] [address] CBC + DIFF Normal [facility] Comment on above: Result Comment: CBC- COMPLETE BLOOD COUNT Performed By: #### 2 31143 #### [facility],[address] [place] [address] EO # 0.09 x10EE3/UL Normal 0.00 - 0.50 [facility] Comment on above: Performed By: #### 2 10286 #### [facility],[address] [place], [place] [address] Eosinophils/100 WBC (Bld) 0.8 % Normal 0.0 - 7.0 [facility] Comment on above: Performed By: #### 2 04101 #### [facility],[address] [place] [address] Erythrocyte distribution width (RBC) [Ratio] 14.3 % Normal 12.0 - 15.6 [facility] Comment on above: Performed By: #### 2 93804 #### [facility],[address] [place] [address] Hematocrit (Bld) [Volume fraction] 41.5 % Normal 34.0 - 46.0 [facility] Comment on above: Performed By: #### 2 82906 #### [facility],[address] [place], [place] [address] Hemoglobin (Bld) [Mass/Vol] 14.6 g/dL Normal 12.0 - 16.0 [facility] Comment on above: Performed By: #### 2 78697 #### [facility],[address] [place] [address] Lymph # 1.83 x10EE3/UL Normal 0.80 - 2.80 [facility] Comment on above: Performed By: #### 2 50872 #### [facility],[address] [place] [address] Lymphocytes/100 WBC (Bld) 18.1 % Low 20.0 - 45.0 [facility] Comment on above: Performed By: #### 2 75614 #### [facility],[address] [place], [place] [address] MANUAL DIFF N/A Normal [facility] Comment on above: Performed By: #### 2 63553 #### [facility],[address] [place] [address] MCH (RBC) [Entitic mass] 29 pg Normal 27 - 33 [facility] Comment on above: Performed By: #### 2 17553 #### [facility],[address] [place] [address] MCHC 35 X10 3 Normal 32 - 36 [facility] Comment on above: Performed By: #### 2 59036 #### [facility],[address] [place], [place] [address] MCV (RBC) [Entitic vol] 83 fL Normal 80 - 99 [facility] Comment on above: Performed By: #### 2 16582 #### [facility],[address] [place] [address] Wilbarger # 0.53 x10EE3/UL Normal 0.20 - 1.00 [facility] Comment on above: Performed By: #### 2 29672 #### [facility],[address] [place] [address] MONOS % 5.2 % Normal 0.0 - 10.0 [facility] Comment on above: Performed By: #### 2 99726 #### [facility],[address] [place] [address] Morphology Justice (Bld) [Interp] N/A Normal [facility] Comment on above: Performed By: #### 2 23593 #### [facility],[address] [place] [address] Neut # 7.67 x10EE3/UL High 1.50 - 7.10 [facility] Comment on above: Performed By: #### 2 64740 #### [facility],[address] [place] [address] Neutrophils/100 WBC (Bld) 75.6 % Normal 46.0 - 76.0 [facility] Comment on above: Performed By: #### 2 85855 #### [facility],[address] [place], [place] [address] PLATELET 350 x10EE3/UL Normal 150 - 450 [facility] Comment on above: Performed By: #### 2 00903 #### [facility],[address] [place], [place] [address] Platelet mean volume (Bld) [Entitic vol] 7.0 fL Normal 6.6 - 10.5 [facility] Comment on above: Result Comment: AUTO MATED DIFFERENTIAL Performed By: #### 2 92548 #### [facility],[address] [place] [address] RBC 5.00 x 10EE6/UL Normal 4.10 - 5.30 [facility] Comment on above: Performed By: #### 2 34183 #### [facility],[address] [place] [address] WBC 10.2 x 10EE3/UL Normal 4.5 - 10.8 [facility] Comment on above: Performed By: #### 2 55992 #### [facility],[address] [place] [address] CMP with eGFRon 10-20-2023 AGE 53 years Normal [facility] Comment on above: Performed By: #### 2 60877 #### [facility],[address] [place] [address] Albumin [Mass/Vol] 3.0 g/dL Low 3.4 - 5.0 [facility] Comment on above: Performed By: #### 2 11987 #### [facility],[address] [place] [address] Albumin/Globulin [Mass ratio] 0.7 {ratio} Low 0.9 - 1.6 [facility] Comment on above: Performed By: #### 2 89979 #### [facility],[address] [place] [address] ALK PHOS 111 U/L Normal 46 - 116 [facility] Comment on above: Performed By: #### 2 13890 #### [facility],[address] [place] [address]342 ALT [Catalytic activity/Vol] 17 U/L Normal 16 - 63 [facility] Comment on above: Performed By: #### 2 68178 #### [facility],[address] [place] [address] Anion gap [Moles/Vol] 13 mmol/L Normal 10 - 20 [facility] Comment on above: Performed By: #### 2 49833 #### [facility],[address] [place] [address] 83012 AST [Catalytic activity/Vol] 18 U/L Normal 13 - 39 [facility] Comment on above: Performed By: #### 2 33556 #### [facility],[address] [place] [address] B/C RATIO 11 ratio Normal 0 - 30 [facility] Comment on above: Performed By: #### 2 39071 #### [facility],[address] [place] [address] Bilirubin [Mass/Vol] 0.2 mg/dL Normal 0.2 - 1.0 [facility] Comment on above: Performed By: #### 2 12019 #### [facility],[address] [place] [address] Calcium [Mass/Vol] 8.9 mg/dL Normal 8.5 - 10.1 [facility] Comment on above: Performed By: #### 2 29033 #### [facility],[address] [place] [address] Chloride [Moles/Vol] 101 mmol/L Normal 98 - 107 [facility] Comment on above: Performed By: #### 2 28146 #### [facility],[address] [place] [address] CMP with eGFR Normal [facility] Comment on above: Result Comment: COMP REHENSIVE METABOLIC PANEL Performed By: #### 2 99872 #### [facility],[address] [place] [address] CO2 [Moles/Vol] 28.2 mmol/L Normal 21.0 - 32.0 [facility] Comment on above: Performed By: #### 2 67511 #### [facility],[address] [place] [address] Creatinine [Mass/Vol] 0.71 mg/dL Normal 0.55 - 1.02 [facility] Comment on above: Performed By: #### 2 90845 #### [facility],[address] [place] [address] GFR/1.73 sq M.predicted among non-blacks MDRD (S/P/Bld) [Vol rate/Area] mL/min/{1.73_m2} Normal 60 - 999 [facility] Comment on above: Performed By: #### 2 57951 #### [facility],[address] [place] [address] Result Comment: ACCO RDING TO THE NATIONAL KIDNEY DISEASE EDUCATION PROGRAM(NKDE), A NORMAL eGFR IS A VALUE GREATER THAN OR EQUAL TO 60 ML/MIN/1.73 SQ METERS. CHRONIC KIDNEY DISEASE: <60mL/MIN/1.73 SQ METERS KIDNEY FAILURE: <15mL/MIN/1.73 SQ METERS THIS TEST SHOULD ONLY BE USED FOR PATIENTS 18 YEARS OF AGE AND OLDER. Globulin (S) [Mass/Vol] 4.2 g/dL High 1.5 - 3.8 [facility] Comment on above: Performed By: #### 2 32887 #### [facility],[address] [place] [address] Glucose [Mass/Vol] 66 mg/dL Low 74 - 106 [facility] Comment on above: Performed By: #### 2 44168 #### [facility],[address] [place] [address] Potassium [Moles/Vol] 4.4 mmol/L Normal 3.5 - 5.1 [facility] Comment on above: Performed By: #### 2 89581 #### [facility],[address] [place] [address] Protein [Mass/Vol] 7.2 g/dL Normal 6.4 - 8.2 [facility] Comment on above: Performed By: #### 2 85300 #### [facility],[address] [place] [address]017 Sodium [Moles/Vol] 138 mmol/L Normal 136 - 145 [facility] Comment on above: Performed By: #### 2 10197 #### [facility],[address] [place] [address] Urea nitrogen [Mass/Vol] 8 mg/dL Normal 7 - 18 [facility] Comment on above: Performed By: #### 2 26345 #### [facility],[address] [place] [address]951 FERRITINon 10-20-2023 Ferritin [Mass/Vol] 33 ng/mL Normal 8 - 388 [facility] Comment on above: Performed By: #### 2 44772 #### [facility],[address] [place] [address]271 FOLATESon 10-20-2023 FOLATES 34.5 ng/ml Normal 8.6 - 58.9 [facility] Comment on above: Result Comment: ANNE KAUFMAN DILUTED Performed By: #### 2 56079 #### [facility],[address] [place] [address] 35725 SEDRATEon 10-20-2023 SEDRATE 19 mm/hr Normal 0 - 30 [facility] Comment on above: Performed By: #### 2 63244 #### [facility],[address] [place] [address] 34566 TSHon 10-20-2023 TSH Qn 0.88 m[IU]/L Normal 0.35 - 3.74 [facility] Comment on above: Performed By: #### 2 36500 #### [facility],[address] [place] [address] 70091 URIC ACIDon 10-20-2023 Urate [Mass/Vol] 3.1 mg/dL Normal 2.6 - 6.0 [facility] Comment on above: Performed By: #### 2 76231 #### [facility],[address] [place] [address]351 VITAMIN B-12on 10-20-2023 Cobalamin (Vitamin B12) [Mass/Vol] 406 pg/mL Normal 193 - 986 [facility] Comment on above: Performed By: #### 2 60757 #### [facility],[address] [place] [address] 47563 Gastroenterology Visit Repor ton 10-12-2023 Gastroenterology Visit Report [facility] Gastroenterology [address] [place] [address] OFFICE VISIT Date of Service: 10/12/23 MR#: [id number] Acct: [id number] Name: TAD GRANT Rep #: [id number] : 1970 Provider: Surjit Nguyen DO Age/Sex: 53/F Location[place] [facility] Status: Signed Intake Vital Signs 07/13/23 14:51 [...] to the office today for initial consult. *[facility] established 824 pt reports long hx of [...] April or May of this year in [place]. ROS Const Constitutional: Positive for fatigue, headache(s) [...] Psych Psychiatri (more content not included)... Normal [facility] Hand Min 3 Viewson 4 Hand Min 3 Views [facility] Imaging Services [address] [place] [address] Hand Min 3 Views MR#: [id number] Acct: [id number] Name: TAD GRANT Rep #: [id number] : 1970 F 53 From: Zachary Del Rosario MD PCP: Pan Doyle NP-C Status: REG CLI Study: Hand Min 3 Views Date of Exam: 10/06/23 Exam# [id number] Ordering Dr: Jyoti Martinez MD [id number] STUDY: X-RAY - RIGHT HAND REASON FOR [...] CC: JOMAR Doyle; Dr. Jyoti Martinez MD Field Health Officer: Signed Normal [facility] Plastic Surgery Visit Report on 10-06-2023 Plastic Surgery Visit Report [facility] Plastic Reconstructive Surgery [address], [address] [place] [address] OFFICE VISIT Date of Service: 10/06/23 MR#: [id number] Acct: [id number] Name: TAD GRANT Rep #: [id number] : 1970 Provider: Dr. Jyoti Martinez MD Age/Sex: 53/F [place] [facility] Status: Signed Intake Vital Signs 3 07/13/23 [...] on right wrist/hand and left elbow area [facility] Medical History (Updated 10/06/23 @ 11:28 by [...] today. I therefore referred her to a resident medical officer today. She also has a history of [...] and counse (more content not included)... Normal [facility] XR SPINE LUMBOSACRAL 2 OR 3 VIEWSon [...] 2:00:51 AM Ordering Provider: CONNIE REFERRING Normal [facility] ([place]) EMERGENCY REPORTon 4 EMERGENCY REPORT [facility] EMERGENCY ROOM REPORT NAME ACCOUNT SEX AGE ADMIT DISCHARGE PT MED. RECORD# NUMBER DATE DATE TYPE TAD GRANT [id number] F 53 09/17/23 2 A 46478 ROOM: 303MO DATE OF : 1970 DICTATING [...] Hamilton Garza MD 09/17/23 19:29 JOB #: [id number] Transcribed By: jadyn 09/18/23 11:56 Electronically signed by: DIANDRA Garza M.D. 09/27/23 07:19 Page 2 of 2 TAD GRANT Emergency Room Report Normal [facility] BMP with eGFRon 09-18-2023 AGE 53 years Normal [facility] Comment on above: Performed By: #### 2 97838 #### [place] [address] Anion gap [Moles/Vol] 13 mmol/L Normal 10 - 20 [facility] Comment on above: Performed By: #### 2 41930 #### [facility],[address] [place], [place] [address] BMP with eGFR Normal [facility] Comment on above: Result Comment: BASI C METABOLIC PANEL Performed By: #### 2 58869 #### [address] [address] Calcium [Mass/Vol] 8.7 mg/dL Normal 8.5 - 10.1 [facility] Comment on above: Performed By: #### 2 64889 #### [facility],[address] [place] [address] Chloride [Moles/Vol] 105 mmol/L Normal 98 - 107 [facility] Comment on above: Performed By: #### 2 88770 #### [facility],[address] [place] [address] CO2 [Moles/Vol] 23.8 mmol/L Normal 21.0 - 32.0 [facility] Comment on above: Performed By: #### 2 87130 #### [facility],[address] [place] [address] Creatinine [Mass/Vol] 0.76 mg/dL Normal 0.55 - 1.02 [facility] Comment on above: Performed By: #### 2 71392 #### [place] [address] GFR/1.73 sq M.predicted among non-blacks MDRD (S/P/Bld) [Vol rate/Area] mL/min/{1.73_m2} Normal 60 - 999 [facility] Comment on above: Performed By: #### 2 56940 #### [facility],[address] [place] [address] Result Comment: ACCO RDING TO THE NATIONAL KIDNEY DISEASE EDUCATION PROGRAM(NKDE), A NORMAL eGFR IS A VALUE GREATER THAN OR EQUAL TO 60 ML/MIN/1.73 SQ METERS. CHRONIC KIDNEY DISEASE: <60mL/MIN/1.73 SQ METERS KIDNEY FAILURE: <15mL/MIN/1.73 SQ METERS THIS TEST SHOULD ONLY BE USED FOR PATIENTS 18 YEARS OF AGE AND OLDER. Glucose [Mass/Vol] 114 mg/dL High 74 - 106 [facility] Comment on above: Performed By: #### 2 01615 #### [facility],[address] [place], [place] [address] Potassium [Moles/Vol] 4.4 mmol/L Normal 3.5 - 5.1 [facility] Comment on above: Performed By: #### 2 18183 #### [facility],[address] [place], [place] [address] Sodium [Moles/Vol] 137 mmol/L Normal 136 - 145 [facility] Comment on above: Performed By: #### 2 74058 #### [facility],[address] [place] [address] Urea nitrogen [Mass/Vol] 8 mg/dL Normal 7 - 18 [facility] Comment on above: Performed By: #### 2 56756 #### [facility],[address] [place] [address] CBC + DIFFon 09-18-2023 Baso # 0.01 x10EE3/UL Normal 0.00 - 0.10 [facility] Comment on above: Performed By: #### 2 90543 #### [facility],[address] [place] [address] Basophils/100 WBC (Bld) 0.1 % Normal 0.0 - 2.0 [facility] Comment on above: Performed By: #### 2 68861 #### [facility],[address] [place] [address] CBC + DIFF Normal [facility] Comment on above: Result Comment: CBC- COMPLETE BLOOD COUNT Performed By: #### 2 00276 #### [facility],[address] [place] [address] 26605 CELL COUNT 100 Normal [facility] Comment on above: Performed By: #### 2 33620 #### [facility],[address] [place] [address] 39869 EO # 0.01 x10EE3/UL Normal 0.00 - 0.50 [facility] Comment on above: Performed By: #### 2 91447 #### [facility],[address] [place] [address] 79641 Eosinophils/100 WBC (Bld) 0.1 % Normal 0.0 - 7.0 [facility] Comment on above: Performed By: #### 2 87099 #### [facility],[address] [place], [place] [address] Erythrocyte distribution width (RBC) [Ratio] 14.7 % Normal 12.0 - 15.6 [facility] Comment on above: Performed By: #### 2 25173 #### [facility],[address] [place] [address] Hematocrit (Bld) [Volume fraction] 38.5 % Normal 34.0 - 46.0 [facility] Comment on above: Performed By: #### 2 60910 #### [facility],[address] [place] [address] Hemoglobin (Bld) [Mass/Vol] 13.0 g/dL Normal 12.0 - 16.0 [facility] Comment on above: Performed By: #### 2 68708 #### [facility],[address] [place] [address] Lymph # 0.99 x10EE3/UL Normal 0.80 - 2.80 [facility] Comment on above: Performed By: #### 2 45901 #### [facility],[address] [place] [address] 17868 Lymphocytes/100 WBC (Bld) 15.6 % Low 20.0 - 45.0 [facility] Comment on above: Performed By: #### 2 96773 #### [facility],[address] [place], [place] [address] Lymphocytes/100 WBC (Bld) 19 % Low 20 - 45 [facility] Comment on above: Performed By: #### 2 17060 #### [facility],[address] [place], [place] [address] MANUAL DIFF SEE BELOW Normal [facility] Comment on above: Performed By: #### 2 79138 #### [facility],[address] [place] [address] 68585 MCH (RBC) [Entitic mass] 28 pg Normal 27 - 33 [facility] Comment on above: Performed By: #### 2 32554 #### [facility],[address] [place] [address] MCHC 34 X10 3 Normal 32 - 36 [facility] Comment on above: Performed By: #### 2 38775 #### [facility],[address] [place] [address] MCV (RBC) [Entitic vol] 82 fL Normal 80 - 99 [facility] Comment on above: Performed By: #### 2 72402 #### [facility],[address] [place] [address] Wilbarger # 0.29 x10EE3/UL Normal 0.20 - 1.00 [facility] Comment on above: Performed By: #### 2 65017 #### [facility],[address] [place] [address] MONOS 4 % Normal 0 - 10 [facility] Comment on above: Performed By: #### 2 33952 #### [facility],[address] [place] [address] MONOS % 4.5 % Normal 0.0 - 10.0 [facility] Comment on above: Performed By: #### 2 95239 #### [facility],[address] [place] [address] Morphology Justice (Bld) [Interp] SEE BELOW Normal [facility] Comment on above: Performed By: #### 2 43362 #### [facility],[address] [place] [address] Neut # 5.04 x10EE3/UL Normal 1.50 - 7.10 [facility] Comment on above: Performed By: #### 2 05248 #### [facility],[address] [place] [address] Neutrophils/100 WBC (Bld) 79.6 % High 46.0 - 76.0 [facility] Comment on above: Performed By: #### 2 60486 #### [facility],[address] [place] [address] PLATELET 273 x10EE3/UL Normal 150 - 450 [facility] Comment on above: Performed By: #### 2 56193 #### [facility],[address] [place] [address] Platelet mean volume (Bld) [Entitic vol] 6.3 fL Low 6.6 - 10.5 [facility] Comment on above: Result Comment: AUTO MATED DIFFERENTIAL Performed By: #### 2 17859 #### [facility],[address] [place] [address] PLT EST NORMAL Normal [facility] Comment on above: Performed By: #### 2 03429 #### [facility],[address] [place] [address] RBC 4.71 x 10EE6/UL Normal 4.10 - 5.30 [facility] Comment on above: Performed By: #### 2 39207 #### [facility],[address] [place] [address] SEGS 77 % High 46 - 76 [facility] Comment on above: Performed By: #### 2 48342 #### [facility],[address] [place], [place] [address] WBC 6.3 x 10EE3/UL Normal 4.5 - 10.8 [facility] Comment on above: Performed By: #### 2 96504 #### [facility],[address] [place], [place] [address] C-REACTIVE PROTEINon 024 CRP 0.43 mg/dl Normal 0.00 - 0.90 [facility] Comment on above: Performed By: #### 2 86846 #### [facility],[address] [place] [address] CBC + DIFFon 09-17-2023 Baso # 0.02 x10EE3/UL Normal 0.00 - 0.10 [facility] Comment on above: Performed By: #### 2 28952 #### [facility],[address] [place] [address]308 Basophils/100 WBC (Bld) 0.2 % Normal 0.0 - 2.0 [facility] Comment on above: Performed By: #### 2 27979 #### [facility],[address] [place], [place] [address] CBC + DIFF Normal [facility] Comment on above: Result Comment: CBC- COMPLETE BLOOD COUNT Performed By: #### 2 43092 #### [facility],[address] [place] [address] EO # 0.15 x10EE3/UL Normal 0.00 - 0.50 [facility] Comment on above: Performed By: #### 2 26158 #### [facility],[address] [place] [address]326 Eosinophils/100 WBC (Bld) 1.6 % Normal 0.0 - 7.0 [facility] Comment on above: Performed By: #### 2 64086 #### [facility],[address] [place], [place] [address] Erythrocyte distribution width (RBC) [Ratio] 15.2 % Normal 12.0 - 15.6 [facility] Comment on above: Performed By: #### 2 71453 #### [facility],[address] [place] [address] Hematocrit (Bld) [Volume fraction] 43.4 % Normal 34.0 - 46.0 [facility] Comment on above: Performed By: #### 2 49373 #### [facility],[address] [place] [address]10 Hemoglobin (Bld) [Mass/Vol] 14.5 g/dL Normal 12.0 - 16.0 [facility] Comment on above: Performed By: #### 2 48389 #### [facility],[address] [place], [place] [address] Lymph # 2.16 x10EE3/UL Normal 0.80 - 2.80 [facility] Comment on above: Performed By: #### 2 10118 #### [facility],[address] [place] [address] Lymphocytes/100 WBC (Bld) 22.1 % Normal 20.0 - 45.0 [facility] Comment on above: Performed By: #### 2 13860 #### [facility],[address] [place] [address] MANUAL DIFF N/A Normal [facility] Comment on above: Performed By: #### 2 71861 #### [facility],[address] [place] [address] MCH (RBC) [Entitic mass] 27 pg Normal 27 - 33 [facility] Comment on above: Performed By: #### 2 98381 #### [place] [address] MCHC 33 X10 3 Normal 32 - 36 [facility] Comment on above: Performed By: #### 2 16382 #### [place] [id number] MCV (RBC) [Entitic vol] 82 fL Normal 80 - 99 [facility] Comment on above: Performed By: #### 2 44112 #### [facility],[address] [place], [place] [address] Wilbarger # 0.56 x10EE3/UL Normal 0.20 - 1.00 [facility] Comment on above: Performed By: #### 2 82725 #### [place] [address] MONOS % 5.7 % Normal 0.0 - 10.0 [facility] Comment on above: Performed By: #### 2 61699 #### [facility],[address] [place], [place] [address] Morphology Justice (Bld) [Interp] SEE BELOW Normal [facility] Comment on above: Performed By: #### 2 31783 #### [facility],[address] [place] [address]3075 Neut # 6.90 x10EE3/UL Normal 1.50 - 7.10 [facility] Comment on above: Performed By: #### 2 93828 #### [facility],[address] [place] [address]93 Neutrophils/100 WBC (Bld) 70.4 % Normal 46.0 - 76.0 [facility] Comment on above: Performed By: #### 2 03851 #### [facility],[address] [place] [address]36 PLATELET 329 x10EE3/UL Normal 150 - 450 [facility] Comment on above: Performed By: #### 2 97553 #### [facility],[address] [place], [place] [address] Platelet mean volume (Bld) [Entitic vol] 6.2 fL Low 6.6 - 10.5 [facility] Comment on above: Result Comment: AUTO MATED DIFFERENTIAL Performed By: #### 2 50013 #### [facility],[address] [place] [address]6800 PLT EST NORMAL Normal [facility] Comment on above: Performed By: #### 2 06469 #### [facility],[address] [place] [address] 22725 RBC 5.33 x 10EE6/UL High 4.10 - 5.30 [facility] Comment on above: Performed By: #### 2 17123 #### [facility],[address] [place] [address] 87710 WBC 9.8 x 10EE3/UL Normal 4.5 - 10.8 [facility] Comment on above: Performed By: #### 2 22420 #### [facility],[address] [place] [address] CMP with eGFRon 09-17-2023 AGE 53 years Normal [facility] Comment on above: Performed By: #### 2 47436 #### [facility],[address] [place] [address] 74927 Albumin [Mass/Vol] 2.7 g/dL Low 3.4 - 5.0 [facility] Comment on above: Performed By: #### 2 62108 #### [facility],[address] [place] [address] Albumin/Globulin [Mass ratio] 0.6 {ratio} Low 0.9 - 1.6 [facility] Comment on above: Performed By: #### 2 74811 #### [facility],[address] [place], [place] [address] ALK PHOS 103 U/L Normal 46 - 116 [facility] Comment on above: Performed By: #### 2 73414 #### [facility],[address] [place] [address] 20334 ALT [Catalytic activity/Vol] 11 U/L Low 16 - 63 [facility] Comment on above: Performed By: #### 2 31294 #### [facility],[address] [place] [address] 09477 Anion gap [Moles/Vol] 12 mmol/L Normal 10 - 20 [facility] Comment on above: Performed By: #### 2 81717 #### [facility],[address] [place] [address] 61949 AST [Catalytic activity/Vol] 11 U/L Low 13 - 39 [facility] Comment on above: Performed By: #### 2 88309 #### [facility],[address] [place] [address] 24962 B/C RATIO 14 ratio Normal 0 - 30 [facility] Comment on above: Performed By: #### 2 65062 #### [facility],[address] [place] [address] 38912 Bilirubin [Mass/Vol] 0.2 mg/dL Normal 0.2 - 1.0 [facility] Comment on above: Performed By: #### 2 74764 #### [facility],[address] [place] [address] Calcium [Mass/Vol] 8.7 mg/dL Normal 8.5 - 10.1 [facility] Comment on above: Performed By: #### 2 39690 #### [facility],[address] [place] [address] Chloride [Moles/Vol] 102 mmol/L Normal 98 - 107 [facility] Comment on above: Performed By: #### 2 43015 #### [facility],[address] [place] [address] CMP with eGFR Normal [facility] Comment on above: Result Comment: COMP REHENSIVE METABOLIC PANEL Performed By: #### 2 80954 #### [facility],[address] [place] [address] CO2 [Moles/Vol] 27.0 mmol/L Normal 21.0 - 32.0 [facility] Comment on above: Performed By: #### 2 50927 #### [facility],[address] [place] [address] Creatinine [Mass/Vol] 0.76 mg/dL Normal 0.55 - 1.02 [facility] Comment on above: Performed By: #### 2 02346 #### [facility],[address] [place], [place] [address] GFR/1.73 sq M.predicted among non-blacks MDRD (S/P/Bld) [Vol rate/Area] mL/min/{1.73_m2} Normal 60 - 999 [facility] Comment on above: Performed By: #### 2 56112 #### [facility],[address] [place] [address] Result Comment: ACCO RDING TO THE NATIONAL KIDNEY DISEASE EDUCATION PROGRAM(NKDE), A NORMAL eGFR IS A VALUE GREATER THAN OR EQUAL TO 60 ML/MIN/1.73 SQ METERS. CHRONIC KIDNEY DISEASE: <60mL/MIN/1.73 SQ METERS KIDNEY FAILURE: <15mL/MIN/1.73 SQ METERS THIS TEST SHOULD ONLY BE USED FOR PATIENTS 18 YEARS OF AGE AND OLDER. Globulin (S) [Mass/Vol] 4.7 g/dL High 1.5 - 3.8 [facility] Comment on above: Performed By: #### 2 25579 #### [address] [address] Glucose [Mass/Vol] 101 mg/dL Normal 74 - 106 [facility] Comment on above: Performed By: #### 2 55301 #### [address] [address] Potassium [Moles/Vol] 3.7 mmol/L Normal 3.5 - 5.1 [facility] Comment on above: Performed By: #### 2 53255 #### [address] [address] Protein [Mass/Vol] 7.4 g/dL Normal 6.4 - 8.2 [facility] Comment on above: Performed By: #### 2 49229 #### [address] [address] Sodium [Moles/Vol] 137 mmol/L Normal 136 - 145 [facility] Comment on above: Performed By: #### 2 95275 #### [address] [address] Urea nitrogen [Mass/Vol] 11 mg/dL Normal 7 - 18 [facility] Comment on above: Performed By: #### 2 09025 #### [address] [address] [address] ABDOMEN/PELVIS [facility] 2023 CT ABDOMEN/PELVIS [place] [address] Patient: TAD GRANT Phone#: : 1970 Age: 53 Gender: F Pt. Type: ER Account: [id number] Location: 052 Ordering: HAMILTON GARZA Exam Date: 09/17/2023/16:21 Family Phys: PAN DOYLE Charge Code: 753580 Physician: [place] Order #: [id number] Dose#: 18.2 mGy PROCEDURE: CT ABDOMEN/PELVIS WITH CONTRAST COMPARISON: [facility], CT, ABDOMEN/PELVIS W CON, 12/14/2019, [...] 53 Gender: F Pt. Type: ER Account: [id number] Location: 052 Ordering: HAMILTON GARZA Exam Date: 09/17/2023/16:21 Family Phys: PAN DOYLE Charge Code: 936103 Physician: [place] Order #: [id number] Dose#: 18.2 mGy BONES: Disc height loss [...] Connolly MD on 09/17/2023 at 20:34 Normal [facility] LIPASEon 09-17-2023 Lipase [Catalytic activity/Vol] 33.0 U/L Normal 15.0 - 78.0 [facility] Comment on above: Result Comment: *PLE ASE NOTE THAT RANGES FOR LIPASE HAVE CHANGED OF 02/25/23 DUE TO AN ASSAY UPDATE BY THE SUPERINTENDENT [employer]ISS[employer].THE NEW ASSAY RANGE IS 6-250 U/L, WITH A REFERENCE RANGE OF 16-77 U/L. Performed By: #### 2 37849 #### [place] [address] URINALYSISon 09-17-2023 Bilirubin Ql (U) Negative Normal NORMAL: NEGATIVE [facility] Comment on above: Performed By: #### 2 89194 #### [place] [address] Clarity (U) clear Normal NORMAL: CLEAR [facility] Comment on above: Performed By: #### 2 59281 #### [place] [address] Color (U) p.yel Normal NORMAL: YELLOW [facility] Comment on above: Performed By: #### 2 12427 #### [place] [address] Glucose Ql (U) NORM Normal NORMAL: NORMAL [facility] Comment on above: Performed By: #### 2 93064 #### [facility],[address] [place], [place] [address] Hemoglobin Ql (U) Negative Normal NORMAL: NEGATIVE [facility] Comment on above: Performed By: #### 2 95697 #### [facility],[address] [place], [place] [address] Ketone Negative Normal NORMAL: NEGATIVE [facility] Comment on above: Performed By: #### 2 87660 #### [facility],[address] [place], [place] [address] Leukocytes Negative Normal NORMAL: NEGATIVE [facility] Comment on above: Performed By: #### 2 96578 #### [facility],[address] [place], [place] [address] Nitrite Ql (U) Negative Normal NORMAL: NEGATIVE [facility] Comment on above: Performed By: #### 2 28136 #### [facility],[address] [place] [address] pH (U) 7 [pH] Normal NORMAL: 5.0-8.0 [facility] Comment on above: Performed By: #### 2 37856 #### [facility],[address] [place], [place] [address] Protein Ql (U) Negative Normal NORMAL: NEGATIVE [facility] Comment on above: Performed By: #### 2 32426 #### [facility],[address] [place] [address] Sp Somers 1.005 Low NORMAL: 1.010-1.03 0 [facility] Comment on above: Performed By: #### 2 48988 #### [facility],[address] [place] [address] Specimen Type Clean catch Normal [facility] Comment on above: Performed By: #### 2 00823 #### [facility],[address] [place] [address] Urinalysis dipstick W Reflex Microscopic panel (U) NOT INDICATED Normal [facility] Comment on above: Performed By: #### 2 78035 #### [facility],[address] [place] [address] Urobilinog NORM Normal NORMAL: NORMAL [facility] Comment on above: Performed By: #### 2 53306 #### [facility],[address] [place] [address] Final Surgical Pathology Rep teo 05-06-2023 Final Surgical Pathology Report . Pathology Reports Accession: Collected Date/Time: Received Date/Time: Pathologist: [id number] 05/03/2023 11:20 EST 05/05/2023 08:07 MEGAN BRITTON [...] All parts labelled with patient name and [id number] A. Received in formalin labeled 36 cm [...] to 0.2 cm. TS-1 Elly Schumacher, [employer] Keyholder/ Dr. Walter Stover, Pathologist Dictated by Elly Schumacher MICROSCOPIC DESCRIPTION: The microscopic examination is performed, except in the case of Gross Only. Electronically Signed by Pathology Report verified by [facility] MEGAN FORTE Sign out Date: 05/06/2023 13:07 Performing Lab: [facility], [facility] [address] [place] [address] States Pathology Dept Disclaimer If ancillary studies were utilized, the following Laboratory Developed Test (LDT) disclaimer will apply: Pathology Reports Accession: Collected Date/Time: Received Date/Time: Pathologist: [id number] 05/03/2023 11:20 EST 05/05/2023 08:07 MEGAN BRITTON MD Disclaimer Under CLIA requirements, [facility] is qualified to perform high complexity testing. For all ancillary stains, positive and negative controls stain appropriately. Performance characteristics of immunohistochemical and chromogenic in-situ hybridization tests have been determined by [facility]. These tests are used for clinical purposes, They should not be regarded as investigational or for research. Normal [facility] ([place]) [facility] 11-16-2022 [facility] Telephone (AGGENS3) TAD GRANT ([id number]) 1970 F Date Time Provider Department 11/16/22 [...] Fully Assessed Reason for Visit: Surgery Cancelled [8773] Cmt: PT CANCEL EGD TOMORROW Prescriptions as [...] Encounter Status:Closed by AMBROCIO MCKINNON on 11/16/22 [facility] Cyn 10-07-2022 ALEXANDRA Telephone (AGGENS3) TAD GRANT ([id number]) 1970 F Date Time Provider Department 10/07/22 [...] Encounter Status:Closed by HERMILA KRAUSE on 10/07/22 [facility] Cyn 09-28-2022 RAYON Telephone (AGGENS3) TAD GRANT ([id number]) 1970 F Date Time Provider Department 09/28/22 [...] Fully Assessed Reason for Visit: Patient Question [6858] Prescriptions as of 09/28/2022 - traZODone (DESYREL) [...] Encounter Status:Closed by HERMILA KRAUSE on 09/28/22 [facility] Cyn 09-16-2022 CNPN Telephone (AGGENS3) JEEVANTAD Trejo ([id number]) 1970 F Date Time Provider Department 09/16/22 [...] Encounter Status:Closed by HERMILA KRAUSE on 09/16/22 [facility] ANES POSTPROC EVALon 023 ANES POSTPROC EVAL HNO ID: [id number] Author: Nick Velez MD Service: Anesthesiology Author Type: Physician Type: Anesthesia Postprocedure Evaluation Filed: 09/09/2022 12:05 PM Note Text: POST ANESTHESIA EVALUATION NOTE : 1970 Procedure Summary Date: 09/08/22 Room / Location: [facility] Anesthesia Start: 1540 Anesthesia Stop: 1605 Procedure: [...] September 09, 2022 TIME: 12:05 PM CSN: [id number] Normal [facility] ANES PRE-OPon 09-08-2022 ANES PRE-OP HNO ID: [id number] Author: Nick Velez MD Service: Anesthesiology Author Type: Physician Type: Anesthesia Preprocedure Evaluation Filed: 09/08/2022 2:05 PM Note Text: ANESTHESIOLOGY DAY OF SURGERY NOTE : 1970 Procedure Information Date/Time: 09/08/22 1500 Scheduled providers: Jayant Edwards MD Procedure: EGD DIAGNOSTIC Location: [facility] Estimated body mass index is 35.02 kg/m? [...] and consent discussed: yes. Patient / Responsible [employer] Party agrees to proceed: yes Patient / [...] September 08, 2022 TIME: 2:01 PM CSN: [id number] Normal [facility] HISTORY PHYSICALon HISTORY PHYSICAL HNO ID: [id number] Author: BEVERLEY Ramirez Service: ? Author Type: Physician Stockkeeper Type: HANDP Filed: 09/08/2022 2:46 PM Note Text: Summary: History and Physical HISTORY AND PHYSICAL EXAMINATION SERVICE DATE: 09/08/2022 SERVICE TIME: 2:00 PM Diagnosis: Akers's esophagus without dysplasia [K22.70] Gastroesophageal reflux disease without esophagitis [K21.9] Planned Procedure: EGD Planned Anesthetic: MAC PRIMARY CARE PHYSICIAN: Pan Doyle, STEWART.BOX REPAIRER REASON FOR VISIT: The reason for this [...] BP 14 (more content not included)... Normal [facility] OPERATIVE NOon 09-08-2022 OPERATIVE NO HNO ID: [id number] Author: Jayant Edwards MD Service: General Surgery Author Type: Physician Type: Operative Report Filed: 09/08/2022 4:11 PM Note Text: OPERATIVE/PROCEDURE REPORT LOG ID: [id number] SURGERY/PROCEDURE DATE: 09/08/2022 INCISION/PROCEDURE START TIME: 3:52 PM INCISION CLOSE/PROCEDURE END TIME: 4:03 PM SURGEON(S)/PROCEDURALIST(S) AND DIGITAL MEDIA INTERN(S): Jayant Edwards MD - Proceduralist No Additional [...] September 08, 2022 TIME: 4:08 PM Normal [facility] SURGICAL PATHOLOGYon 023 CASE REPORT Normal [facility] Comment on above: Order Comment: Speci men Type: TISSUE SPECIMENOrdering Facility: [facility] Address: [address] [place] [id number] Result Comment: Surg [facility] Pathology Report Case: [id number] Authorizing Provider: Jayant Edwards, Collected: 09/08/2022 03:57 PM Ordering Location: [facility] Received: 09/09/2022 10:08 AM Pathologist: Stacie Garcia MD Specimens: A) - ANTRUM (STOMACH) BIOPSY B) - ESOPHAGUS BIOPSY Performed By: #### S ####[facility] LABORATORYCLIA [id number] [address] FINAL DIAGNOSIS Normal [facility] Comment on above: Order Comment: Speci men Type: TISSUE SPECIMENOrdering Facility: [facility] Address: [address] [place] [address] Result Comment: A. G astric antrum, biopsies: - Mild chronic gastritis. B. Esophagus, biopsies: - Intestinal metaplasia, negative for dysplasia. Performed By: #### S ####[facility] LABORATORYCLIA [id number] [address] FINAL PERFORMING LAB Normal [facility] Comment on above: Order Comment: Speci men Type: TISSUE SPECIMENOrdering Facility: [facility] Address: [address] [place] [address] Result Comment: Diag nostic interpretation performed at [facility], [address] [place] [address] CLIA# [id number] Welt Sole Layer: Isiah Almendarez M.D. Performed By: #### S ####[facility] LABORATORYCLIA [id number] [address] GROSS DESCRIPTION Normal [facility] Comment on above: Order Comment: Speci men Type: TISSUE SPECIMENOrdering Facility: [facility] Address: [address] [place] [address] Result Comment: A. A NTRUM (STOMACH) BIOPSY [...] PM Gross examination performed at [facility], [address] [place] [address] CLIA# [id number] Performed By: #### S ####[facility] LABORATORYIA [id number] [address] [facility] CNOVon 08-23-2022 CNOV Office Visit (CHANCE 3) TAD GRANT ([id number]) 1970 F Date Time Provider Department 08/23/22 [...] to exce (more content not included)... Normal [facility] CNPNon 07-29-2022 CNPN Telephone (AGGENS3) TAD GRANT ([id number]) 1970 F Date Time Provider Department 07/29/22 [...] Status:Closed by HERMILA KRAUSE on 07/29/22 Normal [facility] Coronavirus 2019on 1 COVID 19 Result PST SPECIALIST Normal Negative for COVID19 (SARS CoV2) by PCR. [facility] Comment on above: Result Comment: Nega tive for This test was developed and its performance characteristics determined by [facility]'s [facility] [place]. This test has been authorized by FDA [...] developed and its performance characteristics determined by [facility]'s [facility] [place]. This test has been authorized by FDA [...] developed and its performance characteristics determined by [facility]'s [facility] [place]. This test has been authorized by FDA under an Emergency Use Authorization (EUA). This test has been validated in accordance with the FDA's Guidance Document Policy for Diagnostics Testing in Laboratories Certified to Perform High Complexity Testing under CLIA prior to Emergency use Authorization for Coronavirus Disease 2019 during the Public Health Emergency issued on April 28, 2019. COVID 19 Source PST SPECIALIST Normal [facility] Comment on above: Result Comment: Naso pharyngeal Corrected on 03/11 AT 2347: Previously reported as NASOPHARYNGEAL Swab Corrected on 03/11 AT 2347: Previously reported as NASOPHARYNGEAL Otheron 08-11-2016 CONVERTED CLINICAL HISTORY OPERATIVE PROCEDURE: EGD/RFA CLINICAL INFORMATION: Not given [facility] CONVERTED ELECTRONIC SIGNATURE STACIE GARCIA M.D., PATHOLOGIST (Electronic signature on file) Final Signed Out: 08/11/2016 17:09 [facility] CONVERTED FINAL DIAGNOSIS FINAL DIAGNOSIS: A) [...] This case has been evaluated at the [facility] and a separate concurring report is available. C) ESOPHAGUS AT 38 CM, EXCISION - SPECIALIZED INTESTINAL METAPLASIA WITH GOBLET CELLS AND ACID MUCIN PRODUCTION COMPATIBLE WITH AKERS'S ESOPHAGUS. NEGATIVE FOR DYSPLASIA. AB/PAS STAIN. [facility] CONVERTED GROSS DESCRIPTION GROSS DESCRIPTION: A) [...] in C, levels x 3. AB/PAS. ELH:hlm [facility] CONVERTED ORDERING PROVIDER Ordering Provider: FEI EUCEDA [facility] Vital Signs Date Time Vital Sign Value Performing Clinician Facility 07-27-2024 13:28-0400 Body temperature 97.4 [degF] Pan Doyle PST SPECIALIST-C Work Phone: [facility] 07-27-2024 13:28-0400 Diastolic blood pressure 71 mm[Hg] Pan Doyle PST SPECIALIST-C Work Phone: [facility] 07-27-2024 13:28-0400 Heart rate 86 /min Pan Doyle PST SPECIALIST-C Work Phone: [facility] 07-27-2024 13:28-0400 Respiratory rate 16 /min Pan Doyle PST SPECIALIST-C Work Phone: [facility] 07-27-2024 13:28-0400 SaO2% (BldA) [Mass fraction] 96 % Pan Doyle PST SPECIALIST-C Work Phone: [facility] 07-27-2024 13:28-0400 Systolic blood pressure 120 mm[Hg] Pan Doyle PST SPECIALIST-C Work Phone: [facility] 07-27-2024 09:14-0400 Body height 167.64 cm Pan Doyle PST SPECIALIST-C Work Phone: [facility] 07-27-2024 09:14-0400 Body mass index (BMI) [Ratio] 32.3 kg/m2 Pan Doyle PST SPECIALIST-C Work Phone: [facility] 07-27-2024 09:14-0400 Body weight 90.71 kg Pan Doyle PST SPECIALIST-C Work Phone: [facility] 07-03-2024 15:32-0400 Body height 167.6 cm Sachin Rodríguez MD Work Phone: [facility] 07-03-2024 15:32-0400 Body mass index (BMI) [Ratio] 32.6 kg/m2 Sachin Rodríguez MD Work Phone: [facility] 07-03-2024 15:32-0400 Body temperature 98.01 [degF] Sachin Rodríguez MD Work Phone: [facility] 07-03-2024 15:32-0400 Body weight 91.63 kg Sachin Rodríguez MD Work Phone: [facility] 07-03-2024 15:32-0400 Diastolic blood pressure 81 mm[Hg] Sachin Rodríguez MD Work Phone: [facility] 07-03-2024 15:32-0400 Heart rate 116 /min Sachin Rodríguez MD Work Phone: [facility] 07-03-2024 15:32-0400 Respiratory rate 18 /min Sachin Rodríguez MD Work Phone: [facility] 07-03-2024 15:32-0400 SaO2% (BldA) [Mass fraction] 99 % Sachin Rodríguez MD Work Phone: [facility] 07-03-2024 15:32-0400 Systolic blood pressure 143 mm[Hg] Sachin Rodríguez MD Work Phone: [facility] 06-26-2024 08:37-0400 Body mass index (BMI) [Ratio] 32.5 kg/m2 Pan HADLEY Work Phone: [facility] 06-26-2024 08:37-0400 Body temperature 97.2 [degF] Pan Doyle NP-C Work Phone: [facility] 06-26-2024 08:37-0400 Body weight 91.62 kg Pan WELLERC Work Phone: [facility] 06-26-2024 08:37-0400 Diastolic blood pressure 76 mm[Hg] Pan Doyle NP-C Work Phone: [facility] 06-26-2024 08:37-0400 Heart rate 94 /min Pan Vivek PST SPECIALIST-C Work Phone: [facility] 06-26-2024 08:37-0400 Respiratory rate 16 /min Pan Doyle PST SPECIALIST-C Work Phone: [facility] 06-26-2024 08:37-0400 SaO2% (BldA) [Mass fraction] 97 % Pan Doyle PST SPECIALIST-C Work Phone: [facility] 06-26-2024 08:37-0400 Systolic blood pressure 110 mm[Hg] Pan Doyle PST SPECIALIST-C Work Phone: [facility] 06-12-2024 08:21-0400 Body height 167.64 cm Pan Doyle PST SPECIALIST-C Work Phone: [facility] 06-12-2024 08:21-0400 Body mass index (BMI) [Ratio] 33.4 kg/m2 Pan Doyle PST SPECIALIST-C Work Phone: [facility] 06-12-2024 08:21-0400 Body temperature 97.7 [degF] Pan Doyle PST SPECIALIST-C Work Phone: [facility] 06-12-2024 08:21-0400 Body weight 93.89 kg Pan Doyle PST SPECIALIST-C Work Phone: [facility] 06-12-2024 08:21-0400 Diastolic blood pressure 81 mm[Hg] Pan Doyle PST SPECIALIST-C Work Phone: [facility] 06-12-2024 08:21-0400 Heart rate 103 /min Pan Doyle PST SPECIALIST-C Work Phone: [facility] 06-12-2024 08:21-0400 Respiratory rate 16 /min Pan Doyle PST SPECIALIST-C Work Phone: [facility] 06-12-2024 08:21-0400 SaO2% (BldA) [Mass fraction] 99 % Pan Doyle PST SPECIALIST-C Work Phone: [facility] 06-12-2024 08:21-0400 Systolic blood pressure 149 mm[Hg] Pan Doyle PST SPECIALIST-C Work Phone: [facility] 03-19-2024 11:15-0500 Diastolic blood pressure 93 mm[Hg] Pan Doyle PST SPECIALIST-C Work Phone: [facility] 03-19-2024 11:15-0500 Heart rate 110 /min Pan Doyle PST SPECIALIST-C Work Phone: [facility] 03-19-2024 11:15-0500 Respiratory rate 18 /min Pan Doyle PST SPECIALIST-C Work Phone: [facility] 03-19-2024 11:15-0500 SaO2% (BldA) [Mass fraction] 96 % Pan Doyle PST SPECIALIST-C Work Phone: [facility] 03-19-2024 11:15-0500 Systolic blood pressure 139 mm[Hg] Pan Doyle PST SPECIALIST-C Work Phone: [facility] 03-19-2024 09:28-0500 Body mass index (BMI) [Ratio] 31.9 kg/m2 Pan Doyle PST SPECIALIST-C Work Phone: [facility] 03-19-2024 09:28-0500 Body weight 89.81 kg Pan Doyle PST SPECIALIST-C Work Phone: [facility] Encounters Encounter Date Encounter Type Care Provider Facility Start: 10-17-2024 ambulatory Pan Doyle NP Facil ity:[facility] Start: 09-28-2024 ambulatory Pan Doyle NP Facil ity:[facility] Start: 08-24-2024 End: 08-24-2024 Patient encounter procedure Nirmala LOWERY -[facility] Work Phone: Start: 08-24-2024 End: 08-24-2024 ambulatory Pan Doyle NP-C Work Phone: -Laboratory Start: 08-24-2024 End: 08-24-2024 ambulatory Surjit Friend Facility:[facility] Start: 08-16-2024 ambulatory Pan Doyle NP Facil ity:[facility] Start: 08-07-2024 End: 08-07-2024 ambulatory PAN DOYLE [facility] Start: 07-27-2024 End: 07-27-2024 Patient encounter procedure Nirmala LOWERY -[facility] Work Phone: Start: 07-27-2024 End: 07-27-2024 ambulatory Pan Doyle PST SPECIALIST-C Work Phone: [facility] Work Phone: Start: 07-03-2024 End: 07-03-2024 Emergency department patient visit Sachin Rodríguez MD Work Phone: [facility] Comment on above: Left foot pain (Prim trina Dx); Acute left ankle pain; Calcaneal spur of left foot Start: 06-26-2024 End: 06-26-2024 Patient encounter procedure Nirmala LOWERY -[facility] Work Phone: Start: 06-26-2024 End: 06-26-2024 ambulatory Pan Doyle NP Facility:[facility] Start: 06-12-2024 End: 06-12-2024 Patient encounter procedure Nirmala LOWERY -[facility] Work Phone: Start: 06-12-2024 End: 06-12-2024 ambulatory Pan Doyle PST SPECIALIST-C Work Phone: [facility] Work Phone: Start: 05-04-2024 End: 05-04-2024 Patient encounter procedure Nirmala LOWERY -[facility] Work Phone: Start: 05-04-2024 End: 05-04-2024 ambulatory Pan Doyle NP [facility] Start: 03-19-2024 End: 03-19-2024 Patient encounter procedure Nirmala LOWERY -[facility] Work Phone: Start: 03-19-2024 End: 03-19-2024 ambulatory Pan Dyole NP Facility:[facility] Start: 01-10-2024 End: 01-10-2024 ambulatory NIRMALA JOHNSON [facility] Start: 01-06-2024 ambulatory Pan Doyle NP Facil ity:[facility] Start: 12-15-2023 End: 12-15-2023 ambulatory Pan Doyle PST SPECIALIST Facility:[facility] Start: 11-28-2023 End: 11-28-2023 ambulatory Pan Doyle NP Facility:[facility] Start: 11-24-2023 End: 11-24-2023 ambulatory Pan Doyle PST SPECIALIST Facility:[facility] Start: 11-23-2023 ambulatory PAN CADE [facility] Start: 11-17-2023 End: 11-17-2023 ambulatory Pan Doyle PST SPECIALIST [facility] Start: 11-17-2023 End: 11-17-2023 ambulatory PAN CAED [facility] Start: 11-17-2023 End: 11-17-2023 ambulatory Lyla Kwok PST SPECIALIST Facility:[facility] Start: 11-09-2023 Encounter for genera l adult medical examination with abnormal findings PAN CADE [facility] Start: 11-09-2023 ambulatory PAN CADE [facility] Start: 11-07-2023 End: 11-08-2023 ambulatory Jyoti Martinez Facility:[facility] Start: 10-28-2023 End: 10-28-2023 ambulatory PAN CADE [facility] Start: 10-21-2023 End: 10-21-2023 ambulatory [facility] Start: 10-20-2023 End: 10-20-2023 ambulatory [facility] Start: 10-12-2023 End: 10-12-2023 ambulatory Pan Doyle PST SPECIALIST Facility:[facility] Start: 10-06-2023 End: 10-06-2023 ambulatory Pan Doyle PST SPECIALIST Facility:[facility] Start: 10-06-2023 End: 10-06-2023 ambulatory Pan Doyle NP Facility:[facility] Start: 09-29-2023 End: 09-29-2023 ambulatory CONNIE ESPINOZA Facility:A Start: 09-17-2023 End: 09-18-2023 ambulatory ANASTACIA FIGUEROA [facility] Start: 06-14-2023 End: 06-14-2023 ambulatory MADISON Hahn [facility] Start: 05-03-2023 End: 05-03-2023 ambulatory MADISON Hahn [facility] Start: 09-08-2022 Encounter for other preprocedural examination JAYANT [facility] Start: 09-08-2022 ambulatory JAYANT [facility] Facility:[facility] Start: 08-23-2022 End: 08-23-2022 ambulatory PAN DOYLE Facility:[facility] Start: 12-07-2016 End: 12-07-2016 Ambulatory RAMIRO GUPTA Facility: Start: 08-04-2016 End: 08-04-2016 Patient encounter procedure Fei Conklin (Hist) [place] Work Phone: [facility] Start: 08-04-2016 Results Only Fei esquivel (Hist) [place] Work Phone: [facility] Procedures Date Procedure Procedure Detail Performing Clinician Start: 08-24-2024 Hepatitis A virus an tibody, IgM type Pan Doyle PST SPECIALIST-C Work Phone: Comment on above: A negative anti-HAV IgM result suggests no recent orcurrent HAV infection. Start: 08-24-2024 Hepatitis B core ant ibody measurement, IgM type Pan Doyle PST SPECIALIST-C Work Phone: Start: 08-24-2024 Hepatitis C antibody measurement Pan Doyle PST SPECIALIST-C Work Phone: Start: 08-24-2024 In-vitro immunologic test Pan Doyle PST SPECIALIST-C Work Phone: Comment on above: QuantiFERON-TB Gold [...] Comment: URIN ALYSIS Performed By: #### [id number] #### [facility],[address] [place] [address] Start: 08-04-2016 CONVERTED SURGICAL PATHOLOGY Fei Conklin (Hist) Claire Work Phone: Plan of Treatment Date Care Activity Detail Author Start: 10-29-2024 Influenza vaccination given INFLUENZA VACCINE (Season Ended) [facility] Start: 08-24-2024 C reactive protein [Mass/volume] in Serum or Plasma [facility] Start: 08-24-2024 Comprehensive metabolic 2000 panel - Serum or Plasma [facility] Start: 06-26-2024 Chemotherapy admn iv infusion tq ea hr CHEMO IV INFUSION ADDL HR [facility] Start: 06-26-2024 Chemotx admn iv nfs tq up 1 hr 02/28 sbst/drug CHEMO IV INFUSION 1 HR [facility] Start: 03-19-2024 Following clinical pathway protocol [facility] Start: 10-30-2023 COVID-19 VACCINE ( season) COVID-19 VACCINE ( season) [facility] Start: 10-30-2019 Influenza vaccination INFLUENZA (#1) [facility] Start: 02-15-2018 SHINGRIX VACCINE (1 of 2) SHINGRIX VACCINE (1 of 2) [facility] Start: 02-15-2018 Tuberculosis screening COLORECTAL CANCER SCREENING,SEE MODIFIER [facility] Start: 02-15-2018 Zoster vaccine hzv live for subcutaneous use ZOSTER (SHINGLES) VACCINE (1 of 2) [facility] Start: 02-15-2013 DIABETES SCREEN DIABETES SCREEN [facility] Start: 02-15-2013 LIPID SCREEN LIPID SCREEN [facility] Start: 02-15-2013 Screening for malignant neoplasm of colon [facility] Start: 2008 Mammography MAMMOGRAM [facility] Start: 2008 Screening for malignant neoplasm of breast MAMMOGRAM [facility] Start: 02-15-1998 HPV TESTING HPV TESTING [facility] Start: 02-15-1989 PAP TESTING PAP TESTING [facility] Start: 02-15-1987 Pneumococcal 23-valent polysaccharide vaccination given (situation) PNEUMOCOCCAL VACCINE: 50+ YEARS (1 of 2 - PCV) [facility] Start: 02-15-1987 Urine microalbumin profile DTAP,TDAP,TD (1 - Tdap) [facility] Start: 02-15-1986 ANNUAL WELLNESS VISIT ANNUAL WELLNESS VISIT [facility] Start: 02-15-1986 HEPATITIS C SCREENING HEPATITIS C SCREENING [facility] Start: 02-15-1986 HIV SCREENING HIV SCREENING [facility] Start: 1980 Depression screening using PHQ-9 (Patient Health Questionnaire 9) score DEPRESSION SCREENING [facility] Start: 02-15-1979 Administration of diphtheria + tetanus + acellular pertussis vaccine DTAP/TDAP/TD VACCINE (1 - Tdap) [facility] Start: 1968 HPV/COTEST HPV/COTEST [facility] Start: 1968 Screening for malignant neoplasm of cervix [facility] Alanine aminotransfe rase [Enzymatic activity/volume] in Serum or Plasma [facility] Albumin [Mass/volume ] in Serum or Plasma [facility] Alkaline phosphatase [Enzymatic activity/volume] in Serum or Plasma [facility] Anion gap in Serum o r Plasma [facility] Bilirubin, total measurement [facility] BUN/Creatinine ratio [facility] C reactive protein [Mass/volume] in Serum or Plasma [facility] Calcium [Mass/volume ] in Serum or Plasma [facility] Carbon dioxide, tota l [Moles/volume] in Central venous blood [facility] Creatinine [Mass/vol ume] in Serum or Plasma [facility] Erythrocyte sediment ation rate [facility] Glucose [Mass/volume ] in Serum or Plasma [facility] Hepatitis A virus Ig M Ab [Presence] in Serum [facility] Hepatitis B core ant ibody measurement, IgM type [facility] Hepatitis B surface antigen measurement [facility] Hepatitis C antibody measurement [facility] In-vitro immunologic test [facility] Measurement of renal function [facility] Mycobacterium tuberc ulosis tuberculin stimulated gamma interferon [Presence] in Blood [facility] Potassium measurement [facility] Protein measurement [facility] Serum chloride measurement [facility] Sodium measurement [facility] Total protein measurement [facility] Urea nitrogen [Mass/ volume] in Serum or Plasma [facility] Payers Date Payer Category Payer Medicaid (Managed Care) [facility] MEDICAID [id number] 2023 Self-pay 2023 Unknown [id number] 2023 Unknown [id number] 2022 Unknown [id number] 2016 Unknown [id number] 1968 Unknown [id number] 2.16.840.1.530858.3.579.2. 627 1968 Unknown [id number] 2.16.840.1.967603.3.579.2. 651 1968 Unknown [id number] 2.16.840.1.798355.3.579.2. 651 1968 Unknown [id number] 2.16.840.1.275508.3.579.2. 651 1968 Unknown [id number] 2.16.840.1.029748.3.579.2. 651 1968 Unknown [id number] 2.16.840.1.460448.3.579.2. 651 1968 Unknown [id number] 2.16.840.1.369190.3.579.2. 651 1968 Unknown [id number] 2.16.840.1.020891.3.579.2. 651 1968 Unknown [id number] 2.16.840.1.773358.3.579.2. 651 1968 Unknown [id number] 2.16.840.1.444064.3.579.2. 651 1968 Unknown [id number] 2.16.840.1.632190.3.579.2. 297 1968 Unknown [id number] 2.16.840.1.141729.3.579.2. 297 1968 Unknown [id number] 2.16.840.1.815672.3.579.2. 297 1968 Unknown [id number] 2.16.840.1.177320.3.579.2. 297 Unknown [id number] Unknown [id number] 2.16.840.1.693074.3.579.2. 462 Unknown [id number] 2.16.840.1.538953.3.579.2. 462 Unknown [id number] 2.16.840.1.190539.3.579.2. 462 Unknown [id number] 2.16.840.1.191477.3.579.2. 462 Unknown [id number] 2.16.840.1.210136.3.579.2. 462 Unknown [id number] 2.16.840.1.807074.3.579.2. 462 Unknown [id number] 2.16840.1.821793.3.579.2. 462 Unknown [id number] 2.16840.1.768743.3.579.2. 462 Unknown [id number] 2.16840.1.480080.3.579.2. 462 Unknown [id number] 2.840.1.914309.3.579.2. 462 Unknown [id number] 2.840.1.171840.3.579.2. 462 Unknown [id number] 2.840.1.196039.3.579.2. 462 Unknown [id number] 2.840.1.746881.3.579.2. 462 Unknown [id number] 2.840.1.721559.3.579.2. 462 Unknown [id number] 2.840.1.345561.3.579.2. 462 Unknown [id number] .0.1.997296.3.579.2. 462 Unknown [id number] 2.840.1.250675.3.579.2. 462 Unknown [id number] 2.840.1.604234.3.579.2. 462 Unknown [id number] .840.1.572567.3.579.2. 462 Unknown [id number] .840.1.615135.3.579.2. 462 Unknown [id number] .840.1.825286.3.579.2. 462 Unknown [id number] 2.840.1.705245.3.579.2. 462 Unknown [id number] 2.840.1.631735.3.579.2. 462 Unknown [id number] 2.840.1.093555.3.579.2. 462 Social History Date Type Detail Facility Start: 06-21-2016 End: 11-24-2023 Tobacco smoking status NHIS Current every day smoker [facility] History of tobacco use Cigarette Smoker [facility] Start: 06-21-2016 End: 07-03-2024 Cigarettes smoked current (pack per day) - Reported [facility] Start: 06-21-2016 End: 07-03-2024 Tobacco use and exposure Never used [facility] Start: 06-21-2016 Alcohol intake Not Asked [facility] Start: 06-21-2016 Alcohol Comment stopped in 1997 [facility] Start: 1970 Sex Assigned At Not on file [facility] Start: 06-13-2024 Sex Female (finding) [facility] Start: 1970 Sex Assigned At Female [facility] History of tobacco use Electroni c cigarette user (finding) [facility] Start: 07-03-2024 Alcoholic beverage intake Current non-drinker of alcohol (finding) [facility] Start: 07-03-2024 Tobacco use panel [facility] Mental Status Date Assessment Result Facility 07-27-2024 Cognitive function Voice/Name [facility] Work Phone: 06-26-2024 Cognitive function Voice/Name [facility] Work Phone: 06-12-2024 Cognitive function Voice/Name [facility] Work Phone: 03-19-2024 Cognitive function Voice/Name [facility] Work Phone: Clinical Notes 08-23-2022 to 08-24-2024 Discharge InstructionsSachin Rodríguez MD - 07/03/2024 3:29 PM Sachin Morales MD - 07/03/2024 3:29 PM Kamilla Scott RN - 07/03/2024 3:27 PM EDT Note Date & Type Note Facility 08-24-2024 Progress note [facility] 07-03-2024 Hospital Discharge instructions Sachin Rodríguez MD - 07/03/2024 4:39 PM EDT Follow up with your primary care doctor. Please return to the Emergency Department for any new or worsening symptoms. documented in this encounter [facility] 07-03-2024 Physician Emergency department Note Images from the original note were not included. [facility] Emergency [facility] - [place] [facility] Course/Medical Decision Making: Tad Grant, date [...] symptoms Patient amenable to plan Admitted to [facility] (order placed in [facility]): Yes Disposition: DC Chief Complaint: Patient [...] formation Sachin Rodríguez MD 07/03/24, 4:38 PM [facility] Emergency Physicians This note was partially generated using [employer] system, and there may be some incorrect words, spellings, and punctuation that were not noted in checking the note before saving. Sachin Rodríguez MD 07/03/24 [id number] [facility] 07-03-2024 Emergency department Note Images from the original note were not included. [facility] Emergency [facility] - [place] [facility] Course/Medical Decision Making: Tad Grant, date [...] symptoms Patient amenable to plan Admitted to [facility] (order placed in [facility]): Yes Disposition: DC Chief Complaint: Patient [...] formation Sachin Rodríguez MD 07/03/24, 4:38 PM [facility] Physicians This note was partially generated using [employer] system, and there may be some incorrect [...] unlabored, in NAD. documented in this encounter [facility] 07-03-2024 Emergency department Triage note Pt arrives [...] PWD skin. Respirs easy, unlabored, in NAD. [facility] 05-04-2024 Evaluation note Diagnosis Onset Date Resolution Crohn disease acute May 04, 2024 10:51am Rheumatoid arthritis acute Shaq h 2024 10:51am [facility] Work Phone: 1(153) 298-895603-07-2025 Evaluation note* Diagnosis Onset Date Resolution Status Admit Date Crohn disease acute May 04, 2024 10:51am Rheumatoid arthritis acute Shaq h 2024 10:51am Akers's esophagus with dysplasia acute August 24, 2024 9:30am Crohn disease acute August 24, 2024 9:30am [facility] Work Phone: 1(604) 960-118009-30-2024 [facility] Medical Records Department [address] [place] [address] History Physical Exam 11/28/23 0639 MR#: [id number] Acct: [id number] Name: TAD GRANT Rep #: [id number] : 1970 53 From: Surjit Friend PCP: JOMAR Darling Status:[facility] Location: [place] [address] History and Physical Date of Admission: 11/28/23 [...] April or May of this year in [place]. ROS Const Constitutional: Positive for fatigue, headache(s) [...] Appearance: average body habitus and well nourished [facility] Head: normal to inspection Ears: hearing grossly [...] arthritis: Status: Acute Order (more content not included)...[facility]08-20-2024 Note [facility] HISTORY & PHYSICAL NAME ACCOUNT SEX AGE ADMIT DISCHARGE PT MED. RECORD# NUMBER DATE DATE TYPE TAD GRANT [id number] F 53 09/17/23 09/18/23 2 A [id number] ROOM: 303MO DATE OF : 66 DICTATING [...] feeling better. She did eat out at [facility] and [employer]. Otherwise, no other recent medication changes. No [...] & Physical TAD GRANT :1970 JOB #: [id number] Transcribed By: jadyn 09/18/23 11:37 Electronically signed by: E-Sign: ANASTACIA FIGUEROA MD 10/18/23 11:41 Update to H&P: [ ] No changes: I have examined the patient and reviewed the H&P and there are no changes. [ ] As previously dictated with the following changes: ____ ____ ____ PHYSICIAN SIGNATURE: TIME: DATE: Page 3 of 3 [facility]AD GRANT [facility]2022 NoteHNO ID: [id number] Author: Ambrocio Mckinnon Service: ? Author Type: ? Type: Progress Notes Filed: 10/14/2022 4:31 PM Note Text: [address]06-26-2023 NoteHNO ID: [id number] Author: Jayant Edwards MD Service: ? Author [...] addiction as well as (more content not included)...[facility] Left foot pain- Primary Pain in limb Acute left ankle pain Calcaneal spur of left foot Calcaneal spur [facility] Nirmala [facility] Note Date/Time August 24, 2024 10:1 3am [facility] [address] [facility] [place] [address] OFFICE VISIT Date of Service: 08/24/24 MR#: [id number] Acct: [id number] Name: TAD GRANT Rep #: [id number] : 1970 Provider: BEVERLEY Elena Age/Sex: 54/F [place] [facility] Status: Signed Intake Vital Signs 07/27/24 09:14 [...] abdominal pain, gas, bloating, and difficulty swallowing. [facility] Medical History Post-menopausal No natural teeth Depression [...] is a 54 yo female pt here [facility] for f/u regarding her Barretts esophagusand [...] Cosigner Signature: Date (if applicable) CC: ~ [facility] Work Phone: Reason for referral (narrative)No [...] Do you have a Healthcare Power of Field Nurse Case Manager? No November 24, 2023 9:39am Chief Complaint [...] section and content) DATE CREATED AUTHOR 08/22/2017 [facility] DATE CREATED AUTHOR AUTHOR'S ORGANIZ ATION 03/22/2020 [facility] DATE CREATED AUTHOR AUTHOR'S ORGANIZ ATION 11/17/2022 [facility] DATE CREATED AUTHOR AUTHOR'S ORGANIZ ATION 10/01/2023 [facility] ([place]) DATE CREATED AUTHOR AUTHOR'S ORGANIZ ATION 01/14/2024 [facility] DATE CREATED AUTHOR AUTHOR'S ORGANIZ ATION 08/08/2024 [facility] DATE CREATED AUTHOR AUTHOR'S ORGANIZ ATION [facility] Comments (unrecognize d section and content) In the event this informatio n is protected by the Federal Confidentiality of Alcohol and Drug Abuse Patient Records regulations: The Federal rules restrict any use of the information to criminally investigate or prosecute any alcohol or drug abuse patient.[facility] Care Teams (unrecognized sec tion and content) Team Status: Active Member Role Status Dates Pan Doyle NP PST SPECIALIST-C Primary Care Provider Active Team Status: Inactive [...] June 12, 2024 End: June 12, 2024 BEVERLYE Elena Referring Provider Active Start: June 12, 2024 End: June 12, 2024 Land Survey Technician Relationship Specialty Start Date End Date Pan Doyle, BOX REPAIRER [address] [facility] [address] [place] [address] PCP - General Nurse Practitioner-Family 07/03/24 Team Status: Inactive Member Role Status Dates Pan Doyle NP, PST SPECIALIST-C Primary Care Provider Active Start: June 26, 2024 End: June 26, 2024 BEVERLEY Elena Attending Provider Active Start: June 26, 2024 End: June 26, 2024 BEVERLEY Elena Referring Provider Active Start: June 26, 2024 End: June 26, 2024 Team Status: Inactive Member Role Status Dates Pan Doyle PST SPECIALIST, PST SPECIALIST-C Primary Care Provider Active Start: July 27, 2024 End: July 27, 2024 BEVERLEY Elena Attending Provider Active Start: July 27, 2024 End: July 27, 2024 BEVERLEY Elena Referring Provider Active Start: July 27, 2024 End: July 27, 2024 Team Status: Active Member Role/Relationship Status Dates Pan Doyle PST SPECIALIST, PST SPECIALIST-C Primary Care Provider Active Team Status: Inactive Member Role/Relationship Status Dates Pan Doyle PST SPECIALIST, PST SPECIALIST-C Primary Care Provider Active Start: May 04, 2024 End: May 04, 2024 Pan Doyle PST SPECIALIST, PST SPECIALIST-C Referring Provider Active Start: May 04, 2024 End: May 04, 2024 BEVERLEY Elena Attending Provider Active Start: May 04, 2024 End: May 04, 2024 Team Status: Inactive Member Role/Relationship Status Dates Pan Doyle PST SPECIALIST, PST SPECIALIST-C Primary Care Provider Active Start: June 12, 2024 End: June 12, 2024 BEVERLEY Elena Attending Provider Active Start: June 12, 2024 End: June 12, 2024 BEVERLEY Elena Referring Provider Active Start: June 12, 2024 End: June 12, 2024 Team Status: Inactive Member Role/Relationship Status Dates Pan Doyle PST SPECIALIST, PST SPECIALIST-C Primary Care Provider Active Start: June 26, 2024 End: June 26, 2024 BEVERLEY Elena Attending Provider Active Start: June 26, 2024 End: June 26, 2024 BEVERLEY Elena Referring Provider Active Start: June 26, 2024 End: June 26, 2024 Team Status: Inactive Member Role/Relationship Status Dates Pan Doyle PST SPECIALIST, PST SPECIALIST-C Primary Care Provider Active Start: July 27, 2024 End: July 27, 2024 BEVERLEY Elena Attending Provider Active Start: July 27, 2024 End: July 27, 2024 BEVERLEY Elena Referring Provider Active Start: July 27, 2024 End: July 27, 2024 Team Status: Inactive Member Role/Relationship Status Dates Pan Doyle NP, PST SPECIALIST-C Primary Care Provider Active Start: August 24, 2024 End: August 24, 2024 Pan Doyle NP, PST SPECIALIST-C Referring Provider Active Start: August 24, 2024 End: August 24, 2024 BEVERLEY Elena Attending Provider Active Start: August 24, 2024 End: August 24, 2024 Team Status: Inactive Member Role/Relationship Status Dates Pan Doyle NP, PST SPECIALIST-C Primary Care Provider Active Start: August 24, [...] Member Role/Relationship Status Dates Pan Doyle NP, PST SPECIALIST-C Primary Care Provider Active Start: August 24, [...] BE BASED ON THE PRIMARY CLINICAL RECORDS. [facility] [employer] [facility]. provides no warranty or guarantee of the accuracy or completeness of information in this document.
[2024-09-28 13:04] VITALS: BP 139/86; PULSE 96
== END 2024-09-28 23:59 | disposition home or self-care (01) ==
LOC: MEDOUTP 09:22
PROVIDERS: PCP Nurse Practitioner Family; Referring Provider Student in an Organized Health Care Education/Training Program; Visit Provider Student in an Organized Health Care Education/Training Program
DX: K50.90 Crohn's disease, unspecified, without complications (principal)
CPT/HCPCS: 96365; 96366; A4216; Q5103

== ENCOUNTER 2024-11-19 07:11 | Day surgery (SDC) | payer MEDICAID, SELFPAY ==
[2024-11-19] VITALS (7 sets, daily range): BP systolic 102–122; BP diastolic 64–79; PULSE 77–95; RESP 16–20; TEMP 36.1–36.6; O2SAT 96–99; BMI 32.3
--- OUTSIDE RECORDS SUMMARY | 2024-11-19 07:16 | XMS RPT_ITS | CCD ---
Author Organization [facility] Care Team Providers Care Fire Medic Name Role Phone RAMIRO GUPTA Unavailable Unavailable MYRANDA SORIANO Unavailable Unavailable Aron Soriano Primary Care Provider PAN DOYLE Referring Unavailable PAN DOYLE Primary Care Unavailable JAYANT EDWARDS Attending Unavail able JAYANT EDWARDS Attending Unavail able PAN DOYLE Primary Care Unavailable JAYANT EDWARDS Referring Unavail able REFERRING, CONNIE WO ID Attending Unavailable REFERRING, PHY WO ID Primary Care Unavailable Pan Mann Primary Care Provider Nirmala Tejeda Attending Provider Nirmala Tejeda Referring Provider Pan Mnan Referring Provider Pan Doyle CNP Primary Care Provider [phone] Vivek CARIAS-Pan Gary Primary Care Provider Nirmala Tejeda Attending Provider Nirmala Tejeda Referring Provider SACHIN RODRÍGUEZ Referring Unavailable PAN DOYLE Primary Care Unavailable SACHIN RODRÍGUEZ Attending Unavailable SACHIN RODRÍGUEZ Referring Unavailable PAN DOYLE Primary Care Unavailable SACHIN RODRÍGUEZ Attending Unavailable SACHIN RODRÍGUEZ Attending Unavailable PAN DOYLE Primary Care Unavailable PAN DOYLE Primary Care Unavailable PAN DOYLE Referring Unavailable MIKE GREY Attending Unavailable Dr. Austin Nguyen DO Other Provider [phone] Vivek NET DEVELOPER CONSULTANT-C, Pan Primary Care Provider [phone] AtaNirmala Osuna Attending Provider Vivek NET DEVELOPER CONSULTANT-C, Pan Referring Provider [phone] PAN DOYLE NURSE EMERGENCY ROOM Consulting Unavailable ATANIRMALA SALDIVAR PA Attending Unavailable ATANASOVNIRMALA PA Primary Care Unavailable ATANASOVNIRMALA PA Admitting Unavailable PROVIDER, UNKNOWN Consulting Unavailable PROVIDER, UNKNOWN Consulting Unavailable VIVEKPAN NICHOLS NURSE EMERGENCY ROOM Consulting Unavailable ATANIRMALA SALDIVAR PA Attending Unavailable ATANASROSEY, NIRMALA PA Primary Care Unavailable ATANASOV, NIRMALA PA Admitting Unavailable PROVIDER, UNKNOWN Consulting Unavailable PROVIDER, UNKNOWN Consulting Unavailable VIVEK, PAN NURSE EMERGENCY ROOM Consulting Unavailable VIVEK, PAN NURSE EMERGENCY ROOM Primary Care Unavailable VIVEK, PNA NURSE EMERGENCY ROOM Admitting Unavailable VIVEK, PAN NURSE EMERGENCY ROOM Attending Unavailable PROVIDER, UNKNOWN Consulting Unavailable PROVIDER, UNKNOWN Consulting Unavailable VIVEK, PAN NURSE EMERGENCY ROOM Primary Care Unavailable VIVEK, PAN NURSE EMERGENCY ROOM Admitting Unavailable VIVEK, PAN NURSE EMERGENCY ROOM Attending Unavailable VIVEK, PAN NURSE EMERGENCY ROOM Consulting Unavailable PROVIDER, UNKNOWN Consulting Unavailable PROVIDER, UNKNOWN Consulting Unavailable VIVEK, PAN NURSE EMERGENCY ROOM Primary Care Unavailable VIVEK, PAN NURSE EMERGENCY ROOM Admitting Unavailable VIVEK, PAN NURSE EMERGENCY ROOM Attending Unavailable VIVEK, PAN NURSE EMERGENCY ROOM Consulting Unavailable PROVIDER, UNKNOWN Consulting Unavailable PROVIDER, UNKNOWN Consulting Unavailable VIVEK, PAN NURSE EMERGENCY ROOM Primary Care Unavailable VIVEK, PAN NURSE EMERGENCY ROOM Admitting Unavailable VIVEK, PAN NURSE EMERGENCY ROOM Attending Unavailable VIVEK, PAN NURSE EMERGENCY ROOM Consulting Unavailable PROVIDER, UNKNOWN Consulting Unavailable PROVIDER, UNKNOWN Consulting Unavailable Austin Nguyen Attending Unavailable Vivek, Pan Primary Care Unavailable Vivek, Pan Primary Care Unavailable Atajeremiah, Nirmala Attending Unavailable Atanasov, Nirmala Referring Unavailable Vivek, Pan Primary Care Unavailable Atanasov, Nirmala Attending Unavailable Vivek, Pan Referring Unavailable Vivek, Pan Primary Care Unavailable Atanasov, Nirmala Attending Unavailable Vivek, Pan Referring Unavailable Vivek, Pan Primary Care Unavailable Atanasov, Nirmala Attending Unavailable Vivek, Pan Primary Care Unavailable Vivek, Pan Referring Unavailable Atanasov, Nirmala Attending Unavailable Som Martinez Attending Unavailable Vivek, Pan Primary Care Unavailable Vivek, Pan Referring Unavailable Som Martinez Attending Unavailable Pan Doyle Primary Care Unavailable VivekPan nichols Referring Unavailable Pan Doyle Primary Care Unavailable Atajeremiah, Nirmala Attending Unavailable Pan Doyle Referring Unavailable FriendAustin Attending Unavailable Friend, Austin Consulting Unavailable Vivek Pan Primary Care Unavailable VivekPan nichols Referring Unavailable Friend, Austin Consulting Unavailable Pan Doyle Primary Care Unavailable Atanasov, Nirmala Attending Unavailable Atanasov, Nirmala Referring Unavailable VivekPan nichols Primary Care Unavailable Atanasov, Nirmala Referring Unavailable Atanasov, Nirmala Attending Unavailable VivekPan nichols Primary Care Unavailable Atanasov, Nirmala Referring Unavailable Atanasov, Nirmala Attending Unavailable Pan Doyle Primary Care Unavailable Atanasov, Nirmala Referring Unavailable Atanasov, Nirmala Attending Unavailable Vivek, Pan Primary Care Unavailable Atanasov, Nirmala Attending Unavailable Atanasov, Nirmala Referring Unavailable Friend, Austin Attending Unavailable Pan Doyle Primary Care Unavailable VivekPan nichols Referring Unavailable VivekPan nichols Referring Unavailable FriendAustin Attending Unavailable Pan Doyle Primary Care Unavailable Pan Doyle Referring Unavailable Allergies Allergy Classification Reported Allergen(s) Allergy Type Date of Onset Reaction(s) Facility (3 sources) varenicline; Translations: [VARENICLINE] Drug Allergy 6 Other: See Comments, Other (See Comments) [facility] (5 sources) Triiodobenzoic Acids Allergy to substance 5 [facility] (1 source) CONTRAST MEDIA, IODINE RELATED Drug allergy (disorder) [facility] (1 source) Iodinated Contrast Media Drug allergy (disorder) 5 [facility] Repository (1 source) Gadolinium-MRI Contrast Medium Drug allergy (disorder) 4 [facility] Repository Medications Current Medications Medication Drug Class(es) Dates Sig (Normalized) Sig (Original) [id number] 200 actuat albuterol 0.09 mg/actuat metered dose inhaler (5 sources) beta2-Adrenergic Agonist Start: 09-02-2023 Albuterol Sulfate 90 mcg/actuation HFA aerosol inhaler Active 2 NMA INHALATION EVERY 4-6 HOURS as needed for shortness of breath or wheezing September 02, 2023 12:00am amitriptyline hydrochloride 50 mg oral tablet (3 sources) Tricyclic Antidepressant Start: 08-24-2024 take 1 [...] (before meals). 60 capsule 2 05/07/2015 Active ondansetron 4 mg disintegrating oral tablet (15 sources) Serotonin-3 Receptor Antagonist Start: 03-06-2024 take [...] pantoprazole 40 mg delayed release oral tablet (10 sources) Proton Pump Inhibitor Start: 09-04-2024 take 1 tablet by mouth twice daily Pantoprazole 40 mg tablet,delayed release (DR/EC) Active 40 mg PO TWICE A DAY 90 2 September 04, 2024 9:24am Start: 08-24-2024 End: 09-04-2024 take 1 tablet by mouth once daily Pantoprazole 40 mg tablet,delayed release (DR/EC) Discontinued 40 mg PO daily 90 2 August 24, 2024 12:00am September 04, 2024 9:24am Start: 09-25-2020 End: 09-28-2024 take 1 tablet by mouth twice daily Pantoprazole 20 mg tablet,delayed release (DR/EC) Discontinued 20 mg PO TWICE A DAY September 25, 2020 12:00am September 28, 2024 9:54am Start: 02-11-2016 take 1 tablet by arjun th twice daily pantoprazole DR (PROTONIX) 40 mg tablet Take 1 tablet by mouth twice daily. 90 tablet 0 02/11/2016 Active Comment on above: Take 1 tablet by arjun th twice daily. pramipexole dihydrochloride 1 mg oral tablet (8 sources) Nonergot Dopamine Agonist Start: take 1 tablet by mouth once daily Pramipexole 1 mg tablet Active 1 mg PO daily August 24, 2024 12:00am Start: 09-02-2023 End: 08-24-2024 take 1 tablet by mouth at bedtime Pramipexole 0.5 mg tablet Discontinued 0.5 mg PO AT BEDTIME September 02, 2023 12:00am August 24, 2024 9:39am Completed/Discontinued Medications Medication Drug Class(es) Dates Sig (Normalized) Sig (Original) 12 hr buPROPion hydrochloride 150 mg extended release oral tablet (6 sources) Aminoketone Start: 12-15-2023 End: 06-12-2024 take [...] once daily. celecoxib 200 mg oral capsule (5 sources) Nonsteroidal Anti-inflammatory Drug Start : 09-01 End: 12-14 take 1 capsule by mouth twice daily Celecoxib 200 mg capsule Discontinued 200 mg PO TWICE A DAY September 02, 2023 12:00am December 15, 2023 10:38am cephalexin 500 mg oral capsule (5 sources) Cephalosporin Antibacterial Start : 11-16 End: 11-23 take 1 capsule by mouth three times daily Cephalexin 500 mg capsule Discontinued 500 mg PO THREE TIMES A DAY 21 7 0 November 17, 2023 12:00am November 23, 2023 12:00am November 24, 2023 12:07am dicyclomine hydrochloride 20 mg oral tablet (10 sources) Anticholinergic Start : 11-27 End: 03-19 take 1 tablet by mouth three times daily as needed for pain Dicyclomine 20 mg tablet Discontinued 20 mg PO THREE TIMES A DAY as needed for abdominal pain 90 3 December 15, 2023 12:49pm March 19, 2024 10:24am famotidine 20 mg oral tablet (5 sources) Histamine-2 Receptor Antagonist Start : 09-25 End: 09-28 take 1 tablet by mouth twice daily Famotidine 20 mg tablet Discontinued 20 mg PO TWICE A DAY September 25, 2020 12:00am September 28, 2024 9:54am hydroxychloroquine sulfate 400 mg oral tablet (5 sources) Antimalarial, Antirheumatic Agent Start : 10-05 End: 03-19 take 1 tablet by mouth twice daily Hydroxychloroquine 400 mg tablet Discontinued 400 mg PO TWICE A DAY October 06, 2023 12:00am March 19, 2024 10:27am hyoscyamine sulfate 0.125 mg oral tablet (10 sources) Start : 01-04 End: 03-19 Hyoscyamine Sulfate 0.125 mg tablet Discontinued 0.125 mg PO 2 to 4 times per day as needed for abdominal pain 30 2 February 27, 2024 1:54pm March 19, 2024 [...] mesalamine 1200 mg delayed release oral tablet (10 sources) Aminosalicylate Start : 03-22 End: 04-21 [...] 2024 1:09am naproxen 500 mg oral tablet (5 sources) Nonsteroidal Anti-inflammatory Drug Start: 11-30-2015 End: 07-30-2020 take 1 tablet by mouth twice daily as needed Naproxen 500 MG tablet Discontinued 500 mg PO TWICE DAILY NEEDED November 30, 2015 12:00am July 30, 2020 1:13pm predniSONE 20 mg oral tablet (10 sources) Start: 12-15-2023 End: 03-19-2024 take 1 [...] 2024 10:26am rifAXIMin 550 mg oral tablet (5 sources) Rifamycin Antibacterial Start: 09-02-2023 End: 11-24-2023 take 1 tablet by mouth three times daily Rifaximin (Xifaxan) 550 mg tablet Discontinued 550 mg PO THREE TIMES A DAY September 02, 2023 12:00am November 24, 2023 9:37am Salmeterol (5 sources) beta2-Adrenergic Agonist Start: 09-02-2023 End: 11-24-2023 [...] dissolved tablet. tiZANidine 4 mg oral capsule (5 sources) Central alpha-2 Adrenergic Agonist Start: 05-04-2024 End: 06-12-2024 take 1 capsule by mouth at bedtime as needed Tizanidine 4 mg capsule Discontinued 4 mg PO AT BEDTIME as needed May 04, 2024 1:00am June 12, 2024 8:21am traZODone hydrochloride 100 mg oral tablet (10 sources) Serotonin Reuptake Inhibitor Start: 03-19-2024 End: 09-28-2024 take 1 tablet by mouth at bedtime Trazodone 100 mg tablet Discontinued 100 mg PO AT BEDTIME March 19, 2024 1:00am September 28, 2024 9:54am Start: 09-02-2023 End: 12-15-2023 take 1 tablet by mouth at bedtime as needed for sleep Trazodone 100 mg tablet Discontinued 100 mg PO AT BEDTIME as needed for sleep September 02, 2023 12:00am December 15, 2023 11:19am varenicline 1 mg oral tablet (5 sources) Partial Cholinergic Nicotinic Agonist Start: 07-30-2020 End: 11-24-2023 take 1 tablet by mouth twice daily Varenicline Tartrate (Chantix) 1 mg tablet Discontinued 1 mg PO TWICE A DAY July 30, 2020 12:00am November 24, 2023 9:37am Problems Active Problems Problem Classification Problem Date Documented Da te Episodic/Chronic Abdominal pain (5 sources) Abdominal pain; Translations: [Unspecified abdominal pain] 09-02-2023 Episodic Adjustment disorders (5 sources) Reactive depression (situational); Translations: [Adjustment disorder with depressed mood] 09-02-2023 Chronic Esophageal disorders (20 sources) Akers's esophagus without dysplasia; Translations: [Gastro-esophageal reflux disease without esophagitis] Onset: 09-08-2022 09-02-2023 Chronic Immunizations and screening for infectious disease (5 sources) Anti-nuclear factor positive; Translations: [Other specified abnormal immunological findings in serum] 09-02-2023 Episodic Inflammation; infection of eye (except that caused by tuberculosis or sexually transmitteddisease) (5 sources) Blepharitis; Translations: [Unspecified blepharitis unspecified eye, unspecified eyelid] 09-02-2023 Episodic Malaise and fatigue (5 sources) Fatigue; Translations: [Other fatigue] 09-02-2023 Episodic Mycoses (1 source) Tinea unguium; Translations: [Tinea unguium] Onset: 08-07-2024 Episodic Noninfectious gastroenteritis (6 sources) Inflammatory bowel disease; Translations: [Noninfective gastroenteritis and colitis, unspecified] Onset: 11-16-2024 09-02-2023 Episodic Osteoarthritis (10 sources) Arthritis; Translations: [Unspecified osteoarthritis, unspecified site] 07-30-2020 Chronic Other connective tissue disease (5 sources) Ganglion cyst; Translations: [Ganglion, unspecified site] [...] foot] Onset: 07-03-2024 Episodic Other gastrointestinal disorders (5 sources) Diarrhea; Translations: [Diarrhea, unspecified] 09-02-2023 Episodic Other hereditary and degenerative nervous system conditions (5 sources) Restless legs; Translations: [Restless legs syndrome] 09-02-2023 Chronic Other lower respiratory disease (1 source) Other forms of dyspnea; Translations: [RG (dyspnea on exertion)] Onset: 09-08-2022 Episodic Other non-traumatic joint disorders (2 sources) [...] Chronic Other nutritional; endocrine; and metabolic disorders (5 sources) Morbid obesity; Translations: [Morbid (severe) obesity due to excess calories] 09-02-2023 Chronic Other nutritional; endocrine; and metabolic disorders (1 source) Morbid (severe) obesity due to excess calories; Translations: [Morbid (severe) obesity due to excess calories] Onset: 11-23-2023 Chronic Other skin disorders (10 sources) Tattoo granuloma; Translations: [Foreign body granuloma of the skin and subcutaneous tissue] 09-27-2020 Episodic Comment on above: right lateral leg by ankle Regional enteritis and ulcerative colitis (13 sources) Crohn's disease; Translations: [Crohn's disease, unspecified, without complications] Onset: 10-12-2024 04-17-2024 Chronic Residual codes; unclassified (1 source) Tobacco use; Translations: [Tobacco use] Onset: 08-23-2022 Episodic Residual codes; unclassified (5 sources) Insomnia; Translations: [Insomnia, unspecified] 09-02-2023 Episodic Rheumatoid arthritis and related disease (20 sources) Rheumatoid arthritis; Translations: [Rheumatoid arthritis, unspecified] Onset: 12-15-2023 10-06-2023 Chronic Spondylosis; intervertebral disc disorders; other back problems (1 source) Spondylosis without myelopathy or radiculopathy, cervical region; Translations: [SPONDYLOSIS W/O MYELOPATHY OR RADICULOPATHY, CERVICAL REGION] Onset: 03-21-2017 Chronic Spondylosis; intervertebral disc disorders; other back problems (5 sources) Back problem; Translations: [Dorsopathy, unspecified] 07-30-2020 Episodic Substance-related disorders (5 sources) Smoker; Translations: [Nicotine dependence, unspecified, uncomplicated] 09-27-2020 Chronic Past or Other Problems Problem Classification Problem Date Documented Date Episodic/Chronic Administrative/social admission (1 source) Encounter for other administrative examinations; Translations: [ENCOUNTER FOR OTHER ADMINISTRATIVE EXAMINATIONS] Onset: 03-21-2017 Episodic Cardiac dysrhythmias (1 source) Palpitations; Translations: [Palpitations] Onset: 11-23-2023 Episodic Other screening for suspected conditions (not mental disorders or infectious disease) (2 sources) Encounter for screening for diseases of the blood and blood-forming organs and certain disorders involving the immune mechanism; Translations: [Encounter for screening for lipoid disorders] Onset: 11-23-2023 Episodic Results Test Name Value Interpretation Reference Range Facility Hepatitis Panel Acuteon - COMMENT Comment Normal . [facility] Comment on above: Result Comment: Not infected with HCV unless early or acute infection is suspected (which may be delayed in an immunocompromised individual), or other evidence exists to indicate HCV infection. Performed at: [facility] [address] [id number] Voice Intercept Technician: Dionicio Buenrostro PhD, Phone: [phone] Performed By: #### L 100.0100, L101.9900, L501.6710, L3400.8000, L3000.0375, L500.4050 ####[facility] [address] [place], [place], [id number] HEP B CORE,IgM Negative Normal Negative [facility] Comment on above: Performed By: #### L 100.0100, L101.9900, L501.6710, L3400.8000, L3000.0375, L500.4050 ####[facility] [address] [place], [place], [id number] HEP B SURF AG Negative Normal Negative [facility] Comment on above: Performed By: #### L 100.0100, L101.9900, L501.6710, L3400.8000, L3000.0375, L500.4050 ####[facility] [address] [place], [place], [id number] HEP C VIRUS AB Non-Reactive Normal Non Reactive [facility] Comment on above: Performed By: #### L 100.0100, L101.9900, L501.6710, L3400.8000, L3000.0375, L500.4050 ####[facility] [address] [place], [address] HEPATITIS A-IgM Negative Normal Negative [facility] Comment on above: Result Comment: A ne gative anti-HAV IgM result suggests no recent or current HAV infection. Performed By: #### L 100.0100, L101.9900, L501.6710, L3400.8000, L3000.0375, L500.4050 ####[facility] [address] [place], [address] Quantiferon TB-Gold+on 08-28 QFT MITOGEN SHANTEL TNP Normal . [facility] Comment on above: Result Comment: Test not performed Performed By: #### L 100.0100, L101.9900, L501.6710, L3400.8000, L3000.0375, L500.4050 ####[facility] [address] [place], [address] QFT NIL VALUE TNP Normal . [facility] Comment on above: Result Comment: Test not performed Performed By: #### L 100.0100, L101.9900, L501.6710, L3400.8000, L3000.0375, L500.4050 ####[facility] [address] [place], [address] QFT TB GOLD+ Comment Normal . [facility] Comment on above: Result Comment: [...] L 100.0100, L101.9900, L501.6710, L3400.8000, L3000.0375, L500.4050 ####[facility] [address] [place], [address] QFT TB POS CRIT TNP Normal . [facility] Comment on above: Result Comment: [...] L 100.0100, L101.9900, L501.6710, L3400.8000, L3000.0375, L500.4050 ####[facility] [address] [place], [address] QFT TB1+ AG SHANTEL TNP Normal . [facility] Comment on above: Result Comment: Test not performed Performed By: #### L 100.0100, L101.9900, L501.6710, L3400.8000, L3000.0375, L500.4050 ####[facility] [address] [place], [address] QFT TB2+ AG SHANTEL TNP Normal . [facility] Comment on above: Result Comment: Test not performed Performed By: #### L 100.0100, L101.9900, L501.6710, L3400.8000, L3000.0375, L500.4050 ####[facility] [address] [place], [address] Absolute lymphocyte countOrd ered By: Nirmala Johnson on 08-24-2024 Lymphocytes Auto (Unsp spec) [#/Vol] 2.38 10*3/uL 0.83-4.51 [facility] Absolute neutrophil countOrd ered By: Nirmala Johnson on 08-24-2024 Neutrophils (Bld) [#/Vol] 8.9 10*3/uL High 2.0-7.7 [facility] Anion gap in Serum or Plasma Ordered By: Nirmala Johnson on 08-24-2024 Anion gap [Moles/Vol] 12 mmol/L 5-15 [facility] Automated lymphocyte count a s percentage of total leukocytesOrdered By: Nirmala Johnson on 08-24-2024 Lymphocytes/100 WBC Auto (Unsp spec) 19.3 % 19-41 [facility] BUN/creatinine ratioOrdered By: Nirmala Johnson on 08-24-2024 Urea nitrogen/Creatinine [Mass ratio] 21.4 mg/mg High 10-20 [facility] Basophil percentageOrdered B y: Nirmala Johnson on 08-24-2024 Basophils/100 WBC (Bld) 0.3 % 0-1 [facility] Bilirubin, totalOrdered By: Nirmala Johnson on 08-24-2024 Bilirubin [Mass/Vol] 0.24 mg/dL 0.00-1.30 [facility] CBC W/Diff, Automatedon 07-30 Absolute Lymph 2.38 X10 3/uL Normal 0.83-4.51 [facility] Comment on above: Performed By: #### L 100.0100, L101.9900, L501.6710, L3400.8000, L3000.0375, L500.4050 ####[facility] [address] [place], [address] Absolute Neut 8.9 X10 3/uL High 2.0-7.7 [facility] Comment on above: Performed By: #### L 100.0100, L101.9900, L501.6710, L3400.8000, L3000.0375, L500.4050 ####[facility] [address] [place], [address] Basophils/100 WBC (Bld) 0.3 % Normal 0-1 [facility] Comment on above: Performed By: #### L 100.0100, L101.9900, L501.6710, L3400.8000, L3000.0375, L500.4050 ####[facility] [address] [place], [address] Eosinophils/100 WBC (Bld) 1.2 % Normal 0-5 [facility] Comment on above: Performed By: #### L 100.0100, L101.9900, L501.6710, L3400.8000, L3000.0375, L500.4050 ####[facility] [address] [place], [address] Erythrocyte distribution width (RBC) [Ratio] 15.6 % High 11.6-14.6 [facility] Comment on above: Performed By: #### L 100.0100, L101.9900, L501.6710, L3400.8000, L3000.0375, L500.4050 ####[facility] [address] [place], [address] Hematocrit (Bld) [Volume fraction] 44.1 % Normal 37-47 [facility] Comment on above: Performed By: #### L 100.0100, L101.9900, L501.6710, L3400.8000, L3000.0375, L500.4050 ####[facility] [address] [place], [address] Hemoglobin (Bld) [Mass/Vol] 14.7 g/dL Normal 12.0-15.0 [facility] Comment on above: Performed By: #### L 100.0100, L101.9900, L501.6710, L3400.8000, L3000.0375, L500.4050 ####[facility] [address] [place], [address] IG% 0.400 Normal 0.0-0.9 [facility] Comment on above: Result Comment: IG% - Immature Granulocytes (promyelocytes, myelocytes and metamyelocytes) > 1% indicates that a LEFT SHIFT is Present. Performed By: #### L 100.0100, L101.9900, L501.6710, L3400.8000, L3000.0375, L500.4050 ####[facility] [address] [place], [address] Lymphocytes/100 WBC (Bld) 19.3 % Normal 19-41 [facility] Comment on above: Performed By: #### L 100.0100, L101.9900, L501.6710, L3400.8000, L3000.0375, L500.4050 ####[facility] [address] [place], [address] MCH (RBC) [Entitic mass] 26.2 pg Low 27.0-32.0 [facility] Comment on above: Performed By: #### L 100.0100, L101.9900, L501.6710, L3400.8000, L3000.0375, L500.4050 ####[facility] [address] [place], [address] MCHC (RBC) [Mass/Vol] 33.3 g/dL Normal 32-36 [facility] Comment on above: Performed By: #### L 100.0100, L101.9900, L501.6710, L3400.8000, L3000.0375, L500.4050 ####[facility] [address] [place], [address] MCV (RBC) [Entitic vol] 78.6 fL Low 81-99 [facility] Comment on above: Performed By: #### L 100.0100, L101.9900, L501.6710, L3400.8000, L3000.0375, L500.4050 ####[facility] [address] [place], [address] Monocytes/100 WBC (Bld) 6.6 % Normal 0-10 [facility] Comment on above: Performed By: #### L 100.0100, L101.9900, L501.6710, L3400.8000, L3000.0375, L500.4050 ####[facility] [address] [place], [address] Neutrophils/100 WBC (Bld) 72.2 % High 47-70 [facility] Comment on above: Performed By: #### L 100.0100, L101.9900, L501.6710, L3400.8000, L3000.0375, L500.4050 ####[facility] [address] [place], [address] Nucleated RBC (Bld) [#/Vol] 0 10*3/uL Normal 0-5 [facility] Comment on above: Performed By: #### L 100.0100, L101.9900, L501.6710, L3400.8000, L3000.0375, L500.4050 ####[facility] [address] [place], [address] Platelet mean volume (Bld) [Entitic vol] 8.4 fL Normal 6.2-12.0 [facility] Comment on above: Performed By: #### L 100.0100, L101.9900, L501.6710, L3400.8000, L3000.0375, L500.4050 ####[facility] [address] [place], [address] Platelets (Bld) [#/Vol] 411 10*3/uL Normal 150-450 [facility] Comment on above: Performed By: #### L 100.0100, L101.9900, L501.6710, L3400.8000, L3000.0375, L500.4050 ####[facility] [address] [place], [address] RBC (Bld) [#/Vol] 5.61 10*6/uL High 4.2-5.4 [facility] Comment on above: Performed By: #### L 100.0100, L101.9900, L501.6710, L3400.8000, L3000.0375, L500.4050 ####[facility] [address] [place], [address] RDW SD 44.3 fl High 35.1-43.9 [facility] Comment on above: Performed By: #### L 100.0100, L101.9900, L501.6710, L3400.8000, L3000.0375, L500.4050 ####[facility] [address] [place], [address] WBC (Bld) [#/Vol] 12.3 10*3/uL High 4.4-11.0 [facility] Comment on above: Performed By: #### L 100.0100, L101.9900, L501.6710, L3400.8000, L3000.0375, L500.4050 ####[facility] [address] [place], [address] CRPon 08-24-2024 C-REACTIVE PROT 11.20 mg/L High 0.0-3.0 [facility] Comment on above: Performed By: #### L 100.0100, L101.9900, L501.6710, L3400.8000, L3000.0375, L500.4050 ####[facility] [address] [place], [address] Carbon dioxide, total [Moles /volume] in Central venous bloodOrdered By: Nirmala Johnson on 08-24-2024 CO2 [Moles/Vol] 20.4 mmol/L Low 21.0-32.0 [facility] Chloride assayOrdered By: Debby Johnson on 08-24-2024 Chloride [Moles/Vol] 102 mmol/L 98-108 [facility] Comprehensive Metabolic Prof ilon 08-24-2024 Albumin [Mass/Vol] 3.8 g/dL Normal 3.5-5.0 [facility] Comment on above: Performed By: #### L 100.0100, L101.9900, L501.6710, L3400.8000, L3000.0375, L500.4050 ####[facility] [address] [place], [address] Albumin/Globulin [Mass ratio] 0.9 {ratio} Normal 0.9-2.4 [facility] Comment on above: Performed By: #### L 100.0100, L101.9900, L501.6710, L3400.8000, L3000.0375, L500.4050 ####[facility] [address] [place], [address] ALK PHOS 105 U/L High 35-104 [facility] Comment on above: Performed By: #### L 100.0100, L101.9900, L501.6710, L3400.8000, L3000.0375, L500.4050 ####[facility] [address] [place], [address] ALT [Catalytic activity/Vol] 14 U/L Normal <=34 [facility] Comment on above: Performed By: #### L 100.0100, L101.9900, L501.6710, L3400.8000, L3000.0375, L500.4050 ####[facility] [address] [place], [address] AST [Catalytic activity/Vol] 19 U/L Normal <=31 [facility] Comment on above: Performed By: #### L 100.0100, L101.9900, L501.6710, L3400.8000, L3000.0375, L500.4050 ####[facility] [address] [place], [address] Bilirubin [Mass/Vol] 0.24 mg/dL Normal 0.00-1.30 [facility] Comment on above: Performed By: #### L 100.0100, L101.9900, L501.6710, L3400.8000, L3000.0375, L500.4050 ####[facility] [address] [place], [address] BUN/CRE 21.4 RATIO High 10-20 [facility] Comment on above: Performed By: #### L 100.0100, L101.9900, L501.6710, L3400.8000, L3000.0375, L500.4050 ####[facility] [address] [place], [address] Calcium [Mass/Vol] 9.4 mg/dL Normal 7.6-11.0 [facility] Comment on above: Performed By: #### L 100.0100, L101.9900, L501.6710, L3400.8000, L3000.0375, L500.4050 ####[facility] [address] [place], [address] Chloride [Moles/Vol] 102 mmol/L Normal 98-108 [facility] Comment on above: Performed By: #### L 100.0100, L101.9900, L501.6710, L3400.8000, L3000.0375, L500.4050 ####[facility] [address] [place], [address] CO2 [Moles/Vol] 20.4 mmol/L Low 21.0-32.0 [facility] Comment on above: Performed By: #### L 100.0100, L101.9900, L501.6710, L3400.8000, L3000.0375, L500.4050 ####[facility] [address] [place], [address] Creatinine [Mass/Vol] 0.65 mg/dL Low 0.70-1.20 [facility] Comment on above: Performed By: #### L 100.0100, L101.9900, L501.6710, L3400.8000, L3000.0375, L500.4050 ####[facility] [address] [place], [address] GAP 12 Normal 5-15 [facility] Comment on above: Performed By: #### L 100.0100, L101.9900, L501.6710, L3400.8000, L3000.0375, L500.4050 ####[facility] [address] [place], [address] GFR/1.73 sq M.predicted among non-blacks MDRD (S/P/Bld) [Vol rate/Area] 103 mL/min/{1.73_m2} Normal >60 [facility] Comment on above: Result Comment: mL/m in/1.73m2 CKD-EPI Creatinine Equation (2020) Performed By: #### L 100.0100, L101.9900, L501.6710, L3400.8000, L3000.0375, L500.4050 ####[facility] [address] [place], [address] Globulin (S) [Mass/Vol] 4.4 g/dL High 2.2-4.2 [facility] Comment on above: Performed By: #### L 100.0100, L101.9900, L501.6710, L3400.8000, L3000.0375, L500.4050 ####[facility] [address] [place], [address] Glucose [Mass/Vol] 94 mg/dL Normal 70-99 [facility] Comment on above: Performed By: #### L 100.0100, L101.9900, L501.6710, L3400.8000, L3000.0375, L500.4050 ####[facility] [address] [place], [address] Potassium [Moles/Vol] 4.4 mmol/L Normal 3.3-5.1 [facility] Comment on above: Performed By: #### L 100.0100, L101.9900, L501.6710, L3400.8000, L3000.0375, L500.4050 ####[facility] [address] [place], [address] Sodium [Moles/Vol] 134 mmol/L Normal 133-145 [facility] Comment on above: Performed By: #### L 100.0100, L101.9900, L501.6710, L3400.8000, L3000.0375, L500.4050 ####[facility] [address] [place], [address] T PROT 8.2 g/dL Normal 5.9-8.4 [facility] Comment on above: Performed By: #### L 100.0100, L101.9900, L501.6710, L3400.8000, L3000.0375, L500.4050 ####[facility] [address] [place], [address] Urea nitrogen [Mass/Vol] 14 mg/dL Normal 4-19 [facility] Comment on above: Performed By: #### L 100.0100, L101.9900, L501.6710, L3400.8000, L3000.0375, L500.4050 ####[facility] [address] [place], [address] Eosinophil percentageOrdered By: Nirmala Johnson on 08-24-2024 Eosinophils/100 WBC (Bld) 1.2 % 0-5 [facility] Erythrocyte Sed Rateon 08-24 SED RATE 44 mm/hr High 0-30 [facility] Comment on above: Performed By: #### L 100.0100, L101.9900, L501.6710, L3400.8000, L3000.0375, L500.4050 ####[facility] [address] [place], [address] Erythrocyte distribution wid th ratioOrdered By: Nirmala Johnson on 08-24-2024 Erythrocyte distribution width (RBC) [Ratio] 15.6 % High 11.6-14.6 [facility] Erythrocyte distribution wid th standard deviationOrdered By: Nirmala Johnson on 08-24-2024 Erythrocyte distribution width (RBC) [Ratio] 44.3 fl High 35.1-43.9 [facility] Erythrocyte sedimentation ra teOrdered By: Nirmala Johnson on 08-24-2024 ESR (Bld) [Velocity] 44 mm/h High 0-30 [facility] Gastroenterology Visit Repor ton 08-24-2024 Gastroenterology Visit Report [facility] Gastroenterology [address] [place] [address] OFFICE VISIT Date of Service: 08/24/24 MR#: [id number] Acct: [id number] Name: TAD GRANT Rep #: [id number] : 1970 Provider: BEVERLEY Elena Age/Sex: 54/F Location: [facility] Status: Signed Intake Vital Signs 07/27/24 09:14 [...] 90 mcg/actuation 2 puff inhalation Q4-6H PRN 07/0 07/2106/26/24 History aerosol inhaler shortness of breath or [...] abdominal pain, gas, bloating, and difficulty swallowing. [facility] Medical History Post-menopausal No natural teeth Depression [...] the office today for f/u. BGI established 8.14.24 with long hc of acid reflux and [...] other times. (more content not included)... Normal [facility] Glomerular filtration rate ( GFR) estimation/1.73 sq m using serum, plasma, or whole bOrdered By: Nirmala Johnson on 08-24-2024 GFR/1.73 sq M.predicted among non-blacks MDRD (S/P/Bld) [Vol rate/Area] 103 mL/min/{1.73_m2} >60 [facility] Comment on above: mL/min/1.73m2 CKD-EP I Creatinine Equation (2020) Hematocrit Auto (Bld) [Volum e fraction]Ordered By: Nirmala Johnson on 08-24-2024 Hematocrit (Bld) [Volume fraction] 44.1 % 37-47 [facility] Hemoglobin measurementOrdere d By: Nirmala Johnson on 08-24-2024 Hemoglobin (Bld) [Mass/Vol] 14.7 g/dL 12.0-15.0 [facility] Immature granulocytes/100 WB C Auto (Bld)Ordered By: Nirmala Johnson on 08-24-2024 Immature granulocytes/100 WBC (Bld) 0.400 % 0.0-0.9 [facility] Comment on above: IG% - Immature Granu locytes (promyelocytes, myelocytes and metamyelocytes) > 1% indicates that a LEFT SHIFT is Present. Laboratory - Chemistry and C hemistry - challengeOrdered By: Nirmala Johnson on 08-24-2024 AST [Catalytic activity/Vol] 19 U/L <32 [facility] MCV (mean corpuscular volume ) determinationOrdered By: Nirmala Johnson on 08-24-2024 MCV (RBC) [Entitic vol] 78.6 fL Low 81-99 [facility] Mean corpuscular hemoglobin (MCH) determinationOrdered By: Nirmala Johnson on 08-24-2024 MCH (RBC) [Entitic mass] 26.2 pg Low 27.0-32.0 [facility] Mean corpuscular hemoglobin concentration (MCHC) determinationOrdered By: Nirmala Johnson on 08-24-2024 MCHC (RBC) [Mass/Vol] 33.3 g/dL 32-36 [facility] Mean platelet volume determi nationOrdered By: Nirmala Johnson on 08-24-2024 Platelet mean volume (Bld) [Entitic vol] 8.4 fL 6.2-12.0 [facility] Monocyte percentageOrdered B y: Nirmala Johnson on 08-24-2024 Monocytes/100 WBC (Bld) 6.6 % 0-10 [facility] Neutrophil percentageOrdered By: Nirmala Johnson on 08-24-2024 Neutrophils/100 WBC (Bld) 72.2 % High 47-70 [facility] No Panel InformationOrdered By: Nirmala Johnson on 08-24-2024 Hepatitis C Antibody Comment Comment . [facility] Comment on above: Not infected with HC V unless early or acute infection issuspected (which may be delayed in an immunocompromisedindividual), or other evidence exists to indicate HCVinfection.Performed at: [facility] [id number] Director: Dionicio Buenrostro PhD, Phone: [phone] Nucleated red blood cell per centageOrdered By: Nirmala Johnson on 08-24-2024 Nucleated RBC/100 WBC (Bld) [Ratio] 0 % 0-5 [facility] Platelet countOrdered By: Debby Johnson on 08-24-2024 Platelets (Bld) [#/Vol] 411 10*3/uL 150-450 [facility] Potassium measurement (mass/ volume)Ordered By: Nirmala Johnson on 08-24-2024 Potassium (Unsp spec) [Mass/Vol] 4.4 mmol/L 3.3-5.1 [facility] Qualitative QuantiFERON-TB g old in tube testOrdered By: Nirmala Johnson on 08-24-2024 M. tuberculosis tuberculin stim IFN-g Ql (Bld) TNP [facility] Comment on above: Test not performedTe st not performed RBC Auto (Bld) [#/Vol]Ordere d By: Nirmala Johnson on 08-24-2024 RBC (Bld) [#/Vol] 5.61 10*6/uL High 4.2-5.4 [facility] Serum creatinine measurement (mass/volume)Ordered By: iNrmala Johnson on 08-24-2024 Creatinine [Mass/Vol] 0.65 mg/dL Low 0.70-1.20 [facility] Serum globulin measurementOr dered By: Nirmala Johnson on 08-24-2024 Globulin (S) [Mass/Vol] 4.4 g/dL High 2.2-4.2 [facility] Serum glucose measurement (m ass/volume)Ordered By: Nirmala Johnson on 08-24-2024 Glucose [Mass/Vol] 94 mg/dL 70-99 [facility] Serum or plasma C reactive p rotein measurement (mass/volume)Ordered By: Nirmala Johnson on 08-24-2024 CRP [Mass/Vol] 11.20 mg/L High 0.0-3.0 [facility] Serum or plasma alanine arnold otransferase (ALT) measurementOrdered By: Nirmala Johnson on 08-24-2024 ALT [Catalytic activity/Vol] 14 U/L <35 [facility] Serum or plasma albumin alexandria urement (mass/volume)Ordered By: Nirmala Johnson on 08-24-2024 Albumin [Mass/Vol] 3.8 g/dL 3.5-5.0 [facility] Serum or plasma albumin/glob ulin mass ratioOrdered By: Nirmala Johnson on 08-24-2024 Albumin/Globulin [Mass ratio] 0.9 {ratio} 0.9-2.4 [facility] Serum or plasma alkaline floridalma sphatase measurementOrdered By: Nirmala Johnson on 08-24-2024 ALP [Catalytic activity/Vol] 105 U/L High 35-104 [facility] Serum or plasma calcium alexandria urement (mass/volume)Ordered By: Nirmala Johnson on 08-24-2024 Calcium [Mass/Vol] 9.4 mg/dL 7.6-11.0 [facility] Serum or plasma hepatitis B virus surface antigen detection by immunoassayOrdered By: Nirmala Johnson on 08-24-2024 HBV surface Ag IA Ql Negative Negative [facility] Serum or plasma urea nitroge n measurement (mass/volume)Ordered By: Nirmala Johnson on 08-24-2024 Urea nitrogen [Mass/Vol] 14 mg/dL 4-19 [facility] Sodium levelOrdered By: Yenny Johnson on 08-24-2024 Sodium [Moles/Vol] 134 mmol/L 133-145 [facility] Total proteinOrdered By: Nessa Johnson on 08-24-2024 Protein [Mass/Vol] 8.2 g/dL 5.9-8.4 [facility] White blood cell (WBC) count Ordered By: Nirmala Johnson on 08-24-2024 WBC (Bld) [#/Vol] 12.3 10*3/uL High 4.4-11.0 [facility] No Panel Informationon 07-03 1. Diffuse soft [...] acute osseous finding 3. Calcaneal spur formation [facility] No Panel InformationOrdered By: Mike Swan on 07-03-2024 [employer] Work Phone: XR ANKLE LEFT 3 VIEW [...] approx 2.5 weeks ago. no injury Normal [facility] XR Ankle - left 3 [facility] Study observation (narrative) [employer] XR FOOT LEFT MIN 3 VIEW [...] approx 2.5 weeks ago. no injury Normal [facility] XR Foot - left 3 [facility] Study observation (narrative) [facility] Gastroenterology Visit Repor ton 05-04-2024 Gastroenterology Visit Report [facility] Gastroenterology [address] [place] [address] OFFICE VISIT Date of Service: 05/04/24 MR#: [id number] Acct: [id number] Name: TAD GRANT Rep #: [id number] : 1970 Provider: BEVERLEY Elena Age/Sex: 54/F Location: [facility] Status: Signed Intake Vital Signs 03/19/24 [...] disintegrating 4 mg PO Q8H #20 tabs 03/06/2409/21 Rx tablet trazodone 100 mg tablet 100 mg PO QHS 03/19/24 03/19/24 Hi story ondansetron 4 mg disintegrating 4 mg PO Q8H #20 tabs 05/04/2409/21 Rx tablet tizanidine 4 mg capsule 4 mg PO QHS PRN 05/04/24 05/04/24 History Have you fallen in the past year?: No Nurse's Note: OV 05.04.24 Pt here for f/u. Pt reports constipation, diarrhea, abdominal pain, difficultly swallowing, and nausea. Pt continues pantoprazole, ondansetron, and famotidine daily. [facility] Medical History Post-menopausal No natural teeth Depression [...] therapy first. Pt started on mesalamine. OV 3.09.21 Pt continues with diarrhea at least 4 times per day and some mild constipation on occasion. She continues to have joint pain relating to her uncontrolled RA. Exam Const General: cooperative and comfortable (more content not included)... Normal [facility] Enterography Abd/Dinh 03-19 Enterography Abd/Pel [facility] [address] [place] [address] Enterography Abd/Pel MR#: [id number] Acct: [id number] Name: TAD GRANT Rep #: [id number] : 1970 F 54 From: Jaziel Salamanca PCP: JANEE DarlingC Status: REG CLI Study: Enterography Abd/Pel Date of Exam: 03/19/24 Exam# [id number] Ordering Dr: Nirmala Johnson [id number] EXAM: MR ABDOMEN AND PELVIS WITHOUT AND WITH INTRAVENOUS CONTRAST CLINICAL INDICATION: K52.9 - Noninfective gastroenteritis and colitis, unspecified TECHNIQUE: Multiplanar and multisequence MR images of the abdomen and pelvis without and with intravenous contrast. CONTRAST: 18 cc of Clariscan IV. Water was given as oral contrast. COMPARISON: CT scan of the abdomen and pelvis dated 09/17/2023 performed at [facility] in [facility]. FINDINGS: LOWER THORAX: Unremarkable. No pleural effusion. [...] EST , CC: JOMAR Doyle; BEVERLEY Elena Dispatcher Service Or Work: Signed Normal [facility] QUANTIFERON TB INCUBATED [CC L]on 01-12-2024 Mitogen minus Nil >9.92 Normal >=0.50 [facility] Comment on above: Performed By: #### 2 72911 #### [facility],[address] [place] [address] TB Gamma Interpretation Infection with M. tuberculosis complex is unlikely. If latent tuberculosis infec Normal [facility] Comment on above: Result Comment: [address] [place] [address] Chaz Ann III, M.D. [id number] Performed By: #### 2 44647 #### [facility],[address] [place] [address] TB NIL 0.08 IU/mL Normal <=8.00 [facility] Comment on above: Performed By: #### 2 83620 #### [facility],[address] [place] [address] TB Result Negative Normal [facility] Comment on above: Performed By: #### 2 37791 #### [facility],[address] [place] [address] TB1 Ag minus Nil 0.05 IU/mL Normal <0.35 [facility] Comment on above: Performed By: #### 2 78069 #### [facility],[address] [place] [address] TB2 Ag minus Nil 0.02 IU/mL Normal <0.35 [facility] Comment on above: Performed By: #### 2 79430 #### [facility],[address] [place] [address] HEPATITIS ACUTE PANEL [CCL]o n 01-11-2024 RESULT CRITICAL? NO Normal [facility] Comment on above: Performed By: #### 2 67720 #### [facility],[address] [place] [address] Hep B Core Ab, IgM Negative Normal Negative [facility] Comment on above: Result Comment: No e vidence of recent infection with Hepatitis B virus. Should recent infection be suspected, repeat testing may be considered 3-4 weeks after this draw. Performed By: #### 2 43821 #### [facility],[address] [place] [address] Hepatitis A Ab IgM Negative Normal Negative [facility] Comment on above: Result Comment: No e vidence of recent infection with Hepatitis A virus. Performed By: #### 2 78342 #### [facility],[address] [place] [address] Hepatitis B Surf. Ag Negative Normal Negative [facility] Comment on above: Result Comment: [facility] [address] [place] [address] Chaz Ann III, M.D. [id number] Performed By: #### 2 29319 #### [facility],[address] [place] [address] Hepatitis C Ab IA Negative Normal Negative [facility] Comment on above: Result Comment: The result suggests no evidence of active infection with Hepatitis C virus. Should recent infection be suspected, repeat testing may be considered 4-6 weeks after this draw. Performed By: #### 2 20642 #### [facility],[address] [place], [place] [address] Gastroenterology Visit Repor ton 12-15-2023 Gastroenterology Visit Report [facility] Gastroenterology [address] [place] [address] OFFICE VISIT Date of Service: 12/15/23 MR#: [id number] Acct: [id number] Name: TAD GRANT Rep #: [id number] : 1970 Provider: BEVERLEY Elena Age/Sex: 53/F Location: [facility] Status: Signed Intake Vital Signs 11/28/23 06:31 [...] April or May of this year in [place]. Colonoscopy 11.28.23; The entire examined colon is [...] Const Constitutional (more content not included)... Normal [facility] Plastic Surgery Visit Report on 12-15-2023 Plastic Surgery Visit Report [facility] Plastic Reconstructive Surgery [address], [address] [place] [address] OFFICE VISIT Date of Service: 12/15/23 MR#: [id number] Acct: [id number] Name: TAD GRANT Rep #: [id number] : 1970 Provider: Dr. Som Martinez MD Age/Sex: 53/F Location: [facility] Status: Signed Intake Vital Signs 3 [...] forearm nodule Is patient in pain?: Yes (5/10) Allergies Gadolinium-MRI Contrast Medium (contrast dye) Allergy [...] She is still waiting to see a senior java programmer analyst but has the blood work scheduled in anticipation of a future appointment. Objective Details: Left proximal forearm incisions clean dry and intact. Small amount of Monocryl suture removed today in clinic. Coding Level of Care Code Off vis,est,level 2 Diagnoses Rheumatoid nodules M06.30 [facility] Medical History Post-menopausal No natural teeth Depression [...] decreased/shrunk. Follow-up as needed 12/15/23 1103 Date Som Martinez MD [facility] Signature: Date (if applicable) CC: Normal [facility] Colonoscopy Reporton 024 Colonoscopy Report [facility] Medical Records Department [address] [place] [address] Colonoscopy Report MR#: [id number] Acct: [id number] Name: TAD GRANT Rep #: [id number] : 1970 53 From: Austin Nguyen DO PCP: JOMAR Darling Status:[facility] Patient Name: Tad Grant Procedure Date: 11/28/2023 7:00 AM Date of : 1970 Age: 53 Procedure: Colonoscopy Indications: Generalized abdominal pain, Clinically significant diarrhea of unexplained origin Providers: Austin Nguyen DO Referring MD: Jomar Darling Medicines: [...] Stelara therapy Procedure Code(s): --- Professional --- 18569, Colonoscopy, flexible; with biopsy, single or multiple CPT copyright 2021 [employer] [place] [employer]. All rights reserved. The codes documented in this report are preliminary and upon systems program manager review may be revised to meet current compliance requirements. Austin Nguyen DO 11/28/2023 7:44:51 AM This report has been signed electronically. Number of Addenda: 0 Note Initiated On: 11/28/2023 7:00 AM 11/28/23 07 Date Austin Nguyen DO Cosigner Signature: Date (if indicated) CC: NET DEVELOPER CONSULTANT-C Pan Doyle; Austin Nguyen DO Date Dictated: 11/28/23 0700 Date Transcribed: Dispatcher Service Or Work: BROOKE Signed [facility] MR/POSTOP.[facility] 11-28-2023 MR/POSTOP.[facility] Medical Records Department [address] [place] [address] Anesthesia Postop Eval I 11/28/23 0740 MR#: [id number] Acct: [id number] Name: TAD GRANT Rep #: [id number] : 1970 53 From: De Banuelos PCP: Pan Doyle, NET DEVELOPER CONSULTANTMikalaC Status:REG SDC Y Race: C Location: [place] [address] Anesthesia: Postop Eval I Current Vital Signs [...] De Caal Signature: Date CC: Signed Normal [facility] MR/SFUYWYQC3pn 11-28-2023 MR/POSTOPAN2 [facility] Medical Records Department [address] [place] [address] Anesthesia Postop Eval II 11/28/23833 MR#: [id number] Acct: [id number] Name: TAD GRANT Rep #: [id number] : 1970 53 From: Andrea Alamo MD PCP: Pan Doyle NP-C Status:[facility] Y Race: C Location: EN [...] Level: 0 nausea: No Vomiting: No 11/28/23833 Date Andrea Caal Signature: Date CC: Signed Normal [facility] Surgery Specimen Level Wan 11-28-2023 Surgery Specimen Level IV Patient Age/Sex Location Account Attending Physician COOL,CRYSTAL A 53/F EN [id number] Austin Nguyen DO Specimen: [id number] Received: 11/28/23 Status: TANIYA Kerr Num: [id number] Spec Type: COLON BX Subm Dr: Austin Friend, DO HEADER OPERATION: Colonoscopy with biopsy PRE-OP [...] totally submitted in one cassette. 11/28/2023 TC:2 CPT:18196 Patient Age/Sex Location Account Attending Physician TAD GRANT/F JENA [id number] Austin Nguyen DO Signed (signature on file) Dr. Sher Abrams MD 11/29/23 1228 Normal [facility] Comment on above: Performed By: #### P SUIV ####[facility] [address] [place], [place], [id number] Plastic Surgery Visit Report on 11-24-2023 Plastic Surgery Visit Report [facility] Plastic Reconstructive Surgery [address], [address] [place] [address] OFFICE VISIT Date of Service: 11/24/23 MR#: [id number] Acct: [id number] Name: TAD GRATN Rep #: [id number] : 1970 Provider: Dr. Som Martinez MD Age/Sex: 53/F Location: [facility] Status: Signed Intake Vital Signs 3 [...] c/d/i. No numbness/tingling on her forearms. PATHOLOGY [facility] DEPARTMENT OF LABORATORY SURGICAL PATHOLOGY REPORT [address] , [place], [place] [address] Page 1 of 2 The contents of this transmission are privileged, confidential and exempt from disclosure under applicable law. If you have received this information in error, call . TAD GRANT MR# [id number] Patient: TAD GRANT Age/Sex: 53/F Attend Dr: Alondra #: [id number] Unit #: [id number] Loc: LABSPEC : 1970 Status: REG CLI Facility: [facility] ___ Spec# :[id number] Spec Date: 11/17/[address]: Lyla Kwok, NET DEVELOPER CONSULTANT-C Spec Type: LES OPERATION: Excision left forearm [...] entire specimen is submitted in one cassette. DOMINIC.mr 11/18/2023 TC:5 CPT:12140e4,29201o9 Coding Level of Care Code Global Post Op Diagnoses Rheumatoid nodules M06.30 [facility] Medical History (Updated 11/24/23 @ 09:46 by [...] reaction to (more content not included)... Normal [facility] CERVICAL SP COMPLETE, 4 OR 5 VIEWSon 11-17-2023 CERVICAL SP COMPLETE, 4 OR [address] [address] Patient: TAD GRANT Phone#: : 1970 Age: 53 Gender: F Pt. Type: Out Account: [id number] Location: [facility] Ordering: PAN DOYLE Exam Date: 11/17/2023/8:35 Family Phys: Charge Code: [id number] Physician: Buchanan Order #: [id number] Dose#: PROCEDURE: X-RAY CERVICAL SPINE W/ AP, LATERAL, ODONTOID, AND OLBIQUES VIEWS COMPARISON: [facility], XR, CERVICAL SPINE COMPLETE, 07/29/2016, 10:10. INDICATIONS: [...] Piper MD on 11/17/2023 at 11:13 Normal [facility] XR SPINE LUMBOSACRAL 2 OR 3 [...] Sign Date: 09/30/2023 2:00:51 AM Ordering Provider: [facility] ([place]) Final Surgical Pathology Rep [facility] 05-06-2023 Final Surgical Pathology Report . Pathology Reports Accession: Collected Date/Time: Received Date/Time: Pathologist: [id number] 05/03/2023 11:20 EST 05/05/2023 08:07 MEGAN BRITTON [...] All parts labelled with patient name and [id number] A. Received in formalin labeled 36 cm [...] to 0.2 cm. TS-1 Elly Schumacher, Grossing Body Hanger/ Dr. Walter Stover, Pathologist Dictated by Elly Schumacher MICROSCOPIC DESCRIPTION: The microscopic examination is performed, except in the case of Gross Only. Electronically Signed by Pathology Report verified by [facility] MEGAN FORTE Sign out Date: 05/06/2023 13:07 Performing Lab: [facility], [address] [place] [address] Pathology Dept Disclaimer If ancillary studies were utilized, the following Laboratory Developed Test (LDT) disclaimer will apply: Pathology Reports Accession: Collected Date/Time: Received Date/Time: Pathologist: [id number] 05/03/2023 11:20 EST 05/05/2023 08:07 EST MEGAN FORTE MD Disclaimer Under CLIA requirements, [facility] Pathology Laboratory is qualified to perform high complexity testing. For all ancillary stains, positive and negative controls stain appropriately. Performance characteristics of immunohistochemical and chromogenic in-situ hybridization tests have been determined by [facility] Pathology Laboratory. These tests are used for clinical purposes, They should not be regarded as investigational or for research. Normal [facility] ([place]) [facility]2022 [facility] Telephone (AGGENS3) TAD GRANT ([id number]) 1970 F Date Time Provider Department 11/16/22 JAYANT EDWARDS3 During your visit today, we recorded the following information about you: Ambrocio Mckinnon 11/16/2022 10:36 AM Signed I JUST HAPPENED TO NOTICE THAT TAD GRANT CANCELED HER EGD PROCEDURE FOR TOMORROW VIA THE TEXT OPTION. FYI Allergies As of Date: 11/16/2022 (No Known Allergies) Date Reviewed: 09/08/2022 Reviewed by: Rosi Escobedo RN - Fully Assessed Reason for Visit: Surgery Cancelled [4163] Cmt: PT CANCEL EGD TOMORROW Prescriptions as [...] Encounter Status:Closed by AMBROCIO MCKINNON on 11/16/22 [facility] 10-07-2022 ALEXANDRA Telephone (AGGENS3) TAD GRANT ([id number]) 1970 F Date Time Provider Department 10/07/22 SARMADJAYANT MAGANA3 During your visit today, we recorded the [...] Encounter Status:Closed [facility] HER[facility] (AGGENS3) TAD GRANT ([id number]) 1970 F Date Time Provider Department 09/28/22 JAYANT EDWARDS AGGENS3 During your visit today, [...] and ask what dosage does she want Tad to be on after the 14 days. Patient said she did not realize the dose was increased and will call her PCP. Hermila Krause RN Allergies As of Date: 09/28/2022 (No Known Allergies) Date Reviewed: 09/08/2022 Reviewed by: Rosi Escobedo RN - Fully Assessed Reason for Visit: Patient Question [9950] Prescriptions as of 09/28/2022 - traZODone (DESYREL) [...] Encounter Status:Closed by HERMILA KRAUSE on 09/28/22 [facility] 09-16-2022 CNPN Telephone (AGGENS3) JEEVANTAD Trejo ([id number]) 1970 F Date Time Provider Department 09/16/22 JAYANT EDWARDS During your visit today, we [...] Encounter Status:Closed by HERMILA KRAUSE on 09/16/22 [facility] ANES POSTPROC EVALon 023 ANES POSTPROC EVAL HNO ID: [id number] Author: Nick Velez MD Service: Anesthesiology Author Type: Physician Type: Anesthesia Postprocedure Evaluation Filed: 09/09/2022 12:05 PM Note Text: POST ANESTHESIA EVALUATION NOTE : 1970 Procedure Summary Date: 09/08/22 Room / Location: [facility] Anesthesia Start: 1540 Anesthesia Stop: [...] September 09, 2022 TIME: 12:05 PM CSN: [id number] [facility] ANES PRE-OPon 09-08-2022 ANES PRE-OP HNO ID: [id number] Author: Nick Velez MD Service: Anesthesiology Author Type: Physician Type: Anesthesia Preprocedure Evaluation Filed: 09/08/2022 2:05 PM Note Text: ANESTHESIOLOGY DAY OF SURGERY NOTE : 1970 Procedure Information Date/Time: 09/08/22 1500 Scheduled providers: Jayant Edwards MD Procedure: EGD DIAGNOSTIC Location: [facility] Estimated body mass index is [...] and consent discussed: yes. Patient / Responsible Green Party agrees to proceed: yes Patient / [...] September 08, 2022 TIME: 2:01 PM CSN: [id number] Normal [facility] HISTORY PHYSICALon HISTORY PHYSICAL HNO ID: [id number] Author: BEVERLEY Ramirez Service: ? Author Type: Physician Rail Crew Member Type: HANDP Filed: 09/08/2022 2:46 PM Note Text: Summary: History and Physical HISTORY AND PHYSICAL EXAMINATION SERVICE DATE: 09/08/2022 SERVICE TIME: 2:00 PM Diagnosis: Akers's esophagus without dysplasia [K22.70] Gastroesophageal reflux disease without esophagitis [K21.9] Planned Procedure: EGD Planned Anesthetic: [facility] PRIMARY CARE PHYSICIAN: Pan Doyle APRN.CNP REASON FOR VISIT: The reason for this [...] BP 14 (more content not included)... Normal [facility] OPERATIVE NOon 09-08-2022 OPERATIVE NO HNO ID: [id number] Author: Jayant Edwards MD Service: General Surgery Author Type: Physician Type: Operative Report Filed: 09/08/2022 4:11 PM Note Text: OPERATIVE/PROCEDURE REPORT LOG ID: [id number] SURGERY/PROCEDURE DATE: 09/08/2022 INCISION/PROCEDURE START TIME: 3:52 PM INCISION CLOSE/PROCEDURE END TIME: 4:03 PM SURGEON(S)/PROCEDURALIST(S) AND CMM TECHNICIAN(S): Jayant Edwards MD - Proceduralist No Additional [...] September 08, 2022 TIME: 4:08 PM [facility] SURGICAL PATHOLOGYon 023 CASE REPORT [facility] Comment on above: Order Comment: Speci men Type: TISSUE SPECIMENOrdering Facility: [facility] Address: [address] [place] [address] Result Comment: Surg [facility] Pathology Report Case: [id number] Authorizing Provider: Jayant Edwards, Collected: 09/08/2022 03:57 PM Ordering Location: [facility] Received: 09/09/2022 10:08 AM Pathologist: Stacie Garcia MD Specimens: A) - ANTRUM (STOMACH) BIOPSY B) - ESOPHAGUS BIOPSY Performed By: #### S ####[facility] [id number] [address] FINAL DIAGNOSIS Normal [facility] Comment on above: Order Comment: Speci men Type: TISSUE SPECIMENOrdering Facility: [facility] Address: [address] [place] [address] Result Comment: A. G astric antrum, biopsies: - Mild chronic gastritis. B. Esophagus, biopsies: - Intestinal metaplasia, negative for dysplasia. Performed By: #### S ####[facility]ATORY[facility] [id number] [address] FINAL PERFORMING LAB Normal [facility] Comment on above: Order Comment: Speci men Type: TISSUE SPECIMENOrdering Facility: [facility] Address: [address] [place] [address] Result Comment: Diag nostic interpretation performed at [facility], [address] [place] [address] CLIA# [id number] Supervisor Fertilizer Processing: Isiah Almendarez M.D. Performed By: #### S ####[facility]ORY[facility] [id number] [address] GROSS DESCRIPTION Normal [facility] Comment on above: Order Comment: Speci men Type: TISSUE SPECIMENOrdering Facility: [facility] Address: [address] [place] [address] Result Comment: A. A NTRUM (STOMACH) BIOPSY [...] 2022 2:10 PM Gross examination performed at [facility], [address] [place] [address] CLIA# [id number] Performed By: #### S ####[facility]ATORYCLIA [id number] [place] [address] [facility] CNOVon 08-23-2022 CNOV Office Visit (AGGENS 3) TAD GRANT ([id number]) 1970 F Date Time Provider Department 08/23/22 [...] to exce (more content not included)... Normal [facility] TAD [facility] ([id number]) 1970 F Date Time Provider Department 07/29/22 JAYANT EDWARDS3 During your visit today, we recorded the following information about you: Hermila Krause, RN 07/29/2022 10:18 AM Signed Patient called [...] Fully Assessed Reason for Visit: Patient Question [2557] Prescriptions as of 07/29/2022 - ibuprofen (ADVIL) [...] Status:Closed by HERMILA KRAUSE on 07/29/22 [facility] Coronavirus 2019on 1 COVID 19 Result NET DEVELOPER CONSULTANT Normal Negative for COVID19 (SARS CoV2) by PCR. [facility] Comment on above: Result Comment: Nega tive for This test was developed and its performance characteristics determined by [facility]'s [facility] [place]. This test has been authorized by FDA [...] developed and its performance characteristics determined by [facility]'s [facility] [place]. This test has been authorized by FDA [...] developed and its performance characteristics determined by [facility]'s [facility] [place]. This test has been authorized by FDA under an Emergency Use Authorization (EUA). This test has been validated in accordance with the FDA's Guidance Document Policy for Diagnostics Testing in Laboratories Certified to Perform High Complexity Testing under CLIA prior to Emergency use Authorization for Coronavirus Disease 2019 during the Public Health Emergency issued on April 28, 2019. COVID 19 Source NET DEVELOPER CONSULTANT Normal [facility] Comment on above: Result Comment: Naso pharyngeal Corrected on 03/11 AT 2347: Previously reported as NASOPHARYNGEAL Swab Corrected on 03/11 AT 2347: Previously reported as NASOPHARYNGEAL Otheron 08-11-2016 CONVERTED CLINICAL HISTORY OPERATIVE PROCEDURE: EGD/RFA CLINICAL INFORMATION: Not given [facility] CONVERTED ELECTRONIC SIGNATURE STACIE GARCIA M.D., PATHOLOGIST (Electronic signature on file) Final Signed Out: 08/11/2016 17:09 [facility] CONVERTED FINAL DIAGNOSIS FINAL DIAGNOSIS: A) [...] This case has been evaluated at the [facility] and a separate concurring report is available. C) ESOPHAGUS AT 38 CM, EXCISION - SPECIALIZED INTESTINAL METAPLASIA WITH GOBLET CELLS AND ACID MUCIN PRODUCTION COMPATIBLE WITH AKERS'S ESOPHAGUS. NEGATIVE FOR DYSPLASIA. AB/PAS STAIN. [facility] CONVERTED GROSS DESCRIPTION GROSS DESCRIPTION: A) [...] submitted in C, levels x 3. AB/PAS. EL:[facility] CONVERTED ORDERING PROVIDER Ordering Provider: FEI EUCEDA [facility] Vital Signs Date Time Vital Sign Value Performing Clinician Facility 09-28-2024 13:04-0400 Diastolic blood pressure 86 mm[Hg] Pan Doyle NP-C Work Phone: [facility] 09-28-2024 13:04-0400 Heart rate 96 /min Pan Doyle NET DEVELOPER CONSULTANT-C Work Phone: [facility] 09-28-2024 13:04-0400 Systolic blood pressure 139 mm[Hg] Pan Doyle NET DEVELOPER CONSULTANT-C Work Phone: [facility] 09-28-2024 09:55-0400 Body height 167.64 cm Pan Doyle NET DEVELOPER CONSULTANT-C Work Phone: [facility] 09-28-2024 09:55-0400 Body mass index (BMI) [Ratio] 32.8 kg/m2 Pan Doyle NP-C Work Phone: [facility] 09-28-2024 09:55-0400 Body temperature 98 [degF] Pan Doyle NET DEVELOPER CONSULTANT-C Work Phone: [facility] 09-28-2024 09:55-0400 Body weight 92.44 kg Pan Doyle NET DEVELOPER CONSULTANT-C Work Phone: [facility] 09-28-2024 09:55-0400 Respiratory rate 16 /min Pan Doyle NET DEVELOPER CONSULTANT-C Work Phone: [facility] 09-28-2024 09:55-0400 SaO2% (BldA) [Mass fraction] 100 % Pan Doyle NET DEVELOPER CONSULTANT-C Work Phone: [facility] 07-27-2024 13:28-0400 Body temperature 97.4 [degF] Pan Doyle NET DEVELOPER CONSULTANT-C Work Phone: [facility] 07-27-2024 13:28-0400 Diastolic blood pressure 71 mm[Hg] Pan Doyle NET DEVELOPER CONSULTANT-C Work Phone: [facility] 07-27-2024 13:28-0400 Heart rate 86 /min Pan Doyle NET DEVELOPER CONSULTANT-C Work Phone: [facility] 07-27-2024 13:28-0400 Respiratory rate 16 /min Pan Doyle NET DEVELOPER CONSULTANT-C Work Phone: [facility] 07-27-2024 13:28-0400 SaO2% (BldA) [Mass fraction] 96 % Pan Doyle NET DEVELOPER CONSULTANT-C Work Phone: [facility] 07-27-2024 13:28-0400 Systolic blood pressure 120 mm[Hg] Pan Doyle NET DEVELOPER CONSULTANT-C Work Phone: [facility] 07-27-2024 09:14-0400 Body height 167.64 cm Pan Doyle NET DEVELOPER CONSULTANT-C Work Phone: [facility] 07-27-2024 09:14-0400 Body mass index (BMI) [Ratio] 32.3 kg/m2 Pan Doyle NET DEVELOPER CONSULTANT-C Work Phone: [facility] 07-27-2024 09:14-0400 Body weight 90.71 kg Pan Doyle NET DEVELOPER CONSULTANT-C Work Phone: [facility] 07-03-2024 15:32-0400 Body height 167.6 cm Sachin Rodríguez MD Work Phone: [facility] 07-03-2024 15:32-0400 Body mass index (BMI) [Ratio] 32.6 kg/m2 Sachin Rodríguez MD Work Phone: [facility] 07-03-2024 15:32-0400 Body temperature 98.01 [degF] Sachin Rodríguez MD Work Phone: [facility] 07-03-2024 15:32-0400 Body weight 91.63 kg Sachin Rodríguez MD Work Phone: [facility] 07-03-2024 15:32-0400 Diastolic blood pressure 81 mm[Hg] Sachin Rodríguez MD Work Phone: [facility] 07-03-2024 15:32-0400 Heart rate 116 /min Sachin Rodríguez MD Work Phone: [facility] 07-03-2024 15:32-0400 Respiratory rate 18 /min Sachin Rodríguez MD Work Phone: [facility] 07-03-2024 15:32-0400 SaO2% (BldA) [Mass fraction] 99 % Sachin Rodríguez MD Work Phone: [facility] 07-03-2024 15:32-0400 Systolic blood pressure 143 mm[Hg] Sachin Rodríguez MD Work Phone: [facility] 06-26-2024 08:37-0400 Body mass index (BMI) [Ratio] 32.5 kg/m2 Pan WELLERC Work Phone: [facility] 06-26-2024 08:37-0400 Body temperature 97.2 [degF] Pan Doyle NP-C Work Phone: [facility] 06-26-2024 08:37-0400 Body weight 91.62 kg Pan Doyle NP-C Work Phone: [facility] 06-26-2024 08:37-0400 Diastolic blood pressure 76 mm[Hg] Pan Doyle NP-C Work Phone: [facility] 06-26-2024 08:37-0400 Heart rate 94 /min Pan Vivek NET DEVELOPER CONSULTANT-C Work Phone: [facility] 06-26-2024 08:37-0400 Respiratory rate 16 /min Pan Doyle NET DEVELOPER CONSULTANT-C Work Phone: [facility] 06-26-2024 08:37-0400 SaO2% (BldA) [Mass fraction] 97 % Pan Doyle NET DEVELOPER CONSULTANT-C Work Phone: [facility] 06-26-2024 08:37-0400 Systolic blood pressure 110 mm[Hg] Pan Doyle NET DEVELOPER CONSULTANT-C Work Phone: [facility] 06-12-2024 08:21-0400 Body height 167.64 cm Pan Doyle NET DEVELOPER CONSULTANT-C Work Phone: [facility] 06-12-2024 08:21-0400 Body mass index (BMI) [Ratio] 33.4 kg/m2 Pan Doyle NET DEVELOPER CONSULTANT-C Work Phone: [facility] 06-12-2024 08:21-0400 Body temperature 97.7 [degF] Pan Doyle NET DEVELOPER CONSULTANT-C Work Phone: [facility] 06-12-2024 08:21-0400 Body weight 93.89 kg Pan Doyle NET DEVELOPER CONSULTANT-C Work Phone: [facility] 06-12-2024 08:21-0400 Diastolic blood pressure 81 mm[Hg] Pan Doyle NET DEVELOPER CONSULTANT-C Work Phone: [facility] 06-12-2024 08:21-0400 Heart rate 103 /min Pan Doyle NET DEVELOPER CONSULTANT-C Work Phone: [facility] 06-12-2024 08:21-0400 Respiratory rate 16 /min Pan Doyle NET DEVELOPER CONSULTANT-C Work Phone: [facility] 06-12-2024 08:21-0400 SaO2% (BldA) [Mass fraction] 99 % Pan Doyle NET DEVELOPER CONSULTANT-C Work Phone: [facility] 06-12-2024 08:21-0400 Systolic blood pressure 149 mm[Hg] Pan Doyle NET DEVELOPER CONSULTANT-C Work Phone: [facility] 03-19-2024 11:15-0500 Diastolic blood pressure 93 mm[Hg] Pan Doyle NET DEVELOPER CONSULTANT-C Work Phone: [facility] 03-19-2024 11:15-0500 Heart rate 110 /min Pan Doyle NET DEVELOPER CONSULTANT-C Work Phone: [facility] 03-19-2024 11:15-0500 Respiratory rate 18 /min Pan Doyle NET DEVELOPER CONSULTANT-C Work Phone: [facility] 03-19-2024 11:15-0500 SaO2% (BldA) [Mass fraction] 96 % Pan Doyle NET DEVELOPER CONSULTANT-C Work Phone: [facility] 03-19-2024 11:15-0500 Systolic blood pressure 139 mm[Hg] Pan Doyle NET DEVELOPER CONSULTANT-C Work Phone: [facility] 03-19-2024 09:28-0500 Body mass index (BMI) [Ratio] 31.9 kg/m2 Pan Doyle NET DEVELOPER CONSULTANT-C Work Phone: [facility] 03-19-2024 09:28-0500 Body weight 89.81 kg Pan Doyle NET DEVELOPER CONSULTANT-C Work Phone: [facility] Encounters Encounter Date Encounter Type Care Provider Facility Start: 11-19-2024 ambulatory Austin Friend Facility :[facility] Start: 11-14-2024 End: 11-14-2024 ambulatory PAN CADE [facility] Start: 11-14-2024 End: 11-14-2024 Encounter for general adult medical examination without abnormal findings NIRMALA JOHNSON [facility] Start: 11-08-2024 ambulatory PAN CADE [facility] Start: 11-08-2024 Encounter for genera l adult medical examination with abnormal findings PAN CADE [facility] Start: 09-28-2024 End: 09-28-2024 Patient encounter procedure Nirmala LOWERY -Medical Out Work Phone: Start: 09-28-2024 End: 09-28-2024 ambulatory Pan Doyle [employer] Work Phone: -Medical Out Start: 08-24-2024 End: 08-24-2024 Patient encounter procedure Nirmala LOWERY -[facility] Work Phone: Start: 08-24-2024 End: 08-24-2024 ambulatory Pan Doyle [employer]ELOPER CONSULT[employer]-C Work Phone: -Laboratory Start: 08-24-2024 End: 08-24-2024 ambulatory Austin Nguyen Facility:[facility] Start: 08-16-2024 ambulatory Pan Doyle Facility :[facility] Start: 08-07-2024 End: 08-07-2024 ambulatory PAN DOYLE [facility] Start: 07-27-2024 End: 07-27-2024 Patient encounter procedure Nirmala LOWERY -Medical Out Work Phone: Start: 07-27-2024 End: 07-27-2024 ambulatory Pan Doyle NET DEVELOPER CONSULTANT-C Work Phone: [facility] Work Phone: Start: 07-03-2024 End: 07-03-2024 Emergency department patient visit Sachin Rodríguez MD Work Phone: [facility] Emergency Dept Comment on above: Left foot pain (Prim trina Dx); Acute left ankle pain; Calcaneal spur of left foot Start: 06-26-2024 End: 06-26-2024 Patient encounter procedure Nirmala LOWERY -Medical Out Work Phone: Start: 06-26-2024 End: 06-26-2024 ambulatory Pan Doyle Facility:[facility] Start: 06-12-2024 End: 06-12-2024 Patient encounter procedure Nirmala LOWERY -Medical Out Work Phone: Start: 06-12-2024 End: 06-12-2024 ambulatory Pan Doyle NET DEVELOPER CONSULTANT-C Work Phone: [facility] Work Phone: Start: 05-04-2024 End: 05-04-2024 Patient encounter procedure Nirmala LOWERY -[facility] Work Phone: Start: 05-04-2024 End: 05-04-2024 ambulatory Pan Doyle Facility:[facility] Start: 03-19-2024 End: 03-19-2024 Patient encounter procedure Nirmala LOWERY -[facility] Work Phone: Start: 03-19-2024 End: 03-19-2024 ambulatory Pan Doyle Facility:[facility] Start: 01-10-2024 End: 01-10-2024 ambulatory PAN [facility] Start: 01-06-2024 ambulatory Pan Doyle Facility :[facility] Start: 12-15-2023 End: 12-15-2023 ambulatory Pan Doyle Facility:[facility] Start: 11-28-2023 End: 11-28-2023 ambulatory Austin Nguyen Facility:[facility] Start: 11-24-2023 End: 11-24-2023 ambulatory Som Martinez Facility:[facility] Start: 11-23-2023 ambulatory PAN CADE [facility] Start: 11-17-2023 End: 11-17-2023 ambulatory PAN [facility] Start: 09-29-2023 End: 09-29-2023 ambulatory SANAY WO ID REFERRING Facility:A Start: 09-08-2022 Encounter for other preprocedural examination JAYANT EDWARDS [facility] Start: 09-08-2022 ambulatory JAYANT EDWARDS Facility:[facility] Start: 08-23-2022 End: 08-23-2022 ambulatory PAN DOYLE Facility:[facility] Start: 12-07-2016 End: 12-07-2016 Ambulatory RAMIRO GUPTA Facility: Start: 08-04-2016 End: 08-04-2016 Patient encounter procedure Fei Conklin (HistAmaris Colbype Work Phone: [facility] Start: 08-04-2016 Results Only Jossiecris Jaimes sierra (Hist) Claire Work Phone: [facility] Procedures Date Procedure Procedure Detail Performing Clinician Start: 08-24-2024 Hepatitis A virus an tibody, IgM type Pan Vivek NET DEVELOPER CONSULTANT-C Work Phone: Comment on above: A negative anti-HAV IgM result suggests no recent orcurrent HAV infection. Start: 08-24-2024 Hepatitis B core ant ibody measurement, IgM type Pan Vivek [employer]ELOPER CONSULT[employer]C Work Phone: Start: 08-24-2024 Hepatitis C antibody measurement Pan Vivek [employer]ELOPER CONSULT[employer] Work Phone: Start: 08-24-2024 In-vitro immunologic test Pan Doyle [employer] DEVELOPER CONSULTANT[employer]C Work Phone: Comment on above: QuantiFERON-TB Gold [...] Start: 03-19-2024 MRI of small intestine Pan Doyle NET DEVELOPER CONSULTANT-C Work Phone: Start: 08-04-2016 CONVERTED SURGICAL PATHOLOGY Fei Conklin (Hist) Claire Work Phone: Plan of Treatment Date Care Activity Detail Author Start: 10-29-2024 Influenza vaccination given INFLUENZA VACCINE (Season Ended) [facility] Start: 08-24-2024 C reactive protein [Mass/volume] in Serum or Plasma [facility] Start: 08-24-2024 Comprehensive metabolic 2000 panel - Serum or Plasma [facility] Start: 06-26-2024 Chemotherapy admn iv infusion tq ea hr CHEMO IV INFUSION ADDL HR [facility] Start: 06-26-2024 Chemotx admn iv nfs tq up 1 hr 02/28 sbst/drug CHEMO IV INFUSION 1 HR [facility] Start: 03-19-2024 Following clinical pathway protocol [facility] Start: 10-30-2023 COVID-19 VACCINE ( season) COVID-19 VACCINE ( season) [facility] Start: 10-30-2019 Influenza vaccination INFLUENZA (#1) [facility] Start: 02-15-2018 SHINGRIX VACCINE (1 of 2) SHINGRIX VACCINE (1 of 2) [facility] Start: 02-15-2018 Tuberculosis screening COLORECTAL CANCER SCREENING,SEE MODIFIER [facility] Start: 02-15-2018 Zoster vaccine hzv live for subcutaneous use ZOSTER (SHINGLES) VACCINE (1 of 2) [facility] Start: 02-15-2013 DIABETES SCREEN DIABETES SCREEN [facility] Start: 02-15-2013 LIPID SCREEN LIPID SCREEN [facility] Start: 02-15-2013 Screening for malignant neoplasm of colon [facility] Start: 2008 Mammography MAMMOGRAM [facility] Start: 2008 Screening for malignant neoplasm of breast MAMMOGRAM [facility] Start: 02-15-1998 HPV TESTING HPV TESTING [facility] Start: 02-15-1989 PAP TESTING PAP TESTING [facility] Start: 02-15-1987 Pneumococcal 23-valent polysaccharide vaccination given (situation) PNEUMOCOCCAL VACCINE: 50+ YEARS (1 of 2 - PCV) [facility] Start: 02-15-1987 Urine microalbumin profile DTAP,TDAP,TD (1 - Tdap) [facility] Start: 02-15-1986 ANNUAL WELLNESS VISIT ANNUAL WELLNESS VISIT [facility] Start: 02-15-1986 HEPATITIS C SCREENING HEPATITIS C SCREENING [facility] Start: 02-15-1986 HIV SCREENING HIV SCREENING [facility] Start: 1980 Depression screening using PHQ-9 (Patient Health Questionnaire 9) score DEPRESSION SCREENING [facility] Start: 02-15-1979 Administration of diphtheria + tetanus + acellular pertussis vaccine DTAP/TDAP/TD VACCINE (1 - Tdap) [facility] Start: 1968 HPV/COTEST HPV/COTEST [facility] Start: 1968 Screening for malignant neoplasm of cervix [facility] Alanine aminotransfe rase [Enzymatic activity/volume] in Serum or Plasma [facility] Albumin [Mass/volume ] in Serum or Plasma [facility] Alkaline phosphatase [Enzymatic activity/volume] in Serum or Plasma [facility] Anion gap in Serum o r Plasma [facility] Bilirubin, total measurement [facility] BUN/Creatinine ratio [facility] C reactive protein [Mass/volume] in Serum or Plasma [facility] Calcium [Mass/volume ] in Serum or Plasma [facility] Carbon dioxide, tota l [Moles/volume] in Central venous blood [facility] Creatinine [Mass/vol ume] in Serum or Plasma [facility] Erythrocyte sediment ation rate [facility] Glucose [Mass/volume ] in Serum or Plasma [facility] Hepatitis A virus Ig M Ab [Presence] in Serum [facility] Hepatitis B core ant ibody measurement, IgM type [facility] Hepatitis B surface antigen measurement [facility] Hepatitis C antibody measurement [facility] In-vitro immunologic test [facility] Measurement of renal function [facility] Mycobacterium tuberc ulosis tuberculin stimulated gamma interferon [Presence] in Blood [facility] Potassium measurement [facility] Protein measurement [facility] Serum chloride measurement [facility] Sodium measurement [facility] Total protein measurement [facility] Urea nitrogen [Mass/ volume] in Serum or Plasma [facility] Payers Date Payer Category Payer Medicaid (Managed Care) [facility] MEDICAID [id number] 2023 Self-pay 2023 Medicaid [id number] 2023 Unknown [id number] 2022 Unknown [id number] 2016 Unknown [id number] 1968 Unknown [id number] 2.16.840.1.287057.3.579.2. 627 1968 Unknown [id number] 2.16.840.1.214575.3.579.2. 297 1968 Unknown [id number] 2.16.840.1.261396.3.579.2. 297 1968 Unknown [id number] 2.16.840.1.769667.3.579.2. 297 1968 Unknown [id number] 2.16.840.1.366209.3.579.2. 297 1968 Unknown [id number] 2.16.840.1.110965.3.579.2. 651 1968 Unknown [id number] 2.16.840.1.883014.3.579.2. 651 1968 Unknown [id number] 2.16.840.1.482383.3.579.2. 651 Unknown [id number] Unknown [id number] 2.16.840.1.675016.3.579.2. 462 Unknown [id number] 2.16.840.1.263093.3.579.2. 462 Unknown [id number] 2.16.840.1.853945.3.579.2. 462 Unknown [id number] 2.16.840.1.355357.3.579.2. 462 Unknown [id number] 2.16.840.1.657322.3.579.2. 462 Unknown [id number] 2.16.840.1.845989.3.579.2. 462 Unknown [id number] 2.16.840.1.297814.3.579.2. 462 Unknown [id number] 2.16.840.1.325705.3.579.2. 462 Unknown [id number] 2.16.840.1.126555.3.579.2. 462 Unknown [id number] 2.16.840.1.030170.3.579.2. 462 Unknown [id number] 2.16.840.1.796356.3.579.2. 462 Unknown [id number] 2.16.840.1.796700.3.579.2. 462 Unknown [id number] 2.16.840.1.612729.3.579.2. 462 Unknown [id number] 2.16.840.1.569394.3.579.2. 462 Unknown [id number] 2.16.840.1.298895.3.579.2. 462 Unknown [id number] 2.16.840.1.056773.3.579.2. 462 Unknown [id number] 2.16.840.1.053116.3.579.2. 462 Unknown [id number] 2.16840.1.367859.3.579.2. 462 Social History Date Type Detail Facility Start: 06-21-2016 End: 11-24-2023 Tobacco smoking status FLIS Current every day smoker [facility] History of tobacco use Cigarette Smoker [facility] Start: 06-21-2016 End: 07-03-2024 Cigarettes smoked current (pack per day) - Reported [facility] Start: 06-21-2016 End: 07-03-2024 Tobacco use and exposure Never used [facility] Start: 06-21-2016 Alcohol intake Not Asked [facility] Start: 06-21-2016 Alcohol Comment stopped in 1997 [facility] Start: 1970 Sex Assigned At Not on file [facility] Start: 06-13-2024 Sex Female (finding) [facility] Start: 1970 Sex Assigned At Female [facility] History of tobacco use Electroni c cigarette user (finding) [facility] Start: 07-03-2024 Alcoholic beverage intake Current non-drinker of alcohol (finding) [facility] Start: 07-03-2024 Tobacco use panel [facility] Mental Status Date Assessment Result Facility 09-28-2024 Cognitive function Awake;Alert;A ppropriate;Fol lows Commands [facility] Work Phone: 07-27-2024 Cognitive function Voice/Name [facility] Work Phone: 06-26-2024 Cognitive function Voice/Name [facility] Work Phone: 06-12-2024 Cognitive function Voice/Name [facility] Work Phone: 03-19-2024 Cognitive function Voice/Name [facility] Work Phone: Clinical Notes 08-23-2022 to 08-24-2024 Note Date & Type Note Facility 08-24-2024 Evaluation note Diagnosis Onset Date Resolution Akers's esophagus with dysplasia acute August 24, 2024 9:30am Crohn disease acute August 24, 2024 9:30am [facility] Work Phone: 1(725) 287-897406-27-2025 [facility] [address] [place] [address] OFFICE VISIT Date of Service: 08/24/24 MR#: [id number] Acct: [id number] Name: TAD GRANT Rep #: [id number] : 1970 Provider: BEVERLEY Elena Age/Sex: 54/F Location: [facility] Status: Signed Intake Vital Signs 07/27/24 09:14 [...] abdominal pain, gas, bloating, and difficulty swallowing. [facility] Medical History Post-menopausal No natural teeth Depression [...] the office today for f/u. BGI established 8. with long hc of acid reflux and barretts esophagus. About 6 months ago pt started having recurrent thrush and bad taste in her mouth. At this time she also started having 6 loose bm per day. She underwent colonoscopy which revealed severe inflammation in the terminal ileum and benign- appearing, intrinsic severe stenosis. Colonoscopy 11.28.23; - The entire examined colon is normal. - Inflammatory bowel disease. Inflammation was found. This was severe. Biopsied. - Stricture in the terminal ileum. MRE .; Discontiguous segments of abnormal small bowel that [...] to vomiting. She has not been eating muchbut is not losing weight. She continues with [...] cooperative, healthy appearing and comfortable Orientation: alert [facility] Head: normal to inspection Eyes General: appearance [...] is a 54 yo female pt here [facility] for f/u regarding her Barretts esophagusand Crohns disease.Pt diagnosed with Crohns in 2023 after colonoscopy and MRE showing severe Crohns disease. Pt was started on Mesalamine therapy due to INS not approving biologic therapy. She was treated with this for6 months and then started on Inflectra infusions a few months back. She has had about 2-3 infusionsso far with no relief in her symptoms. [...] She will be rescheduled today.SHe has a hxof Akers esophagus. I have increased her PPI [...] Akers's esophagus with dysplasia K22.719 08/24/24 1013 sov PA> Date _ Nirmala LOWERY Cosigner Signature: Date (if applicable) CC: ~ [facility]05-06-2025 Hospital Discharge instructions* Discharge Instructions* Sachin Rodríguez MD - 07/03/2024 4:39 PM EDT Follow up with your primary care doctor. Please return to the Emergency Department for any new or worsening symptoms. [facility] Emergency department Note* Sachin Rodríguez MD - 07/03/2024 3:29 PM EDT Images from the original note were not included. [facility] Emergency Department - [place] ED Course/Medical Decision Making: Tad Grant, date [...] the ED with any new or worsening symptoms.Patient amenable to plan Differential diagnosis (including but [...] symptoms Patient amenable to plan Admitted to [facility] (order placed in [facility]): Yes Disposition: DC Chief Complaint: Patient presents with Chief Complaint Patient presents with Foot Pain Left HPI Tad Grant, date of 1970, is a 54 y.o. female with no pertinent past medical history who presents to the Emergency Department with/for left foot pain x 2.5 weeks. Denies any Pichlerfall or injury. States there was some swelling [...] formation Sachin Rodríguez MD 07/03/24, 4:38 PM [facility] Emergency Physicians This note was partially generated using eCozy Dictation system, and there may be some incorrect words, spellings, and punctuation that were not noted in checking the note before saving. Sachin Rodríguez MD 07/03/24 1638 [facility]05-06-2025 Emergency department Note* Sachin Rodríguez MD - 07/03/2024 3:29 PM EDT Images from the original note were not included. [facility] Emergency Department - [place] ED Course/Medical Decision Making: Tad Grant, date [...] or vomiting. Plan for x-rays and reassessment. 163 XR Ankle Left 3 View (Routine) 1. Diffuse soft tissue swelling which could be due to third spacing of fluid or cellulitis. 2. No acute osseous finding 3. Calcaneal spur formation 163 Unlikley cellulitis given chronicity of symptoms as well as no overlying skin changes 163 On reassessment patient continues to do well. Given pain with bending of her foot, patient given hard sole shoe and referral to podiatry. Given close return precautions. Encouraged to follow up with their PCP. Discharged with instructions to return to the ED with any new or worsening symptoms.Patient amenable to plan Differential diagnosis (including but [...] symptoms Patient amenable to plan Admitted to [facility] (order placed in [facility]): Yes Disposition: DC Chief Complaint: Patient presents with Chief Complaint Patient presents with Foot Pain Left HPI Tad Grant, date of 1970, is a 54 y.o. female with no pertinent past medical history who presents to the Emergency Department with/for left foot pain x 2.5 weeks. Denies any Pichlerfall or injury. States there was some swelling [...] formation Sachin Rodríguez MD 07/03/24, 4:38 PM [facility] Phys[facility] This note was partially generated using eCozy Dictation system, and there may be some incorrect words, spellings, and punctuation that were not noted in checking the note before saving. Sachin Rodríguez MD 07/03/24 1638 * Kamilla Godwin RN - 07/03/2024 3:27 PM EDT Pt arrives to ED via private vehicle with c/o left foot pain and swelling that started approx 2.5 weeks ago. Pt denies any known injury or falls. Pt states her foot feels tingly at times and that thesensation feels diminished compared to her right foot. Pt states it is painful to move her toes. Pthas a positive left pedal pulse to palpation. Skin is warm to the touch. Pt A/Ox3 with PWD skin. Respirs easy, unlabored, in NAD. documented in this [facility]05-06-2025 Emergency department Triage note* Kamilla Godwin RN - 07/03/2024 3:27 PM EDT Pt arrives to ED via private vehicle with c/o left foot pain and swelling that started approx 2.5 weeks ago. Pt denies any known injury or falls. Pt states her foot feels tingly at times and that thesensation feels diminished compared to her right foot. Pt states it is painful to move her toes. Pthas a positive left pedal pulse to palpation. Skin is warm to the touch. Pt A/Ox3 with PWD skin. Respirs easy, unlabored, in NAD. [facility]03-07[facility]2025 Evaluation note* Diagnosis Onset Date Resolution Status Admit Date Crohn disease acute May 04, 2024 10:51am Rheumatoid arthritis acute Shaq h 2024 10:51am [facility] Work Phone: 1(365) 165-954303-07-2025 Evaluation note* Diagnosis Onset Date Resolution Status Admit Date Crohn disease acute May 04, 2024 10:51am Rheumatoid arthritis acute Shaq h 2024 10:51am Akers's esophagus with dysplasia acute August 24, 2024 9:30am Crohn disease acute August 24, 2024 9:30am [facility] Work Phone: 1(862) 655-386809-30-2024 [facility] Medical Records Department [address] [place] [address] History Physical Exam 11/28/23 0639 MR#: [id number] Acct: [id number] Name: TAD GRANT Rep #: [id number] : 1970 53 From: Austin Friend DO PCP: JOMAR Darling Status:[facility] Location: [place] [address] History and Physical Date of Admission: 11/28/23 TAD GRANT, is a 53 F who [...] April or May of this year in [place]. ROS Const Constitutional: Positive for fatigue, headache(s) [...] Appearance: average body habitus and well nourished [facility] Head: normal to inspection Ears: hearing [...] arthritis: Status: Acute Order (more content not included)...[facility]08-17-2023 NoteHNO ID: [id number] Author: Ambrocio Mckinnon Service: ? Author Type: ? Type: Progress Notes Filed: 10/14/2022 4:31 PM Note Text: [id number] NoteHNO ID: [id number] Author: Jayant Edwards MD Service: ? Author [...] addiction as well as (more content not included)...[facility] Left foot pain- Primary Pain in limb Acute left ankle pain Calcaneal spur of left foot Calcaneal spur documented [facility] Author Nirmala Johnson [facility] Note Date/Time August 24, 2024 10:1 3am [facility] [address] [place] [address] OFFICE VISIT Date of Service: 08/24/24 MR#: [id number] Acct: [id number] Name: TAD GRANT Rep #: [id number] : 1970 Provider: BEVERLEY Elena Age/Sex: 54/F Location: [facility] Status: Signed Intake Vital Signs 07/27/24 [...] abdominal pain, gas, bloating, and difficulty swallowing. [facility] Medical History Post-menopausal No natural teeth Depression [...] the office today for f/u. BGI established 8..24 with long hc of acid reflux and [...] - Stricture in the terminal ileum. MRE .; Discontiguous segments of abnormal small bowel that [...] to her uncontrolled RA. *Start Remicade OV 6..25 Pt has had 2 or 3 infusions [...] cooperative, healthy appearing and comfortable Orientation: alert [facility] Head: normal to inspection Eyes General: appearance [...] is a 54 yo female pt here [facility] for f/u regarding her Barretts esophagusand Crohns [...] signed by Nirmala LOWERY> Date _ Nirmala Caal Signature: Date (if applicable) CC: ~ [facility] Work Phone: Reason for referral (narrative)No reason for referral information availableWWright-Pat[facility] Work Phone: Summary Purpose Family History No [...] Do you have a Healthcare Power of Senior Construction Project Manager? No November 24, 2023 9:39am Chief [...] Crohn disease August 24, 2024 9:30 am Chief Complaint Admit Date INFLECTRA June 12, 2024 8:1 1am INFLECTRA June 26, 2024 8:2 4am INFLECTRA July 27, 2024 8:51a m FU August 24, 2024 9:30 am INT LABS August 24, 2024 10:1 1am INFLECTRA September 28, 2024 9:2 2am Reason for Visit Admit Date Akers's esophagus with dysplasia August 24, 2024 9:30am Crohn disease August 24, 2024 9:30 am Additional Source Comments INFORMATION SOURCE (unrecogn ized section and content) DATE CREATED AUTHOR 08/22/2017 [facility] DATE CREATED AUTHOR AUTHOR'S ORGANIZ ATION 03/22/2020 [facility] DATE CREATED AUTHOR AUTHOR'S ORGANIZ ATION 11/17/2022 [facility] DATE CREATED AUTHOR AUTHOR'S ORGANIZ ATION 10/01/2023 [facility] DATE CREATED AUTHOR AUTHOR'S ORGANIZ ATION 08/08/2024 [facility] DATE CREATED AUTHOR AUTHOR'S ORGANIZ ATION 11/15/2024 [facility] DATE CREATED AUTHOR AUTHOR'S ORGANIZ ATION 11/17/2024 [facility] Source Comments (unrecognize d section and content) In the event this informatio n is protected by the Federal Confidentiality of Alcohol and Drug Abuse Patient Records regulations: The Federal rules restrict any use of the information to criminally investigate or prosecute any alcohol or drug abuse patient.[facility] Care Teams (unrecognized sec tion and content) Team Status: Active Member Role Status Dates Pan Vivek NET DEVELOPER CONSULTANT, NET DEVELOPER CONSULTANT-C Primary Care Provider Active Team Status: Inactive Member Role Status Dates Pan Doyle NET DEVELOPER CONSULTANT, NET DEVELOPER CONSULTANT-C Primary Care Provider Active Start: March 19, 2024 End: March 19, 2024 BEVERLEY Elena Attending Provider Active Start: March 19, 2024 End: March 19, 2024 BEVERLEY Elena Referring Provider Active Start: March 19, 2024 End: March 19, 2024 Team Status: Inactive Member Role Status Dates Pan Doyle NET DEVELOPER CONSULTANT, NET DEVELOPER CONSULTANT-C Primary Care Provider Active Start: May 04, 2024 End: May 04, 2024 Pan Doyle NET DEVELOPER CONSULTANT, NET DEVELOPER CONSULTANT-C Referring Provider Active Start: May 04, 2024 End: May 04, 2024 BEVERLEY Elena Attending Provider Active Start: May 04, 2024 End: May 04, 2024 Team Status: Inactive Member Role Status Dates Pan Doyle NET DEVELOPER CONSULTANT, NET DEVELOPER CONSULTANT-C Primary Care Provider Active Start: June 12, 2024 End: June 12, 2024 BEVERLEY Elena Attending Provider Active Start: June 12, 2024 End: June 12, 2024 BEVERLEY Eelna Referring Provider Active Start: June 12, 2024 End: June 12, 2024 Fire Medic Relationship Specialty Start Date End Date Pan Doyle, NURSE EMERGENCY ROOM [address] [address] PCP - General Nurse Practitioner-Family 07/03/24 Team Status: Inactive Member Role Status Dates Pan Doyle NP, NET DEVELOPER CONSULTANT-C Primary Care Provider Active Start: June 26, 2024 End: June 26, 2024 BEVERLEY Elena Attending Provider Active Start: June 26, 2024 End: June 26, 2024 BEVERLEY Elena Referring Provider Active Start: June 26, 2024 End: June 26, 2024 Team Status: Inactive Member Role Status Dates Pan Doyle NP, NET DEVELOPER CONSULTANT-C Primary Care Provider Active Start: July 27, 2024 End: July 27, 2024 BEVERLEY Elena Attending Provider Active Start: July 27, 2024 End: July 27, 2024 BEVERLEY Elena Referring Provider Active Start: July 27, 2024 End: July 27, 2024 Team Status: Active Member Role/Relationship Status Dates Pan Doyle NET DEVELOPER CONSULTANT, NET DEVELOPER CONSULTANT-C Primary Care Provider Active Team Status: Inactive Member Role/Relationship Status Dates Pan Doyle NET DEVELOPER CONSULTANT, NET DEVELOPER CONSULTANT-C Primary Care Provider Active Start: May 04, 2024 End: May 04, 2024 Pan Doyle NET DEVELOPER CONSULTANT, NET DEVELOPER CONSULTANT-C Referring Provider Active Start: May 04, 2024 End: May 04, 2024 BEVERLEY Elena Attending Provider Active Start: May 04, 2024 End: May 04, 2024 Team Status: Inactive Member Role/Relationship Status Dates Pan Doyle NET DEVELOPER CONSULTANT, NET DEVELOPER CONSULTANT-C Primary Care Provider Active Start: June 12, 2024 End: June 12, 2024 BEVERLEY Elena Attending Provider Active Start: June 12, 2024 End: June 12, 2024 BEVERLEY Elena Referring Provider Active Start: June 12, 2024 End: June 12, 2024 Team Status: Inactive Member Role/Relationship Status Dates Pan Doyle NET DEVELOPER CONSULTANT, NET DEVELOPER CONSULTANT-C Primary Care Provider Active Start: June 26, 2024 End: June 26, 2024 BEVERLEY Elena Attending Provider Active Start: June 26, 2024 End: June 26, 2024 BEVERLEY Elena Referring Provider Active Start: June 26, 2024 End: June 26, 2024 Team Status: Inactive Member Role/Relationship Status Dates Pan Doyle NET DEVELOPER CONSULTANT, NET DEVELOPER CONSULTANT-C Primary Care Provider Active Start: July 27, 2024 End: July 27, 2024 BEVERLEY Elena Attending Provider Active Start: July 27, 2024 End: July 27, 2024 BEVERLEY Elena Referring Provider Active Start: July 27, 2024 End: July 27, 2024 Team Status: Inactive Member Role/Relationship Status Dates Pan Doyle NET DEVELOPER CONSULTANT, NET DEVELOPER CONSULTANT-C Primary Care Provider Active Start: August 24, 2024 End: August 24, 2024 Pan Doyle NET DEVELOPER CONSULTANT, NET DEVELOPER CONSULTANT-C Referring Provider Active Start: August 24, 2024 End: August 24, 2024 BEVERLEY Elena Attending Provider Active Start: August 24, 2024 End: August 24, 2024 Team Status: Inactive Member Role/Relationship Status Dates Pan Doyle NET DEVELOPER CONSULTANT, NET DEVELOPER CONSULTANT-C Primary Care Provider Active Start: August 24, 2024 End: August 24, 2024 BEVERLEY Elena Attending Provider Active Start: August 24, 2024 End: August 24, 2024 BEVERLEY Elena Referring Provider Active Start: August 24, 2024 End: August 24, 2024 Dr. Austin Nguyen , DO Other Provider Active St art: August 24, 2024 End: August 24, 2024 Team Status: Active Member Role/Relationship Status Dates Pan Doyle NP, NET DEVELOPER CONSULTANT-C Primary Care Provider Active Start: August 24, 2024 BEVERLEY Elena Attending Provider Active Start: August 24, 2024 BEVERLEY Elena Referring Provider Active Start: August 24, 2024 Dr. Austin Nguyen , DO Other Provider Active St art: August 24, 2024 Team Status: Inactive Member Role/Relationship Status Dates Pan Doyle NP, NET DEVELOPER CONSULTANT-C Primary Care Provider Active Start: June 12, 2024 End: June 12, 2024 BEVERLEY Elena Attending Provider Active Start: June 12, 2024 End: June 12, 2024 BEVERLEY Elena Referring Provider Active Start: June 12, 2024 End: June 12, 2024 Team Status: Inactive Member Role/Relationship Status Dates Pan Doyle NET DEVELOPER CONSULTANT, NET DEVELOPER CONSULTANT-C Primary Care Provider Active Start: June 26, 2024 End: June 26, 2024 BEVERLEY Elena Attending Provider Active Start: June 26, 2024 End: June 26, 2024 BEVERLEY Elena Referring Provider Active Start: June 26, 2024 End: June 26, 2024 Team Status: Inactive Member Role/Relationship Status Dates Pan Doyle NP, NET DEVELOPER CONSULTANT-C Primary Care Provider Active Start: July 27, 2024 End: July 27, 2024 BEVERLEY Elena Attending Provider Active Start: July 27, 2024 End: July 27, 2024 BEVERLEY Elena Referring Provider Active Start: July 27, 2024 End: July 27, 2024 Team Status: Inactive Member Role/Relationship Status Dates Pan Doyle NP, NET DEVELOPER CONSULTANT-C Primary Care Provider Active Start: August 24, 2024 End: August 24, 2024 Pan Doyle NP, NET DEVELOPER CONSULTANT-C Referring Provider Active Start: August 24, 2024 End: August 24, 2024 BEVERLEY Elena Attending Provider Active Start: August 24, 2024 End: August 24, 2024 Team Status: Inactive Member Role/Relationship Status Dates Pan Doyle NP, NET DEVELOPER CONSULTANT-C Primary Care Provider Active Start: August 24, 2024 End: August 24, 2024 BEVERLEY Elena Attending Provider Active Start: August 24, 2024 End: August 24, 2024 BEVERLEY Elena Referring Provider Active Start: August 24, 2024 End: August 24, 2024 Dr. Austin Nguyen , DO Other Provider Active St art: August 24, 2024 End: August 24, 2024 Team Status: Inactive Member Role/Relationship Status Dates Pan Doyle NP, NET DEVELOPER CONSULTANT-C Primary Care Provider Active Start: September 28, 2024 End: September 28, 2024 BEVERLEY Elena Attending Provider Active Start: September 28, 2024 End: September 28, 2024 BEVERLEY Elena Referring Provider Active Start: September 28, 2024 End: September 28, 2024 Goals (unrecognized section and content) Goals [...] BE BASED ON THE PRIMARY CLINICAL RECORDS. [employer] provides no warranty or guarantee of the accuracy or completeness of information in this document.
--- NOTE | 2024-11-19 07:17 | PRE.ANES_ITS ---
ASA Classification* ASA Classification ASA Classification: 2 Assessment & Plan Anesthesia* Anesthesia Assessment Anesthesia Assessment: Discussed sedation and/or anesthesia options, risks, benefits, and alternatives with patient/parents/legal guardian/POA. Questions invited. The patient/parents/legal guardian/POA seems to understand and agrees to proceed with anesthesia plan. Reviewed the physical assessment, medical history, allergy history and patient home medications list prior to surgery/procedure/anesthetic and documented any changes. Performed airway and anesthesia risk assessments. Anesthesia Type Anesthesia Type: MAC Anesthesia Focused Assessment* Airway Assessment Mouth opens: >3 cm Mallampati Score: II Labs Anesthesia Preop lab: CBC WBC, (4.4-11.0) 12.3 K/mm3 H 08/24/24, 10:21 RBC, (4.2-5.4) 5.61 M/mm3 H 08/24/24, 10:21 Hgb, (12.0-15.0) 14.7 g/dL 08/24/24, 10: Hct, (37-47) 44.1 % 08/24/24, 10:21 Plt Count, (150-450) 411 K/mm3 08/24/24, 10:21 CHEMISTRY Potassium, (3.3-5.1) 4.4 mmol/L 08/24/24, 10:21 Sodium, (133-145) 134 mmol/L 08/24/24, 10:21 BUN, (4-19) 14 mg/dL 08/24/24, 10:21 Creatinine, (0.70-1.20) 0.65 mg/dL L 08/24/24, 10:21 Glucose, (70-99) 94 mg/dL 08/24/24, 10:21 COAG Pre-Assessment Diagnosis/Proposed Procedure Planned Operative Procedure(s): EGD Anesthesia History Anesthesia History - loan review officer: Anesthesia History - loan review officer Hx Hospitalization No 11/12/24 09:43 Any Problems With Anesthesia No 11/12/24 09:43 Cholinesterase deficiency No 11/12/24 09:43 You/Your Family Experience No 11/12/24 09:43 fever (hyperthermia) with Relationship Recent Exposure to Contagious No 11/28/23 06:31 Disease Does patient have nerve No 11/12/24 09:43 stimulator Patient instructed to have device shut off --Does patient have Pacemaker or ICD? When Was Last Pacemaker Check QUESTION #4 FULL TEXT: You/Your Family Experience fever (hyperthermia) with Anesthesia Last Oral Intake Last Oral intake: Last Oral Intake NPO since Meds taken in AM with sips of water? Meds patient instructed to take am of surgery PONV PONV - loan review officer: PONV - loan review officer Female Yes 11/12/24 09:43 HX of Motion Sickness No 11/12/24 09:43 HX of N/V After Surgery No 11/12/24 09:43 Non-Smoker No 11/12/24 09:43 Duration of Surgery greater No 11/12/24 09:43 than 60 minutes Number of Risk Factors 1 11/12/24 09:43 PONV Score Low Risk 11/12/24 09:43 Height & Weight Height & Weight: Anesthesia: Height & Weight Height 5 ft 6 in 09/28/24 09:55 Respiratory Assessment Respiratory Assessment - loan review officer: Respiratory Tract Infection Hx - loan review officer Hx Respiratory Tract Infection No 11/12/24 09:43 STOP Sleep Apnea STOP Sleep Apnea - loan review officer: STOP Sleep Apnea - loan review officer Hx Hypertension No 11/12/24 09:43 Hx Sleep Apnea No 11/12/24 09:43 CPAP BIPAP Do you snore loudly (louder No 11/12/24 09:43 than talking or can be heard Do you often feel tired/ No 11/12/24 09:43 fatigued/ sleepy during daytime? Has anyone observed you stop No 11/12/24 09:43 breathing during sleep? STOP Results Negative 11/12/24 09:43 QUESTION #5 FULL TEXT : Do you snore loudly (louder than talking or can be heard through closed doors)? Tobacco Use History Tobacco Use History - loan review officer: Tobacco Use History - loan review officer Tobacco Use Smoking Status Current every day smoker 11/12/24 09:43 Hx Tobacco Use Yes 11/12/24 09:43 Years Smoking Packs Smoked per Day Smoking Cessation Date was within the last 15 years Hx Smoking Cessation Date Hx Smoking Cessation Counseling Hematologic Medial History Hematologic Hx - loan review officer: Hematologic Medical Hx - adult protective caseworker Hx of Blood Transfusion No 11/12/24 09:43 Hx of Transfusion in last 3 No 11/12/24 09:43 Months Date of Last Transfusion (if within last 3 months) Ever experience any problems No 11/12/24 09:43 with transfusion(s)? Specify any problems Hx of Preganancy in last 3 No 11/12/24 09:43 Months Nurse Filling Out Transfusion [facility] 11/12/24 09:43 & Questions: Date: 11/12/24 11/12/24 09:43 Time: 09:53 11/12/24 09:43 Patient unable to answer at this time (ie. confused, unrespo /Reproduction History /Reproductive History - loan review officer: /Reproductive Hx- loan review officer Hx Now No 11/12/24 09:43 Gestational Age (in weeks): EDC: Hx Hx Para Hx Section SAB No 11/12/24 09:43 [facility] Medical History Wears glasses Bruising Difficulty swallowing Gastric reflux Chronic cough History of pain when walking Post-menopausal No natural teeth Depression Easy bruising Migraine headache History of hiatal hernia History of Crohn's disease Leg cramps History of edema History of stress test History of cyst of breast History of rheumatoid arthritis History of irritable bowel syndrome Black tongue Barretts esophagus Tattoo granuloma Smoker Foreign body reaction to tattoo dyes GERD (gastroesophageal reflux disease) Benign breast cyst in female Back problem Arthritis Home Medications ?Medication ?Instructions ?Recorded ?Last Taken ?Type albuterol sulfate 90 mcg/actuation 2 puff inhalation Q 4-6H PRN 09/02/23 11/28/23 History aerosol inhaler shortness of breath or wheez ing amitriptyline 50 mg tablet 50 mg PO QHS 08/24/24 Unkno wn History pramipexole 1 mg tablet 1 mg PO QDAY 08/24/24 Unknow n History pantoprazole 40 mg tablet,delayed 40 mg PO BID #90 tab s 09/04/24 Unknown Rx release Allergy/AdvReac Type Severity Reaction Status Date / Time Iodinated Contrast Media Allergy Mild Hives Verified 11/12/24 09:41 Family History Sister Anxiety and depression Psychiatric care Suicide attempt Thyroid disorder Sister Anxiety and depression Brother Asthma Mother Anxiety and depression Diabetes Psychiatric care Suicide attempt Father Colon cancer Diabetes Hypertension Son defect Uncle History of blood transfusion Colon cancer Diabetes Aunt Diabetes Grandmother Diabetes Psychiatric care Grandmother Diabetes Surgical History History of removal of cyst History of elbow surgery History of esophagogastroduodenoscopy (EGD) History of colonoscopy History of appendectomy History of cholecystectomy Previous section Social History Smoking Status: Current every day smoker tobacco type: cigarettes Tobacco: How many years used: 40 alcohol intake: never substance use type: does not use caffeine: Yes Type: coffee Number of servings: 1 additional social history: Does Not Take Aspirin Does Not Take Ibuprofen denies vaping, denies marijuana use, denies edibles Review of Systems (Anesthesia) ROS Narrative System reviewed and no additional complaints, except as documented.
--- NOTE | 2024-11-19 07:23 | PCM.HP.STD ---
HPI - General General Date of Admission: 11/19/24 Date of Service: 11/19/24 Chief Complaint: Akres's esophagus HPI Narrative RADHA CHEW is a 54 F who presents surviallence of akers's esophagus Details: RADHA CHEW is a 54 F who presents to the office today for f/u. [facility] established 8 with long hc of acid reflux and barretts esophagus. About 6 months ago pt started having recurrent thrush and bad taste in her mouth. At this time she also started having 6 loose bm per day. She underwent colonoscopy which revealed severe inflammation in the terminal ileum and benign-appearing, intrinsic severe stenosis. Colonoscopy 11.28.23; - The entire examined colon is normal. - Inflammatory bowel disease. Inflammation was found. This was severe. Biopsied. - Stricture in the terminal ileum. MRE .; Discontiguous segments of abnormal small bowel that demonstrate wall thickening, narrowing of the lumen, hyperemia of the mucosa and wall postcontrast and engorgement of the adjacent vasa recta. This includes a long segment of distal and terminal ileum measuring up to 30 cm and a shorter 10 cm segment of small bowel more proximally in the anterior abdomen. Findings are compatible with Crohn''s disease. No adjacent fluid collections. *Attempted to start pt on biologic therapy but insurance required failure of 5-ASA therapy first. Pt started on mesalamine. OV 3.7.25 Pt continues with diarrhea at least 4 times per day and some mild constipation on occasion. She continues to have joint pain relating to her uncontrolled RA. *Start Remicade OV 6.27.25 Pt has had 2 or 3 infusions of the inflectra so far. She has not noticed any difference in her symptoms. SHe has diarrhea a few times per week and will strain to go other times. She has reflux symptoms especially during the night. She will wake up to vomiting. She has not been eating much but is not losing weight. She continues with PPI and famotidine. She had to cancel her EGD but would like to reschedule. [facility] Medical History Wears glasses Bruising Difficulty swallowing Gastric reflux Chronic cough History of pain when walking Post-menopausal No natural teeth Depression Easy bruising Migraine headache History of hiatal hernia History of Crohn's disease Leg cramps History of edema History of stress test History of cyst of breast History of rheumatoid arthritis History of irritable bowel syndrome Black tongue Barretts esophagus Tattoo granuloma Smoker Foreign body reaction to tattoo dyes GERD (gastroesophageal reflux disease) Benign breast cyst in female Back problem Arthritis Home Medications ?Medication ?Instructions ?Recorded ?Last Taken ?Type albuterol sulfate 90 mcg/actuation 2 puff inhalation Q4-6H PRN 09/02/23 11/28/23 History aerosol inhaler shortness of breath or wheezing amitriptyline 50 mg tablet 50 mg PO QHS 08/24/24 Unknown History pramipexole 1 mg tablet 1 mg PO QDAY 08/24/24 Unknown History pantoprazole 40 mg tablet,delayed 40 mg PO BID #90 tabs 09/04/24 Unknown Rx release Allergy/AdvReac Type Severity Reaction Status Date / Time Iodinated Contrast Media Allergy Mild Hives Verified 11/12/24 09:41 Family History Sister Anxiety and depression Psychiatric care Suicide attempt Thyroid disorder Sister Anxiety and depression Brother Asthma Mother Anxiety and depression Diabetes Psychiatric care Suicide attempt Father Colon cancer Diabetes Hypertension Son defect Uncle History of blood transfusion Colon cancer Diabetes Aunt Diabetes Grandmother Diabetes Psychiatric care Grandmother Diabetes Surgical History History of removal of cyst History of elbow surgery History of esophagogastroduodenoscopy (EGD) History of colonoscopy History of appendectomy History of cholecystectomy Previous section Social History Smoking Status: Current every day smoker tobacco type: cigarettes Tobacco: How many years used: 40 alcohol intake: never substance use type: does not use caffeine: Yes Type: coffee Number of servings: 1 additional social history: Does Not Take Aspirin Does Not Take Ibuprofen denies vaping, denies marijuana use, denies edibles ROS Constitutional Constitutional: Denies fatigue, fever(s), poor appetite, weight gain or weight loss Gastrointestinal Gastrointestinal: Denies belching, bloating, change in bowel habits, change in stool character, chewing difficulty, coffee ground emesis, constipation, cramping, diarrhea, dyspepsia, dysphagia, early satiety, excessive flatus, fecal incontinence, heartburn, hematemesis, hematochezia, hemorrhoids, loose stools, melena, nausea, odynophagia, rectal bleeding, tenesmus, vomiting or weight changes Physical Exam Const alert, oriented x3, no apparent distress and healthy appearing General Appearance: cooperative GI normal to inspection, nondistended, normoactive bowel sounds, soft to palpation, non-tender and non-distended Percussion: normal to percussion Rectal Exam: deferred Assessment & Plan Assessment/Plan (1) Akers's esophagus with dysplasia: PLAN: Assessment and Plan Assessment and Plan (1) Crohn disease: Status: Acute Plan: Radha is a 54 yo female [facility] her Barretts esophagus and Crohns disease. Pt diagnosed with Crohns in 2023 after colonoscopy and MRE showing severe Crohns disease. Pt was started on Mesalamine therapy due to INS not approving biologic therapy. She was treated with this for 6 months and then started on Inflectra infusions a few months back. She has had about 2-3 infusions so far with no relief in her symptoms. She will continue infusion as she may need a to have a few more before her blood level is therapeutic. I will order CBC, CMP, ESR and CRP to monitor her inflammation. She has a lot of upper GI symptoms at this time with nocturnal reflux, nausea and early satiety. SHe has been scheduled for EGD but has had to cancel. She will be rescheduled today. SHe has a hx of Akers esophagus. I have increased her PPI to 40 mg BID and she will continue famotiidne as needed. -Continue Inflectra -CBC, CMP, ESR and CRP -EGD -Increase pantoprazole to 40 mg BID -Continue famotidine PRN -EGD -f/u in 3 months (2) Akers's esophagus with dysplasia: Status: Acute Orders: Orders CBC W/Diff, Automated Today K50.90 - Crohn's disease, unspecified, without complications Comprehensive Metabolic Profil Today K50.90 - Crohn's disease, unspecified, without complications Erythrocyte Sed Rate Today K50.90 - Crohn's disease, unspecified, without complications CRP Today K50.90 - Crohn's disease, unspecified, without complications Medications: New pantoprazole 40 mg PO QDAY 90 tabs 2RF
[2024-11-19] MEDS: Lactated Ringers 1,000 ML 15 ML IV (07:38)
--- NOTE | 2024-11-19 08:15 | EGD_PTH ---
PATIENT: TAD CHEW LOC: EN U#:[id number] AGE/SX: 54/F ROOM: RE11/19/[address]: Dr. Austin Nguyen DO : 1970 BED: DIS: 11/19/2024 SPEC #: [id number] RECD: 11/19/24 09:28 STATUS: TANIYA ANNIKA #: [id number] ELISA: 11/19/24 08:[address]: Austin Nguyen DEPT: SURGICAL PATHOLOGY RECD BY: Jsaon Burgos ENTERED: 11/19/24 13:51 SP TYPE: EGD BIOPSY BRODERICK DR: Karyn Deleon, GREEN CHAINER-C Tissues: A - Esophagus, NOS Procedures: Surgery Specimen Level IV HEADER OPERATION: EGD with biopsy PRE-OP DIAGNOSIS: Mason's esophagus with dysphagia TISSUE SUBMITTED: A- Distal esophagus biopsy MICROSCOPIC DIAGNOSIS A. Distal esophagus, biopsy: * Mason mucosa negative for dysplasia. MICROSCOPIC DESCRIPTION Slides are reviewed. GROSS DESCRIPTION A. Received in fixative is one container labeled with the patient's name and designated Distal esophagus biopsy. The specimen consists of multiple irregular fragments of estrada tissue that in aggregate measure 1.3 x 1 x 0.2 cm. The specimen is totally submitted in one cassette. [place] 11/19/2024 CPT:[id number]
--- NOTE | 2024-11-19 09:02 | OP.PROVAT_ITS ---
11/19/2024 Cailin Darling Re : Upper GI endoscopy procedure for Radha Walsh Adrienne This procedure was performed on Tuesday, November 19, 2024. My impressions and recommendations are as follows: Impressions : - Esophageal mucosal changes secondary to established long-segment Mason's disease. Biopsied. - Medium-sized hiatal hernia. - No gross lesions in the entire examined duodenum. Recommendations : - Discharge patient to home. - Resume previous diet. - Continue present medications. My findings are described in the full procedure note, which is enclosed. If I can be of further assistance, please feel free to contact me at . Sincerely, Austin Nguyen, 11/19/2024 9:01:33 AM This report has been signed electronically.
--- NOTE | 2024-11-19 09:02 | OP.EGD_ITS ---
Patient Name: Radha Grant Procedure Date: 11/19/2024 8:38 AM Date of : 1970 Age: 54 Procedure: Upper GI endoscopy Indications: Follow-up of Mason's esophagus Providers: Austin Nguyen DO Referring MD: Cailin Darling Medicines: Monitored Anesthesia Care Patient Profile: This is a 54 year old female. Refer to note in patient chart for documentation of history and physical. Patient has symptoms of chronic heartburn and acute nausea. Complications: No immediate complications. Procedure: Pre-Anesthesia Assessment: - Prior to the procedure, a History and Physical was performed, and patient medications and allergies were reviewed. The patient is competent. The risks and benefits of the procedure and the sedation options and risks were discussed with the patient. All questions were answered and informed consent was obtained. Patient identification and proposed procedure were verified by the physician in the pre-procedure area. Mental Status Examination: alert and oriented. Airway Examination: normal oropharyngeal airway and neck mobility. Respiratory Examination: clear to auscultation. CV Examination: normal. Prophylactic Antibiotics: The patient does not require prophylactic antibiotics. Prior Anticoagulants: The patient has taken no anticoagulant or antiplatelet agents except for NSAID medication. ASA Grade Assessment: II - A patient with mild systemic disease. After reviewing the risks and benefits, the patient was deemed in satisfactory condition to undergo the procedure. The anesthesia plan was to use monitored anesthesia care (MAC). Immediately prior to administration of medications, the patient was re-assessed for adequacy to receive sedatives. The heart rate, respiratory rate, oxygen saturations, blood pressure, adequacy of pulmonary ventilation, and response to care were monitored throughout the procedure. The physical status of the patient was re-assessed after the procedure. After obtaining informed consent, the endoscope was passed under direct vision. Throughout the procedure, the patient's blood pressure, pulse, and oxygen saturations were monitored continuously. The Endoscope was introduced through the mouth, and advanced to the second part of duodenum. The upper GI endoscopy was accomplished without difficulty. The patient tolerated the procedure well. Scope In: 8:46:58 AM Scope Out: 8:52:34 AM Total Procedure Duration Time 0 hours 5 minutes 36 seconds Findings: The esophagus and gastroesophageal junction were examined with white light from a forward view and retroflexed position. There were esophageal mucosal changes secondary to established long-segment Mason's disease. These changes involved the mucosa at the upper extent of the gastric folds (44 cm from the incisors) extending to the Z-line (40 cm from the incisors). [place]-colored mucosa was present. The maximum longitudinal extent of these esophageal mucosal changes was 7 cm in length. Mucosa was biopsied with a cold forceps for histology in a targeted manner at intervals of 1 cm in the lower third of the esophagus. One specimen bottle was sent to pathology. Verification of patient identification for the specimen was done. Estimated blood loss was minimal. A medium-sized hiatal hernia was present. No gross lesions were noted in the entire examined duodenum. Impression: - Esophageal mucosal changes secondary to established long-segment Mason's disease. Biopsied. - Medium-sized hiatal hernia. - No gross lesions in the entire examined duodenum. Recommendation: - Discharge patient to home. - Resume previous diet. - Continue present medications. Procedure Code(s): --- Professional --- 86882, Esophagogastroduodenoscopy, flexible, transoral; with biopsy, single or multiple CPT copyright 2021 [employer]. All rights reserved. The codes documented in this report are preliminary and upon business office specialist review may be revised to meet current compliance requirements. Austin Nguyen DO 11/19/2024 9:01:33 AM This report has been signed electronically. Number of Addenda: 0 Note Initiated On: 11/19/2024 8:38 AM
--- NOTE | 2024-11-19 09:02 | PCM.POST.ANE ---
Anesthesia: Postop Eval I Current Vital Signs Temperature: 96.9 F Pulse Rate: 80 Blood Pressure: 102/64 Respiratory Rate: 20 Pulse Ox: 97 Oxygen Delivery Method: Room Air Assessment Airway patent: Yes Spontaneous unlabored respirations: Yes Mental status: Awake and Calm nausea: No Vomiting: No Anesthesia Complication: No Fluid Hydration Crystalloid volume administer (ml): 400 Total IV fluid infused: 400 Progress Note Anesthesia document: Postop Eval 1 completed: Yes
--- NOTE | 2024-11-19 10:15 | PCM.POSTANE2 ---
Anesthesia Postop Eval I Sum Postop Eval Completion status Anesthesia document: Postop Eval 1 completed: Yes Anesthesia Postop Eval I Summary Anesthesia Postop Eval I Summary: Anesthesia Postop Eval I: Assessment Summary Airway patent Yes 11/19/24 09:03 [email or web address] Spontaneous unlabored Yes 11/19/24 09:03 [email or web address] respirations Mental status Awake,Calm 11/19/24 09:03 [email or web address] nausea No 11/19/24 09:03 [email or web address] Vomiting No 11/19/24 09:03 [email or web address] Anesthesia Postop Eval I: Fluid Summary Crystalloid volume administer 400 11/19/24 09:03 [email or web address] (ml) Colloids volume administered ( ml) Blood Product volume administered (ml) Total IV fluid infused 400 11/19/24 09:03 [email or web address] Anesthesia Postop Eval I: Summary Notes Anesthesia Complication No 11/19/24 09:03 [email or web address] Anesthesia Complication Comment: Post-operative progress note Anesthesia: Postop Eval II Evaluation Mental status: Awake Pain Level: 0 nausea: No Vomiting: No
== END 2024-11-19 09:38 | disposition home or self-care (01) ==
LOC: EN 07:13 → AC 07:13
PROVIDERS: PCP Nurse Practitioner Family; Referring Provider Nurse Practitioner Family; Visit Provider Internal Medicine Gastroenterology
PROC: 0DJ08ZZ Inspection of Upper Intestinal Tract, Via Natural or Artificial Opening Endoscopic (ICD-10-PCS; CPT 43235; principal; 2024-11-19 08:10)
DX: K22.719 Barrett's esophagus with dysplasia, unspecified (principal); K50.90 Crohn's disease, unspecified, without complications; K44.9 Diaphragmatic hernia without obstruction or gangrene; Z79.899 Other long term (current) drug therapy; K21.9 Gastro-esophageal reflux disease without esophagitis; Z90.49 Acquired absence of other specified parts of digestive tract; F17.210 Nicotine dependence, cigarettes, uncomplicated; F32.A Depression, unspecified
CPT/HCPCS: 43239; 88305